=== PATIENT | female | born 1970 | race Caucasian/White ===

== ENCOUNTER 2017-10-05 14:21 | Inpatient (IN) | payer SELFPAY ==
[~2017-10-05] VITALS: Ht 152.4 cm; Wt 90.9 kg
[2017-10-05 14:22] VITALS: BP 189/97; PULSE 133; RESP 20; TEMP 99.3; O2SAT 100
[2017-10-05 14:55] LABS: AUTOMATED NEUTROPHIL # 8.8 TH/MM3 (1.8-7.7); BASOPHIL # 0.1 TH/MM3 (0-0.2); BASOPHIL % 0.6 % (0.0-2.0); EOSINOPHIL # 0.1 TH/MM3 (0-0.4); EOSINOPHIL % 0.9 % (0.0-4.0); HEMATOCRIT 25.5 % (35.0-46.0); HEMOGLOBIN 7.7 GM/DL (11.6-15.3); LYMPH % 10.2 % (9.0-44.0); LYMPHOCYTE # 1.1 TH/MM3 (1.0-4.8); MEAN CELL VOLUME 66.4 FL (80.0-100.0); MEAN CORPUSCULAR HGB CONC 30.1 % (32.0-36.0); MEAN PLATELET VOLUME 6.8 FL (7.0-11.0); MONO % 8.4 % (0.0-8.0); MONOCYTE # 0.9 TH/MM3 (0-0.9); NEUT % 79.9 % (16.0-70.0); PLATELET COUNT 742 TH/MM3 (150-450); RED BLOOD COUNT 3.85 MIL/MM3 (4.00-5.30); RED CELL DISTRIBUTION WIDTH 18.9 % (11.6-17.2)
[2017-10-05 15:17] LABS: ALBUMIN 2.6 GM/DL (3.4-5.0); ALT (GPT) 25 U/L (10-53); AST (GOT) 43 U/L (15-37); BLOOD UREA NITROGEN 14 MG/DL (7-18); CHLORIDE 104 MEQ/L (98-107); CREATININE 0.76 MG/DL (0.50-1.00); GLOMERULAR FILTRATION RATE 81 ML/MIN (>89); GLUCOSE,RANDOM 100 MG/DL (74-106); SODIUM (NA) 138 MEQ/L (136-145)
[2017-10-05 15:19] LABS: ALKALINE PHOSPHATASE 98 U/L (45-117); TOTAL BILIRUBIN ADULT 0.2 MG/DL (0.2-1.0); TOTAL PROTEIN 8.6 GM/DL (6.4-8.2)
--- NOTE | 2017-10-05 19:08 | PD ---
HPI Chief Complaint: Skin Problem Time Seen by Provider: 17:51 Travel History International Travel<30 days: No Contact w/Intl Traveler<30days: No Traveled to known affect area: No History of Present Illness HPI 47 year old female patient presents to the emergency department for evaluation of left breast swelling and erythema x one month. Patient recently moved to [place] from [place]. Patient's only medical history of hypertension and neck replacement surgery in 2013. Patient is a fevers, chills, malaise. Patient denies any chest pain, abdominal pain, nausea, vomiting, diarrhea. Patient denies any traumas, falls or injuries to the area. Patient states she become short of breath with exertion. Patient denies any dysuria or hematuria. Patient denies any history of family malignancies. Patient denies any smoking. Patient denies any drug use. Patient states occasional alcohol use. PFSH Past Medical History Cardiovascular Problems: Yes (HTN) Diminished Hearing: No Hypertension: Yes Medical other: Yes (disc reeplacement ) Tetanus Vaccination: < 5 Years Influenza Vaccination: No ?: Not LMP: 09/06/17 Menopausal: Yes : 4 Para: 4 Miscarriage: 0 : 0 Tubal Ligation: Yes Past Surgical History Other Surgery: Yes (disc reeplacement ) Social History Alcohol Use: No Tobacco Use: No Substance Use: No Allergies-Medications (Allergen,Severity, Reaction): Coded Allergies: No Known Allergies (Verified Allergy, Unknown, 10/05/17) Reported Meds & Prescriptions Reported Meds & Active Scripts Active No Active Prescriptions or Reported Medications Review of Systems Except as stated in HPI: all other systems reviewed are Neg Physical Exam Narrative GENERAL: Well-nourished, well-developed pale 47-year-old female in no acute distress. SKIN: Extensive erythema and induration noted to the left lateral breast extending up into the left axilla with multiple circular nontender growths throughout area of erythema. HEAD: Atraumatic. Normocephalic. EYES: Pupils equal and round. No scleral icterus. No injection or drainage. ENT: No nasal bleeding or discharge. Mucous membranes pink and moist. NECK: Trachea midline. No JVD. CARDIOVASCULAR: Regular rate and rhythm. No murmur appreciated. Radial pulses +2 bilaterally. RESPIRATORY: No accessory muscle use. Clear to auscultation. Breath sounds equal bilaterally. GASTROINTESTINAL: Abdomen soft, non-tender, nondistended. Hepatic and splenic margins not palpable. MUSCULOSKELETAL: No obvious deformities. No clubbing. No cyanosis. No edema. NEUROLOGICAL: Awake and alert. No obvious cranial nerve deficits. Motor grossly within normal limits. Normal speech. PSYCHIATRIC: Appropriate mood and affect; insight and judgment normal. Data Data Last Documented VS Vital Signs Date Time Temp Pulse Resp B/P (MAP) Pulse Ox O2 Delivery O2 Flow Rate FiO2 10/05/17 20:49 107 20 149/6 (53) 99 Room Air 10/05/17 14:22 99.3 Orders Orders Complete Blood Count With Diff (10/05/17 14:34) Comprehensive Metabolic Panel (10/05/17 14:34) Ct Pulmonary Angiogram (10/05/17 18:27) Iohexol 350 Inj (Omnipaque 350 Inj) (10/05/17 21:17) Admit Order (Ed Use Only) (10/05/17 22:18) Labs Laboratory Tests Test 10/05/17 14:38 White Blood Count 11.0 TH/MM3 Red Blood Count 3.85 MIL/MM3 Hemoglobin 7.7 GM/DL Hematocrit 25.5 % Mean Corpuscular Volume 66.4 FL Mean Corpuscular Hemoglobin 20.0 PG Mean Corpuscular Hemoglobin Concent 30.1 % Red Cell Distribution Width 18.9 % Platelet Count 742 TH/MM3 Mean Platelet Volume 6.8 FL Neutrophils (%) (Auto) 79.9 % Lymphocytes (%) (Auto) 10.2 % Monocytes (%) (Auto) 8.4 % Eosinophils (%) (Auto) 0.9 % Basophils (%) (Auto) 0.6 % Neutrophils # (Auto) 8.8 TH/MM3 Lymphocytes # (Auto) 1.1 TH/MM3 Monocytes # (Auto) 0.9 TH/MM3 Eosinophils # (Auto) 0.1 TH/MM3 Basophils # (Auto) 0.1 TH/MM3 CBC Comment DIFF FINAL Differential Comment Blood Urea Nitrogen 14 MG/DL Creatinine 0.76 MG/DL Random Glucose 100 MG/DL Total Protein 8.6 GM/DL Albumin 2.6 GM/DL Calcium Level 9.0 MG/DL Alkaline Phosphatase 98 U/L Aspartate Amino Transf (AST/SGOT) 43 U/L Alanine Aminotransferase (ALT/SGPT) 25 U/L Total Bilirubin 0.2 MG/DL Sodium Level 138 MEQ/L Potassium Level 4.1 MEQ/L Chloride Level 104 MEQ/L Carbon Dioxide Level 24.0 MEQ/L Anion Gap 10 MEQ/L Estimat Glomerular Filtration Rate 81 ML/MIN MDM Medical Decision Making Medical Screen Exam Complete: Yes Emergency Medical Condition: Yes Differential Diagnosis Differential diagnoses include but are not limited to cellulitis, abscess, malignancy, mastitis Narrative Course CBC, CMP ordered and pending in triage before the patient received a room. Upon physical exam it was noted that the patient has extensive induration, erythema with nontender circular growths covering the majority of the area of erythema. Patient's CBC resulted severe anemia with hemoglobin of 7.7. Patient is afebrile with no leukocytosis. Patient is tachycardic. CTA was ordered to evaluate extent of the induration. Due to the likelihood of malignancy with this condition and tachycardia it is prudent to assess for PE and ascertain whether there is long involvement with the induration and erythema. CTA shows entire left breast filled with multiple masses almost certain multifocal malignancy, extensive adenopathy in the left axilla in addition to the left supraclavicular adenopathy and adenopathy within the superior mediastinum suspicious for metastatic disease. Lung nodules also suspicious for metastatic disease. Patient admitted at this time for further evaluation for symptomatic anemia and metastatic disease. Dr. Pierson accepts admission. Last Impressions CT Angiography 10/05/171826 Signed Impressions: Service Date/Time: Thursday, October 05, 2017 20:53 - CONCLUSION: 1. The entire left breast is filled with multiple masses almost certainly multifocal malignancy. 2. Extensive adenopathy in the left axilla in addition to left supraclavicular adenopathy and adenopathy within the superior mediastinum suspicious for metastatic disease. 3. Lung nodules also suspicious for metastatic disease. Isidoro Harris MD Diagnosis Primary Impression: Symptomatic anemia Additional Impression: Metastatic disease Admitting Information Admitting Physician Requests: Admit Scripts No Active Prescriptions or Reported Meds Jazmyn Marshall Oct 05, 2017 19:08
--- NOTE | 2017-10-05 19:18 | PD ---
Data Data Last Documented VS Vital Signs Date Time Temp Pulse Resp B/P (MAP) Pulse Ox O2 Delivery O2 Flow Rate FiO2 10/05/17 17:18 104 17 10/05/17 14:22 99.3 189/97 (127) 100 Room Air Orders Orders Complete Blood Count With Diff (10/05/17 14:34) Comprehensive Metabolic Panel (10/05/17 14:34) Ct Pulmonary Angiogram (10/05/17 18:27) Labs Laboratory Tests Test 10/05/17 14:38 White Blood Count 11.0 TH/MM3 Red Blood Count 3.85 MIL/MM3 Hemoglobin 7.7 GM/DL Hematocrit 25.5 % Mean Corpuscular Volume 66.4 FL Mean Corpuscular Hemoglobin 20.0 PG Mean Corpuscular Hemoglobin Concent 30.1 % Red Cell Distribution Width 18.9 % Platelet Count 742 TH/MM3 Mean Platelet Volume 6.8 FL Neutrophils (%) (Auto) 79.9 % Lymphocytes (%) (Auto) 10.2 % Monocytes (%) (Auto) 8.4 % Eosinophils (%) (Auto) 0.9 % Basophils (%) (Auto) 0.6 % Neutrophils # (Auto) 8.8 TH/MM3 Lymphocytes # (Auto) 1.1 TH/MM3 Monocytes # (Auto) 0.9 TH/MM3 Eosinophils # (Auto) 0.1 TH/MM3 Basophils # (Auto) 0.1 TH/MM3 CBC Comment DIFF FINAL Differential Comment Blood Urea Nitrogen 14 MG/DL Creatinine 0.76 MG/DL Random Glucose 100 MG/DL Total Protein 8.6 GM/DL Albumin 2.6 GM/DL Calcium Level 9.0 MG/DL Alkaline Phosphatase 98 U/L Aspartate Amino Transf (AST/SGOT) 43 U/L Alanine Aminotransferase (ALT/SGPT) 25 U/L Total Bilirubin 0.2 MG/DL Sodium Level 138 MEQ/L Potassium Level 4.1 MEQ/L Chloride Level 104 MEQ/L Carbon Dioxide Level 24.0 MEQ/L Anion Gap 10 MEQ/L Estimat Glomerular Filtration Rate 81 ML/MIN MDM Supervised Visit with AYO: Yes Narrative Course The history, exam, and medical decision-making in the associated midlevel provider note were completed with my assistance. I reviewed and agree with the findings presented. I attest that I had a [id number] encounter with the patient on the same day, and personally performed and documented my assessment and findings in the medical record. *My assessment and Findings: This is a 47-year-old female who presents to the emergency department with 1 month of reported swelling and increasing hardness of the left breast. Patient was tachycardic on arrival in the 130s. Labs demonstrate a microcytic anemia which is likely chronic. She has an impressive breast exam with red firm lumps starting at the axilla progressing downward with induration of the entire left breast. CT will be obtained to demonstrate the extent of patient's likely underlying malignancy. Disposition will be made following CT imaging results. Scripts No Active Prescriptions or Reported Meds Emily Ferraro MD Oct 05, 2017 19:18
[2017-10-05 20:49] VITALS: BP 149/6; PULSE 107; RESP 20; O2SAT 99
[2017-10-05] MEDS ORDERED: IOHEXOL 350 MG/ML 10 ML VIAL (for RAD DIAG) IVCONTRAST ONE (21:17)
--- NOTE | 2017-10-05 21:28 | RADRPT ---
EXAM DATE/TIME: 10/05/2017 20:53 [facility] COMPARISON: No previous studies available for comparison. INDICATIONS : Left breast swelling for one month. IV CONTRAST: 75 cc Omnipaque 350 (iohexol) IV RADIATION DOSE: 10.89 CTDIvol (mGy) MEDICAL HISTORY : Hypertension. SURGICAL HISTORY : Tubal ligation. ENCOUNTER: Initial ACUITY: 1 day PAIN SCALE: 5/10 LOCATION: Left chest TECHNIQUE: Volumetric scanning of the chest was performed using a pulmonary embolism protocol MIP images were re constructed. Using automated exposure control and adjustment of the mA and/or kV according to patien t size, radiation dose was kept as low as reasonably achievable to obtain optimal diagnostic quality images. DICOM format image data is available electronically for review and comparison. Follow-up recommendations for detected pulmonary nodules are based at a minimum on nodule size and pa tient risk factors according to Fleischner Society Guidelines. FINDINGS: Multiple pulmonary nodules are present the largest one measures almost 6 mm in right lower lobe characteristic of metastatic disease. The left breast is enlarged significantly with multiple masses occupying the entire breast and subcutaneous tissues the largest one measures 7.5 cm in size almost certainly multifocal malignancy. There is also adenopathy in the left axillae the largest one measure s 5.8 cm in size. The lymph nodes in the left supraclavicular area the largest measures 1.5 cm and th ere are lymph nodes in the superior mediastinum the largest measures 1.5 cm also suspicious for metas tatic disease. There is lymphedema in the left lateral chest wall. There is no evidence for PE for te chnique. CONCLUSION: 1. The entire left breast is filled with multiple masses almost certainly multifocal malignancy. 2. Extensive adenopathy in the left axilla in addition to left supraclavicular adenopathy and adenopa thy within the superior mediastinum suspicious for metastatic disease. 3. Lung nodules also suspicious for metastatic disease. Isidoro Harris MD on October 05, 2017 at 21:21 Board Certified Radiologist. This report was verified electronically.
[2017-10-05] MEDS ORDERED: SODIUM CHLOR 0.9% 250 ML INJ 250 ML IV ONE (22:30)
[2017-10-06] VITALS (13 sets, daily range): BP systolic 129–159; BP diastolic 74–90; PULSE 98–115; RESP 15–20; TEMP 98.7–99.7; O2SAT 96–98
[2017-10-06] MEDS: IBUPROFEN 400 MG TAB PO PRN ×2 (03:18→23:03)
--- NOTE | 2017-10-06 10:59 | MB ---
cc: COLTON HELTON M.D. DATE OF CONSULTATION 10/06/[address] Booker REASON FOR CONSULTATION Oncology consult to render opinion regarding patient with a large left breast mass. HISTORY OF PRESENT ILLNESS The patient is very pleasant 47-year-old female who presented to the emergency room with a complaint of left breast swelling and tenderness. She is rather vague about how long she has noticed the left breast mass. She moved from [facility] to [place] about two years ago. She stated about three months ago she noticed some swelling of the left breast. It has progressively gotten worse. She did not seek any medical attention. When she presented to the emergency room, she was tachycardiac. She was also found to be anemic with a hemoglobin of 7.7. She denies any fever or chills, night sweats or weight loss. Denies chest pressure, palpitations, shortness of breath or cough, nausea, vomiting, diarrhea or abdominal pain. Denies any headache. Denies any bone pain. Denies any dysuria or hematuria. PAST MEDICAL HISTORY Hypertension PAST SURGICAL HISTORY Neck surgery FAMILY HISTORY She has no siblings. She has a daughter and three sons all healthy. Her parents are . No family history of cancer. SOCIAL HISTORY Denies tobacco use. She drinks rarely. She lives with her . HEALTH MAINTENANCE She has never had a mammogram. ALLERGIES No known drug allergies. CURRENT MEDICATIONS Ibuprofen REVIEW OF SYSTEMS CONSTITUTION: Negative. EYES: Negative. ENT: Negative. CARDIOVASCULAR: Denies chest pressure or palpitation. RESPIRATORY: Mild dyspnea on exertion. Denies any cough. GI: Negative. : No dysuria or hematuria. Last menstrual period was early September. Denies significant menorrhagia. MUSCULOSKELETAL: Negative. HEMATOLOGIC: As above. ENDOCRINE: Negative. HEMATOLOGY: As above. NEUROLOGIC: Negative. PSYCHIATRIC: Negative. PHYSICAL EXAM VITAL SIGNS: Temperature 99.3, blood pressure 147/83. GENERAL: She is alert and oriented x3 in no acute distress. Pale. HEENT: Atraumatic, normocephalic. Pupils equal, round and reactive to light. Extraocular muscles intact. No sclerae icterus. Oropharynx, dry mucosa. No lesion or thrush. No mucositis. NECK: No thyromegaly. No palpable masses. LYMPHATICS: She had palpable left supraclavicular adenopathy. She had a few large masses in the left axillary area. The mass pretty much continues with a large left breast mass. CARDIOVASCULAR: Regular S1-S2. No murmurs. LUNGS: Clear to auscultation bilaterally without wheezing or rhonchi. ABDOMEN: Soft and nontender. I could not palpate the liver. EXTREMITIES: No cyanosis, clubbing or edema. BACK: No paravertebral tenderness. SKIN: No rash or petechia. NEUROLOGIC: Exam is nonfocal. BREASTS: Exam done with columnist/commentator present showed no palpable mass in the right breast. Adenopathy left breast. A large mass almost occupied the entire left breast. There were erythematous nodules scattered around the left breast. There was a large mass in the left axillary area with a fungating lesion in the left axillary area and mild bleeding noted. LABORATORY DATA WBC 11, hemoglobin 7.7, MCV 66.4, platelet count 742, creatinine of 0.76, AST 43. ASSESSMENT 1. Large left breast mass with a palpable large left axillary adenopathy and left supraclavicular adenopathy. CT of the chest showed the entire left breast is filled with multiple masses. There was also extensive adenopathy in the left axilla, left supraclavicular and superior mediastinum. There are also small nodules in the lung suspicious for metastatic disease. Clinically, this appeared to be metastatic breast cancer. The breast mass may have been there for a while. The patient is rather vague about how long the breast mass has been there. She thinks it is only about three months. At this point, I am going to check her tumor markers. I will consult surgery for biopsy of the left breast mass. I am also going to get a CT of the abdomen and pelvis and bone scan to complete the staging. If she indeed has metastatic invasive breast carcinoma, she is going to need chemotherapy to shrink the breast mass and possibly proceed with palliative mastectomy after the chemotherapy. 2. Anemia which is microcytic consistent with iron deficiency anemia. I am going to check her iron study and vitamin study. She is currently receiving a transfusion. She likely has iron deficiency anemia due to menstrual bleed. She denies any GI bleed. 3. Hypertension, stable. PLAN 1. Consult surgery for biopsy of the left breast mass. 2. Check tumor marker. 3. Get CT of the abdomen and pelvis and bone scan to complete the staging. 4. Proceed with anemia workup. 5. She is currently receiving a blood transfusion. Thank you, Dr. Booker, for asking us to see this patient. MD NIALL Navarro/RAUL /10:07 AM /10:26 AM [facility]
[2017-10-06] MEDS ORDERED: DIATRIZOATE MEGLUM/DIATRIZOATE SOD 9 ML CUP PO ONE (11:30)
[2017-10-06 12:22] LABS: RETIC % 2.1 % (0.4-3.0)
[2017-10-06 12:30] LABS: HEMATOCRIT 30.3 % (35.0-46.0); HEMOGLOBIN 9.8 GM/DL (11.6-15.3); MEAN CELL VOLUME 70.5 FL (80.0-100.0); MEAN CORPUSCULAR HEMOGLOBIN 22.8 PG (27.0-34.0); MEAN CORPUSCULAR HGB CONC 32.3 % (32.0-36.0); MEAN PLATELET VOLUME 7.5 FL (7.0-11.0); PLATELET COUNT 739 TH/MM3 (150-450); RED CELL DISTRIBUTION WIDTH 22.8 % (11.6-17.2); WHITE BLOOD COUNT 16.4 TH/MM3 (4.0-11.0)
[2017-10-06 12:38] LABS: CARCINOEMBRYONIC ANTIGEN LESS THAN 0.2 NG/ML (0.2-5.0)
[2017-10-06 12:42] LABS: % SATURATION IRON PROFILE 85.2 % (20-50); IRON (FE) 216 MCG/DL (50-170); TOTAL IRON BINDING CAPACITY 253 MCG/DL (250-450)
[2017-10-06 13:07] LABS: FERRITIN 133 NG/ML (8-252); FOLATE 6.5 NG/ML (3.1-17.5)
[2017-10-06 13:24] LABS: BANDS 2 % (0-6); BASOPHILS 1 % (0-2); LYMPHOCYTES 7 % (9-44); MONOCYTES 8 % (0-8); NEUTROPHIL # MANUAL DIFF 13.8 TH/MM3 (1.8-7.7); POLYS (SEG NEUTROPHILS) 82 % (16-70)
[2017-10-06 13:25] LABS: CA 15-3 11.2 U/ML (0.0-32.4); OVALOCYTES 1+ (NORMAL); TOXIC GRANULATION 1+ (NORMAL)
--- NOTE | 2017-10-06 13:49 | HHI.HP ---
HPI Service [facility] Hospitalists Primary Care Physician No Primary Care Physician Admission Diagnosis symptomatic anemia, metastatic disease Chief Complaint: "my breast" Travel History International Travel<30 Days: No Contact w/Intl Traveler <30 Da: No Traveled to Known Affected Are: No History of Present Illness This is a 47-year-old female patient with a past medical history which includes HTN and neck surgery secondary to DDD. Patient presented to the emergency room with a complaint of left breast edema and tenderness. Patient vague regarding the duration of this edema and tenderness. She stated about three months ago she noticed some swelling of the left breast. Which has progressively gotten worse. Patient noticed over the last month open areas which are oozing blood. She did not seek any medical attention, until now. When she presented to the emergency room she was also found to be anemic with a hemoglobin of 7.7. She denies any fever or chills, night sweats or weight loss. Denies chest pressure , palpitations, shortness of breath or cough, nausea, vomiting, diarrhea or abdominal pain. Denies any headache. Denies any bone pain. Denies any dysuria or hematuria. Review of Systems Constitutional: DENIES: Fatigue, Fever, Weight loss, Chills Endocrine: DENIES: Abnorml menstrual pattern Eyes: DENIES: Blurred vision, Diplopia, Vision loss Respiratory: DENIES: Cough, Sputum production, Shortness of breath Cardiovascular: DENIES: Chest pain, Palpitations, Lower Extremity Edema Gastrointestinal: DENIES: Abdominal pain, Constipation, Diarrhea, Nausea, Vomiting Integumentary: COMPLAINS OF: Abnormal pigmentation, Breast masses, Breast skin changes, DENIES: Nipple discharge Neurologic: DENIES: Abnormal gait, Headache, Localized weakness Psychiatric: DENIES: Anxiety, Confusion, Depression Past Family Social History Past Medical History Hypertension Past Surgical History Neck surgery Reported Medications No Active Prescriptions or Reported Medications Allergies: Coded Allergies: No Known Allergies (Verified Allergy, Unknown, 10/05/17) Active Ordered Medications Current Medications Medications (Trade) Dose Ordered Sig/Antoni Route Start Time Stop Time Status Last Admin Sodium Chloride 250 ml @ 15 mls/hr ONCE ONCE IV 10/05/17 22:30 10/06/17 15:09 10/05/17 01:09 (Motrin) 400 mg Q8H PRN PO 10/06/17 02:45 10/06/17 03:18 Family History Denies family history of cancer. Social History Lives with her ETOH use rare denies tobacco use denies illicit drug use Physical Exam Vital Signs Vital Signs Date Time Temp Pulse Resp B/P (MAP) Pulse Ox O2 Delivery O2 Flow Rate FiO2 10/06/17 12:08 98.7 106 20 142/74 (96) 98 10/06/17 09:54 99.3 106 20 147/83 10/06/17 08:28 99.3 106 20 147/83 (104) 97 10/06/17 05:34 99.1 101 15 137/76 97 10/06/17 05:10 98.7 100 17 140/81 98 10/06/17 05:05 98.7 99 18 140/81 (100) 97 10/06/17 04:54 99.3 100 15 136/82 98 10/06/17 04:18 15 10/06/17 01:30 99.6 106 15 129/77 98 10/06/17 00:52 99.7 115 16 155/82 98 10/06/17 00:12 110 20 152/90 (110) 98 10/06/17 00:11 110 20 152/90 (110) 98 Room Air 10/05/17 20:49 107 20 149/6 (53) 99 Room Air 10/05/17 17:18 104 17 10/05/17 14:22 99.3 133 20 189/97 (127) 100 Room Air Physical Exam GENERAL: This is a well-nourished, well-developed patient, in no apparent distress. SKIN: Large firm mass occupying the entire left breast with erythematous nodular scattered around the left breast into the axilla. Left lateral chest and Left axilla oozing bleeding lesions noted HEAD: Atraumatic. Normocephalic. No temporal or scalp tenderness. EYES: Extraocular motions intact. No scleral icterus. No injection or drainage. ENT: Nose without bleeding, purulent drainage or septal hematoma. Throat without erythema, tonsillar hypertrophy or exudate. Uvula midline. Airway patent. NECK: Trachea midline. No JVD or lymphadenopathy. Supple, nontender, no meningeal signs. CARDIOVASCULAR: Regular rate and rhythm without murmurs, gallops, or rubs. RESPIRATORY: Clear to auscultation. Breath sounds equal bilaterally. GASTROINTESTINAL: Abdomen soft, non-tender, nondistended. MUSCULOSKELETAL: Extremities without clubbing, cyanosis, or edema. No joint tenderness, effusion, or edema noted. No calf tenderness. Negative Homans sign bilaterally. NEUROLOGICAL: Awake and alert. Cranial nerves II through XII intact. Motor and sensory grossly within normal limits. Five out of 5 muscle strength in all muscle groups. Normal speech. Laboratory Laboratory Tests Test 10/05/17 14:38 10/06/17 11:39 White Blood Count 11.0 16.4 Red Blood Count 3.85 4.30 Hemoglobin 7.7 9.8 Hematocrit 25.5 30.3 Mean Corpuscular Volume 66.4 70.5 Mean Corpuscular Hemoglobin 20.0 22.8 Mean Corpuscular Hemoglobin Concent 30.1 32.3 Red Cell Distribution Width 18.9 22.8 Platelet Count 742 739 Mean Platelet Volume 6.8 7.5 Neutrophils (%) (Auto) 79.9 Lymphocytes (%) (Auto) 10.2 Monocytes (%) (Auto) 8.4 Eosinophils (%) (Auto) 0.9 Basophils (%) (Auto) 0.6 Neutrophils # (Auto) 8.8 Lymphocytes # (Auto) 1.1 Monocytes # (Auto) 0.9 Eosinophils # (Auto) 0.1 Basophils # (Auto) 0.1 CBC Comment DIFF FINAL AUTO DIFF Differential Comment FINAL DIFF MANUAL Blood Urea Nitrogen 14 Creatinine 0.76 Random Glucose 100 Total Protein 8.6 Albumin 2.6 Calcium Level 9.0 Alkaline Phosphatase 98 Aspartate Amino Transf (AST/SGOT) 43 Alanine Aminotransferase (ALT/SGPT) 25 Total Bilirubin 0.2 Sodium Level 138 Potassium Level 4.1 Chloride Level 104 Carbon Dioxide Level 24.0 Anion Gap 10 Estimat Glomerular Filtration Rate 81 Differential Total Cells Counted 100 Neutrophils % (Manual) 82 Band Neutrophils % 2 Lymphocytes % 7 Monocytes % 8 Basophils % 1 Neutrophils # (Manual) 13.8 Toxic Granulation 1+ Platelet Estimate HIGH Platelet Morphology Comment NORMAL Ovalocytes 1+ Reticulocyte Count 2.1 Absolute Reticulocyte Count 90.0 Iron Level 216 Total Iron Binding Capacity 253 Percent Iron Saturation 85.2 Ferritin 133 Carcinoembryonic Antigen LESS THAN 0.2 CA 15-3 Antigen 11.2 Vitamin B12 Level 1091 Folate 6.5 Result Diagram: 10/06/17 1139 10/05/17 [address] Angiography 1/3/18 1827 Signed Impressions: Service Date/Time: Thursday, October 05, 2017 20:53 - CONCLUSION: 1. The entire left breast is filled with multiple masses almost certainly multifocal malignancy. 2. Extensive adenopathy in the left axilla in addition to left supraclavicular adenopathy and adenopathy within the superior mediastinum suspicious for metastatic disease. 3. Lung nodules also suspicious for metastatic disease. MD Brandin Kaba VTE Risk Assessment Caprini VTE Risk Assessment: Mod/High Risk (score >= 2) Caprini Risk Assessment Model Point Value = 1 Point Value = 2 Point Value = 3 Point Value = 5 Age 41-60 Minor surgery BMI > 25 kg/m2 Swollen legs Varicose veins or History of unexplained or recurrent spontaneous Oral contraceptives or hormone replacement Sepsis (< 1 month) Serious lung disease, including pneumonia (< 1 month) Abnormal pulmonary function Acute myocardial infarction Congestive heart failure (< 1 month) History of inflammatory bowel disease Medical patient at bed rest Age 61-74 Arthroscopic surgery Major open surgery (> 45 min) Laparoscopic surgery (> 45 min) Malignancy Confined to bed (> 72 hours) Immobilizing plaster cast Central venous access Age >= 75 History of VTE Family history of VTE Factor V Leiden Prothrombin [id number] Lupus anticoagulant Anticardiolipin antibodies Elevated serum homocysteine Heparin-induced thrombocytopenia Other congenital or acquired thrombophilia Stroke (< 1 month) Elective arthroplasty Hip, pelvis, or leg fracture Acute spinal cord injury (< 1 month) Prophylaxis Regimen Total Risk Factor Score Risk Level Prophylaxis Regimen 0-1 Low Early ambulation 2 Moderate Order ONE of the following: *Sequential Compression Device (SCD) *Heparin 5000 units SQ BID 3-4 Higher Order ONE of the following medications: *Heparin 5000 units SQ TID *Enoxaparin/Lovenox 40 mg SQ daily (WT < 150 kg, CrCl > 30 mL/min) *Enoxaparin/Lovenox 30 mg SQ daily (WT < 150 kg, CrCl > 10-29 mL/min) *Enoxaparin/Lovenox 30 mg SQ BID (WT < 150 kg, CrCl > 30 mL/min) AND/OR *Sequential Compression Device (SCD) 5 or more Highest Order ONE of the following medications: *Heparin 5000 units SQ TID (Preferred with Epidurals) *Enoxaparin/Lovenox 40 mg SQ daily (WT < 150 kg, CrCl > 30 mL/min) *Enoxaparin/Lovenox 30 mg SQ daily (WT < 150 kg, CrCl > 10-29 mL/min) *Enoxaparin/Lovenox 30 mg SQ BID (WT < 150 kg, CrCl > 30 mL/min) AND *Sequential Compression Device (SCD) Assessment and Plan Problem List: (1) Breast lesion ICD Codes: N64.9 - Disorder of breast, unspecified Plan: -Large left breast mass with a palpable large left axillary adenopathy and left supraclavicular adenopathy. - CT of the chest showed the entire left breast is filled with multiple masses. Extensive adenopathy in the left axilla, left supraclavicular and superior mediastinum. There are also small nodules in the lung suspicious for metastatic disease. - consult oncology, appreciate input. per oncology: If she indeed has metastatic invasive breast carcinoma, she is going to need chemotherapy to shrink the breast mass and possibly proceed with palliative mastectomy after the chemotherapy. - tumor markers. - consult surgery for biopsy of the left breast mass. - CT of the abdomen and pelvis and bone scan to complete the staging. (2) Symptomatic anemia ICD Codes: D64.9 - Anemia, unspecified Status: Acute Plan: Anemia which is microcytic consistent with iron deficiency anemia. s/p 2 units PRBC 10/05/17 patient reports heavy menstrual cycles iron studies obtained post transfusion reveal: iron 216, TIBC 253, percent saturation 85.2, ferritin 133 (3) HTN (hypertension) ICD Codes: I10 - Essential (primary) hypertension Regla Ku Oct 06, 2017 13:49
[2017-10-06] MEDS ORDERED: IOHEXOL 350 MG/ML 10 ML VIAL (for RAD DIAG) IVCONTRAST ONE (15:37)
--- NOTE | 2017-10-06 15:56 | RADRPT ---
EXAM DATE/TIME: 10/06/2017 14:35 [facility] COMPARISON: CT ABDOMEN & PELVIS W CONTRAST, October 06, 2017, 15:22. CT PULMONARY ANGIOGRAM, October 05, 2017, 2 0:53. PRIOR BONE SCANS: No correlative bone scan available for comparison. INDICATIONS : Left breast swelling and tenderness. Left breast mass. DOSE: 32.9 mCi Tc99m MDP IV MEDICAL HISTORY : Hypertension. SURGICAL HISTORY : Tubal ligation. ENCOUNTER: Initial ACUITY: 1 day PAIN SCALE: 0/10 LOCATION: Left Breast. TECHNIQUE: Three hours post intravenous administration of radiotracer, whole body bone scan imag ing was performed. FINDINGS: There is no evidence for any abnormal uptake in the axial or appendicular skeleton to suggest metasta tic disease. The blood pool portion demonstrates extensive hyperemia in the left breast correspondin g to healed masses seen on the patient's CT examination extending down along the chest wall all the w ay down to the abdominal wall to the junction of the pelvis. CONCLUSION: No evidence for metastatic disease. Isidoro Harris MD on October 06, 2017 at 15:40 Board Certified Radiologist. This report was verified electronically.
--- NOTE | 2017-10-06 16:01 | RADRPT ---
EXAM DATE/TIME: 10/06/2017 15:22 [facility] COMPARISON: No previous studies available for comparison. INDICATIONS : Diffuse abdomen pain, metastasis tumors. IV CONTRAST: 96 cc Omnipaque 350 (iohexol) IV ORAL CONTRAST: Prescribed oral contrast ingested. RADIATION DOSE: 11.35 CTDIvol (mGy) MEDICAL HISTORY : Hypertension. SURGICAL HISTORY : Tubal ligation. ENCOUNTER: Initial ACUITY: 1 day PAIN SCALE: 3/10 LOCATION: Bilateral lower quadrant and upper quadrant. TECHNIQUE: Volumetric scanning of the abdomen and pelvis was performed. Using automated exposure control and ad justment of the mA and/or kV according to patient size, radiation dose was kept as low as reasonably achievable to obtain optimal diagnostic quality images. DICOM format image data is available electro nically for review and comparison. FINDINGS: CT Abdomen: The liver, spleen, pancreas, kidneys, adrenals are unremarkable. There is no evidence for any appreciable pathological adenopathy, free fluid, or bowel obstruction. There are findings in th e visualized lower chest discussed on the patient's chest CT. There is subcutaneous haziness extendin g from the lower chest although a down to the junction of the pelvis may represent lymphedema. CT pelvis: There is an approximate 1.9 cm cyst in the left ovary most likely benign. CONCLUSION: No evidence for metastatic disease to abdomen or pelvis and probable benign cyst in t he left ovary could be followed with repeat pelvic ultrasound in 6 months.. Isidoro Harris MD on October 06, 2017 at 15:55 Board Certified Radiologist. This report was verified electronically.
[2017-10-07 04:36] VITALS: BP 143/80; PULSE 95; RESP 18; TEMP 98.2; O2SAT 98
--- NOTE | 2017-10-07 07:48 | PD.ONC.PN ---
Subjective Subjective Remarks Feeling better after the transfusion. Eager to go home. Left breast pain controlled. Objective Data Date Time Temp Pulse Resp B/P (MAP) Pulse Ox O2 Delivery O2 Flow Rate FiO2 10/07/17 04:36 98.2 95 18 143/80 (101) 98 10/07/17 00:03 14 10/06/17 21:51 99.3 98 18 150/82 (104) 96 10/06/17 15:53 99.0 106 20 159/85 (109) 96 10/06/17 12:08 98.7 106 20 142/74 (96) 98 10/06/17 09:54 99.3 106 20 147/83 10/06/17 08:28 99.3 106 20 147/83 (104) 97 Result Diagram: 10/06/17 1139 10/05/17 1438 Laboratory Results Laboratory Tests Test 10/06/17 11:39 White Blood Count 16.4 TH/MM3 Red Blood Count 4.30 MIL/MM3 Hemoglobin 9.8 GM/DL Hematocrit 30.3 % Mean Corpuscular Volume 70.5 FL Mean Corpuscular Hemoglobin 22.8 PG Mean Corpuscular Hemoglobin Concent 32.3 % Red Cell Distribution Width 22.8 % Platelet Count 739 TH/MM3 Mean Platelet Volume 7.5 FL CBC Comment AUTO DIFF Differential Total Cells Counted 100 Neutrophils % (Manual) 82 % Band Neutrophils % 2 % Lymphocytes % 7 % Monocytes % 8 % Basophils % 1 % Neutrophils # (Manual) 13.8 TH/MM3 Differential Comment FINAL DIFF MANUAL Toxic Granulation 1+ Platelet Estimate HIGH Platelet Morphology Comment NORMAL Ovalocytes 1+ Reticulocyte Count 2.1 % Absolute Reticulocyte Count 90.0 MIL/L Iron Level 216 MCG/DL Total Iron Binding Capacity 253 MCG/DL Percent Iron Saturation 85.2 % Ferritin 133 NG/ML Carcinoembryonic Antigen LESS THAN 0.2 NG/ML CA 15-3 Antigen 11.2 U/ML Vitamin B12 Level 1091 PG/ML Folate 6.5 NG/ML Human Chorionic Gonadotropin, Quant LESS THAN 1 MIU/ML Administered Medications Medications (Trade) Dose Ordered Sig/Antoin Route PRN Reason Start Time Stop Time Status Last Admin Dose Admin Ibuprofen (Motrin) 400 mg Q8H PRN PO PAIN 10/06/17 02:45 10/06/17 23:03 Objective Remarks GENERAL: Well-nourished, well-developed patient. SKIN: Warm and dry. HEAD: Normocephalic. EYES: No scleral icterus. No injection or drainage. NECK: Supple, trachea midline. No JVD or lymphadenopathy. LYMPHATIC: No adenopathy. Larger mass left axilla CARDIOVASCULAR: Regular rate and rhythm without murmurs. RESPIRATORY: Breath sounds equal bilaterally. No accessory muscle use. GASTROINTESTINAL: Abdomen soft, non-tender, nondistended. EXTREMITIES: No cyanosis, or edema. MUSCULOSKELETAL: Adequate muscle tone. NEUROLOGICAL: No obvious focal deficit. Awake, alert, and oriented x3. PSYCHIATRIC: Appropriate mood and affect; insight and judgment normal. Assessment/Plan Assessment 1. Large left breast mass with a palpable large left axillary adenopathy and left supraclavicular adenopathy. CT of the chest showed the entire left breast is filled with multiple masses. There was also extensive adenopathy in the left axilla, left supraclavicular and superior mediastinum. There are also small nodules in the lung suspicious for metastatic disease. Clinically, this appeared to be metastatic breast cancer. The breast mass may have been there for a while. The patient is rather vague about how long the breast mass has been there. She thinks it is only about three months. 10/07/17 Tumor markers are normal. CT abdomen/pelvis and bone scan showed no definite metastasis. Discussed with , he plans to to do biopsy as outpatient. 2. Anemia which is microcytic consistent with iron deficiency anemia. I am going to check her iron study and vitamin study. She is currently receiving a transfusion. She likely has iron deficiency anemia due to menstrual bleed. She denies any GI bleed. 3. Hypertension, stable. Plan PLAN 1. Reviewed CT and bone scan with patient. 2. F/u with for biopsy. 3. Iron supplement. 4. F/u Oncology clinic after the biopsy. 5. Discussed with . She can be d/c from oncology standpoint. Lalo Moe MD Oct 07, 2017 07:48
[2017-10-07 08:12] VITALS: BP 166/86; PULSE 80; RESP 20; TEMP 99.3; O2SAT 96
[2017-10-07 10:14] LABS: INTERNATIONAL NORMALIZED RATIO 1.1 RATIO; PROTHROMBIN TIME - PATIENT 11.2 SEC (9.8-11.6)
[2017-10-07] MEDS ORDERED: AMLO5 PO (11:24)
--- NOTE | 2017-10-07 11:39 | HHI.DS ---
Discharge Summary Admission Date Oct 05, 2017 at 22:20 Discharge Date: Oct 07, 2017 Admitting Diagnosis symptomatic anemia, metastatic disease (1) Breast lesion Diagnosis: Principal ICD Codes: N64.9 - Disorder of breast, unspecified (2) Symptomatic anemia Diagnosis: Principal ICD Codes: D64.9 - Anemia, unspecified Status: Acute (3) HTN (hypertension) Diagnosis: Secondary ICD Codes: I10 - Essential (primary) hypertension Consultants Dr. Moe Interventional radiology Procedures US guided left breast biopsy 10/07/17 Brief History This is a 47-year-old female patient with a past medical history which includes HTN and neck surgery secondary to DDD. Patient presented to the emergency room with a complaint of left breast edema and tenderness. Patient vague regarding the duration of this edema and tenderness. She stated about three months ago she noticed some swelling of the left breast. Which has progressively gotten worse. Patient noticed over the last month open areas which are oozing blood. She did not seek any medical attention, until now. When she presented to the emergency room she was also found to be anemic with a hemoglobin of 7.7. She denies any fever or chills, night sweats or weight loss. Denies chest pressure , palpitations, shortness of breath or cough, nausea, vomiting, diarrhea or abdominal pain. Denies any headache. Denies any bone pain. Denies any dysuria or hematuria. CBC/BMP: 10/06/17 1139 10/05/17 1438 Significant Findings Laboratory Tests Test 10/05/17 14:38 10/06/17 11:39 10/07/17 09:46 Red Blood Count 3.85 MIL/MM3 (4.00-5.30) Hemoglobin 7.7 GM/DL (11.6-15.3) 9.8 GM/DL (11.6-15.3) Hematocrit 25.5 % (35.0-46.0) 30.3 % (35.0-46.0) Mean Corpuscular Volume 66.4 FL (80.0-100.0) 70.5 FL (80.0-100.0) Mean Corpuscular Hemoglobin 20.0 PG (27.0-34.0) 22.8 PG (27.0-34.0) Mean Corpuscular Hemoglobin Concent 30.1 % (32.0-36.0) Red Cell Distribution Width 18.9 % (11.6-17.2) 22.8 % (11.6-17.2) Platelet Count 742 TH/MM3 (150-450) 739 TH/MM3 (150-450) Mean Platelet Volume 6.8 FL (7.0-11.0) Neutrophils (%) (Auto) 79.9 % (16.0-70.0) Monocytes (%) (Auto) 8.4 % (0.0-8.0) Neutrophils # (Auto) 8.8 TH/MM3 (1.8-7.7) Total Protein 8.6 GM/DL (6.4-8.2) Albumin 2.6 GM/DL (3.4-5.0) Aspartate Amino Transf (AST/SGOT) 43 U/L (15-37) Estimat Glomerular Filtration Rate 81 ML/MIN (>89) White Blood Count 16.4 TH/MM3 (4.0-11.0) Neutrophils % (Manual) 82 % (16-70) Lymphocytes % 7 % (9-44) Neutrophils # (Manual) 13.8 TH/MM3 (1.8-7.7) Toxic Granulation 1+ (NORMAL) Platelet Estimate HIGH (NORMAL) Ovalocytes 1+ (NORMAL) Iron Level 216 MCG/DL (50-170) Percent Iron Saturation 85.2 % (20-50) Carcinoembryonic Antigen LESS THAN 0.2 NG/ML Vitamin B12 Level 1091 PG/ML (193-986) Imaging Last Impressions Bone Scan Nuclear Medicine 10/06/17 0000 Signed Impressions: Service Date/Time: October 14:35 - CONCLUSION: No evidence for metastatic disease. Isidoro Harris MD Abdomen/Pelvis CT 10/06/17 0000 Signed Impressions: Service Date/Time: October 15:22 - CONCLUSION: No evidence for metastatic disease to abdomen or pelvis and probable benign cyst in the left ovary could be followed with repeat pelvic ultrasound in 6 months.. Isidoro Harris MD CT Angiography 10/05/17 1827 Signed Impressions: Service Date/Time: Thursday, October 05, 2017 20:53 - CONCLUSION: 1. The entire left breast is filled with multiple masses almost certainly multifocal malignancy. 2. Extensive adenopathy in the left axilla in addition to left supraclavicular adenopathy and adenopathy within the superior mediastinum suspicious for metastatic disease. 3. Lung nodules also suspicious for metastatic disease. Isidoro Harris MD Hospital Course Breast lesion -Large left breast mass with a palpable large left axillary adenopathy and left supraclavicular adenopathy. - CT of the chest showed the entire left breast is filled with multiple masses. Extensive adenopathy in the left axilla, left supraclavicular and superior mediastinum. There are also small nodules in the lung suspicious for metastatic disease. - consult oncology, appreciate input. per oncology: If she indeed has metastatic invasive breast carcinoma, she is going to need chemotherapy to shrink the breast mass and possibly proceed with palliative mastectomy after the chemotherapy. - tumor markers. - consult surgery for biopsy of the left breast mass. - CT of the abdomen and pelvis reveals: No evidence for metastatic disease to abdomen or pelvis and probable benign cyst in the left ovary could be followed with repeat pelvic ultrasound in 6 months - Bone scan revealed no evidence for metastatic disease - s/p US guided Left breast biopsy 10/07/17 - patient cleared for DC by medical oncology-> patient to follow up with Dr. Moe in 1 week Symptomatic anemia on admission hgb 7.7 -> 9.8 (10/06) Anemia which is microcytic consistent with iron deficiency anemia. s/p 2 units PRBC 10/05/17 iron studies obtained post transfusion reveal: iron 216, TIBC 253, percent saturation 85.2, ferritin 133 HTN (hypertension) Essential (primary) hypertension Patient reports at home she was taking Norvasc 5 mg PO daily and Lisinopril 40 mg PO daily at home untill approximately 2-3 months ago when she ran out BP elevated resume Norvasc 5 mg PO daily resume lisinopril 20 mg PO daily Recheck BP 10/07/17: 142/88 manually Patient to follow up with PCP after DC Patient very much wants to be discharged home Dr. Booker discussed the case with [facility]CP CM, CP complex case management aware of this patient and will assist after DC. Pt Condition on Discharge: Stable Discharge Disposition: Discharge Home Discharge Instructions DIET: Follow Instructions for: As Tolerated, No Restrictions Activities you can perform: Regular-No Restrictions Follow up Referrals: Oncology - [address] Moe PCP Follow-up - 1 Week New Medications: Amlodipine (Norvasc) 5 Mg Tab 5 MG PO DAILY for Blood Pressure Management, #30 TAB 0 Refills Lisinopril (Lisinopril) 20 Mg Tab 20 MG PO DAILY, #30 TAB 0 Refills Additional Information Patient examined. Assessment and plan formulated with Regla Ku PA-C. I agree with the above. Regla Ku Oct 07, 2017 11:39 Rey Booker DO Oct 13, 2017 00:19
[2017-10-07] MEDS ORDERED: LISI-515 PO (11:55)
[2017-10-07] MEDS ORDERED: amLODIPine BESYLATE 5 MG TAB PO SCH (12:00)
[2017-10-07] MEDS ORDERED: LISINOPRIL 20 MG TAB PO SCH (12:00)
[2017-10-07 13:00] VITALS: BP 156/106; PULSE 106; RESP 18; TEMP 98; O2SAT 98
[2017-10-07] MEDS ORDERED: LIDOCAINE HCL 1% 20 ML VIAL ONE (13:05)
--- NOTE | 2017-10-07 13:27 | HHI.PR ---
Subjective Remarks Patient reports feeling, "ok." offers no specific complaints wanting to go home, reports she is more comfortable and able to sleep at home Objective Vitals Vital Signs Date Time Temp Pulse Resp B/P (MAP) Pulse Ox O2 Delivery O2 Flow Rate FiO2 10/07/17 08:12 99.3 80 20 166/86 (112) 96 10/07/17 04:36 98.2 95 18 143/80 (101) 98 10/07/17 00:03 14 10/06/17 21:51 99.3 98 18 150/82 (104) 96 10/06/17 15:53 99.0 106 20 159/85 (109) 96 Result Diagram: 10/06/17 1139 10/05/17 1438 Other Results Laboratory Tests Test 10/05/17 14:38 10/06/17 11:39 10/07/17 09:46 White Blood Count 11.0 TH/MM3 16.4 TH/MM3 Red Blood Count 3.85 MIL/MM3 4.30 MIL/MM3 Hemoglobin 7.7 GM/DL 9.8 GM/DL Hematocrit 25.5 % 30.3 % Mean Corpuscular Volume 66.4 FL 70.5 FL Mean Corpuscular Hemoglobin 20.0 PG 22.8 PG Mean Corpuscular Hemoglobin Concent 30.1 % 32.3 % Red Cell Distribution Width 18.9 % 22.8 % Platelet Count 742 TH/MM3 739 TH/MM3 Mean Platelet Volume 6.8 FL 7.5 FL Neutrophils (%) (Auto) 79.9 % Lymphocytes (%) (Auto) 10.2 % Monocytes (%) (Auto) 8.4 % Eosinophils (%) (Auto) 0.9 % Basophils (%) (Auto) 0.6 % Neutrophils # (Auto) 8.8 TH/MM3 Lymphocytes # (Auto) 1.1 TH/MM3 Monocytes # (Auto) 0.9 TH/MM3 Eosinophils # (Auto) 0.1 TH/MM3 Basophils # (Auto) 0.1 TH/MM3 CBC Comment DIFF FINAL AUTO DIFF Differential Comment FINAL DIFF MANUAL Blood Urea Nitrogen 14 MG/DL Creatinine 0.76 MG/DL Random Glucose 100 MG/DL Total Protein 8.6 GM/DL Albumin 2.6 GM/DL Calcium Level 9.0 MG/DL Alkaline Phosphatase 98 U/L Aspartate Amino Transf (AST/SGOT) 43 U/L Alanine Aminotransferase (ALT/SGPT) 25 U/L Total Bilirubin 0.2 MG/DL Sodium Level 138 MEQ/L Potassium Level 4.1 MEQ/L Chloride Level 104 MEQ/L Carbon Dioxide Level 24.0 MEQ/L Anion Gap 10 MEQ/L Estimat Glomerular Filtration Rate 81 ML/MIN Differential Total Cells Counted 100 Neutrophils % (Manual) 82 % Band Neutrophils % 2 % Lymphocytes % 7 % Monocytes % 8 % Basophils % 1 % Neutrophils # (Manual) 13.8 TH/MM3 Toxic Granulation 1+ Platelet Estimate HIGH Platelet Morphology Comment NORMAL Ovalocytes 1+ Reticulocyte Count 2.1 % Absolute Reticulocyte Count 90.0 MIL/L Iron Level 216 MCG/DL Total Iron Binding Capacity 253 MCG/DL Percent Iron Saturation 85.2 % Ferritin 133 NG/ML Carcinoembryonic Antigen LESS THAN 0.2 NG/ML CA 15-3 Antigen 11.2 U/ML Vitamin B12 Level 1091 PG/ML Folate 6.5 NG/ML Human Chorionic Gonadotropin, Quant LESS THAN 1 MIU/ML Prothrombin Time 11.2 SEC Prothromb Time International Ratio 1.1 RATIO Activated Partial Thromboplast Time 24.7 SEC Imaging Last Impressions CT Angiography 10/05/171826 Signed Impressions: Service Date/Time: Thursday, October 05, 2017 20:53 - CONCLUSION: 1. The entire left breast is filled with multiple masses almost certainly multifocal malignancy. 2. Extensive adenopathy in the left axilla in addition to left supraclavicular adenopathy and adenopathy within the superior mediastinum suspicious for metastatic disease. 3. Lung nodules also suspicious for metastatic disease. Isidoro Harris MD Procedures US guided left breast biopsy 10/07/17 A/P Problem List: (1) Breast lesion ICD Codes: N64.9 - Disorder of breast, unspecified Plan: Breast lesion -Large left breast mass with a palpable large left axillary adenopathy and left supraclavicular adenopathy. - CT of the chest showed the entire left breast is filled with multiple masses. Extensive adenopathy in the left axilla, left supraclavicular and superior mediastinum. There are also small nodules in the lung suspicious for metastatic disease. - consult oncology, appreciate input. per oncology: If she indeed has metastatic invasive breast carcinoma, she is going to need chemotherapy to shrink the breast mass and possibly proceed with palliative mastectomy after the chemotherapy. - tumor markers. - consult surgery for biopsy of the left breast mass. - CT of the abdomen and pelvis reveals: No evidence for metastatic disease to abdomen or pelvis and probable benign cyst in the left ovary could be followed with repeat pelvic ultrasound in 6 months - Bone scan revealed no evidence for metastatic disease - s/p US guided Left breast biopsy 10/07/17 - patient cleared for DC by medical oncology-> patient to follow up with Dr. Moe in 1 week (2) Symptomatic anemia ICD Codes: D64.9 - Anemia, unspecified Status: Acute Plan: Symptomatic anemia on admission hgb 7.7 -> 9.8 (10/06) Anemia which is microcytic consistent with iron deficiency anemia. s/p 2 units PRBC 10/05/17 iron studies obtained post transfusion reveal: iron 216, TIBC 253, percent saturation 85.2, ferritin 133 (3) HTN (hypertension) ICD Codes: I10 - Essential (primary) hypertension Plan: HTN (hypertension) Essential (primary) hypertension Patient reports at home she was taking Norvasc 5 mg PO daily and Lisinopril 40 mg PO daily at home until approximately 2-3 months ago when she ran out BP elevated resume Norvasc 5 mg PO daily resume lisinopril 20 mg PO daily Patient to follow up with PCP after DC (4) Leukocytosis ICD Codes: D72.829 - Elevated white blood cell count, unspecified Plan: WBC 10/06/17 16.4 low grade temp 99.3 patient denies cough/congestion, urinary symptoms will recheck WBC now UA ordered and pending Assessment and Plan Patient examined. Assessment and plan formulated with Regla Ku PA-C. I agree with the above. Regla Ku Oct 07, 2017 13:27 Rey Booker DO Oct 13, 2017 00:18
--- NOTE | 2017-10-07 13:59 | RADRPT ---
EXAM DATE/TIME: 10/07/2017 12:51 [facility] COMPARISON: No previous studies available for comparison. INDICATIONS : Left breast mass. MEDICAL HISTORY : Hypertension. Breast lumps. SURGICAL HISTORY : Tubal ligation. Neck disc replacement. ENCOUNTER: Initial ACUITY: 3 months PAIN SCORE: 8/10 LOCATION: Left breast. ORGAN: Left breast SPECIMENS: Two core specimen(s) submitted for pathologic evaluation. DEVICE: 18 gauge Temno needle Post procedure scanning reveals no hematoma or other complication. The possibility does exist that the tissue obtained will be non-diagnostic. If the sample is non-natasha gnostic a repeat biopsy or surgical biopsy may need to be performed. TECHNIQUE: 1. Ultrasound guidance for needle biopsy. 2. Needle biopsy. The risks, benefits and alternatives to the procedure were explained and verbal and written consent w as obtained. The site was prepped in sterile fashion. Full sterile technique was used, including ca p, mask, sterile gloves and gown and a large sterile sheet. Hand hygiene and 2% chlorhexidine and/or betadine/alcohol prep was utilized per protocol for cutaneous antisepsis. The skin and subcutaneous tissues were infiltrated with local anesthetic solution. Sterile gel and sterile probe cover were u tilized for ultrasound guidance. With the patient on the ultrasound table, images were obtained. A needle was advanced into the identified target and the number of specimens as above obtained and medina bmitted for pathologic evaluation. The patient tolerated the procedure well and left the ultrasound suite in stable condition. CONCLUSION: Uncomplicated ultrasound guided needle biopsy of large left breast mass. Kentrell Krishna MD on October 07, 2017 at 13:56 Board Certified Radiologist. This report was verified electronically.
[2017-10-07 14:06] VITALS: BP 181/97; PULSE 80; RESP 20; TEMP 99.3; O2SAT 97
[2017-10-07 15:42] LABS: AUTOMATED NEUTROPHIL # 9.1 TH/MM3 (1.8-7.7); BASOPHIL # 0.1 TH/MM3 (0-0.2); BASOPHIL % 0.7 % (0.0-2.0); EOSINOPHIL # 0.1 TH/MM3 (0-0.4); EOSINOPHIL % 1.1 % (0.0-4.0); HEMATOCRIT 29.2 % (35.0-46.0); HEMOGLOBIN 9.3 GM/DL (11.6-15.3); LYMPH % 10.1 % (9.0-44.0); LYMPHOCYTE # 1.2 TH/MM3 (1.0-4.8); MEAN CELL VOLUME 69.7 FL (80.0-100.0); MEAN CORPUSCULAR HEMOGLOBIN 22.2 PG (27.0-34.0); MEAN CORPUSCULAR HGB CONC 31.8 % (32.0-36.0); MONO % 8.8 % (0.0-8.0); NEUT % 79.3 % (16.0-70.0); PLATELET COUNT 641 TH/MM3 (150-450); RED CELL DISTRIBUTION WIDTH 22.5 % (11.6-17.2); WHITE BLOOD COUNT 11.4 TH/MM3 (4.0-11.0)
[2017-10-07] MEDS ORDERED: TEMAZEPAM 7.5 MG CAP PO PRN (21:00)
== END 2017-10-07 18:47 | disposition home or self-care (01) | DRG 598 ==
LOC: NEPE 14:21 → NEDA 22:20 → NEPHCDU 10-06 00:11
PROVIDERS: ADMIT Hospitalist; ATTEND Hospitalist
PROC: 30233N1 Transfusion of Nonautologous Red Blood Cells into Peripheral Vein, Percutaneous Approach (ICD-10-PCS; 2017-10-06)
PROC: 0HBU3ZX Excision of Left Breast, Percutaneous Approach, Diagnostic (ICD-10-PCS; principal; 2017-10-07)
DX: C79.81 Secondary malignant neoplasm of breast (principal); C78.00 Secondary malignant neoplasm of unspecified lung; C77.3 Secondary and unspecified malignant neoplasm of axilla and upper limb lymph nodes; C43.9 Malignant melanoma of skin, unspecified; D72.829 Elevated white blood cell count, unspecified; I10 Essential (primary) hypertension; D50.9 Iron deficiency anemia, unspecified; R00.0 Tachycardia, unspecified; N83.202 Unspecified ovarian cyst, left side
CPT/HCPCS: 20206; 36430; 71275; 74177; 76942; 78306; 80053; 82378; 82607; 82728; 82746; 83540; 83550; 84702; 85007; 85025; 85027; 85044; 85610; 85730; 86300; 86850; 86900; 86901; 86920; 88305; 88341; 88342; A9503; J7050; P9016; Q9963; Q9967

== ENCOUNTER 2017-10-22 09:39 | Inpatient (IN) | payer OTHER ==
[~2017-10-22] VITALS: Ht 152.4 cm; Wt 102.8 kg
[~2017-10-22 09:39] MED LIST: AMLO5 PO; LISI-515 PO
[2017-10-22] MEDS ORDERED: GADODIAMIDE PF 287 MG/ML 10 ML VIAL (for RAD MRI) IVCONTRAST ONE ×2 (09:40→20:39)
[2017-10-22 09:54] VITALS: BP 115/72; PULSE 118; RESP 20; TEMP 99.7; O2SAT 98
[2017-10-22] MEDS ORDERED: HYDR-3580 PO (09:58)
[2017-10-22] MEDS ORDERED: SODIUM CHLORIDE 0.9% FLUSH 10 ML FLUSH IV FLUSH PRN ×2 (10:15→12:30)
--- NOTE | 2017-10-22 10:35 | PD ---
HPI . Leg weakness Chief Complaint: General Weakness Time Seen by Provider: 09:46 Travel History International Travel<30 days: No Contact w/Intl Traveler<30days: No Traveled to known affect area: No History of Present Illness HPI Patient presents with a chief complaint of bilateral lower extremity weakness. She had the onset of numbness 4 days ago. The numbness has grown progressively worse over the last 4 days and today she is weak and unable to ambulate secondary to the weakness. She also reports urinary retention. No fever. No modifying factors. This patient was just recently diagnosed with melanoma of the left breast with metastatic lesions in the axillary nodes and probably in her lung as well. She is unsure as to the plan for her treatment. She states that she has an oncology appointment on November 01. PFSH Past Medical History Blood Disorders: No Cancer: No Cardiovascular Problems: Yes Diminished Hearing: No Endocrine: No Genitourinary: No Hypertension: Yes Musculoskeletal: No Neurologic: No ?: Not Menopausal: Yes : 4 Para: 4 Miscarriage: 0 : 0 Tubal Ligation: Yes Past Surgical History Other Surgery: Yes (disc reeplacement ) Social History Alcohol Use: No Tobacco Use: No Substance Use: No Allergies-Medications (Allergen,Severity, Reaction): Coded Allergies: No Known Allergies (Verified Allergy, Unknown, 10/05/17) Reported Meds & Prescriptions Reported Meds & Active Scripts Active Lisinopril 20 Mg Tab 20 Mg PO DAILY Norvasc (Amlodipine Besylate) 5 Mg Tab 5 Mg PO DAILY Reported Hydrocodone-Acetaminophen 7.5 Mg-325 Mg Tab Unknown Dose PO Q6H PRN Review of Systems Except as stated in HPI: all other systems reviewed are Neg Skin: Positive Lesions (left breast and axilla) Neurologic: Positive: Weakness, Paresthesia, Other (urinary retention) Physical Exam Narrative GENERAL: Awake and alert and in no acute distress. SKIN: Multiple black and red lesions in the left axilla and the left chest wall. HEAD: Normocephalic/atraumatic. EYES: Pupils are equal. Extraocular movements are intact. NECK: Normal range of motion. CARDIOVASCULAR: Regular rate and rhythm. RESPIRATORY: Nonlabored respirations. ABDOMINAL: Bladder is palpable to the umbilicus. MUSCULOSKELETAL: Atraumatic. NEUROLOGICAL: She is able to lift her legs against gravity but not against any pressure. PSYCHIATRIC: Appropriate mood and affect. Data Data Last Documented VS Vital Signs Date Time Temp Pulse Resp B/P (MAP) Pulse Ox O2 Delivery O2 Flow Rate FiO2 10/22/17 12:20 99 18 113/64 (80) 97 10/22/17 11:35 Room Air 10/22/17 09:54 99.7 Orders Orders Urinary Catheter Management UTE.Q8H (10/22/17 10:05) Basic Metabolic Panel (Bmp) (10/22/17 10:02) Complete Blood Count With Diff (10/22/17 10:02) Urinalysis - C+S If Indicated (10/22/17 10:02) Iv Access Insert/Monitor (10/22/17 10:02) Ecg Monitoring (10/22/17 10:02) Oximetry (10/22/17 10:02) Sodium Chloride 0.9% Flush (Ns Flush) (10/22/17 10:15) Ed Urine Pregnancytest Poc (10/22/17 10:02) Lorazepam Inj (Ativan Inj) (10/22/17 10:45) Mri L Spine W&W/O Contrast (10/22/17 10:02) Sodium Chlor 0.9% 1000 Ml Inj (Ns 1000 M (10/22/17 11:15) Gadodiamide Pf Inj (Omniscan Pf Inj) (10/22/17 09:40) Mri Brain W&W/O Contrast (10/22/17 11:53) Mri C Spine W&W/O Contrast (10/22/17 11:53) Mri T Spine W & W/O Contrast (10/22/17 11:53) Admit To Inpatient (10/22/17 ) Code Status (10/22/17 12:20) Vital Signs (Adult) Q4H (10/22/17 12:20) Activity Oob With Assistance (10/22/17 12:20) Diet Regular Basic (10/22/17 Lunch) Sodium Chloride 0.9% Flush (Ns Flush) (10/22/17 12:30) Sodium Chloride 0.9% Flush (Ns Flush) (10/22/17 21:00) Acetaminophen (Tylenol) (10/22/17 12:30) Ondansetron Inj (Zofran Inj) (10/22/17 12:30) Basic Metabolic Panel (Bmp) (10/23/17 06:00) Complete Blood Count With Diff (10/23/17 06:00) Chest, Single Ap (10/22/17 12:20) Electrocardiogram (10/22/17 12:20) Pt Request For Service (10/22/17 12:20) Enoxaparin Inj (Lovenox Inj) (10/22/17 13:00) Naloxone Inj (Narcan Inj) (10/22/17 12:30) Magnesium Hydroxide Liq (Milk Of Magnesi (10/22/17 12:30) Inpatient Certification (10/22/17 ) Acetamin-Hydrocod 325-10 Mg ([place] 10-32 (10/22/17 12:30) Consult Pt Eval & Treat (10/22/17 12:27) Ns + Kcl 20 Meq Inj (Ns + Kcl 20 Meq Inj (10/22/17 12:30) Hydromorphone Pf Inj (Dilaudid Pf Inj) (10/22/17 12:30) Admit Order (Ed Use Only) (10/22/17 12:37) Labs Laboratory Tests Test 10/22/17 10:23 White Blood Count 13.6 TH/MM3 Red Blood Count 3.98 MIL/MM3 Hemoglobin 8.8 GM/DL Hematocrit 28.3 % Mean Corpuscular Volume 71.0 FL Mean Corpuscular Hemoglobin 22.2 PG Mean Corpuscular Hemoglobin Concent 31.2 % Red Cell Distribution Width 24.3 % Platelet Count 586 TH/MM3 Mean Platelet Volume 7.6 FL Neutrophils (%) (Auto) 82.4 % Lymphocytes (%) (Auto) 7.5 % Monocytes (%) (Auto) 9.0 % Eosinophils (%) (Auto) 0.3 % Basophils (%) (Auto) 0.8 % Neutrophils # (Auto) 11.2 TH/MM3 Lymphocytes # (Auto) 1.0 TH/MM3 Monocytes # (Auto) 1.2 TH/MM3 Eosinophils # (Auto) 0.0 TH/MM3 Basophils # (Auto) 0.1 TH/MM3 CBC Comment DIFF FINAL Differential Comment Urine Color YELLOW Urine Turbidity CLEAR Urine pH 7.0 Urine Specific [place] 1.015 Urine Protein 30 mg/dL Urine Glucose (UA) NEG mg/dL Urine Ketones NEG mg/dL Urine Occult Blood TRACE Urine Nitrite NEG Urine Bilirubin NEG Urine Urobilinogen LESS THAN 2.0 MG/DL Urine Leukocyte Esterase NEG Urine RBC 3 /hpf Urine WBC 8 /hpf Urine Squamous Epithelial Cells 2 /hpf Urine Hyaline Casts 3 /lpf Urine Mucus FEW /lpf Microscopic Urinalysis Comment CULT NOT INDICATED Blood Urea Nitrogen 23 MG/DL Creatinine 1.05 MG/DL Random Glucose 100 MG/DL Calcium Level 8.9 MG/DL Sodium Level 134 MEQ/L Potassium Level 3.9 MEQ/L Chloride Level 101 MEQ/L Carbon Dioxide Level 23.6 MEQ/L Anion Gap 9 MEQ/L Estimat Glomerular Filtration Rate 56 ML/MIN [facility] Medical Decision Making Medical Screen Exam Complete: Yes Emergency Medical Condition: Yes Medical Record Reviewed: Yes (patient was hospitalized here from 10/06-10/07 for weakness, anemia requiring blood transfusion) newly diagnosed melanoma of the left breast. The melanoma was diagnosed during that admission.) Differential Diagnosis Differential diagnosis includes but is not limited to metastatic melanoma, epidural abscess, HNP, cauda equina syndrome Narrative Course This patient presents with the chief complaint of acute urinary retention which started today and progressively worsening bilateral lower extremity weakness and paresthesias which started 4 days ago. She has a history of recently diagnosed melanoma. MRI of her lumbar spine is pending. Elena catheter has been placed and has quickly drained 1000 cc's. She reports claustrophobia. She will be pretreated with Ativan prior to the MRI. CBC & BMP Diagram 10/22/17 10:23 Calcium Level 8.9 BUN/creat are elevated from previous indicating acute prerenal azotemia. I have ordered IV fluids. MRI lumbar spine>>No evidence for metastatic disease without any significant compromise to the thecal sac or the exiting nerve roots I have subsequently ordered MRIs of her brain, cervical and thoracic spines. However, she has already had contrast. It will be 12 hours before they can do the studies. She is too weak to go home. She will be admitted for further evaluation. Physician Communication Physician Communication Dr. Booker Diagnosis Primary Impression: ARF (acute renal failure) Qualified Codes: N17.9 - Acute kidney failure, unspecified Additional Impressions: Leukocytosis Qualified Codes: D72.829 - Elevated white blood cell count, unspecified Lower extremity weakness Qualified Codes: R29.898 - Other symptoms and signs involving the musculoskeletal system Admitting Information Admitting Physician Requests: Admit Condition: Stable Shari Barr MD Oct 22, 2017 10:35
[2017-10-22 10:40] VITALS: O2SAT 99
[2017-10-22 10:41] LABS: AUTOMATED NEUTROPHIL # 11.2 TH/MM3 (1.8-7.7); BASOPHIL # 0.1 TH/MM3 (0-0.2); BASOPHIL % 0.8 % (0.0-2.0); EOSINOPHIL % 0.3 % (0.0-4.0); HEMATOCRIT 28.3 % (35.0-46.0); HEMOGLOBIN 8.8 GM/DL (11.6-15.3); LYMPH % 7.5 % (9.0-44.0); MEAN CORPUSCULAR HEMOGLOBIN 22.2 PG (27.0-34.0); MEAN CORPUSCULAR HGB CONC 31.2 % (32.0-36.0); MEAN PLATELET VOLUME 7.6 FL (7.0-11.0); MONOCYTE # 1.2 TH/MM3 (0-0.9); NEUT % 82.4 % (16.0-70.0); PLATELET COUNT 586 TH/MM3 (150-450); RED BLOOD COUNT 3.98 MIL/MM3 (4.00-5.30); RED CELL DISTRIBUTION WIDTH 24.3 % (11.6-17.2); WHITE BLOOD COUNT 13.6 TH/MM3 (4.0-11.0)
[2017-10-22 10:45] LABS: BILIRUBIN, URINE NEG (NEG); BLOOD, URINE TRACE (NEG); GLUCOSE,URINE NEG (NEG); HYALINE CAST, URINE 3 /lpf (RARE); KETONE, URINE NEG (NEG); MUCUS URINE FEW /lpf (OCC); NITRITE,URINE NEG (NEG); SQUAMOUS EPITHELIAL CELL URINE 2 /hpf (0-5); URINE COLOR YELLOW (YELLW/STRAW); URINE LEUKOCYTE ESTERASE NEG (NEG)
[2017-10-22] MEDS ORDERED: LORazepam 2 MG/ML VIAL IV PUSH PRN (10:45)
[2017-10-22 11:00] LABS: BICARBONATE 23.6 MEQ/L (21.0-32.0); CALCIUM 8.9 MG/DL (8.5-10.1); CREATININE 1.05 MG/DL (0.50-1.00)
[2017-10-22] MEDS ORDERED: SODIUM CHLOR 0.9% 1000 ML INJ 1,000 ML IV ONE (11:15)
[2017-10-22 11:35] VITALS: BP 108/57; PULSE 103; RESP 20; O2SAT 94
--- NOTE | 2017-10-22 11:47 | RADRPT ---
EXAM DATE/TIME: 10/22/2017 11:01 [facility] COMPARISON: CT ABDOMEN & PELVIS W CONTRAST, October 06, 2017, 15:22. INDICATIONS : Lower extremity weakness. New diagnosis of breast cancer. CONTRAST: 16 cc Omniscan (gadodiamide) IV MEDICAL HISTORY : Carcinoma, breast. Hypertension. SURGICAL HISTORY : Fusion, cervical. ENCOUNTER: Initial ACUITY: 1 day PAIN SCORE: 1/10 LOCATION: [facility] TECHNIQUE: Multiplanar multisequence MRI of the lumbar spine was performed with and without contrast. FINDINGS: The marrow signal appears intact. No significant compression deformities, spondylolisis, or spondylo lesthesis is seen. The postcontrast portion is unremarkable. L1-L2: No appreciable compromise to the thecal sac, or the exiting nerve roots is seen. The neural foramina and lateral recesses are patent bilaterally. L2-L3: No appreciable compromise to the thecal sac, or the exiting nerve roots is seen. The neural foramina and lateral recesses are patent bilaterally. L3-L4: No appreciable compromise to the thecal sac, or the exiting nerve roots is seen. The neural foramina and lateral recesses are patent bilaterally. L4-L5: No appreciable compromise to the thecal sac, or the exiting nerve roots is seen. The neural foramina and lateral recesses are patent bilaterally. L5-S1: No appreciable compromise to the thecal sac, or the exiting nerve roots is seen. The neural foramina and lateral recesses are patent bilaterally. There is moderate facet arthrosis at this leve l with minimal disc bulge. CONCLUSION: No evidence for metastatic disease without any significant compromise to the thecal s ac or the exiting nerve roots. Isidoro Harris MD on October 22, 2017 at 11:38 Board Certified Radiologist. This report was verified electronically.
[2017-10-22] MEDS ORDERED: SODIUM CHLORIDE 0.9% 20 ML VIAL IV ONE (12:00)
[2017-10-22] MEDS ORDERED: ceFAZolin INJ 1,000 MG VIAL IV ONE (12:00)
[2017-10-22] MEDS ORDERED: PHENYLEPH/NS 1000 MCG/10 ML SYR IV ONE (12:00)
[2017-10-22] MEDS ORDERED: PROPOFOL 200 MG/20 ML AMP IV ONE (12:00)
[2017-10-22] MEDS ORDERED: ONDANSETRON HCL 4 MG/2 ML VIAL IV PUSH ONE (12:00)
[2017-10-22] MEDS ORDERED: LACTATED RINGER'S 1000 ML INJ 2,000 ML IV ONE (12:00)
[2017-10-22] MEDS ORDERED: SUCCINYLCHOLINE CHLORIDE 200 MG/10 ML VIAL IV ONE (12:00)
[2017-10-22] MEDS ORDERED: NORMOSOL R INJ 1,000 ML IV ONE (12:00)
[2017-10-22] MEDS ORDERED: LIDOCAINE HCL 1% PF 5 ML SYRINGE OTHER ONE (12:00)
[2017-10-22] MEDS ORDERED: ROCURONIUM INJ 50 MG/5 ML SYRINGE IV PUSH ONE (12:00)
[2017-10-22 12:20] VITALS: BP 113/64; PULSE 99; RESP 18; O2SAT 97
[2017-10-22] MEDS ORDERED: NALOXONE HCL 0.4 MG/ML AMP IV PUSH PRN (12:30)
[2017-10-22] MEDS ORDERED: ACETAMINOPHEN/HYDROcodone 325 MG/10 MG TAB PO PRN (12:30)
[2017-10-22] MEDS ORDERED: ACETAMINOPHEN 325 MG TAB PO PRN (12:30)
[2017-10-22] MEDS ORDERED: ONDANSETRON HCL 4 MG/2 ML VIAL IVP PRN (12:30)
[2017-10-22] MEDS ORDERED: MAGNESIUM HYDROXIDE SUSP 30 ML CUP PO PRN (12:30)
--- NOTE | 2017-10-22 12:34 | HHI.HP ---
HPI Service [facility] Hospitalists Primary Care Physician Radha Mcadams MD Admission Diagnosis BLE weakness and urinary retention Chief Complaint: bilateral lower extremity weakness with urinary retention Travel History International Travel<30 Days: No Contact w/Intl Traveler <30 Da: No Traveled to Known Affected Are: No History of Present Illness This is a 47-year-old female with a past medical history which includes HTN and malignant melanoma diagnosed by left breast core biopsy 10/07/17. Pathology from 10/07/17 left breast biopsy revealed malignant melanoma. Patient has not yet follow up with oncology states her appointment is 11/01/17. Patient presented to the emergency room today with a complaint of bilateral lower extremity weakness and paresthesia x 4 days. Patient has paraesthesia from hip down BLE. Patient reports that her mobility has gotten progressively worse over the last four days. Patient began having urinary retention this AM. Patient last BM 10/21/17. She denies any fever or chills,chest pressure, palpitations, shortness of breath or cough, nausea, vomiting, diarrhea, headache. Patient's spouse at bedside reports that patient has had intermitted diaphoresis for the past months and often feels warm as though she has a fever. MRI Lumbar spine reviewed and reveals: No evidence for metastatic disease without any significant compromise to the thecal csac or the exiting nerve roots. Review of Systems Constitutional: COMPLAINS OF: Diaphoretic episodes, DENIES: Fatigue, Chills, Dizziness, Change in appetite Eyes: DENIES: Blurred vision, Diplopia, Vision loss Respiratory: DENIES: Cough, Sputum production, Shortness of breath Cardiovascular: DENIES: Chest pain, Dyspnea on Exertion, Lower Extremity Edema Gastrointestinal: DENIES: Abdominal pain, Constipation, Diarrhea, Nausea, Vomiting Neurologic: COMPLAINS OF: Abnormal gait, Paresthesias, DENIES: Headache Psychiatric: DENIES: Anxiety, Confusion, Depression Past Family Social History Past Medical History Hypertension Past Surgical History Neck surgery Core needle bx left breast pathology reveals malignant melanoma Reported Medications Lisinopril 20 Mg Tab 20 Mg PO DAILY Norvasc (Amlodipine Besylate) 5 Mg Tab 5 Mg PO DAILY Hydrocodone-Acetaminophen 7.5 Mg-325 Mg Tab Unknown Dose PO Q6H PRN Allergies: Coded Allergies: No Known Allergies (Verified Allergy, Unknown, 10/05/17) Active Ordered Medications Current Medications Medications (Trade) Dose Ordered Sig/Antoni Route Start Time Stop Time Status Last Admin (NS Flush) 2 ml UNSCH PRN IV FLUSH 10/22/17 10:15 (Ativan Inj) 2 mg ONCE PRN IV PUSH 10/22/17 10:45 10/22/17 10:47 Family History Denies family history of cancer Social History Lives with her ETOH use rare denies tobacco use denies illicit drug use Physical Exam Vital Signs Vital Signs Date Time Temp Pulse Resp B/P (MAP) Pulse Ox O2 Delivery O2 Flow Rate FiO2 10/22/17 11:35 103 20 108/57 (74) 94 Room Air 10/22/17 10:40 99 Room Air 10/22/17 09:54 99.7 118 20 115/72 (86) 98 Physical Exam GENERAL: This is a well-nourished, well-developed patient SKIN: Large firm mass occupying the entire left breast with erythematous nodular scattered around the left breast into the axilla. Left lateral chest and Left axilla oozing bleeding lesions noted HEAD: Atraumatic. Normocephalic. No temporal or scalp tenderness. EYES: Extraocular motions intact. No scleral icterus. No injection or drainage. CARDIOVASCULAR: Regular rate and rhythm without murmurs, gallops, or rubs. RESPIRATORY: Clear to auscultation. Breath sounds equal bilaterally. GASTROINTESTINAL: Abdomen soft, non-tender, nondistended. GENITAL URINARY: Muhammad in place and draining NEUROLOGICAL: Awake and alert. Normal speech. decreased sensation BLE. Decreased strength BLE Laboratory Laboratory Tests Test 10/22/17 10:23 White Blood Count 13.6 Red Blood Count 3.98 Hemoglobin 8.8 Hematocrit 28.3 Mean Corpuscular Volume 71.0 Mean Corpuscular Hemoglobin 22.2 Mean Corpuscular Hemoglobin Concent 31.2 Red Cell Distribution Width 24.3 Platelet Count 586 Mean Platelet Volume 7.6 Neutrophils (%) (Auto) 82.4 Lymphocytes (%) (Auto) 7.5 Monocytes (%) (Auto) 9.0 Eosinophils (%) (Auto) 0.3 Basophils (%) (Auto) 0.8 Neutrophils # (Auto) 11.2 Lymphocytes # (Auto) 1.0 Monocytes # (Auto) 1.2 Eosinophils # (Auto) 0.0 Basophils # (Auto) 0.1 CBC Comment DIFF FINAL Differential Comment Urine Color YELLOW Urine Turbidity CLEAR Urine pH 7.0 Urine Specific [place] 1.015 Urine Protein 30 Urine Glucose (UA) NEG Urine Ketones NEG Urine Occult Blood TRACE Urine Nitrite NEG Urine Bilirubin NEG Urine Urobilinogen LESS THAN 2.0 Urine Leukocyte Esterase NEG Urine RBC 3 Urine WBC 8 Urine Squamous Epithelial Cells 2 Urine Hyaline Casts 3 Urine Mucus FEW Microscopic Urinalysis Comment CULT NOT INDICATED Blood Urea Nitrogen 23 Creatinine 1.05 Random Glucose 100 Calcium Level 8.9 Sodium Level 134 Potassium Level 3.9 Chloride Level 101 Carbon Dioxide Level 23.6 Anion Gap 9 Estimat Glomerular Filtration Rate 56 Result Diagram: 10/22/17 1023 10/22/17 1023 Imaging Last Impressions Lumbar Spine MRI 10/22/17 1002 Signed Impressions: Service Date/Time: Sunday, October 22, 2017 11:01 - CONCLUSION: No evidence for metastatic disease without any significant compromise to the thecal sac or the exiting nerve roots. MD Brandin Kaba VTE Risk Assessment Caprini VTE Risk Assessment: Mod/High Risk (score >= 2) Caprini Risk Assessment Model Point Value = 1 Point Value = 2 Point Value = 3 Point Value = 5 Age 41-60 Minor surgery BMI > 25 kg/m2 Swollen legs Varicose veins or History of unexplained or recurrent spontaneous Oral contraceptives or hormone replacement Sepsis (< 1 month) Serious lung disease, including pneumonia (< 1 month) Abnormal pulmonary function Acute myocardial infarction Congestive heart failure (< 1 month) History of inflammatory bowel disease Medical patient at bed rest Age 61-74 Arthroscopic surgery Major open surgery (> 45 min) Laparoscopic surgery (> 45 min) Malignancy Confined to bed (> 72 hours) Immobilizing plaster cast Central venous access Age >= 75 History of VTE Family history of VTE Factor V Leiden Prothrombin [id number] Lupus anticoagulant Anticardiolipin antibodies Elevated serum homocysteine Heparin-induced thrombocytopenia Other congenital or acquired thrombophilia Stroke (< 1 month) Elective arthroplasty Hip, pelvis, or leg fracture Acute spinal cord injury (< 1 month) Prophylaxis Regimen Total Risk Factor Score Risk Level Prophylaxis Regimen 0-1 Low Early ambulation 2 Moderate Order ONE of the following: *Sequential Compression Device (SCD) *Heparin 5000 units SQ BID 3-4 Higher Order ONE of the following medications: *Heparin 5000 units SQ TID *Enoxaparin/Lovenox 40 mg SQ daily (WT < 150 kg, CrCl > 30 mL/min) *Enoxaparin/Lovenox 30 mg SQ daily (WT < 150 kg, CrCl > 10-29 mL/min) *Enoxaparin/Lovenox 30 mg SQ BID (WT < 150 kg, CrCl > 30 mL/min) AND/OR *Sequential Compression Device (SCD) 5 or more Highest Order ONE of the following medications: *Heparin 5000 units SQ TID (Preferred with Epidurals) *Enoxaparin/Lovenox 40 mg SQ daily (WT < 150 kg, CrCl > 30 mL/min) *Enoxaparin/Lovenox 30 mg SQ daily (WT < 150 kg, CrCl > 10-29 mL/min) *Enoxaparin/Lovenox 30 mg SQ BID (WT < 150 kg, CrCl > 30 mL/min) AND *Sequential Compression Device (SCD) Assessment and Plan Problem List: (1) Malignant melanoma ICD Codes: C43.9 - Malignant melanoma of skin, unspecified Status: Acute Plan: patient presented to the ER 10/06/17 with breast changes core biopsy 10/07 revealed malignant melanoma Patient has an appointment with oncology 11/01/17 Consult oncology, Dr. Kwon spoke with Dr. Sherman (10/22) Dr. Sherman will order dexamethasone empirically MRI T spine, C spine and brain ordered and pending Patient also with fever and leucocytosis in a patient with malignant melanoma Due to clinical appearance of left breast lesions with drainage present will obtain wound culture and blood culture then start Vancomycin and Zosyn IV, with pharmacy to dose vanco (2) Urinary retention ICD Codes: R33.9 - Retention of urine, unspecified Status: Acute Plan: Muhammad placed in ER with 1000ml returned, continue muhammad for retention Lumbar spine: No evidence for metastatic disease without any significant compromise to the thecal sac or the exiting nerve roots. (3) Lower extremity weakness ICD Codes: R29.898 - Other symptoms and signs involving the musculoskeletal system Status: Acute Plan: see above Assessment and Plan Patient examined. Assessment and plan formulated with Regla HOUSER I agree with the above. Physician Certification 2 Midnight Certification Type: Admission for Inpatient Services Order for Inpatient Services The services are ordered in accordance with Medicare regulations or non- Medicare payer requirements, as applicable. In the case of services not specified as inpatient-only, they are appropriately provided as inpatient services in accordance with the 2-midnight benchmark. Estimated LOS (days): 4 days is the estimated time the patient will need to remain in the hospital, assuming treatment plan goals are met and no additional complications. Post-Hospital Plan: Not yet determined Problem Qualifiers (1) Lower extremity weakness: Qualified Codes: R29.898 - Other symptoms and signs involving the musculoskeletal system Regla Ku Oct 22, 2017 12:34 Rey Booker DO Oct 26, 2017 22:25
--- NOTE | 2017-10-22 12:59 | RADRPT ---
EXAM DATE/TIME: 10/22/2017 12:50 [facility] COMPARISON: No previous studies available for comparison. INDICATIONS : Cough. MEDICAL HISTORY : Hypertension. SURGICAL HISTORY : Neck surgery. ENCOUNTER: Initial ACUITY: 1 day PAIN SCORE: 0/10 LOCATION: Bilateral chest FINDINGS: The lungs are clear without infiltrate, nodule, or mass except for questionable mild atelectasis or s car left lung base medially. There is no appreciable pleural effusion for technique. Heart and medi astinum are unremarkable. CONCLUSION: No acute cardiopulmonary disease. Isidoro Harris MD on October 22, 2017 at 12:57 Board Certified Radiologist. This report was verified electronically.
[2017-10-22] MEDS ORDERED: ENOXAPARIN SODIUM 40 MG/0.4 ML SYRINGE SQ SCH (13:00)
[2017-10-22] MEDS: NS + KCL 20 MEQ INJ 1,000 ML IV SCH ×2 (13:23→15:04)
[2017-10-22] MEDS: HYDROmorphone HCL PF 2 MG/ML VIAL IV PUSH PRN ×2 (15:05→20:30)
[2017-10-22 16:00] VITALS: BP 101/58; PULSE 111; RESP 17; TEMP 95.4; O2SAT 97
[2017-10-22] MEDS ORDERED: Vancomycin Consult Pharmacy 1 EA OTHER SCH (18:30)
[2017-10-22] MEDS ORDERED: DEXAMETHASONE SOD PHOS 20 MG/5 ML VIAL IV PUSH ONE (18:30)
[2017-10-22] MEDS ORDERED: VANCOMYCIN INJ 1,000 MG in SODIUM CHLOR 0.9% 250 ML INJ 250 ML IV SCH (18:30)
--- NOTE | 2017-10-22 18:46 | MB ---
cc: WADE BASILIO MD DATE OF CONSULTATION 10/22/18 DATE OF 1970 CHIEF COMPLAINT 1. Bilateral lower extremity weakness. 2. Locally advanced melanoma. 3. Leukocytosis 4. Anemia. 5. Thrombocytosis. HISTORY OF PRESENT ILLNESS Ms. Burgos is a 47-year-old lady with a history of hypertension, degenerative disk disease and locally advanced melanoma that was diagnosed during previous hospital stay who presented to the emergency room today with bilateral lower extremity weakness that had been progressively worsening over the past three days. She reports that her symptoms began with some numbness of her lower extremities. She reports that it was initially just the bilateral lower extremities and then started to go up into her groin area. She also reported today that she began to have urinary retention. She was seen in the emergency room and MRI of the lumbar spine was ordered which revealed no abnormalities. Laboratory studies show a white blood cell count of 13.6, hemoglobin 8.8, platelet count of 586,000. She does have a left shift present with a neutrophilia. Chemistry studies with a creatinine of 1.05. Previous iron studies reveal an anemia of chronic disease, B12 and folate intact from her prior hospital stay. During her prior hospital stay, she had a biopsy of a breast mass which returned as a melanoma. She had been scheduled outpatient to see my colleague, Dr. Moe. ROS: as above in HPI all other ROS negative PAST MEDICAL HISTORY 1. Hypertension 2. Degenerative disk disease PAST SURGICAL HISTORY 1. Cervical spinal fusion 2. Tubal ligation. SOCIAL HISTORY She has a good support system. Denies tobacco, alcohol, illegal drug use. ALLERGIES No known drug allergies. FAMILY HISTORY Denies any family history of malignancy. PHYSICAL EXAM Gen: well developed well nourished lady in no distress CV: RRR with no murmurs Resp: clear to auscultation bilaterally Abd: soft, nontender, nondistended, bs present Ext: no edema Breast: entire left breast firm this extends to axilla. Axilla with blood and pus from wound Neuro: decreased strength in bilateral lower extremities. ASSESSMENT/PLAN 1. Bilateral lower extremity weakness. Given large locally advanced melanoma, this is certainly concerning for metastatic lesion to the spinal cord causing spinal cord compression. We will empirically give dexamethasone 10 mg IV x1 dose while we are waiting further imaging of the thoracic and cervical spine and MRI of the brain. These were placed urgently. Her neurologic symptoms have been present over the past three days and have been progressively worsening. 2. Locally advanced extensive melanoma involving the entirety of her left breast and extending up into the axilla. There appears to be some chronic infection with wound care and pus and blood from the wound in her axilla. Primary team has ordered blood cultures, antibiotics. Agree with this. She would likely benefit from wound care consult. 3. Anemia, anemia of chronic inflammation due to known melanoma and infection. We will continue to trend. 4. Thrombocytosis reactive due to infection in malignancy. Continue to trend. She will be a candidate in the outpatient setting for immune therapy. Her primary tumor will need to be sent for BRAF status. MD NIELS Cabral/ /6:21 PM /6:32 PM [facility]
[2017-10-22] MEDS: LORazepam 2 MG/ML VIAL IV PUSH PRN (18:57)
[2017-10-22] MEDS ORDERED: PIPERACIL-TAZO 3.375 GM PREMIX 50 ML IV SCH (19:00)
[2017-10-22 20:00] VITALS: BP 106/58; PULSE 109; RESP 16; TEMP 97.4; O2SAT 91
[2017-10-22] MEDS ORDERED: VANCOMYCIN 1,500 MG/NS 500 ML IV ONE ×2 (20:00)
[2017-10-22] MEDS: SODIUM CHLORIDE 0.9% FLUSH 10 ML FLUSH IV FLUSH SCH (21:00)
--- NOTE | 2017-10-22 21:10 | RADRPT ---
EXAM DATE/TIME: 10/22/2017 19:59 [facility] COMPARISON: No previous studies available for comparison. INDICATIONS : Metastatic disease. CONTRAST: 17 cc Omniscan (gadodiamide) IV MEDICAL HISTORY : Carcinoma, breast. Hypertension. SURGICAL HISTORY : Fusion, cervical. ENCOUNTER: Initial ACUITY: 1 day PAIN SCORE: 0/10 LOCATION: Paraspinal TECHNIQUE: Multiplanar, multisequence MRI examination of the cervical spine was performed. FINDINGS: Motion artifact. VERTEBRAE: Normal vertebral body height. Homogeneous marrow signal. ALIGNMENT: No evidence of subluxation. Anterior fusion C4-C7. CORD: Normal configuration and signal. POST FOSSA: The cerebellar tonsils are normal in position. POST-CONTRAST: There is a possible enhancement in the left epidural space at about T1 T2 level. Multiple masses are seen along the left anterior chest wall and left shoulder region.. C2-C3: The thecal sac has a normal configuration. There is no evidence of disc herniation or spinal canal stenosis. The neural foramina are patent bilaterally. C3-C4: The thecal sac has a normal configuration. There is no evidence of disc herniation or spinal canal s tenosis. The neural foramina are patent bilaterally. C4-C5: The thecal sac has a normal configuration. There is no evidence of disc herniation or spinal canal s tenosis. The neural foramina are patent bilaterally. C5-C6: The thecal sac has a normal configuration. There is no evidence of disc herniation or spinal canal s tenosis. The neural foramina are patent bilaterally. C6-C7: The thecal sac has a normal configuration. There is no evidence of disc herniation or spinal canal s tenosis. The neural foramina are patent bilaterally. C7-T1: The thecal sac has a normal configuration. There is no evidence of disc herniation or spinal canal s tenosis. The neural foramina are patent bilaterally. CONCLUSION: 1. Anterior fusion C4-C7. 2. Questionable enhancement in the left epidural region at T1-T2. 3. Multiple masses along the left chest wall and left shoulder region. Joseph Mcqueen MD on October 22, 2017 at 21:02 Board Certified Radiologist. This report was verified electronically.
--- NOTE | 2017-10-22 21:17 | RADRPT ---
EXAM DATE/TIME: 10/22/2017 19:59 [facility] COMPARISON: CT PULMONARY ANGIOGRAM, October 05, 2017, 20:53. INDICATIONS : Metastatic disease. CONTRAST: 17 cc Omniscan (gadodiamide) IV MEDICAL HISTORY : Hypertension. Carcinoma, breast. SURGICAL HISTORY : Fusion, cervical. ENCOUNTER: Initial ACUITY: 1 day PAIN SCORE: 0/10 LOCATION: Paraspinal TECHNIQUE: Multiplanar multisequence MRI of the thoracic spine was performed. FINDINGS: VERTEBRA: Normal vertebral body height. Diffuse abnormal appearance of T6 vertebral body and also the left aspe ct of T5. ALIGNMENT: Normal. CORD: Normal position and configuration. POST CONTRAST: Large enhancing mass in the left paravertebral region seen at about T4 extending down to T8 level. Th e largest component is seen at about T6 level. The mass does extend into the adjacent rib and vertebr al body as well as the left epidural space. There is enhancement in the left epidural space at T5-T7 level. The mass measures 3.6 x 2.6 by approximately 8.0 cm. Several pulmonary nodules are seen. T1-T2: Normal. T2-T3: The thecal sac has a normal diameter. No evidence of disc bulge or protrusion. T3-T4: The thecal sac has a normal diameter. No evidence of disc bulge or protrusion. T4-T5: The thecal sac has a normal diameter. No evidence of disc bulge or protrusion. T5-T6: The thecal sac has a normal diameter. No evidence of disc bulge or protrusion. T6-T7: The thecal sac has a normal diameter. No evidence of disc bulge or protrusion. T7-T8: The thecal sac has a normal diameter. No evidence of disc bulge or protrusion. T8-T9: The thecal sac has a normal diameter. No evidence of disc bulge or protrusion. T9-T10: The thecal sac has a normal diameter. No evidence of disc bulge or protrusion. T10-T11: The thecal sac has a normal diameter. No evidence of disc bulge or protrusion. T11-T12: The thecal sac has a normal diameter. No evidence of disc bulge or protrusion. T12-L1: The thecal sac has a normal diameter. No evidence of disc bulge or protrusion. CONCLUSION: Large left paraspinal mass at T4-T8 level but more notably at T6 level invades the T6 vertebral body and left aspect of T5 vertebral body. This extends into the left epidural space and Joseph Mcqueen MD on October 22, 2017 at 21:08 Board Certified Radiologist. This report was verified electronically.
--- NOTE | 2017-10-22 21:42 | RADRPT ---
EXAM DATE/TIME: 10/22/2017 19:59 [facility] COMPARISON: No previous studies available for comparison. INDICATIONS : Metastatic disease. CONTRAST: 17 cc Omniscan (gadodiamide) IV MEDICAL HISTORY : Carcinoma, breast. Hypertension. SURGICAL HISTORY : Fusion, cervical. ENCOUNTER: Initial ACUITY: 1 day PAIN SCORE: 0/10 LOCATION: cranial TECHNIQUE: Multiplanar, multisequence MRI of the brain was performed both prior to and following the administrat ion of paramagnetic contrast. FINDINGS: CEREBRUM: The ventricles are normal for age. No evidence of midline shift, mass lesion, hemorrhage or acute in farction. No extraaxial fluid collections are seen. The pituitary gland and suprasellar cistern are normal in configuration. WHITE MATTER: No significant signal abnormalities are seen in the white matter. POSTERIOR FOSSA: The cerebellum and brainstem are intact. The 4th ventricle is midline. The cerebellopontine angle is unremarkable. The cerebellar tonsils are normal in position. DIFFUSION IMAGING: No focal areas of restricted diffusion are seen. No evidence of acute infarction. EXTRACRANIAL: The visualized portions of the orbits and paranasal sinuses are unremarkable. POST-CONTRAST: No abnormal areas of parenchymal or dural enhancement. No evidence of blood-brain barrier breakdown. CONCLUSION: Unremarkable MRI of the brain. Joseph Mcqueen MD on October 22, 2017 at 21:38 Board Certified Radiologist. This report was verified electronically.
[2017-10-22] MEDS ORDERED: POVIDONE IODINE 5% (ANTISEPSIS KIT) 4 APPLICATIONS EACH NARE PRN (23:30)
[2017-10-22] MEDS ORDERED: CHLORHEXIDINE GLUCONATE 2 % 1 PACK (2 CLOTHS) TOPICAL PRN (23:30)
[2017-10-22] MEDS ORDERED: SODIUM CHLORID 0.9% 500 ML IV PRN (23:30)
[2017-10-22] MEDS ORDERED: LACTATED RINGER'S 1000 ML IV PRN (23:30)
--- NOTE | 2017-10-22 23:46 | PD.CONS ---
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 Burgos is a 47-year-old female who presented to the emergency room today with complaint of approximately 4 days of progressive weakness and numbness in the lower extremities. She states that the symptoms started approximately this past Tuesday. By she can walk only with significant assistance, and states that yesterday, on Tuesday, she was in bed the entire day, unable to ambulate. She complains of urinary retention for the past day. She was recently diagnosed with melanoma by breast core biopsy on 10/07/17 after noticing a mass with bleeding and discoloration over the left breast. Review of Systems Constitutional: COMPLAINS OF: Fatigue, DENIES: Weight loss Eyes: DENIES: Blurred vision, Diplopia Ears, nose, mouth, throat: DENIES: Hearing loss, Vertigo Respiratory: DENIES: Cough, Shortness of breath Cardiovascular: DENIES: Chest pain, Palpitations Gastrointestinal: DENIES: Abdominal pain, Bloody stools, Nausea, Vomiting Musculoskeletal: DENIES: Joint pain, Muscle aches, Back pain, Neck pain Integumentary: COMPLAINS OF: Breast masses, Breast skin changes Neurologic: COMPLAINS OF: Abnormal gait, DENIES: Headache Psychiatric: DENIES: Confusion Past Family Social History Allergies: Coded Allergies: No Known Allergies (Verified Allergy, Unknown, 10/05/17) Past Medical History Recently diagnosed malignant melanoma left breast-chest. Hypertension Past Surgical History Previous cervical spine fusion Left breast biopsy 10/07/17 Reported Medications Reported Meds & Active Scripts Active Lisinopril 20 Mg Tab 20 Mg PO DAILY Norvasc (Amlodipine Besylate) 5 Mg Tab 5 Mg PO DAILY Reported Hydrocodone-Acetaminophen 7.5 Mg-325 Mg Tab Unknown Dose PO Q6H PRN Family History No history of cancer, diabetes, cardiac disease Social History Does not smoke cigarettes or use alcohol. Lives with her Physical Exam Vital Signs Vital Signs Date Time Temp Pulse Resp B/P (MAP) Pulse Ox O2 Delivery O2 Flow Rate FiO2 10/22/17 16:00 95.4 111 17 101/58 (72) 97 10/22/17 14:14 10/22/17 12:20 99 18 113/64 (80) 97 10/22/17 11:35 103 20 108/57 (74) 94 Room Air 10/22/17 10:40 99 Room Air 10/22/17 09:54 99.7 118 20 115/72 (86) 98 Physical Exam GENERAL: This is a well-nourished, well-developed patient, in no apparent distress. SKIN: Extensive firm mass involving the left breast and axilla, moderate tenderness. Mild bleeding from multiple ulcerative skin lesions. HEAD: Atraumatic. Normocephalic. No temporal or scalp tenderness. EYES: Pupils equal round and reactive. Extraocular motions intact. No scleral icterus. No injection or drainage. ENT: Nose without bleeding, purulent drainage or septal hematoma. Throat without erythema, tonsillar hypertrophy or exudate. Uvula midline. Airway patent. NECK: Trachea midline. No JVD or lymphadenopathy. Supple, nontender, no meningeal signs. CARDIOVASCULAR: Regular rate and rhythm without murmurs, gallops, or rubs. RESPIRATORY: Clear to auscultation. Breath sounds equal bilaterally. No wheezes , rales, or rhonchi. GASTROINTESTINAL: Abdomen soft, non-tender, nondistended. No hepato-splenomegaly , or palpable masses. No guarding. MUSCULOSKELETAL: Extremities without clubbing, cyanosis, or edema. No joint tenderness, effusion, or edema noted. No calf tenderness. Posterior tibial pulse 2+ bilateral. Limited range of motion of the left shoulder due to discomfort from the left breast-axilla lesion. NEUROLOGICAL: Awake and alert Oriented X 3 Speech is clear Conversant and appropriate Follow simple commands well Answers questions appropriately Reasonable judgment and insight Recent and remote memory are intact No evidence of anxiety or depression Pupils are equal and reactive to accommodation. Extra-ocular movements, visual arias to confrontation, facial sensorimotor, tongue, palate, sternocleidomastoid testing, hearing to finger rub testing, and bilateral shoulder shrug are all intact. Sensation is intact to light touch in the upper extremities She has a sensory loss starting at the T6-T8 level and below, diffuse in the lower extremities with vague sensation to pressure and joint movement but significant loss of proprioception. Cannot detect sharp touch in the lower extremities. Strength normal major flexion and extension groups as well as hand intrinsics in the upper extremities. In the lower extremities, no discernible iliopsoas movement. 1/5 left and 2/5 right quadriceps with absent hamstrings, gastrocsoleus, and tibialis anterior. Trace movement of the toes of the right and left foot. Farhad's absent bilaterally No ankle clonus Plantar responses absent bilateral Fine motor movements intact upper extremities Laboratory Laboratory Tests Test 10/22/17 10:23 White Blood Count 13.6 Red Blood Count 3.98 Hemoglobin 8.8 Hematocrit 28.3 Mean Corpuscular Volume 71.0 Mean Corpuscular Hemoglobin 22.2 Mean Corpuscular Hemoglobin Concent 31.2 Red Cell Distribution Width 24.3 Platelet Count 586 Mean Platelet Volume 7.6 Neutrophils (%) (Auto) 82.4 Lymphocytes (%) (Auto) 7.5 Monocytes (%) (Auto) 9.0 Eosinophils (%) (Auto) 0.3 Basophils (%) (Auto) 0.8 Neutrophils # (Auto) 11.2 Lymphocytes # (Auto) 1.0 Monocytes # (Auto) 1.2 Eosinophils # (Auto) 0.0 Basophils # (Auto) 0.1 CBC Comment DIFF FINAL Differential Comment Urine Color YELLOW Urine Turbidity CLEAR Urine pH 7.0 Urine Specific [place] 1.015 Urine Protein 30 Urine Glucose (UA) NEG Urine Ketones NEG Urine Occult Blood TRACE Urine Nitrite NEG Urine Bilirubin NEG Urine Urobilinogen LESS THAN 2.0 Urine Leukocyte Esterase NEG Urine RBC 3 Urine WBC 8 Urine Squamous Epithelial Cells 2 Urine Hyaline Casts 3 Urine Mucus FEW Microscopic Urinalysis Comment CULT NOT INDICATED Blood Urea Nitrogen 23 Creatinine 1.05 Random Glucose 100 Calcium Level 8.9 Sodium Level 134 Potassium Level 3.9 Chloride Level 101 Carbon Dioxide Level 23.6 Anion Gap 9 Estimat Glomerular Filtration Rate 56 Date/Time Source Procedure Growth Status 10/22/17 22:15 Blood Peripheral Aerobic Blood Culture Pending Received 10/22/17 22:15 Blood Peripheral Anaerobic Blood Culture Pending Received Result Diagram: 10/22/17 1023 10/22/17 1023 Imaging 10/22/2017 MRI of the brain, cervical spine, thoracic spine, lumbar spine images are reviewed by the undersigned. There is abnormal signal intensity within the T6 vertebral body with T5-6 level left paraspinous enhancing lesion with invasion of the lateral vertebral structures primarily T5-T6 level with significant spinal cord compression due to epidural lesion primarily left side. Chest X-Ray 10/22/17 1220 Signed Impressions: Service Date/Time: Sunday, October 22, 2017 12:50 - CONCLUSION: No acute cardiopulmonary disease. Isidoro Harris MD Thoracic Spine MRI 10/22/17 1153 Signed Impressions: Service Date/Time: Sunday, October 22, 2017 19:59 - CONCLUSION: Large left paraspinal mass at T4-T8 level but more notably at T6 level invades the T6 vertebral body and left aspect of T5 vertebral body. This extends into the left epidural space and Joseph Mcqueen MD Cervical Spine MRI 10/22/17 1153 Signed Impressions: Service Date/Time: Sunday, October 22, 2017 19:59 - CONCLUSION: 1. Anterior fusion C4-C7. 2. Questionable enhancement in the left epidural region at T1- T2. 3. Multiple masses along the left chest wall and left shoulder region. Joseph Mcqueen MD Brain MRI 10/22/17 1153 Signed Impressions: Service Date/Time: Sunday, October 22, 2017 19:59 - CONCLUSION: Unremarkable MRI of the brain. Joseph Mcqueen MD Lumbar Spine MRI 10/22/17 1002 Signed Impressions: Service Date/Time: Sunday, October 22, 2017 11:01 - CONCLUSION: No evidence for metastatic disease without any significant compromise to the thecal sac or the exiting nerve roots. Isidoro Harris MD Assessment and Plan Assessment and Plan Impression: 1. Findings consistent with metastatic melanoma to the thoracic spine. Involvement of primarily the T6 vertebral body with T5-6 level paraspinous lesion. Positive epidural lesion with cord compression primarily T4-T8 level. Severe myelopathy with trace residual lower extremity movement. Recommendations: Findings were discussed with the patient as well as with her at bedside. Options of treatment with radiation therapy versus surgical intervention has been discussed. Due to the rapid and severe progression of myelopathy with significant cord compression, it is felt that she would have the best prognosis for stabilization of her deficit and possible recovery with surgical intervention. She does understand that there is a risk of progressive myelopathy, spinal cord injury with surgical intervention. The procedure of T4-T8 decompressive laminectomy, posterior fusion with instrumentation has been discussed in detail. Due to the degree of vertebral body involvement at the T5-T6 level, contiguous with the paraspinous lesion, instrumentation and fusion be reasonable to help prevent vertebral body pathologic compression fracture or development of instability. Risk and possible complications have been discussed including the risk of anesthesia, organ failure, stroke, , bleeding, infection, nerve damage, pain, weakness, numbness, paralysis, loss of bowel, bladder or sexual function, spinal fluid leak, failure of instrumentation or fusion. Consents have been reviewed with the patient, signed and witnessed in the office today. All questions have been answered. She appears to understand the above and wishes to proceed with surgery in the near future. The operating room has been notified regarding the urgent nature of the procedure and preparations are being made for the surgery on an urgent basis. Brian Vásquez MD Oct 22, 2017 23:46
[2017-10-22] MEDS ORDERED: GELFOAM SIZE 100 ONE (23:53)
[2017-10-22] MEDS ORDERED: LIDOCAINE 0.5%/EPINEPHrine 1:200,000 SOLN 50 ML VIAL ONE (23:55)
[2017-10-22] MEDS ORDERED: GENTAMICIN SULFATE 80 MG/2 ML VIAL ONE (23:56)
[2017-10-22] MEDS ORDERED: THROMBIN (TOPICAL) 5,000 UNIT VIAL ONE (23:56)
[2017-10-22] MEDS ORDERED: HEPARIN SODIUM - SQ 10,000 UNITS/ML VIAL ONE (23:58)
[2017-10-23] VITALS (7 sets, daily range): BP systolic 88–103; BP diastolic 51–62; PULSE 94–108; RESP 14–22; TEMP 98.7–99.9; O2SAT 95–100
[2017-10-23 00:12] LABS: INTERNATIONAL NORMALIZED RATIO 1.1 RATIO; PROTHROMBIN TIME - PATIENT 11.6 SEC (9.8-11.6)
[2017-10-23] MEDS ORDERED: KETAMINE HCL 500 MG/5 ML VIAL ONE (01:34)
[2017-10-23] MEDS ORDERED: ceFAZolin INJ 1,000 MG VIAL IV ONE ×2 (05:13→12:00)
[2017-10-23] MEDS ORDERED: DO NOT ADM ANY ANTICOAGULANT DRUGS PRN (06:00)
[2017-10-23] MEDS ORDERED: NALOXONE HCL 0.4 MG/ML AMP IV PUSH PRN (07:15)
[2017-10-23] MEDS ORDERED: ACETAMINOPHEN/HYDROcodone 325 MG/5 MG TAB PO PRN (07:15)
[2017-10-23] MEDS ORDERED: MORPHINE SULFATE 2 MG/ML INJ IV PUSH PRN (07:15)
[2017-10-23] MEDS ORDERED: HYDROmorphone HCL PF 1 MG/ML VIAL IV PUSH PRN ×2 (07:15→14:45)
--- NOTE | 2017-10-23 07:23 | RADRPT ---
EXAM DATE/TIME: 10/23/2017 07:08 [facility] COMPARISON: CHEST SINGLE AP, October 22, 2017, 12:50. INDICATIONS : Evaluate central line placement MEDICAL HISTORY : Carcinoma, breast. Hypertension. SURGICAL HISTORY : Fusion, cervical. ENCOUNTER: Subsequent ACUITY: 2 days PAIN SCORE: Non-responsive. LOCATION: chest FINDINGS: The lungs are clear without infiltrate, nodule, or mass. There is no appreciable pleural effusion fo r technique. Heart and mediastinum are unremarkable. There are postsurgical changes in the lower cer vical spine and upper thoracic spine. CONCLUSION: No acute cardiopulmonary disease. Isidoro Harris MD on October 23, 2017 at 7:21 Board Certified Radiologist. This report was verified electronically.
--- NOTE | 2017-10-23 07:28 | PD.OP ---
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 Thoracic myelopathy Procedure: 1. Bilateral T4-T8 decompressive laminectomy, resection of metastatic epidural neoplasm 2. Bilateral T4-T8 posterior instrumentation, pedicle screw fixation 3. Bilateral T4-T8 posterior fusion with demineralized bone matrix Anesthesia: Gen. Surgeon: Brian Vásquez Veterinary Surgery Technician(s): Roderick Oliveira Operation and Findings: Findings: Relatively dense epidural neoplasm primarily over the left dorsal- lateral thecal sac at the T5-6 level. Positive erosion of the left T5-6 facet related to neoplasm. Procedure in detail: The patient was brought into the operating room and general endotracheal anesthesia induced without difficulty. FRANKIE hose and sequential compression devices were placed. Lines were established by anesthesia. Leads for intraoperative neuro monitoring were placed. A baseline study was performed. The patient was positioned on the concentric Rajiv table with the side bolsters and all extremities appropriately padded. Additional padding was placed along the region of neoplasm at the left breast and axilla. Appropriate time-out procedure was performed with all personnel present and in agreement. The intraoperative C-arm in AP and lateral views was used to carefully determine the T4, T5, T6, T7, and T8 levels 1% Xylocaine with epinephrine was used for local infiltration over the incision site which was made at the midline T4T8 level. The incision was carried sharply down to the deep fascia which was incised adjacent to the spinous processes on the left and right side. Barlow elevator was used for subperiosteal elevation of paraspinous musculature and fascia away from the lamina and spinous process of T4, T5 T6, T7, T8 on the right and left side. The deep self-retaining retractor was placed. The appropriate levels were verified with intraoperative C-arm. Microscope was moved into place and used for the remainder of the procedure including the closure. At the T4- T8 levels the TPS drill with a 5 mm bone bur followed by the 4 mm sera bur was used to thin out the lamina on each side as well as a moderate amount of the bilateral medial facet, taking care not to disrupt the integrity of the facet or pars intra-articularis. The spinous processes and an additional portion of lamina were then removed with the Le[place]ell rongeur taking care not to cause any compression on the thecal sac or spinal canal. The decompressive laminectomy medial facetectomy each level was completed with the Kerrison rongeur. At the left T5-6 level, the facet was severely eroded by the neoplasm as it extended from the paraspinous region through the foramen into the spinal canal. The majority of the compromised left T5-6 facet was resected. Due to the degree of bone involvement and facet compromise, it was elected to perform a fusion over the affected T4-T8 levels to prevent development of instability and potential further spinal cord compromise. The TPS drill with a 5 mm bone bur along with the Leksell rongeur was used to decorticate the transverse process and start the opening into the pedicle at the bilateral T4, T7, and T8 level and the right T5 and T6 level. Screws were not placed at the left T5 and T6 level due to the poor integrity of the bone. At each of the above noted pedicle screw sites, the pedicle was prepared with the pedicle finder followed by the 4 mm tap, the ball-tip probe to probe the pedicle. The 4.5 x 30 mm Spine Wave pedicle screw was then placed at each of the above sites. The ligamentum flavum at each level was elevated away from the thecal sac with the thin ligament dissector and resected with the 15 blade knife and the Kerrison rongeur . A relatively dense epidural lesion which appeared consistent with metastatic neoplasm was encountered on the left greater than right primarily dorsal lateral greater than ventral canal at the T5-T6 greater than T4 and T7, T8 levels, which was causing significant compression on the thecal sac. The epidural lesion was gently elevated away from the thecal sac with the thin ligament dissector and the [place] dissector and removed with the micro-biopsy forceps and Kerrison rongeur. This was resected in a cranial and caudal direction until more normal epidural adipose tissue was encountered. The thecal sac and spinal canal appeared well decompressed at the end of the procedure. No spinal fluid leakage was encountered. The disc and annulus at each level was visualized to make sure that there was no significant disc displacement or herniation. Bleeding was carefully controlled with the bipolar forceps and temporary application of Surgi-Hugo. The pre-bent zia was then placed across the T4 through T8 level pedicle screws on each side and secured with the locking caps, torque wrench, and anti-torque device. The final construct was checked with intraoperative C-arm and felt to be satisfactory. The posterior lateral bony structures were further decorticated with the TPS drill and demineralized bone matrix was packed along the decorticated structures for the posterior fusion on the right and left side. A 7 mm flat fluted drain was left in place at the operative site and brought out through an incision in the mid thoracic region and secured to the skin with nylon suture and attached to a bulb suction. The closure was performed with 0 Vicryl interrupted for the deep and superficial fascia, with 3-0 Vicryl interrupted subcutaneous closure, and 4-0 Vicryl running subcuticular closure. A dressing of sterile Mastisol, Steri- Strips, and Primapore was placed. The patient was taken to recovery room in stable condition. All counts were correct at the end of the case. Estimated blood loss was 600 cc. Specimen of the epidural lesion was sent to pathology for permanent section Brian Vásquez MD Oct 23, 2017 07:28
[2017-10-23] MEDS: NS + KCL 20 MEQ INJ 1,000 ML IV SCH ×3 (07:45→23:17)
[2017-10-23] MEDS ORDERED: VANCOMYCIN INJ 750 MG in SODIUM CHLOR 0.9% 250 ML INJ 250 ML IV SCH (08:00)
[2017-10-23] MEDS ORDERED: *morphine SULFATE 4 MG/ML PERIprocedure ONLY ONE (09:14)
--- NOTE | 2017-10-23 09:48 | PD.ONC.PN ---
Subjective Subjective Remarks Afebrile overnight. Patient seen in PACU. She underwent laminectomy early this AM. She is somnolent but does awaken. Complains of sensation of foreign body in left eye. Objective Data Date Time Temp Pulse Resp B/P (MAP) Pulse Ox O2 Delivery O2 Flow Rate FiO2 10/23/17 08:00 96 16 103/62 (76) 100 109/54 (72) 10/23/17 07:45 94 16 106/65 (79) 100 114/57 (76) 10/23/17 07:30 93 18 104/63 (77) 100 114/58 (76) 10/23/17 07:15 94 19 106/61 (76) 100 116/57 (76) 10/23/17 07:00 95 17 100/58 (72) 100 Nasal Cannula 3 111/55 (73) 10/23/17 06:48 98.6 97 17 105/60 (75) 100 Nasal Cannula 3 10/22/17 20:00 97.4 109 16 106/58 (74) 91 10/22/17 16:00 95.4 111 17 101/58 (72) 97 10/22/17 14:14 10/22/17 12:20 99 18 113/64 (80) 97 10/22/17 11:35 103 20 108/57 (74) 94 Room Air 10/22/17 10:40 99 Room Air 10/22/17 09:54 99.7 118 20 115/72 (86) 98 10/23/17 10/23/17 10/23/17 07:00 15:00 23:00 Intake Total 3500 ml Output Total 1500 ml 100 ml Balance 2000 ml -100 ml Result Diagram: 10/22/17 1023 10/22/17 1023 Laboratory Results Laboratory Tests Test 10/22/17 10:23 10/22/17 23:35 10/23/17 04:25 White Blood Count 13.6 TH/MM3 Red Blood Count 3.98 MIL/MM3 Hemoglobin 8.8 GM/DL Hematocrit 28.3 % Mean Corpuscular Volume 71.0 FL Mean Corpuscular Hemoglobin 22.2 PG Mean Corpuscular Hemoglobin Concent 31.2 % Red Cell Distribution Width 24.3 % Platelet Count 586 TH/MM3 Mean Platelet Volume 7.6 FL Neutrophils (%) (Auto) 82.4 % Lymphocytes (%) (Auto) 7.5 % Monocytes (%) (Auto) 9.0 % Eosinophils (%) (Auto) 0.3 % Basophils (%) (Auto) 0.8 % Neutrophils # (Auto) 11.2 TH/MM3 Lymphocytes # (Auto) 1.0 TH/MM3 Monocytes # (Auto) 1.2 TH/MM3 Eosinophils # (Auto) 0.0 TH/MM3 Basophils # (Auto) 0.1 TH/MM3 CBC Comment DIFF FINAL Differential Comment Urine Color YELLOW Urine Turbidity CLEAR Urine pH 7.0 Urine Specific [place] 1.015 Urine Protein 30 mg/dL Urine Glucose (UA) NEG mg/dL Urine Ketones NEG mg/dL Urine Occult Blood TRACE Urine Nitrite NEG Urine Bilirubin NEG Urine Urobilinogen LESS THAN 2.0 MG/DL Urine Leukocyte Esterase NEG Urine RBC 3 /hpf Urine WBC 8 /hpf Urine Squamous Epithelial Cells 2 /hpf Urine Hyaline Casts 3 /lpf Urine Mucus FEW /lpf Microscopic Urinalysis Comment CULT NOT INDICATED Blood Urea Nitrogen 23 MG/DL Creatinine 1.05 MG/DL Random Glucose 100 MG/DL Calcium Level 8.9 MG/DL Sodium Level 134 MEQ/L Potassium Level 3.9 MEQ/L Chloride Level 101 MEQ/L Carbon Dioxide Level 23.6 MEQ/L Anion Gap 9 MEQ/L Estimat Glomerular Filtration Rate 56 ML/MIN Prothrombin Time 11.6 SEC Prothromb Time International Ratio 1.1 RATIO Activated Partial Thromboplast Time 27.3 SEC Blood Gas Puncture Site OR ABG Blood Gas Patient Temperature 98.6 Blood Gas HCO3 18 mmol/L Blood Gas Base Excess -6.3 mmol/L Blood Gas Oxygen Saturation 96 % Arterial Blood pH 7.39 Arterial Blood Partial Pressure CO2 30 mmHg Arterial Blood Partial Pressure O2 286 mmHg Arterial Blood Oxygen Content 11.9 Vol % Arterial Blood Carboxyhemoglobin 1.9 % Arterial Blood Methemoglobin 1.5 % Blood Gas Hemoglobin 8.3 G/DL Oxygen Delivery Device OR ABG Blood Gas Ventilator Setting OR ABG Blood Gas Inspired Oxygen 21 % Culture Results Microbiology Date/Time Source Procedure Growth Status 10/22/17 22:15 Blood Peripheral Aerobic Blood Culture Pending Received 10/22/17 22:15 Blood Peripheral Anaerobic Blood Culture Pending Received 10/22/17 22:10 Blood Peripheral Aerobic Blood Culture Pending Received 10/22/17 22:10 Blood Peripheral Anaerobic Blood Culture Pending Received 10/22/17 21:25 Wound Breast Gram Stain - Final Resulted 10/22/17 21:25 Wound Breast Wound Culture Pending Resulted Imaging Studies Last 24 hours Impressions Chest X-Ray 10/23/17 0000 Signed Impressions: Service Date/Time: Monday, October 23, 2017 07:08 - CONCLUSION: No acute cardiopulmonary disease. Isidoro Harris MD Chest X-Ray 10/22/17 1220 Signed Impressions: Service Date/Time: Sunday, October 22, 2017 12:50 - CONCLUSION: No acute cardiopulmonary disease. Isidoro Harris MD Thoracic Spine MRI 10/22/17 1153 Signed Impressions: Service Date/Time: Sunday, October 22, 2017 19:59 - CONCLUSION: Large left paraspinal mass at T4-T8 level but more notably at T6 level invades the T6 vertebral body and left aspect of T5 vertebral body. This extends into the left epidural space and Joseph Mcqueen MD Cervical Spine MRI 10/22/17 1153 Signed Impressions: Service Date/Time: Sunday, October 22, 2017 19:59 - CONCLUSION: 1. Anterior fusion C4-C7. 2. Questionable enhancement in the left epidural region at T1- T2. 3. Multiple masses along the left chest wall and left shoulder region. Joseph Mcqueen MD Brain MRI 10/22/17 1153 Signed Impressions: Service Date/Time: Sunday, October 22, 2017 19:59 - CONCLUSION: Unremarkable MRI of the brain. Joseph Mcqueen MD Lumbar Spine MRI 10/22/17 1002 Signed Impressions: Service Date/Time: Sunday, October 22, 2017 11:01 - CONCLUSION: No evidence for metastatic disease without any significant compromise to the thecal sac or the exiting nerve roots. Isidoro Harris MD Administered Medications Medications (Trade) Dose Ordered Sig/Antoni Route PRN Reason Start Time Stop Time Status Last Admin Dose Admin Lorazepam (Ativan Inj) 2 mg ONCE PRN IV PUSH ANXIETY 10/22/17 10:45 10/22/17 10:47 Potassium Chloride/Sodium Chloride 1,000 ml @ 85 mls/hr [id number] IV 10/22/17 12:30 10/23/17 07:45 Piperacillin Sod/ Tazobactam Sod 50 ml @ 100 mls/hr Q6H IV 10/22/17 19:00 10/22/17 18:48 Lorazepam (Ativan Inj) 1 mg Q4H PRN IV PUSH anxiety 10/22/17 18:30 10/22/17 18:57 Objective Remarks GENERAL: Lethargic middle aged female, supine on stretcher. SKIN: Warm and dry. HEAD: Normocephalic. EYES: No injection or drainage. No foreign body visible in left eye. + eye tearing noted. BREAST: left breast with foul smelling, oozing wound and multiple enlarged lumps. NECK: Supple, trachea midline. CARDIOVASCULAR: Regular rate and rhythm RESPIRATORY: Breath sounds equal bilaterally. No accessory muscle use. GASTROINTESTINAL: Abdomen soft, non-tender, nondistended. EXTREMITIES: No cyanosis NEUROLOGICAL: awake but lethargic. normal speech. Assessment/Plan Problem List: (1) Malignant melanoma ICD Codes: C43.9 - Malignant melanoma of skin, unspecified (2) Thoracic myelopathy ICD Codes: M47.14 - Other spondylosis with myelopathy, thoracic region Assessment 47y/o female admitted with bilateral lower extremity weakness + urinary retention. Oncology consulted for locally advanced melanoma. h/o hypertension Plan 1. melanoma. will send tissue for BRAF testing. if patient is BRAF positive she could be a candidate for Dabrafenib/trametinib if not then would pursue immune therapy 2. Thoracic Myelopathy: s/p Laminectomy overnight. Neurosurgery following. 3. left breast wound infection: cultures pending. continue antibiotics. 4. thrombocytosis: likely reactive d/t inflammation + infection. monitor 5. Chronic anemia d/t inflammation + infection. transfuse for hgb less than 8. Attending Statement The exam, history, and the medical decision-making described in the above note were completed with the assistance of the mid-level provider. I reviewed and agree with the findings presented. I attest that I had a [id number] encounter with the patient on the same day, and personally performed and documented my assessment and findings in the medical record. 47 yoF with metastatic melanoma admitted with spinal cord compression s/p neurosurgery with removal of tumor. Will follow clinical status. She will need systemic treatment of malignancy, will follow up BRAF status. Raven Bonds Oct 23, 2017 09:48 Lakisha Sherman MD Oct 23, 2017 16:51
[2017-10-23] MEDS ORDERED: PNEUMOCOCCAL POLYVALENT INJ 25 MCG/0.5 ML SYR IM ONE (10:00)
[2017-10-23] MEDS ORDERED: INFLUENZA VIRUS VACCINE (QUADRIVALENT) 0.5 ML SYR IM ONE (10:00)
[2017-10-23] MEDS: SODIUM CHLORIDE 0.9% FLUSH 10 ML FLUSH IV FLUSH SCH ×2 (10:45→21:00)
[2017-10-23] MEDS: MORPHINE SULFATE 2 MG/ML INJ IV PUSH PRN ×2 (10:46→13:55)
[2017-10-23] MEDS ORDERED: ONDANSETRON HCL 4 MG/2 ML VIAL IV PUSH ONE (12:00)
[2017-10-23] MEDS ORDERED: PROPOFOL 200 MG/20 ML AMP IV ONE (12:00)
[2017-10-23] MEDS ORDERED: ROCURONIUM INJ 50 MG/5 ML SYRINGE IV PUSH ONE (12:00)
[2017-10-23] MEDS ORDERED: SUCCINYLCHOLINE CHLORIDE 200 MG/10 ML VIAL IV ONE (12:00)
[2017-10-23] MEDS ORDERED: NORMOSOL R INJ 1,000 ML IV ONE (12:00)
[2017-10-23] MEDS ORDERED: LACTATED RINGER'S 1000 ML INJ 2,000 ML IV ONE (12:00)
[2017-10-23] MEDS ORDERED: LIDOCAINE HCL 1% PF 5 ML SYRINGE OTHER ONE (12:00)
[2017-10-23] MEDS ORDERED: PHENYLEPH/NS 1000 MCG/10 ML SYR IV ONE (12:00)
[2017-10-23] MEDS ORDERED: SODIUM CHLORIDE 0.9% 20 ML VIAL IV ONE (12:00)
[2017-10-23] MEDS: PIPERACIL-TAZO 3.375 GM PREMIX 50 ML IV SCH ×3 (12:30→22:35)
--- NOTE | 2017-10-23 13:03 | HHI.NSPN ---
History Chief Complaint: back pain Interval History 47-year-old female with history of metastatic melanoma presents to the emergency room 10/22/2017 with complaint of 4 days of progressive weakness and numbness in the lower extremities as well as urinary retention. Imaging studies reveal paraspinous metastatic disease at the primarily left T5-6 level with epidural neoplasm at the T4-T8 levels with significant spinal cord compression. Patient taken to surgery for decompressive T4-T8 laminectomy, resection of epidural neoplasm, posterior fusion with instrumentation early in the morning . Examination postoperative reveals the patient to be awake and alert. Complains of moderate low back pain. Motor function in the lower extremities improved compared to preoperative. Exam Results Vital Signs Date Time Temp Pulse Resp B/P (MAP) Pulse Ox O2 Delivery O2 Flow Rate FiO2 10/23/17 09:45 98.9 104 20 110/59 (76) 100 Room Air 10/23/17 07:00 3 Intake and Output 10/23/17 10/23/17 10/24/17 08:00 16:00 00:00 Intake Total 3500 ml 189 ml Output Total 1550 ml 400 ml Balance 1950 ml -211 ml Physical Examination General: Resting quietly. No agitation Respirations: Clear to auscultation Cardiac: Regular without murmur Abdomen: Soft nontender Extremities: No significant cyanosis or edema Skin: Stable large firm mass with ecchymosis and some skin ulceration and bleeding at the left breast and axilla Dressing dry and intact. Drain in place with moderate output Neurologic: Awake and alert Speech clear and appropriate Sensation intact light touch upper extremities Moderate decreased sensation light touch diffuse lower extremities Strength within normal limits upper extremities except some limitation of proximal left upper extremity motor testing due to mass at the left breast and axilla. Strength in the lower extremities improved postoperative. Now 2/5 iliopsoas with 2+ right and to left quadriceps, 2 right and 2+ left tibialis anterior and gastrocsoleus and extensor hallucis longus, flexor digitorum in the feet. Lab, Micro, Other Results Laboratory Tests Test 10/22/17 23:35 10/23/17 04:25 Prothrombin Time 11.6 SEC Prothromb Time International Ratio 1.1 RATIO Activated Partial Thromboplast Time 27.3 SEC Blood Gas Puncture Site OR ABG Blood Gas Patient Temperature 98.6 Blood Gas HCO3 18 mmol/L Blood Gas Base Excess -6.3 mmol/L Blood Gas Oxygen Saturation 96 % Arterial Blood pH 7.39 Arterial Blood Partial Pressure CO2 30 mmHg Arterial Blood Partial Pressure O2 286 mmHg Arterial Blood Oxygen Content 11.9 Vol % Arterial Blood Carboxyhemoglobin 1.9 % Arterial Blood Methemoglobin 1.5 % Blood Gas Hemoglobin 8.3 G/DL Oxygen Delivery Device OR ABG Blood Gas Ventilator Setting OR ABG Blood Gas Inspired Oxygen 21 % Medical Decision Making Impression and Plan Impression: 1. Patient exhibits some early improvement in neurologic function of the lower extremities postoperative. Plan: Continue bedrest for today. Non-chemical DVT prophylaxis Continue thoracic drain Physical therapy Mobilize out of bed with TLSO braBrian Ly MD Oct 23, 2017 13:03
--- NOTE | 2017-10-23 13:41 | EKG ---
Date Performed: 10/22/2017 Time Performed: 12:32:44 PTAGE: 47 years EKG: SINUS TACHYCARDIA LOW QRS VOLTAGE IN PRECORDIAL LEADS ABNORMAL RHYTHM ECG NO PREVIOUS TRACING DOCTOR: Damon Lepe Interpretating Date/Time 10/23/2017 13:40:04
[2017-10-23] MEDS: VANCOMYCIN 1,500 MG/NS 500 ML IV SCH ×2 (13:56)
--- NOTE | 2017-10-23 15:08 | PD.ID.CON ---
History of Present Illness Service ID Consult Requested By Dr Booker Reason for Consult infected wound Primary Care Physician Radha Mcadams MD Diagnoses: History of Present Illness Ms. Burgos is a 47-year-old female who presented to the emergency room today with complaint of approximately 4 days of progressive weakness and numbness in the lower extremities. She states that the symptoms started approximately this past Tuesday. By she can walk only with significant assistance, and states that yesterday, on Tuesday, she was in bed the entire day, unable to ambulate. She complains of urinary retention for the past day. She was recently diagnosed with melanoma by breast core biopsy on 10/07/17 after noticing a mass with bleeding and discoloration over the left breast. pt underwenrt emergent neurosurgical procedure by Dr Vásquez 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 sp 1. Bilateral T4-T8 decompressive laminectomy, resection of metastatic epidural neoplasm 2. Bilateral T4-T8 posterior instrumentation, pedicle screw fixation 3. Bilateral T4-T8 posterior fusion with demineralized bone matrix Pt did have low grade ffever on presentation up to 99.5, and leukocytosis of 13 K Past Family Social History Allergies: Coded Allergies: No Known Allergies (Verified Allergy, Unknown, 10/05/17) Past Medical History Recently diagnosed malignant melanoma left breast-chest. Hypertension Past Surgical History Previous cervical spine fusion Left breast biopsy 10/07/17 Active Ordered Medications Medications where reviewed in EMR Antibiotics Include: zosyn vancomycin Family History No history of cancer, diabetes, cardiac disease Social History Does not smoke cigarettes or use alcohol. Lives with her Physical Exam Vital Signs Vital Signs Date Time Temp Pulse Resp B/P (MAP) Pulse Ox O2 Delivery O2 Flow Rate FiO2 10/23/17 09:45 98.9 104 20 110/59 (76) 100 Room Air 10/23/17 09:00 104 14 114/71 (85) 100 121/65 (83) 10/23/17 08:00 96 16 103/62 (76) 100 109/54 (72) 10/23/17 07:45 94 16 106/65 (79) 100 114/57 (76) 10/23/17 07:30 93 18 104/63 (77) 100 114/58 (76) 10/23/17 07:15 94 19 106/61 (76) 100 116/57 (76) 10/23/17 07:00 95 17 100/58 (72) 100 Nasal Cannula 3 111/55 (73) 10/23/17 06:48 98.6 97 17 105/60 (75) 100 Nasal Cannula 3 10/22/17 20:00 97.4 109 16 106/58 (74) 91 10/22/17 16:00 95.4 111 17 101/58 (72) 97 Physical Exam CONSTITUTIONAL/GENERAL: This is an adequately nourished patient, in no apparent distress. TUBES/LINES/DRAINS: SKIN: No jaundice, rashes, or lesions. Skin temperature appropriate. Not diaphoretic. L breast edematous with multiple dark brown firm irregular masses some of them are are drainig foul smelling drainage HEAD: Atraumatic. Normocephalic. EYES: Pupils equal and round and reactive. Extraocular motions intact. No scleral icterus. No injection or drainage. Fundi not examined. ENT: Hearing grossly normal. Nose without bleeding or purulent drainage. Throat without visible erythema, exudates, masses, or lesions. NECK: Trachea midline. Supple, nontender. No palpable thyroid enlargement or nodularity. CARDIOVASCULAR: Regular rate and rhythm without murmurs, gallops, or rubs. No JVD. Peripheral pulses symmetric. RESPIRATORY/CHEST: Symmetric, unlabored respirations. Clear to auscultation. Breath sounds equal bilaterally. No wheezes, rales, or rhonchi. GASTROINTESTINAL: Abdomen soft, non-tender, nondistended. No hepato-splenomegaly , or palpable masses. No guarding. Bowel sounds present. GENITOURINARY: Without palpable bladder distension. MUSCULOSKELETAL: Extremities without clubbing, cyanosis, or edema. No joint tenderness or effusion noted. No calf tenderness. No mottling or clubbing. LYMPHATICS: No palpable cervical or supraclavicular adenopathy. NEUROLOGICAL:Lethargic, but arousable. Motor and sensory diminsihed to 2/5 in BLE Follows commands. Clear speech. PSYCHIATRIC: No obvious anxiety/depression. no apparent hallucinations or other psychotic thought process. Laboratory Laboratory Tests Test 10/22/17 23:35 10/23/17 04:25 Prothrombin Time 11.6 Prothromb Time International Ratio 1.1 Activated Partial Thromboplast Time 27.3 Blood Gas Puncture Site OR ABG Blood Gas Patient Temperature 98.6 Blood Gas HCO3 18 Blood Gas Base Excess -6.3 Blood Gas Oxygen Saturation 96 Arterial Blood pH 7.39 Arterial Blood Partial Pressure CO2 30 Arterial Blood Partial Pressure O2 286 Arterial Blood Oxygen Content 11.9 Arterial Blood Carboxyhemoglobin 1.9 Arterial Blood Methemoglobin 1.5 Blood Gas Hemoglobin 8.3 Oxygen Delivery Device OR ABG Blood Gas Ventilator Setting OR ABG Blood Gas Inspired Oxygen 21 Date/Time Source Procedure Growth Status 10/22/17 22:15 Blood Peripheral Aerobic Blood Culture - Preliminary NO GROWTH IN 1 DAY Resulted 10/22/17 22:15 Blood Peripheral Anaerobic Blood Culture - Preliminary NO GROWTH IN 1 DAY Resulted 10/22/17 21:25 Wound Breast Gram Stain - Final Resulted 10/22/17 21:25 Wound Breast Wound Culture Pending Resulted Result Diagram: 10/22/17 1023 10/22/17 1023 Imaging Last Impressions Chest X-Ray 10/23/17 0000 Signed Impressions: Service Date/Time: Monday, October 23, 2017 07:08 - CONCLUSION: No acute cardiopulmonary disease. Isidoro Harris MD Thoracic Spine MRI 10/22/17 1153 Signed Impressions: Service Date/Time: Sunday, October 22, 2017 19:59 - CONCLUSION: Large left paraspinal mass at T4-T8 level but more notably at T6 level invades the T6 vertebral body and left aspect of T5 vertebral body. This extends into the left epidural space and Joseph Mcqueen MD Cervical Spine MRI 10/22/17 1153 Signed Impressions: Service Date/Time: Sunday, October 22, 2017 19:59 - CONCLUSION: 1. Anterior fusion C4-C7. 2. Questionable enhancement in the left epidural region at T1- T2. 3. Multiple masses along the left chest wall and left shoulder region. Joseph Mcqueen MD Brain MRI 10/22/17 1153 Signed Impressions: Service Date/Time: Sunday, October 22, 2017 19:59 - CONCLUSION: Unremarkable MRI of the brain. Joseph Mcqueen MD Lumbar Spine MRI 10/22/17 1002 Signed Impressions: Service Date/Time: Sunday, October 22, 2017 11:01 - CONCLUSION: No evidence for metastatic disease without any significant compromise to the thecal sac or the exiting nerve roots. Isidoro Harris MD Assessment and Plan Assessment and Plan Metastaic L breast melanoma invading spinal cord sp emergent surgery Infected, with clinical e/o anaerobic involvement cont current abx monitor WBC, temps Discussed Condition With Renetta Vásquez and Madison Chaney MD Oct 23, 2017 15:08
[2017-10-23] MEDS: HYDROmorphone HCL PF 2 MG/ML VIAL IV PUSH PRN ×2 (16:32→20:55)
--- NOTE | 2017-10-23 17:41 | HHI.PR ---
Subjective Remarks Pain is controlled. Objective Vitals Vital Signs Date Time Temp Pulse Resp B/P (MAP) Pulse Ox O2 Delivery O2 Flow Rate FiO2 10/23/17 12:00 98.9 94 19 96/57 (70) 95 10/23/17 10:00 99.0 102 22 103/62 (76) 95 Arterial Line 10/23/17 09:45 98.9 104 20 110/59 (76) 100 Room Air 10/23/17 09:00 104 14 114/71 (85) 100 121/65 (83) 10/23/17 08:00 96 16 103/62 (76) 100 109/54 (72) 10/23/17 07:45 94 16 106/65 (79) 100 114/57 (76) 10/23/17 07:30 93 18 104/63 (77) 100 114/58 (76) 10/23/17 07:15 94 19 106/61 (76) 100 116/57 (76) 10/23/17 07:00 95 17 100/58 (72) 100 Nasal Cannula 3 111/55 (73) 10/23/17 06:48 98.6 97 17 105/60 (75) 100 Nasal Cannula 3 10/22/17 20:00 97.4 109 16 106/58 (74) 91 10/23/17 10/23/17 10/24/17 15:00 23:00 07:00 Intake Total 189 ml Output Total 450 ml Balance -261 ml Intake IV Total 189 ml Output Urine Total 350 ml Drainage Total 100 ml Result Diagram: 10/22/17 1023 10/22/17 1023 Imaging Last Impressions Chest X-Ray 10/23/17 0000 Signed Impressions: Service Date/Time: Monday, October 23, 2017 07:08 - CONCLUSION: No acute cardiopulmonary disease. Isidoro Harris MD Thoracic Spine MRI 10/22/17 1153 Signed Impressions: Service Date/Time: Sunday, October 22, 2017 19:59 - CONCLUSION: Large left paraspinal mass at T4-T8 level but more notably at T6 level invades the T6 vertebral body and left aspect of T5 vertebral body. This extends into the left epidural space and Joseph Mcqueen MD Cervical Spine MRI 10/22/17 1153 Signed Impressions: Service Date/Time: Sunday, October 22, 2017 19:59 - CONCLUSION: 1. Anterior fusion C4-C7. 2. Questionable enhancement in the left epidural region at T1- T2. 3. Multiple masses along the left chest wall and left shoulder region. Joseph Mcqueen MD Brain MRI 10/22/17 1153 Signed Impressions: Service Date/Time: Sunday, October 22, 2017 19:59 - CONCLUSION: Unremarkable MRI of the brain. Joseph Mcqueen MD Lumbar Spine MRI 10/22/17 1002 Signed Impressions: Service Date/Time: Sunday, October 22, 2017 11:01 - CONCLUSION: No evidence for metastatic disease without any significant compromise to the thecal sac or the exiting nerve roots. Isidoro Harris MD Objective Remarks GENERAL: This is a well-nourished, well-developed patient, in no apparent distress. CARDIOVASCULAR: Regular rate and rhythm without murmurs, gallops, or rubs. RESPIRATORY: Clear to auscultation. Breath sounds equal bilaterally. No wheezes , rales, or rhonchi. GASTROINTESTINAL: Abdomen soft, non-tender, nondistended. Normal active bowel sounds MUSCULOSKELETAL: Extremities without clubbing, cyanosis, or edema. NEURO: A/P Problem List: (1) Malignant melanoma ICD Codes: C43.9 - Malignant melanoma of skin, unspecified Status: Acute Plan: - Comgmt with Neurosurgery, Medical Oncology, Radiation Oncology, Infectious Disease - patient presented to the ER 10/06/17 with breast changes - core biopsy 10/07 revealed malignant melanoma - Patient has an appointment with oncology 11/01/17 - Pt presented to ER (10/22) with c/o B/L LE weakness & urinary retention - Thoracic MRI (10/22) Large left paraspinal mass at T4-T8 level but more notably at T6 level invades the T6 vertebral body and left aspect of T5 vertebral body. This extends into the left epidural space - Cervical MRI (10/22) 1. Anterior fusion C4-C7. 2. Questionable enhancement in the left epidural region at T1-T2. 3. Multiple masses along the left chest wall and left shoulder region - Lumbar MRI (10/22) No evidence for metastatic disease without any significant compromise to the thecal sac or the exiting nerve roots. - Brain MRI (10/22) NO acute abnormalities - Case d/w Dr. Vásquez and Dr. 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 - Patient taken to surgery for decompressive T4-T8 laminectomy, resection of epidural neoplasm, posterior fusion with instrumentation early in the morning - improved LE neurological exam - chemotherapy when appropriate per Oncology - Radiation therapy when appropriate per Radiation Oncology - cultures taken from left breast/axillary region (10/22) --> pending - Vancomycin/Zosyn - Case d/w Infectious Disease, Dr. Mora. She will consult - supportive care - SCDs for DVT prophylaxis (2) Urinary retention ICD Codes: R33.9 - Retention of urine, unspecified Status: Acute Plan: Muhammad placed in ER with 1000ml returned, continue muhammad for retention - see above (3) Lower extremity weakness ICD Codes: R29.898 - Other symptoms and signs involving the musculoskeletal system Status: Acute Plan: - see above Problem Qualifiers (1) Lower extremity weakness: Qualified Codes: R29.898 - Other symptoms and signs involving the musculoskeletal system Rey Booker DO Oct 23, 2017 17:40
[2017-10-23 19:31] LABS: AUTOMATED NEUTROPHIL # 10.3 TH/MM3 (1.8-7.7); BASOPHIL # 0.1 TH/MM3 (0-0.2); EOSINOPHIL % 0.1 % (0.0-4.0); HEMATOCRIT 25.3 % (35.0-46.0); HEMOGLOBIN 7.9 GM/DL (11.6-15.3); LYMPHOCYTE # 1.3 TH/MM3 (1.0-4.8); MEAN CELL VOLUME 73.4 FL (80.0-100.0); MEAN CORPUSCULAR HGB CONC 31.3 % (32.0-36.0); MEAN PLATELET VOLUME 7.1 FL (7.0-11.0); MONO % 8.2 % (0.0-8.0); MONOCYTE # 1.1 TH/MM3 (0-0.9); NEUT % 80.7 % (16.0-70.0); PLATELET COUNT 417 TH/MM3 (150-450); RED BLOOD COUNT 3.44 MIL/MM3 (4.00-5.30); RED CELL DISTRIBUTION WIDTH 23.9 % (11.6-17.2); WHITE BLOOD COUNT 12.8 TH/MM3 (4.0-11.0)
[2017-10-23 19:54] LABS: CALCIUM 7.2 MG/DL (8.5-10.1); CREATININE 0.77 MG/DL (0.50-1.00)
[2017-10-23 20:05] LABS: TOTAL PROTEIN 6.7 GM/DL (6.4-8.2)
[2017-10-23 20:09] LABS: CALCIUM-PROTEIN CORRECTED 7.4 MG/DL (8.5-10.1)
[2017-10-23 20:23] LABS: OVALOCYTES 1+ (NORMAL)
[2017-10-23] MEDS: DOCUSATE SODIUM 100 MG CAP PO SCH (21:00)
[2017-10-24] VITALS (15 sets, daily range): BP systolic 86–103; BP diastolic 52–59; PULSE 96–110; RESP 20–26; TEMP 98.2–101.7; O2SAT 98–100
[2017-10-24] MEDS: VANCOMYCIN 1,500 MG/NS 500 ML IV SCH ×4 (00:55→14:13)
[2017-10-24] MEDS: HYDROmorphone HCL PF 2 MG/ML VIAL IV PUSH PRN ×7 (01:45→23:54)
[2017-10-24] MEDS: PIPERACIL-TAZO 3.375 GM PREMIX 50 ML IV SCH ×4 (05:05→23:50)
[2017-10-24 05:48] LABS: AUTOMATED NEUTROPHIL # 9.4 TH/MM3 (1.8-7.7); BASOPHIL # 0.1 TH/MM3 (0-0.2); BASOPHIL % 0.9 % (0.0-2.0); EOSINOPHIL % 0.1 % (0.0-4.0); HEMATOCRIT 24.7 % (35.0-46.0); LYMPH % 8.3 % (9.0-44.0); MEAN CELL VOLUME 74.5 FL (80.0-100.0); MEAN CORPUSCULAR HEMOGLOBIN 24.2 PG (27.0-34.0); MEAN CORPUSCULAR HGB CONC 32.5 % (32.0-36.0); MEAN PLATELET VOLUME 7.4 FL (7.0-11.0); MONO % 8.9 % (0.0-8.0); NEUT % 81.8 % (16.0-70.0); PLATELET COUNT 378 TH/MM3 (150-450); RED BLOOD COUNT 3.32 MIL/MM3 (4.00-5.30); RED CELL DISTRIBUTION WIDTH 24.2 % (11.6-17.2); WHITE BLOOD COUNT 11.5 TH/MM3 (4.0-11.0)
[2017-10-24 06:22] LABS: BICARBONATE 22.4 MEQ/L (21.0-32.0); CALCIUM 6.8 MG/DL (8.5-10.1); CREATININE 0.91 MG/DL (0.50-1.00)
--- NOTE | 2017-10-24 07:18 | RADRPT ---
EXAM DATE/TIME: 10/23/2017 03:50 [facility] COMPARISON: No previous studies available for comparison. INDICATIONS : Thoracic laminectomy and fusion OR procedure. MEDICAL HISTORY : Carcinoma, breast. Hypertension. SURGICAL HISTORY : Fusion, cervical. ENCOUNTER: Initial ACUITY: 1 day PAIN SCORE: Non-responsive. LOCATION: Thoracic spine FINDINGS: Interval examination demonstrates transpedicular screws and posterior stabilization hardware at 5 sev eral levels of thoracic spine. Alignment is anatomical. CONCLUSION: Intact intraoperative examination. Isidoro Harris MD on October 24, 2017 at 7:16 Board Certified Radiologist. This report was verified electronically.
[2017-10-24 07:22] LABS: TOTAL PROTEIN 6.5 GM/DL (6.4-8.2)
[2017-10-24 07:24] LABS: CALCIUM-PROTEIN CORRECTED 7.1 MG/DL (8.5-10.1)
[2017-10-24] MEDS ORDERED: PHARMACY ORDERED LAB ONE (07:45)
--- NOTE | 2017-10-24 08:45 | PD.CONS ---
[facility] Service Critical Care Medicine Consult Requested By Primary Care Physician Radha Mcadams MD History of Present Illness Patient developed SVT to 160s early today. Breathing comfortably, well perfused. No chest pain. Will start lopressor 12.5 bid and discuss with hospitalist. Past Family Social History Allergies: Coded Allergies: No Known Allergies (Verified Allergy, Unknown, 10/05/17) Physical Exam Vital Signs Vital Signs Date Time Temp Pulse Resp B/P (MAP) Pulse Ox O2 Delivery O2 Flow Rate FiO2 10/24/17 08:00 110 10/24/17 08:00 101.7 110 20 93/52 (66) 99 10/24/17 06:00 105 10/24/17 04:00 104 10/24/17 04:00 98.7 104 21 88/55 (66) 98 10/24/17 02:00 108 10/24/17 00:00 99.0 108 23 97/55 (69) 98 10/24/17 00:00 108 10/23/17 22:00 104 10/23/17 21:25 20 10/23/17 20:00 102 10/23/17 20:00 98.7 102 21 94/54 (67) 100 10/23/17 18:00 108 10/23/17 16:00 99.9 101 14 88/51 (63) 98 10/23/17 16:00 101 10/23/17 14:00 98 10/23/17 12:00 98.9 94 19 96/57 (70) 95 10/23/17 12:00 94 10/23/17 10:51 20 10/23/17 10:00 100 10/23/17 10:00 99.0 102 22 103/62 (76) 95 Arterial Line 10/23/17 09:45 98.9 104 20 110/59 (76) 100 Room Air 10/23/17 09:00 104 14 114/71 (85) 100 121/65 (83) Laboratory Laboratory Tests Test 10/23/17 19:17 10/24/17 05:30 White Blood Count 12.8 11.5 Red Blood Count 3.44 3.32 Hemoglobin 7.9 8.0 Hematocrit 25.3 24.7 Mean Corpuscular Volume 73.4 74.5 Mean Corpuscular Hemoglobin 23.0 24.2 Mean Corpuscular Hemoglobin Concent 31.3 32.5 Red Cell Distribution Width 23.9 24.2 Platelet Count 417 378 Mean Platelet Volume 7.1 7.4 Neutrophils (%) (Auto) 80.7 81.8 Lymphocytes (%) (Auto) 10.0 8.3 Monocytes (%) (Auto) 8.2 8.9 Eosinophils (%) (Auto) 0.1 0.1 Basophils (%) (Auto) 1.0 0.9 Neutrophils # (Auto) 10.3 9.4 Lymphocytes # (Auto) 1.3 1.0 Monocytes # (Auto) 1.1 1.0 Eosinophils # (Auto) 0.0 0.0 Basophils # (Auto) 0.1 0.1 CBC Comment AUTO DIFF DIFF FINAL Differential Comment AUTO DIFF CONFIRMED Platelet Estimate NORMAL Platelet Morphology Comment NORMAL Ovalocytes 1+ Blood Urea Nitrogen 16 16 Creatinine 0.77 0.91 Random Glucose 96 97 Total Protein 6.7 6.5 Calcium Level 7.2 6.8 Sodium Level 140 141 Potassium Level 4.8 5.0 Chloride Level 111 110 Carbon Dioxide Level 24.0 22.4 Anion Gap 5 9 Estimat Glomerular Filtration Rate 80 66 Protein Corrected Calcium 7.4 7.1 Date/Time Source Procedure Growth Status 10/22/17 22:15 Blood Peripheral Aerobic Blood Culture - Preliminary NO GROWTH IN 1 DAY Resulted 10/22/17 22:15 Blood Peripheral Anaerobic Blood Culture - Preliminary NO GROWTH IN 1 DAY Resulted 10/22/17 21:25 Wound Breast Gram Stain - Final Resulted 10/22/17 21:25 Wound Breast Wound Culture - Preliminary Resulted Result Diagram: 10/24/1730 10/24/1730 Jordon Suarez MD Oct 24, 2017 08:45
[2017-10-24] MEDS: METOPROLOL TARTRATE 25 MG TAB PO SCH ×3 (08:59→20:39)
[2017-10-24] MEDS ORDERED: PILL SPLITTER OTHER PRN (09:00)
[2017-10-24] MEDS: CALCIUM CARBONATE 500 MG CHEWABLE TAB PO SCH ×2 (09:00→20:37)
[2017-10-24] MEDS: DOCUSATE SODIUM 100 MG CAP PO SCH ×2 (09:00→20:37)
[2017-10-24] MEDS: CHOLECALCIFEROL (VIT D3) 400 UNIT TAB PO SCH ×2 (09:01→20:37)
[2017-10-24] MEDS: SODIUM CHLORIDE 0.9% FLUSH 10 ML FLUSH IV FLUSH SCH ×2 (09:01→20:34)
[2017-10-24] MEDS: NS + KCL 20 MEQ INJ 1,000 ML IV SCH (09:56)
--- NOTE | 2017-10-24 11:19 | HHI.PR ---
Subjective Remarks doing ok. brief episode of svt spontaneously resolved overnight. not out of bed since surgery. can barely wiggle toes but lower ext's are numb. Objective Vitals heart reg lung cta abd s/nt ext lower ext paralysis. minimal wiggle of toes numerous masses of left breast/axilla with fould necrotic odor. Vital Signs Date Time Temp Pulse Resp B/P (MAP) Pulse Ox O2 Delivery O2 Flow Rate FiO2 10/24/17 10:00 102 10/24/17 08:00 110 10/24/17 08:00 101.7 110 20 93/52 (66) 99 10/24/17 06:00 105 10/24/17 04:00 104 10/24/17 04:00 98.7 104 21 88/55 (66) 98 10/24/17 02:00 108 10/24/17 00:00 99.0 108 23 97/55 (69) 98 10/24/17 00:00 108 10/23/17 22:00 104 10/23/17 21:25 20 10/23/17 20:00 102 10/23/17 20:00 98.7 102 21 94/54 (67) 100 10/23/17 18:00 108 10/23/17 16:00 99.9 101 14 88/51 (63) 98 10/23/17 16:00 101 10/23/17 14:00 98 10/23/17 12:00 98.9 94 19 96/57 (70) 95 10/23/17 12:00 94 Result Diagram: 10/24/17 0530 10/24/17 0530 Imaging Last Impressions Chest X-Ray 10/23/17 0000 Signed Impressions: Service Date/Time: Monday, October 23, 2017 07:08 - CONCLUSION: No acute cardiopulmonary disease. Isidoro Harris MD Thoracic Spine MRI 10/22/17 1153 Signed Impressions: Service Date/Time: Sunday, October 22, 2017 19:59 - CONCLUSION: Large left paraspinal mass at T4-T8 level but more notably at T6 level invades the T6 vertebral body and left aspect of T5 vertebral body. This extends into the left epidural space and Joseph Mcqueen MD Cervical Spine MRI 10/22/17 1151 Signed Impressions: Service Date/Time: Sunday, October 22, 2017 19:59 - CONCLUSION: 1. Anterior fusion C4-C7. 2. Questionable enhancement in the left epidural region at T1- T2. 3. Multiple masses along the left chest wall and left shoulder region. Joseph Mcqueen MD Brain MRI 10/22/17 1153 Signed Impressions: Service Date/Time: Sunday, October 22, 2017 19:59 - CONCLUSION: Unremarkable MRI of the brain. Joseph Mcqueen MD Lumbar Spine MRI 10/22/17 1002 Signed Impressions: Service Date/Time: Sunday, October 22, 2017 11:01 - CONCLUSION: No evidence for metastatic disease without any significant compromise to the thecal sac or the exiting nerve roots. Isidoro Harris MD A/P Problem List: (1) Malignant melanoma ICD Codes: C43.9 - Malignant melanoma of skin, unspecified Status: Acute Plan: - Comgmt with Neurosurgery, Medical Oncology, Radiation Oncology, Infectious Disease - patient presented to the ER 10/06/17 with breast changes - core biopsy 10/07 revealed malignant melanoma - Patient has an appointment with oncology 11/01/17 - Pt presented to ER (10/22) with c/o B/L LE weakness & urinary retention - Thoracic MRI (10/22) Large left paraspinal mass at T4-T8 level but more notably at T6 level invades the T6 vertebral body and left aspect of T5 vertebral body. This extends into the left epidural space - Cervical MRI (10/22) 1. Anterior fusion C4-C7. 2. Questionable enhancement in the left epidural region at T1-T2. 3. Multiple masses along the left chest wall and left shoulder region - Lumbar MRI (10/22) No evidence for metastatic disease without any significant compromise to the thecal sac or the exiting nerve roots. - Brain MRI (10/22) NO acute abnormalities - Case d/w Dr. Vásquez and Dr. 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 - Patient taken to surgery for decompressive T4-T8 laminectomy, resection of epidural neoplasm, posterior fusion with instrumentation early in the morning -concern for infected left breast/axilla wounds - cultures taken from left breast/axillary region (1/20) --> mrsa - Vancomycin/Zosyn...defer to ID -persist low bp and brief svt overnight. sbp currently in 80s -will give 2 units of blood today -pt requiring iv dilaudid for pain -wound care (2) Urinary retention ICD Codes: R33.9 - Retention of urine, unspecified Status: Acute Plan: Muhammad placed in ER with 1000ml returned, continue muhammad for retention - see above (3) Lower extremity weakness ICD Codes: R29.898 - Other symptoms and signs involving the musculoskeletal system Status: Acute Plan: - see above Problem Qualifiers (1) Lower extremity weakness: Qualified Codes: R29.898 - Other symptoms and signs involving the musculoskeletal system Willie Mukherjee MD Oct 24, 2017 11:19
[2017-10-24] MEDS: SODIUM CHLOR 0.9% 1000 ML INJ 1,000 ML IV SCH ×2 (11:30→23:50)
--- NOTE | 2017-10-24 12:14 | HHI.NSPN ---
(Serge Gardenr) History Chief Complaint: Back pain, decreased sensation to legs. (Serge Gardner) Interval History 10/23: 47-year-old female with history of metastatic melanoma presents to the emergency room 10/22/2017 with complaint of 4 days of progressive weakness and numbness in the lower extremities as well as urinary retention. Imaging studies reveal paraspinous metastatic disease at the primarily left T5-6 level with epidural neoplasm at the T4-T8 levels with significant spinal cord compression. Patient taken to surgery for decompressive T4-T8 laminectomy, resection of epidural neoplasm, posterior fusion with instrumentation early in the morning . Examination postoperative reveals the patient to be awake and alert. Complains of moderate low back pain. Motor function in the lower extremities improved compared to preoperative. 10/24: The patient is awake and alert watching TV with her . She continues to have the back pain which she said is worse than yesterday. Nursing had turned the patient before she was seen. She continues to have decreased sensation to the proximal lower and absent to the distal which she reports is the same as yesterday. She does move her feet to command but is not able to do anything more with the lower extremities. This practitioner spoke with Dr Mukherjee earlier and he is going to transfuse two units PRBCs due to her hypotension this morning. (Serge Gardner) Exam Results 10/22/17 10/22/17 10/23/17 10/23/17 10/24/17 10/24/17 06:00 18:00 06:00 18:00 06:00 18:00 Intake Total 1000 ml 5089 ml 3530 ml Output Total 425 ml 2840 ml 935 ml Balance 575 ml 2249 ml 2595 ml Intake Oral 360 ml 240 ml IV Total 1000 ml 4229 ml 3290 ml Packed Cells 500 ml Output Urine Total 425 ml 2000 ml 850 ml Drainage Total 240 ml 85 ml Estimated Blood Loss 600 ml # Bowel Movements 0 0 0 Vital Signs Date Time Temp Pulse Resp B/P (MAP) Pulse Ox O2 Delivery O2 Flow Rate FiO2 10/24/17 10:00 102 10/24/17 08:00 110 10/24/17 08:00 101.7 110 20 93/52 (66) 99 10/24/17 06:00 105 10/24/17 04:00 104 10/24/17 04:00 98.7 104 21 88/55 (66) 98 10/24/17 02:00 108 10/24/17 00:00 99.0 108 23 97/55 (69) 98 10/24/17 00:00 108 10/23/17 22:00 104 10/23/17 21:25 20 10/23/17 20:00 102 10/23/17 20:00 98.7 102 21 94/54 (67) 100 10/23/17 18:00 108 10/23/17 16:00 99.9 101 14 88/51 (63) 98 10/23/17 16:00 101 10/23/17 14:00 98 10/23/17 12:00 98.9 94 19 96/57 (70) 95 10/23/17 12:00 94 10/23/17 10:51 20 10/23/17 10:00 100 10/23/17 10:00 99.0 102 22 103/62 (76) 95 Arterial Line 10/23/17 09:45 98.9 104 20 110/59 (76) 100 Room Air 10/23/17 09:00 104 14 114/71 (85) 100 121/65 (83) 10/23/17 08:00 96 16 103/62 (76) 100 109/54 (72) 10/23/17 07:45 94 16 106/65 (79) 100 114/57 (76) 10/23/17 07:30 93 18 104/63 (77) 100 114/58 (76) 10/23/17 07:15 94 19 106/61 (76) 100 116/57 (76) 10/23/17 07:00 95 17 100/58 (72) 100 Nasal Cannula 3 111/55 (73) 10/23/17 06:48 98.6 97 17 105/60 (75) 100 Nasal Cannula 3 10/22/17 20:00 97.4 109 16 106/58 (74) 91 10/22/17 16:00 95.4 111 17 101/58 (72) 97 10/22/17 14:14 10/22/17 12:20 99 18 113/64 (80) 97 10/22/17 11:35 103 20 108/57 (74) 94 Room Air 10/22/17 10:40 99 Room Air 10/22/17 09:54 99.7 118 20 115/72 (86) 98 (Serge Gardner) Physical Examination GENERAL: Awake & alert, readily interacts, affect essentially normal, in no apparent distress. SKIN: Pale but dry. Surgical dressing intact to back w/o any shadowing, erythema or streaking. MUSCULOSKELETAL: Moving BUE spontaneously. Does move both feet to command. Thoracic surgical incision is TTP, dressing intact, CRISS drain to bulb suction w/ sanguinous drainage. NEUROLOGICAL: AAOx3. Speech is clear & appropriate. Follows commands w/o difficulty. Sensation is intact to light touch to the upper extremities. Motor strength is 5/5 to all flexion & extension muscle groups of the upper extremities. Sensation is decreased to light touch to the proximal lower extremities but diminishes more distally and is absent to the feet. Motor strength to the lower extremities is 2+ to 3 to the tibialis anterior, gastrocnemius & extensor hallucis longus, otherwise 0/5. (Serge Gardner) Lab, Micro, Other Results Recent Impressions Thoracic Spine X-Ray 10/23/17 0000 Signed Impressions: Service Date/Time: Monday, October 23, 2017 03:50 - CONCLUSION: Intact intraoperative examination. Isidoro Harris MD Chest X-Ray 10/23/17 0000 Signed Impressions: Service Date/Time: Monday, October 23, 2017 07:08 - CONCLUSION: No acute cardiopulmonary disease. Isidoro Harris MD Chest X-Ray 10/22/17 1220 Signed Impressions: Service Date/Time: Sunday, October 22, 2017 12:50 - CONCLUSION: No acute cardiopulmonary disease. Isidoro Harris MD Thoracic Spine MRI 10/22/17 1153 Signed Impressions: Service Date/Time: Sunday, October 22, 2017 19:59 - CONCLUSION: Large left paraspinal mass at T4-T8 level but more notably at T6 level invades the T6 vertebral body and left aspect of T5 vertebral body. This extends into the left epidural space and Joseph Mcqueen MD Cervical Spine MRI 10/22/17 1153 Signed Impressions: Service Date/Time: Sunday, October 22, 2017 19:59 - CONCLUSION: 1. Anterior fusion C4-C7. 2. Questionable enhancement in the left epidural region at T1- T2. 3. Multiple masses along the left chest wall and left shoulder region. Joseph Mcqueen MD Brain MRI 10/22/17 1153 Signed Impressions: Service Date/Time: Sunday, October 22, 2017 19:59 - CONCLUSION: Unremarkable MRI of the brain. Joseph Mcqueen MD Lumbar Spine MRI 10/22/17 1002 Signed Impressions: Service Date/Time: Sunday, October 22, 2017 11:01 - CONCLUSION: No evidence for metastatic disease without any significant compromise to the thecal sac or the exiting nerve roots. Isidoro Harris MD Laboratory Tests Test 10/22/17 10:23 10/22/17 23:35 10/23/17 04:25 10/23/17 19:17 White Blood Count 13.6 TH/MM3 12.8 TH/MM3 Red Blood Count 3.98 MIL/MM3 3.44 MIL/MM3 Hemoglobin 8.8 GM/DL 7.9 GM/DL Hematocrit 28.3 % 25.3 % Mean Corpuscular Volume 71.0 FL 73.4 FL Mean Corpuscular Hemoglobin 22.2 PG 23.0 PG Mean Corpuscular Hemoglobin Concent 31.2 % 31.3 % Red Cell Distribution Width 24.3 % 23.9 % Platelet Count 586 TH/MM3 417 TH/MM3 Mean Platelet Volume 7.6 FL 7.1 FL Neutrophils (%) (Auto) 82.4 % 80.7 % Lymphocytes (%) (Auto) 7.5 % 10.0 % Monocytes (%) (Auto) 9.0 % 8.2 % Eosinophils (%) (Auto) 0.3 % 0.1 % Basophils (%) (Auto) 0.8 % 1.0 % Neutrophils # (Auto) 11.2 TH/MM3 10.3 TH/MM3 Lymphocytes # (Auto) 1.0 TH/MM3 1.3 TH/MM3 Monocytes # (Auto) 1.2 TH/MM3 1.1 TH/MM3 Eosinophils # (Auto) 0.0 TH/MM3 0.0 TH/MM3 Basophils # (Auto) 0.1 TH/MM3 0.1 TH/MM3 CBC Comment DIFF FINAL AUTO DIFF Differential Comment AUTO DIFF CONFIRMED Urine Color YELLOW Urine Turbidity CLEAR Urine pH 7.0 Urine Specific [place] 1.015 Urine Protein 30 mg/dL Urine Glucose (UA) NEG mg/dL Urine Ketones NEG mg/dL Urine Occult Blood TRACE Urine Nitrite NEG Urine Bilirubin NEG Urine Urobilinogen LESS THAN 2.0 MG/DL Urine Leukocyte Esterase NEG Urine RBC 3 /hpf Urine WBC 8 /hpf Urine Squamous Epithelial Cells 2 /hpf Urine Hyaline Casts 3 /lpf Urine Mucus FEW /lpf Microscopic Urinalysis Comment CULT NOT INDICATED Blood Urea Nitrogen 23 MG/DL 16 MG/DL Creatinine 1.05 MG/DL 0.77 MG/DL Random Glucose 100 MG/DL 96 MG/DL Calcium Level 8.9 MG/DL 7.2 MG/DL Sodium Level 134 MEQ/L 140 MEQ/L Potassium Level 3.9 MEQ/L 4.8 MEQ/L Chloride Level 101 MEQ/L 111 MEQ/L Carbon Dioxide Level 23.6 MEQ/L 24.0 MEQ/L Anion Gap 9 MEQ/L 5 MEQ/L Estimat Glomerular Filtration Rate 56 ML/MIN 80 ML/MIN Prothrombin Time 11.6 SEC Prothromb Time International Ratio 1.1 RATIO Activated Partial Thromboplast Time 27.3 SEC Blood Gas Puncture Site OR ABG Blood Gas Patient Temperature 98.6 Blood Gas HCO3 18 mmol/L Blood Gas Base Excess -6.3 mmol/L Blood Gas Oxygen Saturation 96 % Arterial Blood pH 7.39 Arterial Blood Partial Pressure CO2 30 mmHg Arterial Blood Partial Pressure O2 286 mmHg Arterial Blood Oxygen Content 11.9 Vol % Arterial Blood Carboxyhemoglobin 1.9 % Arterial Blood Methemoglobin 1.5 % Blood Gas Hemoglobin 8.3 G/DL Oxygen Delivery Device OR ABG Blood Gas Ventilator Setting OR ABG Blood Gas Inspired Oxygen 21 % Platelet Estimate NORMAL Platelet Morphology Comment NORMAL Ovalocytes 1+ Total Protein 6.7 GM/DL Protein Corrected Calcium 7.4 MG/DL Test 10/24/17 05:30 White Blood Count 11.5 TH/MM3 Red Blood Count 3.32 MIL/MM3 Hemoglobin 8.0 GM/DL Hematocrit 24.7 % Mean Corpuscular Volume 74.5 FL Mean Corpuscular Hemoglobin 24.2 PG Mean Corpuscular Hemoglobin Concent 32.5 % Red Cell Distribution Width 24.2 % Platelet Count 378 TH/MM3 Mean Platelet Volume 7.4 FL Neutrophils (%) (Auto) 81.8 % Lymphocytes (%) (Auto) 8.3 % Monocytes (%) (Auto) 8.9 % Eosinophils (%) (Auto) 0.1 % Basophils (%) (Auto) 0.9 % Neutrophils # (Auto) 9.4 TH/MM3 Lymphocytes # (Auto) 1.0 TH/MM3 Monocytes # (Auto) 1.0 TH/MM3 Eosinophils # (Auto) 0.0 TH/MM3 Basophils # (Auto) 0.1 TH/MM3 CBC Comment DIFF FINAL Differential Comment Blood Urea Nitrogen 16 MG/DL Creatinine 0.91 MG/DL Random Glucose 97 MG/DL Total Protein 6.5 GM/DL Calcium Level 6.8 MG/DL Sodium Level 141 MEQ/L Potassium Level 5.0 MEQ/L Chloride Level 110 MEQ/L Carbon Dioxide Level 22.4 MEQ/L Anion Gap 9 MEQ/L Estimat Glomerular Filtration Rate 66 ML/MIN Protein Corrected Calcium 7.1 MG/DL (Serge Gardner) Medical Decision Making Impression and Plan Impression: 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 Thoracic myelopathy 10/23 Patient exhibits some early improvement in neurologic function of the lower extremities postoperative. The patient with worsening back pain today. Neurological function to the lower extremities is mixed w/decrease proximal but improvement distal. CRISS drain output for the past 24 hours was 325 mL this morning at shift change. Hypotension. T max 101.7. Reviewed labs for today. Interval improvement in leukocytosis. Anaemia stable. Interval decrease in renal function. Blood cultures w/no growth x2d. Breast wound culture w/Staphylococcus aureus methicillin resistant on preliminary. Final Gram stain w/o any WBCs seen, heavy mixed jasbir. Physical Therapy recommends inpatient rehab for further therapy. POD #1 () s/p: 1. Bilateral T4-T8 decompressive laminectomy, resection of metastatic epidural neoplasm 2. Bilateral T4-T8 posterior instrumentation, pedicle screw fixation 3. Bilateral T4-T8 posterior fusion with demineralized bone matrix Postoperative Diagnosis: (1) Thoracic myelopathy (2) Malignant melanoma 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 Thoracic myelopathy Plan: Primary management per Hospitalist. Antibiotics per Infectious Disease. Neuro checks. Continue thoracic drain & monitor output. Mobilise patient w/assistance. Due to the patient's extensive neoplasm at the left breast extending to the axilla and chest wall, she will be mobilized out of bed without a TLSO brace, which would likely cause excessive discomfort. PT eval & tx. Mechanical DVT prophylaxis. Hold pharmacologic DVT prophylaxis. (Serge Gardner) Attending Statement The exam, history, and the medical decision-making described in the above note were completed with the assistance of the mid-level provider. I reviewed and agree with the findings presented. I attest that I had a [id number] encounter with the patient on the same day, and personally performed and documented my assessment and findings in the medical record. Patient's motor function has diminished somewhat compared to postoperative examination on 10/23/2017. Now has 2/5 bilateral quadriceps with absent tibialis anterior, 2+ left and to right gastrocsoleus, 2/5 extensor hallucis longus and flexor digitorum. Pain is reasonably controlled with present IV and oral medications. Discussed with patient and Will add a short course of Decadron, however concern regarding increased potential for infection on steroids. Discussed positioning with the nursing staff, advised to keep pressure totally off of the thoracic incision. Continue thoracic drain Mobilize out of bed with TLSO (Brian Vásquez MD) Serge Gardner Oct 24, 2017 12:14 Brian Vásquez MD Oct 24, 2017 20:49
--- NOTE | 2017-10-24 12:22 | PD.WCN.NOT ---
Wound Consult Description: Wound consult ordered by Dr. Erick MC for Left Breast Communicated with: Clarita Lara Drayden, Dr.Harmen MC Recommendation: 1) Cleanse Left breast/axillary with normal saline pat dry. 2) Apply Calcium alginate AG to Open Axillary wounds 3) Cover Breast and axillary area with ABD for comfort. 4) Change dressing every 7 days or as needed for exudate or dislodgement. Additional Information: Patient was seen on by [facility] and Clarita Doll for Left breast.Dry dressing removed to expose Large firm mass occupying the entire left breast with erythematous nodular scattered around the left breast into the axilla. Left lateral chest and Left axilla oozing bleeding lesions noted.Faint odor noted .Axillary open wound measures ~4.5cm x ~2.0cm cleansed with normal saline pat dry Calcium alginate AG folded in half and applied to Axillary area covered with ABD. Patient to be seen by oncologist on 11/01.No current plan at this time for mastectomy. Ostomy Date of Surgery: Oct 23, 2017 Anthony Amin [facility] Oct 24, 2017 12:22
[2017-10-24] MEDS ORDERED: [UNRECOGNIZED DRUG - OTHER] ONE (12:45)
--- NOTE | 2017-10-24 13:14 | PD.ONC.PN ---
Subjective Subjective Remarks Tmax 101.7 overnight. Patient resting in bed with at bedside. Very little improvement in lower extremity movement. Able to move her left toe a little bit. Objective Data Date Time Temp Pulse Resp B/P (MAP) Pulse Ox O2 Delivery O2 Flow Rate FiO2 10/24/17 12:09 99.9 96 21 86/53 99 10/24/17 12:00 99.9 96 21 86/53 (64) 99 10/24/17 12:00 100 10/24/17 10:00 102 10/24/17 08:00 110 10/24/17 08:00 101.7 110 20 93/52 (66) 99 10/24/17 06:00 105 10/24/17 04:00 104 10/24/17 04:00 98.7 104 21 88/55 (66) 98 10/24/17 02:00 108 10/24/17 00:00 99.0 108 23 97/55 (69) 98 10/24/17 00:00 108 10/23/17 22:00 104 10/23/17 21:25 20 10/23/17 20:00 102 10/23/17 20:00 98.7 102 21 94/54 (67) 100 10/23/17 18:00 108 10/23/17 16:00 99.9 101 14 88/51 (63) 98 10/23/17 16:00 101 10/23/17 14:00 98 10/24/17 10/24/17 10/24/17 07:00 15:00 23:00 Intake Total 3530 ml 1025 ml Output Total 935 ml Balance 2595 ml 1025 ml Result Diagram: 10/24/17 0530 10/24/17 0530 Laboratory Results Laboratory Tests Test 10/23/17 19:17 10/24/17 05:30 White Blood Count 12.8 TH/MM3 11.5 TH/MM3 Red Blood Count 3.44 MIL/MM3 3.32 MIL/MM3 Hemoglobin 7.9 GM/DL 8.0 GM/DL Hematocrit 25.3 % 24.7 % Mean Corpuscular Volume 73.4 FL 74.5 FL Mean Corpuscular Hemoglobin 23.0 PG 24.2 PG Mean Corpuscular Hemoglobin Concent 31.3 % 32.5 % Red Cell Distribution Width 23.9 % 24.2 % Platelet Count 417 TH/MM3 378 TH/MM3 Mean Platelet Volume 7.1 FL 7.4 FL Neutrophils (%) (Auto) 80.7 % 81.8 % Lymphocytes (%) (Auto) 10.0 % 8.3 % Monocytes (%) (Auto) 8.2 % 8.9 % Eosinophils (%) (Auto) 0.1 % 0.1 % Basophils (%) (Auto) 1.0 % 0.9 % Neutrophils # (Auto) 10.3 TH/MM3 9.4 TH/MM3 Lymphocytes # (Auto) 1.3 TH/MM3 1.0 TH/MM3 Monocytes # (Auto) 1.1 TH/MM3 1.0 TH/MM3 Eosinophils # (Auto) 0.0 TH/MM3 0.0 TH/MM3 Basophils # (Auto) 0.1 TH/MM3 0.1 TH/MM3 CBC Comment AUTO DIFF DIFF FINAL Differential Comment AUTO DIFF CONFIRMED Platelet Estimate NORMAL Platelet Morphology Comment NORMAL Ovalocytes 1+ Blood Urea Nitrogen 16 MG/DL 16 MG/DL Creatinine 0.77 MG/DL 0.91 MG/DL Random Glucose 96 MG/DL 97 MG/DL Total Protein 6.7 GM/DL 6.5 GM/DL Calcium Level 7.2 MG/DL 6.8 MG/DL Sodium Level 140 MEQ/L 141 MEQ/L Potassium Level 4.8 MEQ/L 5.0 MEQ/L Chloride Level 111 MEQ/L 110 MEQ/L Carbon Dioxide Level 24.0 MEQ/L 22.4 MEQ/L Anion Gap 5 MEQ/L 9 MEQ/L Estimat Glomerular Filtration Rate 80 ML/MIN 66 ML/MIN Protein Corrected Calcium 7.4 MG/DL 7.1 MG/DL Culture Results Microbiology Date/Time Source Procedure Growth Status 10/22/17 22:15 Blood Peripheral Aerobic Blood Culture - Preliminary NO GROWTH IN 2 DAYS Resulted 10/22/17 22:15 Blood Peripheral Anaerobic Blood Culture - Preliminary NO GROWTH IN 2 DAYS Resulted 10/22/17 22:10 Blood Peripheral Aerobic Blood Culture - Preliminary NO GROWTH IN 2 DAYS Resulted 10/22/17 22:10 Blood Peripheral Anaerobic Blood Culture - Preliminary NO GROWTH IN 2 DAYS Resulted 10/22/17 21:25 Wound Breast Gram Stain - Final Resulted 10/22/17 21:25 Wound Culture - Preliminary S. Aureus Mrsa Resulted Administered Medications Medications (Trade) Dose Ordered Sig/Antoni Route PRN Reason Start Time Stop Time Status Last Admin Dose Admin Lorazepam (Ativan Inj) 2 mg ONCE PRN IV PUSH ANXIETY 10/22/17 10:45 10/22/17 10:47 Sodium Chloride (NS Flush) 2 ml BID IV FLUSH 10/22/17 21:00 10/24/17 09:01 Acetaminophen (Tylenol) 650 mg Q4H PRN PO TEMP > 100.4 10/22/17 12:30 10/24/17 09:00 Lorazepam (Ativan Inj) 1 mg Q4H PRN IV PUSH anxiety 10/22/17 18:30 10/22/17 18:57 Morphine Sulfate (Morphine Inj) 4 mg Q3H PRN IV PUSH Pain 6-10;if unable to take PO 10/23/17 07:15 10/23/17 13:55 Piperacillin Sod/ Tazobactam Sod 50 ml @ 100 mls/hr Q6H IV 10/23/17 11:00 10/24/17 10:14 Vancomycin HCl 1500 mg/Sodium Chloride 515 ml @ 257.5 mls/ hr Q12H IV 10/23/17 13:00 10/24/17 00:55 Hydromorphone HCl (Dilaudid Pf Inj) 1 mg Q3H PRN IV PUSH Pain 3-5; if unable to take PO 10/23/17 15:15 10/24/17 13:02 Docusate Sodium (Colace) 100 mg BID PO 10/23/17 21:00 10/24/17 09:00 Calcium Carbonate (Tums Chew) 1,000 mg BID PO 10/24/17 09:00 10/24/17 09:00 Cholecalciferol (Vitamin D3) 400 units BID PO 10/24/17 09:00 10/24/17 09:01 Sodium Chloride 1,000 ml @ 84 mls/hr [id number] IV 10/24/17 11:30 10/24/17 11:30 Objective Remarks GENERAL: Middle aged female, lying supine in bed. SKIN: Warm and dry. +pallor. HEAD: Normocephalic. EYES: No scleral icterus. No injection or drainage. NECK: Supple, trachea midline. CARDIOVASCULAR: Regular rate and rhythm RESPIRATORY: anterior arias clear. GASTROINTESTINAL: Abdomen soft, non-tender, mildly distended. EXTREMITIES: No cyanosis NEUROLOGICAL: awake and alert, normal speech. able to slightly move left great toe. no other movement of the lower extremities. Assessment/Plan Problem List: (1) Malignant melanoma ICD Codes: C43.9 - Malignant melanoma of skin, unspecified Status: Acute (2) Thoracic myelopathy ICD Codes: M47.14 - Other spondylosis with myelopathy, thoracic region (3) Infection of left breast ICD Codes: N61.0 - Mastitis without abscess Assessment 47y/o female admitted with bilateral lower extremity weakness + urinary retention. Oncology consulted for locally advanced melanoma. h/o hypertension Plan 1. melanoma. BRAF testing requested over the weekend. await results before treatment decisions made. 2. Thoracic Myelopathy: s/p Laminectomy 10/23/17. little to no improvement in lower extremity strength or feeling. Neurosurgery following. Radiation oncology consulted over the weekend. Dr. Sherman spoke with Dr. Castellano. 3. left breast wound infection: wound culture +MRSA. on Zosyn + Vanco. 4. Chronic anemia d/t inflammation + infection. transfuse for hgb less than 8. no transfusion needed today. Attending Statement The exam, history, and the medical decision-making described in the above note were completed with the assistance of the mid-level provider. I reviewed and agree with the findings presented. I attest that I had a [id number] encounter with the patient on the same day, and personally performed and documented my assessment and findings in the medical record. I have reviewed pt 's record. Still not able to move BLE, only able to wiggle left toes. Reviewed breast pathology of metastatic melanoma with pt. We discussed staging , prognosis and treatment option. Her prognosis is poor. Unclear how much neurology function she could recover. She is going to need palliative XRt to spine when recover from Surgery. BRAF test ordered. If negative, will treat her with immunotherapy. Raven Bonds Oct 24, 2017 13:14 Lalo Moe MD Oct 24, 2017 15:37
--- NOTE | 2017-10-24 15:35 | HHI.IDPN ---
Subjective Subjective Remarks fever up to 101.7 minimal movements in BLE growing MRSA Antibiotics zosyn vancomycin Allergies: Coded Allergies: No Known Allergies (Verified Allergy, Unknown, 10/05/17) Objective . Vital Signs Date Time Temp Pulse Resp B/P (MAP) Pulse Ox O2 Delivery O2 Flow Rate FiO2 10/24/17 14:00 100 10/24/17 13:34 99.5 96 22 102/56 99 10/24/17 12:24 98.2 97 23 102/56 99 10/24/17 12:09 99.9 96 21 86/53 99 10/24/17 12:00 99.9 96 21 86/53 (64) 99 10/24/17 12:00 100 10/24/17 10:00 102 10/24/17 08:00 110 10/24/17 08:00 101.7 110 20 93/52 (66) 99 10/24/17 06:00 105 10/24/17 04:00 104 10/24/17 04:00 98.7 104 21 88/55 (66) 98 10/24/17 02:00 108 10/24/17 00:00 99.0 108 23 97/55 (69) 98 10/24/17 00:00 108 10/23/17 22:00 104 10/23/17 21:25 20 10/23/17 20:00 102 10/23/17 20:00 98.7 102 21 94/54 (67) 100 10/23/17 18:00 108 10/23/17 16:00 99.9 101 14 88/51 (63) 98 10/23/17 16:00 101 10/24/17 10/24/17 10/25/17 15:00 23:00 07:00 Intake Total 1425 ml Balance 1425 ml IV Total 1025 ml Packed Cells 400 ml . Laboratory Tests Test 10/23/17 19:17 10/24/17 05:30 White Blood Count 12.8 TH/MM3 11.5 TH/MM3 Red Blood Count 3.44 MIL/MM3 3.32 MIL/MM3 Hemoglobin 7.9 GM/DL 8.0 GM/DL Hematocrit 25.3 % 24.7 % Mean Corpuscular Volume 73.4 FL 74.5 FL Mean Corpuscular Hemoglobin 23.0 PG 24.2 PG Mean Corpuscular Hemoglobin Concent 31.3 % 32.5 % Red Cell Distribution Width 23.9 % 24.2 % Platelet Count 417 TH/MM3 378 TH/MM3 Mean Platelet Volume 7.1 FL 7.4 FL Neutrophils (%) (Auto) 80.7 % 81.8 % Lymphocytes (%) (Auto) 10.0 % 8.3 % Monocytes (%) (Auto) 8.2 % 8.9 % Eosinophils (%) (Auto) 0.1 % 0.1 % Basophils (%) (Auto) 1.0 % 0.9 % Neutrophils # (Auto) 10.3 TH/MM3 9.4 TH/MM3 Lymphocytes # (Auto) 1.3 TH/MM3 1.0 TH/MM3 Monocytes # (Auto) 1.1 TH/MM3 1.0 TH/MM3 Eosinophils # (Auto) 0.0 TH/MM3 0.0 TH/MM3 Basophils # (Auto) 0.1 TH/MM3 0.1 TH/MM3 CBC Comment AUTO DIFF DIFF FINAL Differential Comment AUTO DIFF CONFIRMED Platelet Estimate NORMAL Platelet Morphology Comment NORMAL Ovalocytes 1+ Laboratory Tests Test 10/23/17 19:17 10/24/17 05:30 Blood Urea Nitrogen 16 MG/DL 16 MG/DL Creatinine 0.77 MG/DL 0.91 MG/DL Random Glucose 96 MG/DL 97 MG/DL Total Protein 6.7 GM/DL 6.5 GM/DL Calcium Level 7.2 MG/DL 6.8 MG/DL Sodium Level 140 MEQ/L 141 MEQ/L Potassium Level 4.8 MEQ/L 5.0 MEQ/L Chloride Level 111 MEQ/L 110 MEQ/L Carbon Dioxide Level 24.0 MEQ/L 22.4 MEQ/L Anion Gap 5 MEQ/L 9 MEQ/L Estimat Glomerular Filtration Rate 80 ML/MIN 66 ML/MIN Protein Corrected Calcium 7.4 MG/DL 7.1 MG/DL Microbiology Date/Time Source Procedure Growth Status 10/22/17 22:15 Blood Peripheral Aerobic Blood Culture - Preliminary NO GROWTH IN 2 DAYS Resulted 10/22/17 22:15 Blood Peripheral Anaerobic Blood Culture - Preliminary NO GROWTH IN 2 DAYS Resulted 10/22/17 22:10 Blood Peripheral Aerobic Blood Culture - Preliminary NO GROWTH IN 2 DAYS Resulted 10/22/17 22:10 Blood Peripheral Anaerobic Blood Culture - Preliminary NO GROWTH IN 2 DAYS Resulted 10/22/17 21:25 Wound Breast Gram Stain - Final Resulted 10/22/17 21:25 Wound Culture - Preliminary S. Aureus Mrsa Resulted Imaging Last Impressions Thoracic Spine X-Ray 10/23/17 0000 Signed Impressions: Service Date/Time: Monday, October 23, 2017 03:50 - CONCLUSION: Intact intraoperative examination. Isidoro Harris MD Chest X-Ray 10/23/17 0000 Signed Impressions: Service Date/Time: Monday, October 23, 2017 07:08 - CONCLUSION: No acute cardiopulmonary disease. Isidoro Harris MD Thoracic Spine MRI 10/22/17 1153 Signed Impressions: Service Date/Time: Sunday, October 22, 2017 19:59 - CONCLUSION: Large left paraspinal mass at T4-T8 level but more notably at T6 level invades the T6 vertebral body and left aspect of T5 vertebral body. This extends into the left epidural space and Joseph Mcqueen MD Cervical Spine MRI 10/22/17 1153 Signed Impressions: Service Date/Time: Sunday, October 22, 2017 19:59 - CONCLUSION: 1. Anterior fusion C4-C7. 2. Questionable enhancement in the left epidural region at T1- T2. 3. Multiple masses along the left chest wall and left shoulder region. Joseph Mcqueen MD Brain MRI 10/22/17 1153 Signed Impressions: Service Date/Time: Sunday, October 22, 2017 19:59 - CONCLUSION: Unremarkable MRI of the brain. Joseph Mcqueen MD Lumbar Spine MRI 10/22/17 1002 Signed Impressions: Service Date/Time: Sunday, October 22, 2017 11:01 - CONCLUSION: No evidence for metastatic disease without any significant compromise to the thecal sac or the exiting nerve roots. Isidoro Harris MD Physical Exam CONSTITUTIONAL/GENERAL: This is an adequately nourished patient, in no apparent distress. TUBES/LINES/DRAINS: SKIN: No jaundice, rashes, or lesions. Skin temperature appropriate. Not diaphoretic. CARDIOVASCULAR: Regular rate and rhythm without murmurs, gallops, or rubs. No JVD. Peripheral pulses symmetric. RESPIRATORY/CHEST: Symmetric, unlabored respirations. Clear to auscultation. GASTROINTESTINAL: Abdomen soft, non-tender, nondistended. GENITOURINARY: Without palpable bladder distension. muhammad in place with clear yellow urine MUSCULOSKELETAL: Extremities without clubbing, cyanosis, or edema. LYMPHATICS: No palpable cervical or supraclavicular adenopathy. NEUROLOGICAL:Lethargic, but arousable. Motor and sensory diminsihed to 1-2/5 in BLE, L foot slightly better Follows commands. Clear speech. 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 infection ? post op? tumor fever cont current abx monitor WBC, temps rechk urine, blood clx if cont to have fever -procalcitonine Madison Mora MD Oct 24, 2017 15:35
[2017-10-24] MEDS: DEXAMETHASONE SOD PHOS 4 MG/ML VIAL IV PUSH SCH (23:50)
[2017-10-25] VITALS (11 sets, daily range): BP systolic 90–106; BP diastolic 51–62; PULSE 80–127; RESP 14–20; TEMP 97.4–99.6; O2SAT 97–98
[2017-10-25] MEDS: VANCOMYCIN INJ 1,250 MG in SODIUM CHLOR 0.9% 250 ML INJ 250 ML IV SCH ×2 (00:53→13:00)
[2017-10-25] MEDS: HYDROmorphone HCL PF 2 MG/ML VIAL IV PUSH PRN ×2 (03:35→06:32)
[2017-10-25] MEDS: PIPERACIL-TAZO 3.375 GM PREMIX 50 ML IV SCH ×4 (04:48→23:09)
[2017-10-25 05:19] LABS: AUTOMATED NEUTROPHIL # 10.6 TH/MM3 (1.8-7.7); BASOPHIL # 0.1 TH/MM3 (0-0.2); BASOPHIL % 0.4 % (0.0-2.0); HEMATOCRIT 26.2 % (35.0-46.0); HEMOGLOBIN 8.6 GM/DL (11.6-15.3); LYMPH % 5.4 % (9.0-44.0); LYMPHOCYTE # 0.7 TH/MM3 (1.0-4.8); MEAN CELL VOLUME 76.6 FL (80.0-100.0); MEAN CORPUSCULAR HGB CONC 32.7 % (32.0-36.0); MEAN PLATELET VOLUME 7.5 FL (7.0-11.0); MONO % 7.7 % (0.0-8.0); MONOCYTE # 0.9 TH/MM3 (0-0.9); NEUT % 86.5 % (16.0-70.0); PLATELET COUNT 315 TH/MM3 (150-450); RED BLOOD COUNT 3.43 MIL/MM3 (4.00-5.30); RED CELL DISTRIBUTION WIDTH 23.3 % (11.6-17.2); WHITE BLOOD COUNT 12.3 TH/MM3 (4.0-11.0)
[2017-10-25] MEDS: DEXAMETHASONE SOD PHOS 4 MG/ML VIAL IV PUSH SCH ×3 (05:36→21:25)
[2017-10-25 05:47] LABS: BICARBONATE 21.7 MEQ/L (21.0-32.0); CALCIUM 6.7 MG/DL (8.5-10.1); CREATININE 0.98 MG/DL (0.50-1.00); MAGNESIUM 2.5 MG/DL (1.5-2.5)
[2017-10-25 06:02] LABS: TOTAL PROTEIN 6.5 GM/DL (6.4-8.2)
[2017-10-25 06:58] LABS: BANDS 35 % (0-6); LYMPHOCYTES 8 % (9-44); METAMYELOCYTES 1 % (0-1); MONOCYTES 7 % (0-8); NEUTROPHIL # MANUAL DIFF 10.5 TH/MM3 (1.8-7.7); POLYS (SEG NEUTROPHILS) 49 % (16-70)
[2017-10-25] MEDS: METOPROLOL TARTRATE 25 MG TAB PO SCH (07:18)
[2017-10-25] MEDS: CALCIUM CARBONATE 500 MG CHEWABLE TAB PO SCH ×2 (07:50→20:09)
[2017-10-25] MEDS: DOCUSATE SODIUM 100 MG CAP PO SCH ×2 (07:50→20:09)
[2017-10-25] MEDS: SODIUM CHLORIDE 0.9% FLUSH 10 ML FLUSH IV FLUSH SCH ×2 (07:50→20:53)
[2017-10-25] MEDS: CHOLECALCIFEROL (VIT D3) 400 UNIT TAB PO SCH ×2 (07:50→20:09)
--- NOTE | 2017-10-25 09:30 | HHI.PR ---
Subjective Remarks no new complaints Objective Vitals heart reg lung cta abd s/nt ext no edema neuro. pt can wiggle toes muhammad left breast multiple masses/foul odor dressing. Vital Signs Date Time Temp Pulse Resp B/P (MAP) Pulse Ox O2 Delivery O2 Flow Rate FiO2 10/25/17 08:00 99.6 90 19 100/58 (72) 97 10/25/17 08:00 90 10/25/17 06:00 90 10/25/17 04:00 98.5 88 20 90/51 (64) 97 10/25/17 04:00 104 10/25/17 02:00 107 10/25/17 00:00 104 10/25/17 00:00 97.4 103 20 96/55 (69) 97 10/24/17 22:00 103 10/24/17 20:00 102 10/24/17 20:00 98.5 102 24 103/59 (74) 98 10/24/17 18:00 105 10/24/17 16:00 105 10/24/17 16:00 99.8 98 26 92/55 (67) 100 10/24/17 14:00 100 10/24/17 13:34 99.5 96 22 102/56 99 10/24/17 12:24 98.2 97 23 102/56 99 10/24/17 12:09 99.9 96 21 86/53 99 10/24/17 12:00 99.9 96 21 86/53 (64) 99 10/24/17 12:00 100 10/24/17 10:00 102 Result Diagram: 10/25/17 0455 10/25/17 0455 Imaging Last Impressions Chest X-Ray 10/23/17 0000 Signed Impressions: Service Date/Time: Monday, October 23, 2017 07:08 - CONCLUSION: No acute cardiopulmonary disease. Isidoro Harris MD Thoracic Spine MRI 10/22/17 1156 Signed Impressions: Service Date/Time: Sunday, October 22, 2017 19:59 - CONCLUSION: Large left paraspinal mass at T4-T8 level but more notably at T6 level invades the T6 vertebral body and left aspect of T5 vertebral body. This extends into the left epidural space and Joseph Mcqueen MD Cervical Spine MRI 10/22/17 9475 Signed Impressions: Service Date/Time: Sunday, October 22, 2017 19:59 - CONCLUSION: 1. Anterior fusion C4-C7. 2. Questionable enhancement in the left epidural region at T1- T2. 3. Multiple masses along the left chest wall and left shoulder region. Joseph Mcqueen MD Brain MRI 10/22/17 1153 Signed Impressions: Service Date/Time: Sunday, October 22, 2017 19:59 - CONCLUSION: Unremarkable MRI of the brain. Joseph Mcqueen MD Lumbar Spine MRI 10/22/17 1002 Signed Impressions: Service Date/Time: Sunday, October 22, 2017 11:01 - CONCLUSION: No evidence for metastatic disease without any significant compromise to the thecal sac or the exiting nerve roots. Isidoro Harris MD A/P Problem List: (1) Malignant melanoma ICD Codes: C43.9 - Malignant melanoma of skin, unspecified Status: Acute Plan: - Comgmt with Neurosurgery, Medical Oncology, Radiation Oncology, Infectious Disease - patient presented to the ER 10/06/17 with breast changes - core biopsy 10/07 revealed malignant melanoma - Patient has an appointment with oncology 11/01/17 - Pt presented to ER (10/22) with c/o B/L LE weakness & urinary retention - Thoracic MRI (10/22) Large left paraspinal mass at T4-T8 level but more notably at T6 level invades the T6 vertebral body and left aspect of T5 vertebral body. This extends into the left epidural space - Cervical MRI (10/22) 1. Anterior fusion C4-C7. 2. Questionable enhancement in the left epidural region at T1-T2. 3. Multiple masses along the left chest wall and left shoulder region - Lumbar MRI (10/22) No evidence for metastatic disease without any significant compromise to the thecal sac or the exiting nerve roots. - Brain MRI (10/22) NO acute abnormalities - Case d/w Dr. Vásquez and Dr. 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 - Patient taken to surgery for decompressive T4-T8 laminectomy, resection of epidural neoplasm, posterior fusion with instrumentation early in the morning -concern for infected left breast/axilla wounds - cultures taken from left breast/axillary region (10/22) --> mrsa - Vancomycin/Zosyn...defer to ID -s/p 2 units of prbc on 10/24 for persist low bp and brief svt . -stop iv morphine/dilaudid and use po norco - iv steroids initiated on 10/24 -wound care -antidepressant -transfer to med/surg when ok with nsg. (2) Urinary retention ICD Codes: R33.9 - Retention of urine, unspecified Status: Acute Plan: Muhammad placed in ER with 1000ml returned, continue muhammad for retention - see above (3) Lower extremity weakness ICD Codes: R29.898 - Other symptoms and signs involving the musculoskeletal system Status: Acute Plan: - see above Problem Qualifiers (1) Lower extremity weakness: Qualified Codes: R29.898 - Other symptoms and signs involving the musculoskeletal system Willie Mukherjee MD Oct 25, 2017 09:30
[2017-10-25] MEDS: ESCITALOPRAM OXALATE 10 MG TAB PO SCH (10:20)
[2017-10-25] MEDS: ACETAMINOPHEN/HYDROcodone 325 MG/10 MG TAB PO PRN ×3 (10:21→20:09)
--- NOTE | 2017-10-25 10:45 | HHI.NSPN ---
(Serge Gardner) History Chief Complaint: Back pain, decreased sensation to legs. (Serge Gardner) Interval History 10/23: 47-year-old female with history of metastatic melanoma presents to the emergency room 10/22/2017 with complaint of 4 days of progressive weakness and numbness in the lower extremities as well as urinary retention. Imaging studies reveal paraspinous metastatic disease at the primarily left T5-6 level with epidural neoplasm at the T4-T8 levels with significant spinal cord compression. Patient taken to surgery for decompressive T4-T8 laminectomy, resection of epidural neoplasm, posterior fusion with instrumentation early in the morning . Examination postoperative reveals the patient to be awake and alert. Complains of moderate low back pain. Motor function in the lower extremities improved compared to preoperative. 10/24: The patient is awake and alert watching TV with her . She continues to have the back pain which she said is worse than yesterday. Nursing had turned the patient before she was seen. She continues to have decreased sensation to the proximal lower and absent to the distal which she reports is the same as yesterday. She does move her feet to command but is not able to do anything more with the lower extremities. This practitioner spoke with Dr Mukherjee earlier and he is going to transfuse two units PRBCs due to her hypotension this morning. 10/25: This morning the patient is awake and visiting with her and watching TV. She does have some back pain as well as decreased sensation to the lower extremities. She says the back pain comes around the right side to the chest. She says the pain is the same as yesterday but she appears more comfortable. She does say she is able to feel me touching her feet and she appears to be moving them more than yesterday. (Serge Gardner) Exam Results 10/23/17 10/23/17 10/24/17 10/24/17 10/25/17 10/25/17 06:00 18:00 06:00 18:00 06:00 18:00 Intake Total 5089 ml 3530 ml 2775 ml 1690 ml Output Total 2840 ml 935 ml 615 ml 660 ml Balance 2249 ml 2595 ml 2160 ml 1030 ml Intake Oral 360 ml 240 ml 450 ml 340 ml IV Total 4229 ml 3290 ml 1525 ml 1350 ml Packed Cells 500 ml 800 ml Output Urine Total 2000 ml 850 ml 525 ml 600 ml Drainage Total 240 ml 85 ml 90 ml 60 ml Estimated Blood Loss 600 ml # Bowel Movements 0 0 0 0 Vital Signs Date Time Temp Pulse Resp B/P (MAP) Pulse Ox O2 Delivery O2 Flow Rate FiO2 10/25/17 08:00 99.6 90 19 100/58 (72) 97 10/25/17 08:00 90 10/25/17 06:00 90 10/25/17 04:00 98.5 88 20 90/51 (64) 97 10/25/17 04:00 104 10/25/17 02:00 107 10/25/17 00:00 104 10/25/17 00:00 97.4 103 20 96/55 (69) 97 10/24/17 22:00 103 10/24/17 20:00 102 10/24/17 20:00 98.5 102 24 103/59 (74) 98 10/24/17 18:00 105 10/24/17 16:00 105 10/24/17 16:00 99.8 98 26 92/55 (67) 100 10/24/17 14:00 100 10/24/17 13:34 99.5 96 22 102/56 99 10/24/17 12:24 98.2 97 23 102/56 99 10/24/17 12:09 99.9 96 21 86/53 99 10/24/17 12:00 99.9 96 21 86/53 (64) 99 10/24/17 12:00 100 10/24/17 10:00 102 10/24/17 08:00 110 10/24/17 08:00 101.7 110 20 93/52 (66) 99 10/24/17 06:00 105 10/24/17 04:00 104 10/24/17 04:00 98.7 104 21 88/55 (66) 98 10/24/17 02:00 108 10/24/17 00:00 99.0 108 23 97/55 (69) 98 10/24/17 00:00 108 10/23/17 22:00 104 10/23/17 21:25 20 10/23/17 20:00 102 10/23/17 20:00 98.7 102 21 94/54 (67) 100 10/23/17 18:00 108 10/23/17 16:00 99.9 101 14 88/51 (63) 98 10/23/17 16:00 101 10/23/17 14:00 98 10/23/17 12:00 98.9 94 19 96/57 (70) 95 10/23/17 12:00 94 10/23/17 10:51 20 10/23/17 10:00 100 10/23/17 10:00 99.0 102 22 103/62 (76) 95 Arterial Line 10/23/17 09:45 98.9 104 20 110/59 (76) 100 Room Air 10/23/17 09:00 104 14 114/71 (85) 100 121/65 (83) 10/23/17 08:00 96 16 103/62 (76) 100 109/54 (72) 10/23/17 07:45 94 16 106/65 (79) 100 114/57 (76) 10/23/17 07:30 93 18 104/63 (77) 100 114/58 (76) 10/23/17 07:15 94 19 106/61 (76) 100 116/57 (76) 10/23/17 07:00 95 17 100/58 (72) 100 Nasal Cannula 3 111/55 (73) 10/23/17 06:48 98.6 97 17 105/60 (75) 100 Nasal Cannula 3 10/22/17 20:00 97.4 109 16 106/58 (74) 91 10/22/17 16:00 95.4 111 17 101/58 (72) 97 10/22/17 14:14 10/22/17 12:20 99 18 113/64 (80) 97 10/22/17 11:35 103 20 108/57 (74) 94 Room Air 10/22/17 10:40 99 Room Air (Serge Gardner) Physical Examination GENERAL: Awake & alert, readily interacts, affect essentially normal, in no apparent distress. SKIN: Pale but dry. Surgical dressing intact to back w/o any shadowing, erythema or streaking. MUSCULOSKELETAL: Moving BUE & both feet spontaneously. Thoracic surgical incision is TTP minimally at top & mildly at bottom, CRISS drain insertion site minimally TTP, to bulb suction w/serosanguinous drainage, dressing intact to both. NEUROLOGICAL: AAOx3. Speech is clear & appropriate. Follows commands w/o difficulty. Sensation is intact to light touch to the upper extremities. Motor strength is 5/5 to all flexion & extension muscle groups of the upper extremities. Sensation is decreased to light touch throughout the lower extremities. Motor strength to the left lower extremity is 3+ to 4 to the tibialis anterior, gastrocnemius & extensor hallucis longus, 0+ to 1/5 to the left quadricep & hamstring, and left iliopsoas 0/5. Motor strength to the right lower extremity is 3+ to 4 to the tibialis anterior , gastrocnemius & extensor hallucis longus and 0/5 to the left iliopsoas, quadricep & hamstring. (Serge Gardner) Lab, Micro, Other Results Recent Impressions Thoracic Spine X-Ray 10/23/17 0000 Signed Impressions: Service Date/Time: Monday, October 23, 2017 03:50 - CONCLUSION: Intact intraoperative examination. Isidoro Harris MD Chest X-Ray 10/23/17 0000 Signed Impressions: Service Date/Time: Monday, October 23, 2017 07:08 - CONCLUSION: No acute cardiopulmonary disease. Isidoro Harris MD Chest X-Ray 10/22/17 1220 Signed Impressions: Service Date/Time: Sunday, October 22, 2017 12:50 - CONCLUSION: No acute cardiopulmonary disease. Isidoro Harris MD Thoracic Spine MRI 10/22/17 1153 Signed Impressions: Service Date/Time: Sunday, October 22, 2017 19:59 - CONCLUSION: Large left paraspinal mass at T4-T8 level but more notably at T6 level invades the T6 vertebral body and left aspect of T5 vertebral body. This extends into the left epidural space and Joseph Mcqueen MD Cervical Spine MRI 10/22/17 1150 Signed Impressions: Service Date/Time: Sunday, October 22, 2017 19:59 - CONCLUSION: 1. Anterior fusion C4-C7. 2. Questionable enhancement in the left epidural region at T1- T2. 3. Multiple masses along the left chest wall and left shoulder region. Joseph Mcqueen MD Brain MRI 10/22/17 1153 Signed Impressions: Service Date/Time: Sunday, October 22, 2017 19:59 - CONCLUSION: Unremarkable MRI of the brain. Joseph Mcqueen MD Laboratory Tests Test 10/22/17 10:23 10/22/17 23:35 10/23/17 04:25 10/23/17 19:17 White Blood Count 13.6 TH/MM3 12.8 TH/MM3 Red Blood Count 3.98 MIL/MM3 3.44 MIL/MM3 Hemoglobin 8.8 GM/DL 7.9 GM/DL Hematocrit 28.3 % 25.3 % Mean Corpuscular Volume 71.0 FL 73.4 FL Mean Corpuscular Hemoglobin 22.2 PG 23.0 PG Mean Corpuscular Hemoglobin Concent 31.2 % 31.3 % Red Cell Distribution Width 24.3 % 23.9 % Platelet Count 586 TH/MM3 417 TH/MM3 Mean Platelet Volume 7.6 FL 7.1 FL Neutrophils (%) (Auto) 82.4 % 80.7 % Lymphocytes (%) (Auto) 7.5 % 10.0 % Monocytes (%) (Auto) 9.0 % 8.2 % Eosinophils (%) (Auto) 0.3 % 0.1 % Basophils (%) (Auto) 0.8 % 1.0 % Neutrophils # (Auto) 11.2 TH/MM3 10.3 TH/MM3 Lymphocytes # (Auto) 1.0 TH/MM3 1.3 TH/MM3 Monocytes # (Auto) 1.2 TH/MM3 1.1 TH/MM3 Eosinophils # (Auto) 0.0 TH/MM3 0.0 TH/MM3 Basophils # (Auto) 0.1 TH/MM3 0.1 TH/MM3 CBC Comment DIFF FINAL AUTO DIFF Differential Comment AUTO DIFF CONFIRMED Urine Color YELLOW Urine Turbidity CLEAR Urine pH 7.0 Urine Specific [place] 1.015 Urine Protein 30 mg/dL Urine Glucose (UA) NEG mg/dL Urine Ketones NEG mg/dL Urine Occult Blood TRACE Urine Nitrite NEG Urine Bilirubin NEG Urine Urobilinogen LESS THAN 2.0 MG/DL Urine Leukocyte Esterase NEG Urine RBC 3 /hpf Urine WBC 8 /hpf Urine Squamous Epithelial Cells 2 /hpf Urine Hyaline Casts 3 /lpf Urine Mucus FEW /lpf Microscopic Urinalysis Comment CULT NOT INDICATED Blood Urea Nitrogen 23 MG/DL 16 MG/DL Creatinine 1.05 MG/DL 0.77 MG/DL Random Glucose 100 MG/DL 96 MG/DL Calcium Level 8.9 MG/DL 7.2 MG/DL Sodium Level 134 MEQ/L 140 MEQ/L Potassium Level 3.9 MEQ/L 4.8 MEQ/L Chloride Level 101 MEQ/L 111 MEQ/L Carbon Dioxide Level 23.6 MEQ/L 24.0 MEQ/L Anion Gap 9 MEQ/L 5 MEQ/L Estimat Glomerular Filtration Rate 56 ML/MIN 80 ML/MIN Prothrombin Time 11.6 SEC Prothromb Time International Ratio 1.1 RATIO Activated Partial Thromboplast Time 27.3 SEC Blood Gas Puncture Site OR ABG Blood Gas Patient Temperature 98.6 Blood Gas HCO3 18 mmol/L Blood Gas Base Excess -6.3 mmol/L Blood Gas Oxygen Saturation 96 % Arterial Blood pH 7.39 Arterial Blood Partial Pressure CO2 30 mmHg Arterial Blood Partial Pressure O2 286 mmHg Arterial Blood Oxygen Content 11.9 Vol % Arterial Blood Carboxyhemoglobin 1.9 % Arterial Blood Methemoglobin 1.5 % Blood Gas Hemoglobin 8.3 G/DL Oxygen Delivery Device OR ABG Blood Gas Ventilator Setting OR ABG Blood Gas Inspired Oxygen 21 % Platelet Estimate NORMAL Platelet Morphology Comment NORMAL Ovalocytes 1+ Total Protein 6.7 GM/DL Protein Corrected Calcium 7.4 MG/DL Test 10/24/17 05:30 10/24/17 13:15 10/24/17 19:09 10/25/17 04:55 White Blood Count 11.5 TH/MM3 12.3 TH/MM3 Red Blood Count 3.32 MIL/MM3 3.43 MIL/MM3 Hemoglobin 8.0 GM/DL 8.6 GM/DL Hematocrit 24.7 % 26.2 % Mean Corpuscular Volume 74.5 FL 76.6 FL Mean Corpuscular Hemoglobin 24.2 PG 25.0 PG Mean Corpuscular Hemoglobin Concent 32.5 % 32.7 % Red Cell Distribution Width 24.2 % 23.3 % Platelet Count 378 TH/MM3 315 TH/MM3 Mean Platelet Volume 7.4 FL 7.5 FL Neutrophils (%) (Auto) 81.8 % 86.5 % Lymphocytes (%) (Auto) 8.3 % 5.4 % Monocytes (%) (Auto) 8.9 % 7.7 % Eosinophils (%) (Auto) 0.1 % 0.0 % Basophils (%) (Auto) 0.9 % 0.4 % Neutrophils # (Auto) 9.4 TH/MM3 10.6 TH/MM3 Lymphocytes # (Auto) 1.0 TH/MM3 0.7 TH/MM3 Monocytes # (Auto) 1.0 TH/MM3 0.9 TH/MM3 Eosinophils # (Auto) 0.0 TH/MM3 0.0 TH/MM3 Basophils # (Auto) 0.1 TH/MM3 0.1 TH/MM3 CBC Comment DIFF FINAL AUTO DIFF Differential Comment FINAL DIFF MANUAL Blood Urea Nitrogen 16 MG/DL 18 MG/DL Creatinine 0.91 MG/DL 0.98 MG/DL Random Glucose 97 MG/DL 106 MG/DL Total Protein 6.5 GM/DL 6.5 GM/DL Calcium Level 6.8 MG/DL 6.7 MG/DL Sodium Level 141 MEQ/L 140 MEQ/L Potassium Level 5.0 MEQ/L 4.8 MEQ/L Chloride Level 110 MEQ/L 111 MEQ/L Carbon Dioxide Level 22.4 MEQ/L 21.7 MEQ/L Anion Gap 9 MEQ/L 7 MEQ/L Estimat Glomerular Filtration Rate 66 ML/MIN 60 ML/MIN Protein Corrected Calcium 7.1 MG/DL 7.0 MG/DL Vancomycin Level Trough 20.3 MCG/ML Procalcitonin 1.71 ng/mL Differential Total Cells Counted 100 Neutrophils % (Manual) 49 % Band Neutrophils % 35 % Lymphocytes % 8 % Monocytes % 7 % Neutrophils # (Manual) 10.5 TH/MM3 Metamyelocytes 1 % Platelet Estimate NORMAL Platelet Morphology Comment NORMAL Magnesium Level 2.5 MG/DL (Serge Gardner) Medical Decision Making Impression and Plan Impression: 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 Thoracic myelopathy 10/23 Patient exhibits some early improvement in neurologic function of the lower extremities postoperative. The patient is less TTP of her back today. Neurological function to the lower extremities does show some interval improvement. CRISS drain output for the past 24 hours was 150 mL this morning at shift change. Hypotension improved. T max 101.7 yesterday morning at 0800, since then T max 99.9. Reviewed labs for today. Interval increase in leukocytosis. Interval improvement in anaemia. Interval decrease in renal function. Blood cultures w/no growth x2d. Breast wound culture w/Staphylococcus aureus methicillin resistant on final . Physical Therapy recommends inpatient rehab for further therapy. POD #2 () s/p: 1. Bilateral T4-T8 decompressive laminectomy, resection of metastatic epidural neoplasm 2. Bilateral T4-T8 posterior instrumentation, pedicle screw fixation 3. Bilateral T4-T8 posterior fusion with demineralized bone matrix Postoperative Diagnosis: (1) Thoracic myelopathy (2) Malignant melanoma 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 Thoracic myelopathy Plan: Primary management per Hospitalist. Antibiotics per Infectious Disease. Neuro checks. Continue thoracic drain & monitor output. Mobilise patient w/assistance. Due to the patient's extensive neoplasm at the left breast extending to the axilla and chest wall, she will be mobilized out of bed without a TLSO brace, which would likely cause excessive discomfort. PT eval & tx. Mechanical DVT prophylaxis. Hold pharmacologic DVT prophylaxis. Patient is able to be transferred to a regular med/surg floor from NSGY's perspective when medically indicated. (Serge Gardner) Attending Statement The exam, history, and the medical decision-making described in the above note were completed with the assistance of the mid-level provider. I reviewed and agree with the findings presented. I attest that I had a [id number] encounter with the patient on the same day, and personally performed and documented my assessment and findings in the medical record. (Brian Vásquez MD) Serge Gardner Oct 25, 2017 10:45 Brian Vásquez MD Oct 30, 2017 21:04
[2017-10-25] MEDS: SODIUM CHLOR 0.9% 1000 ML INJ 1,000 ML IV SCH ×2 (11:20→23:10)
--- NOTE | 2017-10-25 11:39 | PD.ONC.PN ---
Subjective Subjective Remarks Tmax 99.8 yesterday afternoon. Afebrile overnight. No improvement in strength. States pain is controlled. Objective Data Date Time Temp Pulse Resp B/P (MAP) Pulse Ox O2 Delivery O2 Flow Rate FiO2 10/25/17 10:00 98 10/25/17 08:00 99.6 90 19 100/58 (72) 97 10/25/17 08:00 90 10/25/17 06:00 90 10/25/17 04:00 98.5 88 20 90/51 (64) 97 10/25/17 04:00 104 10/25/17 02:00 107 10/25/17 00:00 104 10/25/17 00:00 97.4 103 20 96/55 (69) 97 10/24/17 22:00 103 10/24/17 20:00 102 10/24/17 20:00 98.5 102 24 103/59 (74) 98 10/24/17 18:00 105 10/24/17 16:00 105 10/24/17 16:00 99.8 98 26 92/55 (67) 100 10/24/17 14:00 100 10/24/17 13:34 99.5 96 22 102/56 99 10/24/17 12:24 98.2 97 23 102/56 99 10/24/17 12:09 99.9 96 21 86/53 99 10/24/17 12:00 99.9 96 21 86/53 (64) 99 10/24/17 12:00 100 10/25/17 10/25/17 10/25/17 07:00 15:00 23:00 Intake Total 1690 ml Output Total 660 ml Balance 1030 ml Result Diagram: 10/25/17 0455 10/25/17 0455 Laboratory Results Laboratory Tests Test 10/24/17 13:15 10/24/17 19:09 10/25/17 04:55 Vancomycin Level Trough 20.3 MCG/ML Procalcitonin 1.71 ng/mL White Blood Count 12.3 TH/MM3 Red Blood Count 3.43 MIL/MM3 Hemoglobin 8.6 GM/DL Hematocrit 26.2 % Mean Corpuscular Volume 76.6 FL Mean Corpuscular Hemoglobin 25.0 PG Mean Corpuscular Hemoglobin Concent 32.7 % Red Cell Distribution Width 23.3 % Platelet Count 315 TH/MM3 Mean Platelet Volume 7.5 FL Neutrophils (%) (Auto) 86.5 % Lymphocytes (%) (Auto) 5.4 % Monocytes (%) (Auto) 7.7 % Eosinophils (%) (Auto) 0.0 % Basophils (%) (Auto) 0.4 % Neutrophils # (Auto) 10.6 TH/MM3 Lymphocytes # (Auto) 0.7 TH/MM3 Monocytes # (Auto) 0.9 TH/MM3 Eosinophils # (Auto) 0.0 TH/MM3 Basophils # (Auto) 0.1 TH/MM3 CBC Comment AUTO DIFF Differential Total Cells Counted 100 Neutrophils % (Manual) 49 % Band Neutrophils % 35 % Lymphocytes % 8 % Monocytes % 7 % Neutrophils # (Manual) 10.5 TH/MM3 Metamyelocytes 1 % Differential Comment FINAL DIFF MANUAL Platelet Estimate NORMAL Platelet Morphology Comment NORMAL Blood Urea Nitrogen 18 MG/DL Creatinine 0.98 MG/DL Random Glucose 106 MG/DL Total Protein 6.5 GM/DL Calcium Level 6.7 MG/DL Magnesium Level 2.5 MG/DL Sodium Level 140 MEQ/L Potassium Level 4.8 MEQ/L Chloride Level 111 MEQ/L Carbon Dioxide Level 21.7 MEQ/L Anion Gap 7 MEQ/L Estimat Glomerular Filtration Rate 60 ML/MIN Protein Corrected Calcium 7.0 MG/DL Culture Results Microbiology Date/Time Source Procedure Growth Status 10/22/17 22:15 Blood Peripheral Aerobic Blood Culture - Preliminary NO GROWTH IN 3 DAYS Resulted 10/22/17 22:15 Blood Peripheral Anaerobic Blood Culture - Preliminary NO GROWTH IN 3 DAYS Resulted 10/22/17 22:10 Blood Peripheral Aerobic Blood Culture - Preliminary NO GROWTH IN 3 DAYS Resulted 10/22/17 22:10 Blood Peripheral Anaerobic Blood Culture - Preliminary NO GROWTH IN 3 DAYS Resulted 10/22/17 21:25 Wound Breast Gram Stain - Final Complete 10/22/17 21:25 Wound Culture - Final S. Aureus Mrsa Complete Administered Medications Medications (Trade) Dose Ordered Sig/Antoni Route PRN Reason Start Time Stop Time Status Last Admin Dose Admin Lorazepam (Ativan Inj) 2 mg ONCE PRN IV PUSH ANXIETY 10/22/17 10:45 10/22/17 10:47 Sodium Chloride (NS Flush) 2 ml BID IV FLUSH 10/22/17 21:00 10/25/17 07:50 Acetaminophen (Tylenol) 650 mg Q4H PRN PO TEMP > 100.4 10/22/17 12:30 10/24/17 09:00 Lorazepam (Ativan Inj) 1 mg Q4H PRN IV PUSH anxiety 10/22/17 18:30 10/22/17 18:57 Acetaminophen/ Hydrocodone Bitart ([place] 10-325 Mg) 1 tab Q4H PRN PO PAIN SCALE 6 TO 10 10/23/17 07:15 10/25/17 10:21 Piperacillin Sod/ Tazobactam Sod 50 ml @ 100 mls/hr Q6H IV 10/23/17 11:00 10/25/17 10:21 Docusate Sodium (Colace) 100 mg BID PO 10/23/17 21:00 10/25/17 07:50 Calcium Carbonate (Tums Chew) 1,000 mg BID PO 10/24/17 09:00 10/25/17 07:50 Cholecalciferol (Vitamin D3) 400 units BID PO 10/24/17 09:00 10/25/17 07:50 Sodium Chloride 1,000 ml @ 84 mls/hr [id number] IV 10/24/17 11:30 10/25/17 11:20 Vancomycin HCl 1250 mg/Sodium Chloride 262.5 ml @ 250 mls/hr Q12H IV 10/25/17 01:00 10/25/17 00:53 Dexamethasone Sodium Phosphate (Decadron Inj) 4 mg Q8HR IV PUSH 10/24/17 22:00 10/26/17 14:01 10/25/17 05:36 Escitalopram Oxalate (Lexapro) 10 mg DAILY PO 10/25/17 10:00 10/25/17 10:20 Objective Remarks GENERAL: Middle aged female, lying on right side in bed, watching TV SKIN: Warm and dry. multiple blisters/and open wound, left breast with bandage in place. HEAD: Normocephalic. EYES: No injection or drainage. NECK: Supple, trachea midline. CARDIOVASCULAR: Regular rate and rhythm RESPIRATORY: anterior arias with scattered rhonchi. on O2 via NC GASTROINTESTINAL: Abdomen soft, non-tender, nondistended. EXTREMITIES: No cyanosis NEUROLOGICAL: awake, alert, normal speech. paralysis in bilateral lower extremities. weakness in left arm. Assessment/Plan Problem List: (1) Malignant melanoma ICD Codes: C43.9 - Malignant melanoma of skin, unspecified Status: Acute (2) Thoracic myelopathy ICD Codes: M47.14 - Other spondylosis with myelopathy, thoracic region (3) Infection of left breast ICD Codes: N61.0 - Mastitis without abscess Assessment 47y/o female admitted with bilateral lower extremity weakness + urinary retention. Oncology consulted for locally advanced melanoma. h/o hypertension Plan 1. melanoma. BRAF pending and will likely return in 7-10 business days. treatment will be outpatient after discharge from hospital and rehab. 2. Thoracic Myelopathy: s/p Laminectomy 10/23/17. still with no improvement today. continue to monitor. 3. MRSA +left breast infection: on antibiotics. 4. monitor CBC. transfuse for hemoglobin less than 8. no transfusion needed at present. Attending Statement The exam, history, and the medical decision-making described in the above note were completed with the assistance of the mid-level provider. I reviewed and agree with the findings presented. I attest that I had a [id number] encounter with the patient on the same day, and personally performed and documented my assessment and findings in the medical record. Has right shoulder pain. Only able to wiggle left 2 toes. Decreased sensation BLE. Await BRAF study. Discussed with , consider palliative XRT to spine when recover from surgery. Can also consider radiating left breast and axilla to close the wound. + breast MRSA infection. Continue abx per ID> Raven Bonds Oct 25, 2017 11:39 Lalo Moe MD Oct 25, 2017 17:01
[2017-10-26] VITALS (7 sets, daily range): BP systolic 95–117; BP diastolic 55–70; PULSE 72–90; RESP 13–23; TEMP 97.7–98.8; O2SAT 97–99
[2017-10-26] MEDS: ACETAMINOPHEN/HYDROcodone 325 MG/10 MG TAB PO PRN ×4 (01:11→20:58)
[2017-10-26] MEDS: DEXAMETHASONE SOD PHOS 4 MG/ML VIAL IV PUSH SCH ×2 (06:15→13:16)
[2017-10-26] MEDS: PIPERACIL-TAZO 3.375 GM PREMIX 50 ML IV SCH ×4 (06:16→22:22)
[2017-10-26 06:28] LABS: CREATININE 0.79 MG/DL (0.50-1.00)
[2017-10-26 06:29] LABS: RANDOM VANCOMYCIN 13.8 COMMENT
--- NOTE | 2017-10-26 08:39 | HHI.PR ---
Subjective Remarks no new complaints. elise liquid diet Objective Vitals heart reg lung cta abd s/nt ext minimal mvmt toes/feet. muhammad left breast/axilla masses /bandaged. Vital Signs Date Time Temp Pulse Resp B/P (MAP) Pulse Ox O2 Delivery O2 Flow Rate FiO2 10/26/17 08:00 97.8 80 23 113/70 (84) 98 10/26/17 08:00 80 10/26/17 04:00 98.1 72 15 95/55 (68) 97 10/26/17 04:00 72 10/26/17 00:00 80 10/26/17 00:00 97.9 80 14 109/66 (80) 99 10/25/17 20:00 97.9 80 14 106/62 (77) 98 10/25/17 20:00 80 10/25/17 16:00 87 10/25/17 16:00 98.5 87 18 90/55 (67) 97 10/25/17 14:00 91 10/25/17 12:00 98.9 88 20 92/55 (67) 97 10/25/17 12:00 88 10/25/17 10:00 98 Result Diagram: 10/25/17 0455 10/26/17 0515 Imaging Last Impressions Chest X-Ray 10/23/17 0000 Signed Impressions: Service Date/Time: Monday, October 23, 2017 07:08 - CONCLUSION: No acute cardiopulmonary disease. Isidoro Harris MD Thoracic Spine MRI 10/22/17 1153 Signed Impressions: Service Date/Time: Sunday, October 22, 2017 19:59 - CONCLUSION: Large left paraspinal mass at T4-T8 level but more notably at T6 level invades the T6 vertebral body and left aspect of T5 vertebral body. This extends into the left epidural space and Joseph Mcqueen MD Cervical Spine MRI 10/22/17 1154 Signed Impressions: Service Date/Time: Sunday, October 22, 2017 19:59 - CONCLUSION: 1. Anterior fusion C4-C7. 2. Questionable enhancement in the left epidural region at T1- T2. 3. Multiple masses along the left chest wall and left shoulder region. Joseph Mcqueen MD Brain MRI 10/22/17 1155 Signed Impressions: Service Date/Time: Sunday, October 22, 2017 19:59 - CONCLUSION: Unremarkable MRI of the brain. Joseph Mcqueen MD Lumbar Spine MRI 10/22/17 1002 Signed Impressions: Service Date/Time: Sunday, October 22, 2017 11:01 - CONCLUSION: No evidence for metastatic disease without any significant compromise to the thecal sac or the exiting nerve roots. Isidoro Harris MD A/P Problem List: (1) Malignant melanoma ICD Codes: C43.9 - Malignant melanoma of skin, unspecified Status: Acute Plan: - Comgmt with Neurosurgery, Medical Oncology, Radiation Oncology, Infectious Disease - patient presented to the ER 10/06/17 with breast changes - core biopsy 10/07 revealed malignant melanoma - Patient has an appointment with oncology 11/01/17 - Pt presented to ER (10/22) with c/o B/L LE weakness & urinary retention - Thoracic MRI (10/22) Large left paraspinal mass at T4-T8 level but more notably at T6 level invades the T6 vertebral body and left aspect of T5 vertebral body. This extends into the left epidural space - Cervical MRI (10/22) 1. Anterior fusion C4-C7. 2. Questionable enhancement in the left epidural region at T1-T2. 3. Multiple masses along the left chest wall and left shoulder region - Lumbar MRI (10/22) No evidence for metastatic disease without any significant compromise to the thecal sac or the exiting nerve roots. - Brain MRI (10/22) NO acute abnormalities - Case d/w Dr. Vásquez and Dr. 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 - Patient taken to surgery for decompressive T4-T8 laminectomy, resection of epidural neoplasm, posterior fusion with instrumentation early in the morning -concern for infected left breast/axilla wounds - cultures taken from left breast/axillary region (10/22) --> mrsa - Vancomycin/Zosyn...defer to ID -s/p 2 units of prbc on 10/24 for persist low bp and brief svt . -stopped iv morphine/dilaudid and use po norco - iv steroids initiated on 10/24 -wound care orders placed -antidepressant started on 10/25 -transfer to med/surg pending. -advance diet. -PT/OT (2) Urinary retention ICD Codes: R33.9 - Retention of urine, unspecified Status: Acute Plan: Muhammad placed in ER with 1000ml returned, continue muhammad for retention - see above (3) Lower extremity weakness ICD Codes: R29.898 - Other symptoms and signs involving the musculoskeletal system Status: Acute Plan: - see above Problem Qualifiers (1) Lower extremity weakness: Qualified Codes: R29.898 - Other symptoms and signs involving the musculoskeletal system Willie Mukherjee MD Oct 26, 2017 08:39
[2017-10-26] MEDS: CALCIUM CARBONATE 500 MG CHEWABLE TAB PO SCH ×2 (08:59→20:58)
[2017-10-26] MEDS: SODIUM CHLORIDE 0.9% FLUSH 10 ML FLUSH IV FLUSH SCH ×2 (08:59→20:58)
[2017-10-26] MEDS: CHOLECALCIFEROL (VIT D3) 400 UNIT TAB PO SCH ×2 (08:59→20:58)
[2017-10-26] MEDS: DOCUSATE SODIUM 100 MG CAP PO SCH ×2 (08:59→20:57)
[2017-10-26] MEDS: ESCITALOPRAM OXALATE 10 MG TAB PO SCH (08:59)
--- NOTE | 2017-10-26 10:53 | HHI.NSPN ---
(Serge Gardner) History Chief Complaint: Back pain, decreased sensation to legs. (Serge Gardner) Interval History 10/23: 47-year-old female with history of metastatic melanoma presents to the emergency room 10/22/2017 with complaint of 4 days of progressive weakness and numbness in the lower extremities as well as urinary retention. Imaging studies reveal paraspinous metastatic disease at the primarily left T5-6 level with epidural neoplasm at the T4-T8 levels with significant spinal cord compression. Patient taken to surgery for decompressive T4-T8 laminectomy, resection of epidural neoplasm, posterior fusion with instrumentation early in the morning . Examination postoperative reveals the patient to be awake and alert. Complains of moderate low back pain. Motor function in the lower extremities improved compared to preoperative. 10/24: The patient is awake and alert watching TV with her . She continues to have the back pain which she said is worse than yesterday. Nursing had turned the patient before she was seen. She continues to have decreased sensation to the proximal lower and absent to the distal which she reports is the same as yesterday. She does move her feet to command but is not able to do anything more with the lower extremities. This practitioner spoke with Dr Mukherjee earlier and he is going to transfuse two units PRBCs due to her hypotension this morning. 10/25: This morning the patient is awake and visiting with her and watching TV. She does have some back pain as well as decreased sensation to the lower extremities. She says the back pain comes around the right side to the chest. She says the pain is the same as yesterday but she appears more comfortable. She does say she is able to feel me touching her feet and she appears to be moving them more than yesterday. 10/26: The patient was initially seen while being bathed and was awake and alert. Her back was examined at that time. She was seen again a few minutes later and said she was doing "pretty good." She does have the back pain still but says it is "a little better." The decreased sensation to the lower extremities is the same. The patient does appear to have a slight incremental improvement in her motor function to the lower extremities. (Serge Gardner) Exam Results 10/24/17 10/24/17 10/25/17 10/25/17 10/26/17 10/26/17 06:00 18:00 06:00 18:00 06:00 18:00 Intake Total 3530 ml 2775 ml 1690 ml 800 ml 1390 ml Output Total 935 ml 615 ml 660 ml 910 ml 680 ml Balance 2595 ml 2160 ml 1030 ml -110 ml 710 ml Intake Oral 240 ml 450 ml 340 ml 750 ml 340 ml IV Total 3290 ml 1525 ml 1350 ml 50 ml 1050 ml Packed Cells 800 ml Output Urine Total 850 ml 525 ml 600 ml 850 ml 650 ml Drainage Total 85 ml 90 ml 60 ml 60 ml 30 ml # Bowel Movements 0 0 0 1 0 Vital Signs Date Time Temp Pulse Resp B/P (MAP) Pulse Ox O2 Delivery O2 Flow Rate FiO2 10/26/17 08:00 97.8 80 23 113/70 (84) 98 10/26/17 08:00 80 10/26/17 04:00 98.1 72 15 95/55 (68) 97 10/26/17 04:00 72 10/26/17 00:00 80 10/26/17 00:00 97.9 80 14 109/66 (80) 99 10/25/17 20:00 97.9 80 14 106/62 (77) 98 10/25/17 20:00 80 10/25/17 16:00 87 10/25/17 16:00 98.5 87 18 90/55 (67) 97 10/25/17 14:00 91 10/25/17 12:00 98.9 88 20 92/55 (67) 97 10/25/17 12:00 88 10/25/17 10:00 98 10/25/17 08:00 99.6 90 19 100/58 (72) 97 10/25/17 08:00 90 10/25/17 06:00 90 10/25/17 04:00 98.5 88 20 90/51 (64) 97 10/25/17 04:00 104 10/25/17 02:00 107 10/25/17 00:00 104 10/25/17 00:00 97.4 103 20 96/55 (69) 97 10/24/17 22:00 103 10/24/17 20:00 102 10/24/17 20:00 98.5 102 24 103/59 (74) 98 10/24/17 18:00 105 10/24/17 16:00 105 10/24/17 16:00 99.8 98 26 92/55 (67) 100 10/24/17 14:00 100 10/24/17 13:34 99.5 96 22 102/56 99 10/24/17 12:24 98.2 97 23 102/56 99 10/24/17 12:09 99.9 96 21 86/53 99 10/24/17 12:00 99.9 96 21 86/53 (64) 99 10/24/17 12:00 100 10/24/17 10:00 102 10/24/17 08:00 110 10/24/17 08:00 101.7 110 20 93/52 (66) 99 10/24/17 06:00 105 10/24/17 04:00 104 10/24/17 04:00 98.7 104 21 88/55 (66) 98 10/24/17 02:00 108 10/24/17 00:00 99.0 108 23 97/55 (69) 98 10/24/17 00:00 108 10/23/17 22:00 104 10/23/17 21:25 20 10/23/17 20:00 102 10/23/17 20:00 98.7 102 21 94/54 (67) 100 10/23/17 18:00 108 10/23/17 16:00 99.9 101 14 88/51 (63) 98 10/23/17 16:00 101 10/23/17 14:00 98 10/23/17 12:00 98.9 94 19 96/57 (70) 95 10/23/17 12:00 94 10/23/17 10:51 20 (Serge Gardner) Physical Examination GENERAL: Awake & alert, readily interacts, affect normal, no apparent distress. SKIN: Surgical dressing intact to back w/o any shadowing, erythema or streaking. CRISS drain site w/intact dressing w/some shadowing to it. MUSCULOSKELETAL: Moving BUE spontaneously & feet to command. Thoracic surgical incision is minimally TTP, CRISS drain to bulb suction w/serosanguinous drainage & insertion site mildly TTP. NEUROLOGICAL: AAOx3. Speech is clear & appropriate. Follows commands w/o difficulty. Sensation is intact to light touch to the upper extremities. Motor strength is 5/5 to all flexion & extension muscle groups of the upper extremities. Sensation is decreased to light touch throughout the lower extremities, proximal < distal. Motor strength to the left lower extremity is 3+ to 4 to the tibialis anterior, gastrocnemius & extensor hallucis longus, 0+ to 1/5 to the left quadricep & hamstring, and left iliopsoas 0+ to 1/5. Improved muscle contraction proximally. Motor strength to the right lower extremity is 3+ to 4 to the tibialis anterior , gastrocnemius & extensor hallucis longus and 0+ to 1/5 to the left iliopsoas, quadricep & hamstring. Trace muscle contraction proximally. (Serge Gardner) Lab, Micro, Other Results Laboratory Tests Test 10/23/17 19:17 10/24/17 05:30 10/24/17 13:15 10/24/17 19:09 White Blood Count 12.8 TH/MM3 11.5 TH/MM3 Red Blood Count 3.44 MIL/MM3 3.32 MIL/MM3 Hemoglobin 7.9 GM/DL 8.0 GM/DL Hematocrit 25.3 % 24.7 % Mean Corpuscular Volume 73.4 FL 74.5 FL Mean Corpuscular Hemoglobin 23.0 PG 24.2 PG Mean Corpuscular Hemoglobin Concent 31.3 % 32.5 % Red Cell Distribution Width 23.9 % 24.2 % Platelet Count 417 TH/MM3 378 TH/MM3 Mean Platelet Volume 7.1 FL 7.4 FL Neutrophils (%) (Auto) 80.7 % 81.8 % Lymphocytes (%) (Auto) 10.0 % 8.3 % Monocytes (%) (Auto) 8.2 % 8.9 % Eosinophils (%) (Auto) 0.1 % 0.1 % Basophils (%) (Auto) 1.0 % 0.9 % Neutrophils # (Auto) 10.3 TH/MM3 9.4 TH/MM3 Lymphocytes # (Auto) 1.3 TH/MM3 1.0 TH/MM3 Monocytes # (Auto) 1.1 TH/MM3 1.0 TH/MM3 Eosinophils # (Auto) 0.0 TH/MM3 0.0 TH/MM3 Basophils # (Auto) 0.1 TH/MM3 0.1 TH/MM3 CBC Comment AUTO DIFF DIFF FINAL Differential Comment AUTO DIFF CONFIRMED Platelet Estimate NORMAL Platelet Morphology Comment NORMAL Ovalocytes 1+ Blood Urea Nitrogen 16 MG/DL 16 MG/DL Creatinine 0.77 MG/DL 0.91 MG/DL Random Glucose 96 MG/DL 97 MG/DL Total Protein 6.7 GM/DL 6.5 GM/DL Calcium Level 7.2 MG/DL 6.8 MG/DL Sodium Level 140 MEQ/L 141 MEQ/L Potassium Level 4.8 MEQ/L 5.0 MEQ/L Chloride Level 111 MEQ/L 110 MEQ/L Carbon Dioxide Level 24.0 MEQ/L 22.4 MEQ/L Anion Gap 5 MEQ/L 9 MEQ/L Estimat Glomerular Filtration Rate 80 ML/MIN 66 ML/MIN Protein Corrected Calcium 7.4 MG/DL 7.1 MG/DL Vancomycin Level Trough 20.3 MCG/ML Procalcitonin 1.71 ng/mL Test 10/25/17 04:55 10/25/17 12:45 10/26/17 05:15 White Blood Count 12.3 TH/MM3 Red Blood Count 3.43 MIL/MM3 Hemoglobin 8.6 GM/DL Hematocrit 26.2 % Mean Corpuscular Volume 76.6 FL Mean Corpuscular Hemoglobin 25.0 PG Mean Corpuscular Hemoglobin Concent 32.7 % Red Cell Distribution Width 23.3 % Platelet Count 315 TH/MM3 Mean Platelet Volume 7.5 FL Neutrophils (%) (Auto) 86.5 % Lymphocytes (%) (Auto) 5.4 % Monocytes (%) (Auto) 7.7 % Eosinophils (%) (Auto) 0.0 % Basophils (%) (Auto) 0.4 % Neutrophils # (Auto) 10.6 TH/MM3 Lymphocytes # (Auto) 0.7 TH/MM3 Monocytes # (Auto) 0.9 TH/MM3 Eosinophils # (Auto) 0.0 TH/MM3 Basophils # (Auto) 0.1 TH/MM3 CBC Comment AUTO DIFF Differential Total Cells Counted 100 Neutrophils % (Manual) 49 % Band Neutrophils % 35 % Lymphocytes % 8 % Monocytes % 7 % Neutrophils # (Manual) 10.5 TH/MM3 Metamyelocytes 1 % Differential Comment FINAL DIFF MANUAL Platelet Estimate NORMAL Platelet Morphology Comment NORMAL Blood Urea Nitrogen 18 MG/DL Creatinine 0.98 MG/DL 0.79 MG/DL Random Glucose 106 MG/DL Total Protein 6.5 GM/DL Calcium Level 6.7 MG/DL Magnesium Level 2.5 MG/DL Sodium Level 140 MEQ/L Potassium Level 4.8 MEQ/L Chloride Level 111 MEQ/L Carbon Dioxide Level 21.7 MEQ/L Anion Gap 7 MEQ/L Estimat Glomerular Filtration Rate 60 ML/MIN 77 ML/MIN Protein Corrected Calcium 7.0 MG/DL Vancomycin Level Trough 24.7 MCG/ML Random Vancomycin Level 13.8 COMMENT (Serge Gardner) Medical Decision Making Impression and Plan Impression: 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 Thoracic myelopathy 10/23 Patient exhibits some early improvement in neurologic function of the lower extremities postoperative. The patient is less TTP of her back today. Appears to continue to have slight improvement in neurological function to the lower extremities. CRISS drain output for the past 24 hours was 90 mL this morning at shift change. Afebrile past 24 hours. Reviewed labs for today. Interval improvement in renal function. Blood cultures w/no growth x3d. Breast wound culture w/Staphylococcus aureus methicillin resistant on final . Physical Therapy recommends inpatient rehab for further therapy. POD #3 () s/p: 1. Bilateral T4-T8 decompressive laminectomy, resection of metastatic epidural neoplasm 2. Bilateral T4-T8 posterior instrumentation, pedicle screw fixation 3. Bilateral T4-T8 posterior fusion with demineralized bone matrix Postoperative Diagnosis: (1) Thoracic myelopathy (2) Malignant melanoma 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 Thoracic myelopathy Plan: Primary management per Hospitalist. Antibiotics per Infectious Disease. Neuro checks. Continue thoracic drain & monitor output. Mobilise patient w/assistance. Due to the patient's extensive neoplasm at the left breast extending to the axilla and chest wall, she will be mobilized out of bed without a TLSO brace, which would likely cause excessive discomfort. PT eval & tx. Mechanical DVT prophylaxis. Hold pharmacologic DVT prophylaxis. Patient is able to be transferred to a regular med/surg floor from NSGY's perspective when medically indicated. (Serge Gardner) Attending Statement The exam, history, and the medical decision-making described in the above note were completed with the assistance of the mid-level provider. I reviewed and agree with the findings presented. I attest that I had a [id number] encounter with the patient on the same day, and personally performed and documented my assessment and findings in the medical record. \\Patient a little less lethargic on examination 10/26/17. Complains of left upper extremity numbness. Persistent significant deficit and lower extremity motor function with mostly 1- 2 motor function distal lower extremity. Moderate drain output-continue Today for Lovenox Mobilize with TLSO (Brian Vásquez MD) Serge Gardner Oct 26, 2017 10:53 Brian Vásquez MD Oct 28, 2017 19:22
[2017-10-26] MEDS ORDERED: VANCOMYCIN 1 GM/200 ML PREMIX IV ONE (11:00)
[2017-10-26] MEDS: SODIUM CHLOR 0.9% 1000 ML INJ 1,000 ML IV SCH ×2 (11:10→23:05)
--- NOTE | 2017-10-26 11:34 | PD.ONC.PN ---
Subjective Subjective Remarks Afebrile overnight. Patient resting in bed. Nurse just finished washing her and positioning her, so the patient is fatigued. No improvement in strength. Objective Data Date Time Temp Pulse Resp B/P (MAP) Pulse Ox O2 Delivery O2 Flow Rate FiO2 10/26/17 08:00 97.8 80 23 113/70 (84) 98 10/26/17 08:00 80 10/26/17 04:00 98.1 72 15 95/55 (68) 97 10/26/17 04:00 72 10/26/17 00:00 80 10/26/17 00:00 97.9 80 14 109/66 (80) 99 10/25/17 20:00 97.9 80 14 106/62 (77) 98 10/25/17 20:00 80 10/25/17 16:00 87 10/25/17 16:00 98.5 87 18 90/55 (67) 97 10/25/17 14:00 91 10/25/17 12:00 98.9 88 20 92/55 (67) 97 10/25/17 12:00 88 10/26/17 10/26/17 10/26/17 07:00 15:00 23:00 Intake Total 1390 ml Output Total 680 ml Balance 710 ml Result Diagram: 10/25/17 0455 10/26/17 0515 Laboratory Results Laboratory Tests Test 10/25/17 12:45 10/26/17 05:15 Vancomycin Level Trough 24.7 MCG/ML Creatinine 0.79 MG/DL Estimat Glomerular Filtration Rate 77 ML/MIN Random Vancomycin Level 13.8 COMMENT Administered Medications Medications (Trade) Dose Ordered Sig/Antoni Route PRN Reason Start Time Stop Time Status Last Admin Dose Admin Lorazepam (Ativan Inj) 2 mg ONCE PRN IV PUSH ANXIETY 10/22/17 10:45 10/22/17 10:47 Sodium Chloride (NS Flush) 2 ml BID IV FLUSH 10/22/17 21:00 10/26/17 08:59 Acetaminophen (Tylenol) 650 mg Q4H PRN PO TEMP > 100.4 10/22/17 12:30 10/24/17 09:00 Lorazepam (Ativan Inj) 1 mg Q4H PRN IV PUSH anxiety 10/22/17 18:30 10/22/17 18:57 Acetaminophen/ Hydrocodone Bitart (Lake 10-325 Mg) 1 tab Q4H PRN PO PAIN SCALE 6 TO 10 10/23/17 07:15 10/26/17 08:59 Piperacillin Sod/ Tazobactam Sod 50 ml @ 100 mls/hr Q6H IV 10/23/17 11:00 10/26/17 06:16 Docusate Sodium (Colace) 100 mg BID PO 10/23/17 21:00 10/26/17 08:59 Calcium Carbonate (Tums Chew) 1,000 mg BID PO 10/24/17 09:00 10/26/17 08:59 Cholecalciferol (Vitamin D3) 400 units BID PO 10/24/17 09:00 10/26/17 08:59 Sodium Chloride 1,000 ml @ 84 mls/hr [id number] IV 10/24/17 11:30 10/25/17 23:10 Dexamethasone Sodium Phosphate (Decadron Inj) 4 mg Q8HR IV PUSH 10/24/17 22:00 10/26/17 14:01 10/26/17 06:15 Escitalopram Oxalate (Lexapro) 10 mg DAILY PO 10/25/17 10:00 10/26/17 08:59 Vancomycin/Sodium Chloride 200 ml @ 200 mls/hr ONCE ONCE IV 10/26/17 11:00 10/26/17 11:59 10/26/17 10:36 Objective Remarks GENERAL: Middle aged female, lying on left side, quietly listening to music. SKIN: Warm and dry. HEAD: Normocephalic. EYES: No injection or drainage. NECK: Supple, trachea midline. CARDIOVASCULAR: Regular rate and rhythm RESPIRATORY: anterior arias, scattered rhonchi. GASTROINTESTINAL: Abdomen soft, non-tender, nondistended. EXTREMITIES: No cyanosis NEUROLOGICAL: awake and alert. able to wiggle left great toe, some slight movement of right great toe. able to move bilateral upper extremities but has weakness in LUE Assessment/Plan Problem List: (1) Malignant melanoma ICD Codes: C43.9 - Malignant melanoma of skin, unspecified Status: Acute (2) Thoracic myelopathy ICD Codes: M47.14 - Other spondylosis with myelopathy, thoracic region (3) Infection of left breast ICD Codes: N61.0 - Mastitis without abscess Assessment 47y/o female admitted with bilateral lower extremity weakness + urinary retention. Oncology consulted for locally advanced melanoma. h/o hypertension Plan 1. melanoma. await BRAF. plan for outpatient follow up after discharge and rehab. 2. Thoracic Myelopathy: s/p Laminectomy 10/23/17. minimal to no improvement in strength. continue to follow. 3. MRSA +left breast infection: on Vanco + Zosyn 4. monitor CBC. transfuse for hemoglobin less than 8. awaiting CBC today Attending Statement The exam, history, and the medical decision-making described in the above note were completed with the assistance of the mid-level provider. I reviewed and agree with the findings presented. I attest that I had a [id number] encounter with the patient on the same day, and personally performed and documented my assessment and findings in the medical record. Very weak. Pain in shoulder stable. Able to wiggle right toes this morning and more movement in left foot. Reviewed pathology with patient. Path from thoracic spine also showed mets melanoma. BRAF pending. Will need palliative XRT when recover from surgery. Recommendation of systemic tx will depend on BRAF status. Raven Bonds Oct 26, 2017 11:34 Lalo Moe MD Oct 26, 2017 16:07
--- NOTE | 2017-10-26 12:37 | MB ---
cc: STEPHANIE RUBY M.D., ALVARO CHEW, BOON Y. M.D. DATE OF CONSULTATION 10/24/2017 DATE OF [address] Lakisha Sherman DIAGNOSIS Metastatic melanoma. STAGE IV. CHIEF COMPLAINT Bladder retention, moderate motor function deficits of the lower extremities. REASON FOR CONSULTATION The patient being evaluated for palliative radiotherapy treatment options. HISTORY OF PRESENT ILLNESS This is a 47-year-old white female which apparently moved recently into town from [place]. She says that about 2 months ago she noticed a mass within the left breast area which has been getting larger in size. Apparently the patient had a biopsy of this area with a diagnosis of locally advanced melanoma with axillary lymph nodes. When asked the patient denies any unusual moles or skin lesions. No lesions within the toes of the feet. The lesions within the fingernails. The patient was admitted over the week and had emergent surgery due to sensory motor deficits. Consult has been placed for me to evaluate the patient for postoperative palliative radiation therapy to the spine. I have discussed this case with both Dr. Sherman as well as Dr. Moe. The patient also being evaluated for possible palliative radiotherapy to the left breast and left axillary area. PAST MEDICAL HISTORY As above. 1. Also history of cardiac disorder. 2. Hypertension. 3. Gastrointestinal disorders. 4. Gastroesophageal reflux disease. 5. Tubal ligation. 6. Musculoskeletal disorders. 7. Skin disorders. 8. Paresthesia. 9. History of psychiatric problems. 10. Claustrophobia. 11. History of blood transfusion. 12. History of MRSA. MEDICATIONS 1. Vancomycin. 3. Colace. 5. Morphine. 6. Narcan. 7. Ativan. 8. Zofran. ALLERGIES NO KNOWN DRUG ALLERGIES. FAMILY HISTORY No history of carcinoma in the family. SOCIAL HISTORY The patient denies any EtOH intake. Denies any smoking history. REVIEW OF SYSTEMS CONSTITUTIONAL: The patient has generalized malaise and fatigue. Denies any fevers or chills. ALLERGIES: Has not had allergic reaction recently. EYES: Denies any double vision. ENT: Unremarkable. NECK: Unremarkable. INTEGUMENTARY: Unremarkable. BREASTS: Admits to a left breast mass laterally. CARDIOVASCULAR: Unremarkable. Denies any chest pain, clinical signs of MD. RESPIRATORY: Unremarkable. Denies hemoptysis, cough. GASTROINTESTINAL: Denies any rectal bleeding. GENITOURINARY: Admits to urinary retention. MUSCULOSKELETAL: He has some back pain. NEUROLOGIC: The patient says that she has no sensation from the upper mid abdomen above the umbilical area down. No sensation in the legs. Only able to wiggle the left toe a little bit. Has sensory deficits and motor function deficits of the lower extremities. PSYCHIATRIC: Unremarkable. HEMATOLOGIC: Unremarkable. DERMATOLOGIC: No history of skin carcinoma. PHYSICAL EXAMINATION GENERAL: The patient is alert and oriented times three in no major distress at the time of the evaluation. Pain rating scale 2-4 under control with the present medication. VITAL SIGNS: Temperature 99.9, pulse 105, respiratory rate 26, blood pressure 92/56, pulse ox 100% on room air. LUNGS: To auscultation of bilateral lungs were clear to auscultation with appropriate ventilatory and respiratory effort. HEART: Regular rate and rhythm. No murmurs. LYMPHATICS: Palpation of the neck and bilateral supraclavicular areas appear to be free of lymph nodes. ABDOMEN: On palpation of the abdominal cavity there is no hepatosplenomegaly. No pain elicited. No periumbilical lymph nodes. EXTREMITIES: No lower extremity edema detected. Upper extremities without edema, perhaps the left forearm may be slightly swollen but no signs of DVT detected. NODES: Palpation of the left axillary area reveals a large mass irregular in shape, hard and fixed. NEUROLOGIC: The patient has motor function deficits as well as sensory function deficits of the lower extremities. The sensory deficits start above the umbilical area mid point in the abdomen all the way down. The patient has no proprioception. Able to move the left toe slightly. No meaningful movement of lower extremities. No decrease in cognitive functions. SKIN: Visual examination of the left breast upper outer quadrant reveals erythema of the area with punctate lesions very suspicious for malignancy. Palpation of this area has an irregular mass, very hard and indurated as well as fixed. No other positive findings. Surgical pathology pending. RADIOLOGY Lumbar spine MRI 10/22/2017. Impression. No evidence of metastatic disease without any significant compromise to the thecal sac or the exiting nerve roots. Thoracic spine MRI 10/22/2017. Impression. Left paraspinal mass at the T4 T8 level but more notably at T6 level invades the T6 vertebral body and left aspect of T5 vertebral body. This extends into the left epidural space. These images have been independently reviewed by me. Cervical spine 10/22/2017. Impression. Anterior fusion of C4-C7. Questionable enhancement at the left epidural region at T1-T2. Multiple masses along the left chest wall and left shoulder region. Brain MRI 10/22/2017. Impression. Unremarkable MRI of the brain. ASSESSMENT A 47-year white female with diagnosis of metastatic melanoma pending pathology report. The patient being evaluated for palliative radiotherapy treatment options. PLAN I had an extensive discussion with the patient and her in regards to present symptoms and condition. I have discussed this case personally with Dr. Moe today and Dr. Sherman over the weekend. At this point the patient advised that I would recommend postoperative palliative radiation therapy when she recovers from surgery. This would start 3-4 weeks after surgical resection as long as it heals completely. As discussed with Dr. Moe, I would also recommend radiation therapy for palliation of the left chest wall left breast mass. The merits of the radiation therapy were discussed with the patient and her . We discussed the side effects and complications of treatment to include but not limited to weakness and fatigue, decreased blood counts, edema of the skin, necrosis of the skin, difficulty and pain with swallowing, esophageal strictures which may require dilation, lung damage, lung fibrosis, lung pneumonitis, heart damage, nerve damage, bone damage and fractures, cord damage. We also discussed swelling of the left arm, loss of axillary hair on the left which could be permanent, rib fracture, costochondritis. Also brachial plexus damage. Bowel damage and bowel adhesions, bowel perforation which could led to . After the discussion they understood everything that was explained. We will proceed accordingly after she recovers from the surgery. The patient was advised if I could be of any further assistance to please let me know. All of their questions were answered. I left one of my business cards. I will see her two weeks after surgery as outpatient. Dr. Sherman thank you much for referral of the patient and allowing me to participate in her care. Should you have any further questions or concerns please do not hesitate to contact me. MD GERSON MontelongoF ERI/AUBREY /5:42 PM /12:17 PM ESCOBAR
[2017-10-26] MEDS: LORazepam 2 MG/ML VIAL IV PUSH PRN ×2 (13:57→23:15)
[2017-10-27] VITALS (10 sets, daily range): BP systolic 106–129; BP diastolic 55–72; PULSE 72–96; RESP 16–20; TEMP 97.6–98.8; O2SAT 96–97
[2017-10-27 01:10] LABS: AUTOMATED NEUTROPHIL # 14.7 TH/MM3 (1.8-7.7); BASOPHIL % 0.3 % (0.0-2.0); HEMATOCRIT 28.3 % (35.0-46.0); HEMOGLOBIN 9.1 GM/DL (11.6-15.3); LYMPH % 6.5 % (9.0-44.0); LYMPHOCYTE # 1.1 TH/MM3 (1.0-4.8); MEAN CELL VOLUME 76.2 FL (80.0-100.0); MEAN CORPUSCULAR HEMOGLOBIN 24.6 PG (27.0-34.0); MEAN CORPUSCULAR HGB CONC 32.2 % (32.0-36.0); MEAN PLATELET VOLUME 7.2 FL (7.0-11.0); MONO % 5.7 % (0.0-8.0); NEUT % 87.5 % (16.0-70.0); PLATELET COUNT 474 TH/MM3 (150-450); RED BLOOD COUNT 3.71 MIL/MM3 (4.00-5.30); RED CELL DISTRIBUTION WIDTH 24.6 % (11.6-17.2); WHITE BLOOD COUNT 16.8 TH/MM3 (4.0-11.0)
[2017-10-27] MEDS: ACETAMINOPHEN/HYDROcodone 325 MG/10 MG TAB PO PRN ×5 (02:33→21:22)
[2017-10-27] MEDS: PIPERACIL-TAZO 3.375 GM PREMIX 50 ML IV SCH ×2 (05:00→12:40)
[2017-10-27 05:35] LABS: CREATININE 0.82 MG/DL (0.50-1.00)
[2017-10-27] MEDS: SODIUM CHLOR 0.9% 1000 ML INJ 1,000 ML IV SCH (05:55)
[2017-10-27] MEDS: DOCUSATE SODIUM 100 MG CAP PO SCH ×2 (09:02→21:00)
[2017-10-27] MEDS: SODIUM CHLORIDE 0.9% FLUSH 10 ML FLUSH IV FLUSH SCH ×2 (09:02→21:27)
[2017-10-27] MEDS: CHOLECALCIFEROL (VIT D3) 400 UNIT TAB PO SCH ×2 (09:03→21:22)
[2017-10-27] MEDS: CALCIUM CARBONATE 500 MG CHEWABLE TAB PO SCH ×2 (09:03→21:22)
[2017-10-27] MEDS: ESCITALOPRAM OXALATE 10 MG TAB PO SCH (09:03)
--- NOTE | 2017-10-27 09:45 | HHI.PR ---
Subjective Remarks depressed. moving feet a little more. elise diet. Objective Vitals heart reg lung cta abd s/nt ext moves toes/feet. slight ability to move right leg left breast/axilla bandaged. Vital Signs Date Time Temp Pulse Resp B/P (MAP) Pulse Ox O2 Delivery O2 Flow Rate FiO2 10/27/17 08:00 97.9 72 19 108/69 (82) 96 10/27/17 04:00 98.0 77 20 106/55 (72) 97 10/27/17 00:00 97.8 85 20 119/67 (84) 97 10/26/17 20:49 97.7 90 16 117/67 (84) 97 10/26/17 20:00 88 10/26/17 16:00 88 10/26/17 16:00 98.8 82 14 108/66 (80) 97 10/26/17 14:18 16 10/26/17 12:00 74 10/26/17 12:00 98.2 74 13 101/55 (70) 98 Result Diagram: 10/27/17 0000 10/27/17 0450 Imaging Last Impressions Chest X-Ray 10/23/17 0000 Signed Impressions: Service Date/Time: Monday, October 23, 2017 07:08 - CONCLUSION: No acute cardiopulmonary disease. Isidoro Harris MD Thoracic Spine MRI 10/22/17 1153 Signed Impressions: Service Date/Time: Sunday, October 22, 2017 19:59 - CONCLUSION: Large left paraspinal mass at T4-T8 level but more notably at T6 level invades the T6 vertebral body and left aspect of T5 vertebral body. This extends into the left epidural space and Joseph Mcqueen MD Cervical Spine MRI 10/22/17 1153 Signed Impressions: Service Date/Time: Sunday, October 22, 2017 19:59 - CONCLUSION: 1. Anterior fusion C4-C7. 2. Questionable enhancement in the left epidural region at T1- T2. 3. Multiple masses along the left chest wall and left shoulder region. Joseph Mcqueen MD Brain MRI 10/22/17 1153 Signed Impressions: Service Date/Time: Sunday, October 22, 2017 19:59 - CONCLUSION: Unremarkable MRI of the brain. Joseph Mcqueen MD Lumbar Spine MRI 10/22/17 1002 Signed Impressions: Service Date/Time: Sunday, October 22, 2017 11:01 - CONCLUSION: No evidence for metastatic disease without any significant compromise to the thecal sac or the exiting nerve roots. Isidoro Harris MD A/P Problem List: (1) Malignant melanoma ICD Codes: C43.9 - Malignant melanoma of skin, unspecified Status: Acute Plan: - Comgmt with Neurosurgery, Medical Oncology, Radiation Oncology, Infectious Disease - patient presented to the ER 10/06/17 with breast changes - core biopsy 10/07 revealed malignant melanoma - Patient has an appointment with oncology 11/01/17 - Pt presented to ER (10/22) with c/o B/L LE weakness & urinary retention - Thoracic MRI (10/22) Large left paraspinal mass at T4-T8 level but more notably at T6 level invades the T6 vertebral body and left aspect of T5 vertebral body. This extends into the left epidural space - Cervical MRI (10/22) 1. Anterior fusion C4-C7. 2. Questionable enhancement in the left epidural region at T1-T2. 3. Multiple masses along the left chest wall and left shoulder region - Lumbar MRI (10/22) No evidence for metastatic disease without any significant compromise to the thecal sac or the exiting nerve roots. - Brain MRI (10/22) NO acute abnormalities - Case d/w Dr. Vásquez and Dr. 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 - Patient taken to surgery for decompressive T4-T8 laminectomy, resection of epidural neoplasm, posterior fusion with instrumentation early in the morning -concern for infected left breast/axilla wounds - cultures taken from left breast/axillary region (10/22) --> mrsa - Vancomycin/Zosyn...defer to ID -s/p 2 units of prbc on 10/24 for persist low bp and brief svt . -stopped iv morphine/dilaudid and use po norco - iv steroids initiated on 10/24 -wound care orders placed -antidepressant started on 10/25 -transfer to med/surg pending. -advance diet. stop ivf -PT/OT - radiation planned in about 3-4 weeks after wounds heel. d/c to rehab when ok with nsg (2) Urinary retention ICD Codes: R33.9 - Retention of urine, unspecified Status: Acute Plan: Muhammad placed in ER with 1000ml returned, continue muhammad for retention - see above (3) Lower extremity weakness ICD Codes: R29.898 - Other symptoms and signs involving the musculoskeletal system Status: Acute Plan: - see above Problem Qualifiers (1) Lower extremity weakness: Qualified Codes: R29.898 - Other symptoms and signs involving the musculoskeletal system Willie Mukherjee MD Oct 27, 2017 09:45
[2017-10-27] MEDS ORDERED: PHARMACY ORDERED LAB ONE (10:45)
[2017-10-27] MEDS ORDERED: VANCOMYCIN INJ 1,250 MG in SODIUM CHLOR 0.9% 250 ML INJ 250 ML IV SCH (12:00)
--- NOTE | 2017-10-27 12:20 | PD.ONC.PN ---
Subjective Subjective Remarks Afebrile overnight. Patient resting in bed. Some mild improvement in movement of both feet. Feeling a bit tired today. Objective Data Date Time Temp Pulse Resp B/P (MAP) Pulse Ox O2 Delivery O2 Flow Rate FiO2 10/27/17 12:00 97.6 92 20 117/72 (87) 97 10/27/17 08:00 97.9 72 19 108/69 (82) 96 10/27/17 04:00 98.0 77 20 106/55 (72) 97 10/27/17 00:00 97.8 85 20 119/67 (84) 97 10/26/17 20:49 97.7 90 16 117/67 (84) 97 10/26/17 20:00 88 10/26/17 16:00 88 10/26/17 16:00 98.8 82 14 108/66 (80) 97 10/26/17 14:18 16 10/27/17 10/27/17 10/27/17 07:00 15:00 23:00 Intake Total 1079 ml Output Total 100 ml Balance 979 ml Result Diagram: 10/27/17 0000 10/27/17 0450 Laboratory Results Laboratory Tests Test 10/27/17 00:00 10/27/17 04:50 White Blood Count 16.8 TH/MM3 Red Blood Count 3.71 MIL/MM3 Hemoglobin 9.1 GM/DL Hematocrit 28.3 % Mean Corpuscular Volume 76.2 FL Mean Corpuscular Hemoglobin 24.6 PG Mean Corpuscular Hemoglobin Concent 32.2 % Red Cell Distribution Width 24.6 % Platelet Count 474 TH/MM3 Mean Platelet Volume 7.2 FL Neutrophils (%) (Auto) 87.5 % Lymphocytes (%) (Auto) 6.5 % Monocytes (%) (Auto) 5.7 % Eosinophils (%) (Auto) 0.0 % Basophils (%) (Auto) 0.3 % Neutrophils # (Auto) 14.7 TH/MM3 Lymphocytes # (Auto) 1.1 TH/MM3 Monocytes # (Auto) 1.0 TH/MM3 Eosinophils # (Auto) 0.0 TH/MM3 Basophils # (Auto) 0.0 TH/MM3 CBC Comment DIFF FINAL Differential Comment Creatinine 0.82 MG/DL Estimat Glomerular Filtration Rate 74 ML/MIN Random Vancomycin Level 13.7 COMMENT Administered Medications Medications (Trade) Dose Ordered Sig/Antoni Route PRN Reason Start Time Stop Time Status Last Admin Dose Admin Lorazepam (Ativan Inj) 2 mg ONCE PRN IV PUSH ANXIETY 10/22/17 10:45 10/22/17 10:47 Sodium Chloride (NS Flush) 2 ml BID IV FLUSH 10/22/17 21:00 10/27/17 09:02 Acetaminophen (Tylenol) 650 mg Q4H PRN PO TEMP > 100.4 10/22/17 12:30 10/24/17 09:00 Lorazepam (Ativan Inj) 1 mg Q4H PRN IV PUSH anxiety 10/22/17 18:30 10/26/17 23:15 Acetaminophen/ Hydrocodone Bitart ([place] 10-325 Mg) 1 tab Q4H PRN PO PAIN SCALE 6 TO 10 10/23/17 07:15 10/27/17 09:03 Piperacillin Sod/ Tazobactam Sod 50 ml @ 100 mls/hr Q6H IV 10/23/17 11:00 10/27/17 05:00 Docusate Sodium (Colace) 100 mg BID PO 10/23/17 21:00 10/27/17 09:02 Calcium Carbonate (Tums Chew) 1,000 mg BID PO 10/24/17 09:00 10/27/17 09:03 Cholecalciferol (Vitamin D3) 400 units BID PO 10/24/17 09:00 10/27/17 09:03 Escitalopram Oxalate (Lexapro) 10 mg DAILY PO 10/25/17 10:00 10/27/17 09:03 Objective Remarks GENERAL: Pleasant, middle aged female, lying supine in bed resting. SKIN: Warm and dry. HEAD: Normocephalic. EYES: No injection or drainage. NECK: Supple, trachea midline. CARDIOVASCULAR: Regular rate and rhythm RESPIRATORY: Breath sounds equal bilaterally. No accessory muscle use. GASTROINTESTINAL: Abdomen soft, non-tender, nondistended. EXTREMITIES: No cyanosis NEUROLOGICAL: awake and alert, normal speech. able to move both feet. Assessment/Plan Problem List: (1) Malignant melanoma ICD Codes: C43.9 - Malignant melanoma of skin, unspecified Status: Acute (2) Thoracic myelopathy ICD Codes: M47.14 - Other spondylosis with myelopathy, thoracic region (3) Infection of left breast ICD Codes: N61.0 - Mastitis without abscess Assessment 47y/o female admitted with bilateral lower extremity weakness + urinary retention. Oncology consulted for locally advanced melanoma. h/o hypertension Plan 1. melanoma. BRAF pending. plan for treatment outpatient. 2. Thoracic Myelopathy: s/p Laminectomy 10/23/17. able to move bilateral feet now , hopefully will have additional improvement with rehab. 3. MRSA +left breast infection: on Vanco + Zosyn 4. monitor CBC. transfuse for hemoglobin less than 8. no transfusion needed at present. Attending Statement The exam, history, and the medical decision-making described in the above note were completed with the assistance of the mid-level provider. I reviewed and agree with the findings presented. I attest that I had a [id number] encounter with the patient on the same day, and personally performed and documented my assessment and findings in the medical record. More movement bilateral feet. Still very weak. Continue supportive care. Will treat with BRAF/Mek inhibitors if BRAF mutation +. Raven Bonds Oct 27, 2017 12:20 Lalo Moe MD Oct 27, 2017 16:39
--- NOTE | 2017-10-27 13:22 | HHI.IDPN ---
Subjective Subjective Remarks no fever going for radiation minimal movements in BLE growing MRSA Antibiotics zosyn vancomycin Allergies: Coded Allergies: No Known Allergies (Verified Allergy, Unknown, 10/05/17) Objective . Vital Signs Date Time Temp Pulse Resp B/P (MAP) Pulse Ox O2 Delivery O2 Flow Rate FiO2 10/27/17 12:00 97.6 92 20 117/72 (87) 97 10/27/17 08:00 97.9 72 19 108/69 (82) 96 10/27/17 04:00 98.0 77 20 106/55 (72) 97 10/27/17 00:00 97.8 85 20 119/67 (84) 97 10/26/17 20:49 97.7 90 16 117/67 (84) 97 10/26/17 20:00 88 10/26/17 16:00 88 10/26/17 16:00 98.8 82 14 108/66 (80) 97 10/26/17 14:18 16 . Laboratory Tests Test 10/27/17 00:00 White Blood Count 16.8 TH/MM3 Red Blood Count 3.71 MIL/MM3 Hemoglobin 9.1 GM/DL Hematocrit 28.3 % Mean Corpuscular Volume 76.2 FL Mean Corpuscular Hemoglobin 24.6 PG Mean Corpuscular Hemoglobin Concent 32.2 % Red Cell Distribution Width 24.6 % Platelet Count 474 TH/MM3 Mean Platelet Volume 7.2 FL Neutrophils (%) (Auto) 87.5 % Lymphocytes (%) (Auto) 6.5 % Monocytes (%) (Auto) 5.7 % Eosinophils (%) (Auto) 0.0 % Basophils (%) (Auto) 0.3 % Neutrophils # (Auto) 14.7 TH/MM3 Lymphocytes # (Auto) 1.1 TH/MM3 Monocytes # (Auto) 1.0 TH/MM3 Eosinophils # (Auto) 0.0 TH/MM3 Basophils # (Auto) 0.0 TH/MM3 CBC Comment DIFF FINAL Differential Comment Laboratory Tests Test 10/26/17 05:15 10/27/17 04:50 Creatinine 0.79 MG/DL 0.82 MG/DL Estimat Glomerular Filtration Rate 77 ML/MIN 74 ML/MIN Imaging Last Impressions Thoracic Spine X-Ray 10/23/17 0000 Signed Impressions: Service Date/Time: Monday, October 23, 2017 03:50 - CONCLUSION: Intact intraoperative examination. KJim Nir Shamlou, MD Chest X-Ray 10/23/17 0000 Signed Impressions: Service Date/Time: Monday, October 23, 2017 07:08 - CONCLUSION: No acute cardiopulmonary disease. Isidoro Harris MD Thoracic Spine MRI 10/22/17 1153 Signed Impressions: Service Date/Time: Sunday, October 22, 2017 19:59 - CONCLUSION: Large left paraspinal mass at T4-T8 level but more notably at T6 level invades the T6 vertebral body and left aspect of T5 vertebral body. This extends into the left epidural space and Joseph Mcqueen MD Cervical Spine MRI 10/22/17 1153 Signed Impressions: Service Date/Time: Sunday, October 22, 2017 19:59 - CONCLUSION: 1. Anterior fusion C4-C7. 2. Questionable enhancement in the left epidural region at T1- T2. 3. Multiple masses along the left chest wall and left shoulder region. Joseph Mcqueen MD Brain MRI 10/22/17 1153 Signed Impressions: Service Date/Time: Sunday, October 22, 2017 19:59 - CONCLUSION: Unremarkable MRI of the brain. Joseph Mcqueen MD Lumbar Spine MRI 10/22/17 1002 Signed Impressions: Service Date/Time: Sunday, October 22, 2017 11:01 - CONCLUSION: No evidence for metastatic disease without any significant compromise to the thecal sac or the exiting nerve roots. Isidoro Harris MD Physical Exam CONSTITUTIONAL/GENERAL: This is an adequately nourished patient, in no apparent distress. TUBES/LINES/DRAINS: SKIN: No jaundice, rashes, or lesions. Skin temperature appropriate. Not diaphoretic. CARDIOVASCULAR: Regular rate and rhythm without murmurs, gallops, or rubs. No JVD. Peripheral pulses symmetric. RESPIRATORY/CHEST: Symmetric, unlabored respirations. Clear to auscultation. GASTROINTESTINAL: Abdomen soft, non-tender, nondistended. GENITOURINARY: Without palpable bladder distension. muhammad in place with clear yellow urine MUSCULOSKELETAL: Extremities without clubbing, cyanosis, or edema. LYMPHATICS: No palpable cervical or supraclavicular adenopathy. NEUROLOGICAL: alert. awke . Motor and sensory diminsihed to 1-2/5 in BLE, stable Follows commands. Clear speech. 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 infection ? post op? tumor fever change current abx to augmentin, doxycycline to complete 7-10 days rechk urine, blood clx if cont to have fever will see as needed Pleas call if any new issues dw Dr Lonny Mora,Madison Vazquez MD Oct 27, 2017 13:22
[2017-10-27] MEDS: AMOXICILLIN/CLAVULANATE K 500 MG TAB PO SCH ×2 (14:00→22:04)
--- NOTE | 2017-10-27 18:32 | HHI.NSPN ---
(Serge Gardner) History Chief Complaint: Back pain, decreased sensation to legs. (Serge Gardner) Interval History 10/23: 47-year-old female with history of metastatic melanoma presents to the emergency room 10/22/2017 with complaint of 4 days of progressive weakness and numbness in the lower extremities as well as urinary retention. Imaging studies reveal paraspinous metastatic disease at the primarily left T5-6 level with epidural neoplasm at the T4-T8 levels with significant spinal cord compression. Patient taken to surgery for decompressive T4-T8 laminectomy, resection of epidural neoplasm, posterior fusion with instrumentation early in the morning . Examination postoperative reveals the patient to be awake and alert. Complains of moderate low back pain. Motor function in the lower extremities improved compared to preoperative. 10/24: The patient is awake and alert watching TV with her . She continues to have the back pain which she said is worse than yesterday. Nursing had turned the patient before she was seen. She continues to have decreased sensation to the proximal lower and absent to the distal which she reports is the same as yesterday. She does move her feet to command but is not able to do anything more with the lower extremities. This practitioner spoke with Dr Mukherjee earlier and he is going to transfuse two units PRBCs due to her hypotension this morning. 10/25: This morning the patient is awake and visiting with her and watching TV. She does have some back pain as well as decreased sensation to the lower extremities. She says the back pain comes around the right side to the chest. She says the pain is the same as yesterday but she appears more comfortable. She does say she is able to feel me touching her feet and she appears to be moving them more than yesterday. 10/26: The patient was initially seen while being bathed and was awake and alert. Her back was examined at that time. She was seen again a few minutes later and said she was doing "pretty good." She does have the back pain still but says it is "a little better." The decreased sensation to the lower extremities is the same. The patient does appear to have a slight incremental improvement in her motor function to the lower extremities. 10/27: When seen this evening the patient is awake and alert watching TV with her . Nursing is at the bedside and is changing the dressing to the left breast/axilla region. She says she is doing good. She continues to have some back pain as well as the decreased sensation to the lower extremities which has not changed. She was transferred from [facility] to the telemetry monitoring unit. (Serge Gardner) Exam Results 10/26/17 10/26/17 10/27/17 10/27/17 10/28/17 10/28/17 06:00 18:00 06:00 18:00 06:00 18:00 Intake Total 1390 ml 1169 ml 984 ml Output Total 680 ml 1330 ml 350 ml Balance 710 ml -161 ml 634 ml Intake Oral 340 ml 160 ml 480 ml IV Total 1050 ml 1009 ml 504 ml Output Urine Total 650 ml 1300 ml 350 ml Drainage Total 30 ml 30 ml # Bowel Movements 0 1 Vital Signs Date Time Temp Pulse Resp B/P (MAP) Pulse Ox O2 Delivery O2 Flow Rate FiO2 10/27/17 17:30 98.8 90 18 129/64 (85) 96 10/27/17 14:00 86 10/27/17 12:00 97.6 92 20 117/72 (87) 97 10/27/17 12:00 80 10/27/17 10:00 82 10/27/17 09:00 94 10/27/17 08:00 97.9 72 19 108/69 (82) 96 10/27/17 08:00 86 10/27/17 07:00 76 10/27/17 04:00 98.0 77 20 106/55 (72) 97 10/27/17 00:00 97.8 85 20 119/67 (84) 97 10/26/17 20:49 97.7 90 16 117/67 (84) 97 10/26/17 20:00 88 10/26/17 16:00 88 10/26/17 16:00 98.8 82 14 108/66 (80) 97 10/26/17 14:18 16 10/26/17 12:00 74 10/26/17 12:00 98.2 74 13 101/55 (70) 98 10/26/17 08:00 97.8 80 23 113/70 (84) 98 10/26/17 08:00 80 10/26/17 04:00 98.1 72 15 95/55 (68) 97 10/26/17 04:00 72 10/26/17 00:00 80 10/26/17 00:00 97.9 80 14 109/66 (80) 99 10/25/17 20:00 97.9 80 14 106/62 (77) 98 10/25/17 20:00 80 10/25/17 16:00 87 10/25/17 16:00 98.5 87 18 90/55 (67) 97 10/25/17 14:00 91 10/25/17 12:00 98.9 88 20 92/55 (67) 97 10/25/17 12:00 88 10/25/17 10:00 98 10/25/17 08:00 99.6 90 19 100/58 (72) 97 10/25/17 08:00 90 10/25/17 06:00 90 10/25/17 04:00 98.5 88 20 90/51 (64) 97 10/25/17 04:00 104 10/25/17 02:00 107 10/25/17 00:00 104 10/25/17 00:00 97.4 103 20 96/55 (69) 97 10/24/17 22:00 103 10/24/17 20:00 102 10/24/17 20:00 98.5 102 24 103/59 (74) 98 (Serge Gardner) Physical Examination GENERAL: Awake & alert and watching TV with her , readily interacts, affect normal, no apparent distress. MUSCULOSKELETAL: Moving BUE spontaneously & feet to command. CRISS drain to bulb suction w/serosanguinous drainage. NEUROLOGICAL: AAOx3. Speech is clear & appropriate. Follows commands w/o difficulty. Sensation is decreased to light touch throughout the lower extremities, proximal < distal. Motor strength to the left lower extremity is 3+ to 4 to the tibialis anterior, 2+ to 3/5 gastrocnemius & extensor hallucis longus, 0+ to 1/5 to the iliopsoas, quadricep & hamstring. Trace muscle contraction proximally. Motor strength to the right lower extremity is 3+ to 4 to the tibialis anterior , 2+ to 3/5 gastrocnemius & extensor hallucis longus and 0+ to 1/5 to the iliopsoas, quadricep & hamstring. Trace muscle contraction proximally. (Serge Gardner) Lab, Micro, Other Results Laboratory Tests Test 10/24/17 19:09 10/25/17 04:55 10/25/17 12:45 10/26/17 05:15 Procalcitonin 1.71 ng/mL White Blood Count 12.3 TH/MM3 Red Blood Count 3.43 MIL/MM3 Hemoglobin 8.6 GM/DL Hematocrit 26.2 % Mean Corpuscular Volume 76.6 FL Mean Corpuscular Hemoglobin 25.0 PG Mean Corpuscular Hemoglobin Concent 32.7 % Red Cell Distribution Width 23.3 % Platelet Count 315 TH/MM3 Mean Platelet Volume 7.5 FL Neutrophils (%) (Auto) 86.5 % Lymphocytes (%) (Auto) 5.4 % Monocytes (%) (Auto) 7.7 % Eosinophils (%) (Auto) 0.0 % Basophils (%) (Auto) 0.4 % Neutrophils # (Auto) 10.6 TH/MM3 Lymphocytes # (Auto) 0.7 TH/MM3 Monocytes # (Auto) 0.9 TH/MM3 Eosinophils # (Auto) 0.0 TH/MM3 Basophils # (Auto) 0.1 TH/MM3 CBC Comment AUTO DIFF Differential Total Cells Counted 100 Neutrophils % (Manual) 49 % Band Neutrophils % 35 % Lymphocytes % 8 % Monocytes % 7 % Neutrophils # (Manual) 10.5 TH/MM3 Metamyelocytes 1 % Differential Comment FINAL DIFF MANUAL Platelet Estimate NORMAL Platelet Morphology Comment NORMAL Blood Urea Nitrogen 18 MG/DL Creatinine 0.98 MG/DL 0.79 MG/DL Random Glucose 106 MG/DL Total Protein 6.5 GM/DL Calcium Level 6.7 MG/DL Magnesium Level 2.5 MG/DL Sodium Level 140 MEQ/L Potassium Level 4.8 MEQ/L Chloride Level 111 MEQ/L Carbon Dioxide Level 21.7 MEQ/L Anion Gap 7 MEQ/L Estimat Glomerular Filtration Rate 60 ML/MIN 77 ML/MIN Protein Corrected Calcium 7.0 MG/DL Vancomycin Level Trough 24.7 MCG/ML Random Vancomycin Level 13.8 COMMENT Test 10/27/17 00:00 10/27/17 04:50 White Blood Count 16.8 TH/MM3 Red Blood Count 3.71 MIL/MM3 Hemoglobin 9.1 GM/DL Hematocrit 28.3 % Mean Corpuscular Volume 76.2 FL Mean Corpuscular Hemoglobin 24.6 PG Mean Corpuscular Hemoglobin Concent 32.2 % Red Cell Distribution Width 24.6 % Platelet Count 474 TH/MM3 Mean Platelet Volume 7.2 FL Neutrophils (%) (Auto) 87.5 % Lymphocytes (%) (Auto) 6.5 % Monocytes (%) (Auto) 5.7 % Eosinophils (%) (Auto) 0.0 % Basophils (%) (Auto) 0.3 % Neutrophils # (Auto) 14.7 TH/MM3 Lymphocytes # (Auto) 1.1 TH/MM3 Monocytes # (Auto) 1.0 TH/MM3 Eosinophils # (Auto) 0.0 TH/MM3 Basophils # (Auto) 0.0 TH/MM3 CBC Comment DIFF FINAL Differential Comment Creatinine 0.82 MG/DL Estimat Glomerular Filtration Rate 74 ML/MIN Random Vancomycin Level 13.7 COMMENT (Serge Gardner) Medical Decision Making Impression and Plan Impression: 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 Thoracic myelopathy 10/23 Patient exhibits some early improvement in neurologic function of the lower extremities postoperative. The patient continues to do well and her pain appears controlled. She is stable neurologically to the lower extremities. CRISS drain output for the past 24 hours was 30 mL this morning at shift change. Afebrile past 24 hours. Reviewed labs for today. Interval decrease in renal function. From : Interval worsening of leukocytosis; Anaemia essentially stable; Thrombocytosis. Blood cultures w/no growth x5d on final . Breast wound culture w/Staphylococcus aureus methicillin resistant on final . Physical Therapy recommends inpatient rehab for further therapy. POD #4 () s/p: 1. Bilateral T4-T8 decompressive laminectomy, resection of metastatic epidural neoplasm 2. Bilateral T4-T8 posterior instrumentation, pedicle screw fixation 3. Bilateral T4-T8 posterior fusion with demineralized bone matrix Postoperative Diagnosis: (1) Thoracic myelopathy (2) Malignant melanoma 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 Thoracic myelopathy Plan: Discussed plan of care with the patient & her . Discussed plan of care with Nursing. Primary management per Hospitalist. Antibiotics per Infectious Disease. Neuro checks. Continue thoracic drain & monitor output. Mobilise patient w/assistance. Due to the patient's extensive neoplasm at the left breast extending to the axilla and chest wall, she will be mobilized out of bed without a TLSO brace, which would likely cause excessive discomfort. PT eval & tx. Mechanical DVT prophylaxis. Hold pharmacologic DVT prophylaxis. Leave the surgical dressing on until Tuesday. The steri-strips may come off on Tuesday. Keep the patient off of the surgical incision. (Serge Gardner) Attending Statement The exam, history, and the medical decision-making described in the above note were completed with the assistance of the mid-level provider. I reviewed and agree with the findings presented. I attest that I had a [id number] encounter with the patient on the same day, and personally performed and documented my assessment and findings in the medical record. (Asael Aragon MD) Serge Gardner Oct 27, 2017 18:32 Asael Aragon MD Oct 31, 2017 10:38
[2017-10-27] MEDS: DOXYCYCLINE HYCLATE 100 MG TAB PO SCH (21:21)
[2017-10-27] MEDS: LORazepam 2 MG/ML VIAL IV PUSH PRN (22:04)
[2017-10-28] VITALS (7 sets, daily range): BP systolic 112–152; BP diastolic 66–91; PULSE 77–100; RESP 16–18; TEMP 97.4–98.9; O2SAT 97–100
[2017-10-28] MEDS: ACETAMINOPHEN/HYDROcodone 325 MG/10 MG TAB PO PRN ×4 (02:00→21:15)
[2017-10-28] MEDS: AMOXICILLIN/CLAVULANATE K 500 MG TAB PO SCH ×3 (05:48→21:10)
--- NOTE | 2017-10-28 09:17 | HHI.PR ---
Subjective Remarks c/o left arm aching ..mostly at night. from shoulder to elbow Objective Vitals heart reg lung cta abd s/nt ext left breast/axilla tumor muhammad Vital Signs Date Time Temp Pulse Resp B/P (MAP) Pulse Ox O2 Delivery O2 Flow Rate FiO2 10/28/17 08:00 79 10/28/17 08:00 98.3 77 16 122/74 (90) 97 10/28/17 04:30 97.4 100 16 126/77 (93) 98 10/28/17 00:47 97.5 85 16 112/66 (81) 98 10/27/17 21:00 96 10/27/17 21:00 98.0 87 16 114/68 (83) 96 10/27/17 17:30 98.8 90 18 129/64 (85) 96 10/27/17 14:00 86 10/27/17 12:00 97.6 92 20 117/72 (87) 97 10/27/17 12:00 80 10/27/17 10:00 82 10/28/17 10/28/17 10/29/17 15:00 23:00 07:00 # Bowel Movements 1 Result Diagram: 10/27/17 0000 10/27/17 0450 Imaging Last Impressions Chest X-Ray 10/23/17 0000 Signed Impressions: Service Date/Time: Monday, October 23, 2017 07:08 - CONCLUSION: No acute cardiopulmonary disease. Isidoro Harris MD Thoracic Spine MRI 10/22/17 1153 Signed Impressions: Service Date/Time: Sunday, October 22, 2017 19:59 - CONCLUSION: Large left paraspinal mass at T4-T8 level but more notably at T6 level invades the T6 vertebral body and left aspect of T5 vertebral body. This extends into the left epidural space and Joseph Mcqueen MD Cervical Spine MRI 10/22/17 1153 Signed Impressions: Service Date/Time: Sunday, October 22, 2017 19:59 - CONCLUSION: 1. Anterior fusion C4-C7. 2. Questionable enhancement in the left epidural region at T1- T2. 3. Multiple masses along the left chest wall and left shoulder region. Joseph Mcqueen MD Brain MRI 10/22/17 1156 Signed Impressions: Service Date/Time: Sunday, October 22, 2017 19:59 - CONCLUSION: Unremarkable MRI of the brain. Joseph Mcqueen MD Lumbar Spine MRI 10/22/17 1002 Signed Impressions: Service Date/Time: Sunday, October 22, 2017 11:01 - CONCLUSION: No evidence for metastatic disease without any significant compromise to the thecal sac or the exiting nerve roots. Isidoro Harris MD A/P Problem List: (1) Malignant melanoma ICD Codes: C43.9 - Malignant melanoma of skin, unspecified Status: Acute Plan: - Comgmt with Neurosurgery, Medical Oncology, Radiation Oncology, Infectious Disease - patient presented to the ER 10/06/17 with breast changes - core biopsy 10/07 revealed malignant melanoma - Patient has an appointment with oncology 11/01/17 - Pt presented to ER (10/22) with c/o B/L LE weakness & urinary retention - Thoracic MRI (10/22) Large left paraspinal mass at T4-T8 level but more notably at T6 level invades the T6 vertebral body and left aspect of T5 vertebral body. This extends into the left epidural space - Cervical MRI (10/22) 1. Anterior fusion C4-C7. 2. Questionable enhancement in the left epidural region at T1-T2. 3. Multiple masses along the left chest wall and left shoulder region - Lumbar MRI (10/22) No evidence for metastatic disease without any significant compromise to the thecal sac or the exiting nerve roots. - Brain MRI (10/22) NO acute abnormalities - Case d/w Dr. Vásquez and Dr. 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 - Patient taken to surgery for decompressive T4-T8 laminectomy, resection of epidural neoplasm, posterior fusion with instrumentation early in the morning -concern for infected left breast/axilla wounds - cultures taken from left breast/axillary region (10/22) --> mrsa - Vancomycin/Zosyn...defer to ID converted to po abx x 7-10 days on 10/27...augmentin/doxy -s/p 2 units of prbc on 10/24 for persist low bp and brief svt . -stopped iv morphine/dilaudid and use po norco - iv steroids initiated on 10/24 -wound care orders placed -antidepressant started on 10/25 -transfer to med/surg pending. -advance diet. stop ivf -PT/OT - left arm u/s - radiation planned in about 3-4 weeks after wounds heel. d/c to rehab when ok with nsg (2) Urinary retention ICD Codes: R33.9 - Retention of urine, unspecified Status: Acute Plan: Muhammad placed in ER with 1000ml returned, continue muhammad for retention - see above (3) Lower extremity weakness ICD Codes: R29.898 - Other symptoms and signs involving the musculoskeletal system Status: Acute Plan: - see above Problem Qualifiers (1) Lower extremity weakness: Qualified Codes: R29.898 - Other symptoms and signs involving the musculoskeletal system Willie Mukherjee MD Oct 28, 2017 09:17
[2017-10-28] MEDS ORDERED: NAPROXEN 500 MG TAB PO ONE (09:30)
[2017-10-28] MEDS: ESCITALOPRAM OXALATE 10 MG TAB PO SCH (10:04)
[2017-10-28] MEDS: CHOLECALCIFEROL (VIT D3) 400 UNIT TAB PO SCH ×2 (10:04→21:11)
[2017-10-28] MEDS: DOCUSATE SODIUM 100 MG CAP PO SCH ×2 (10:04→21:11)
[2017-10-28] MEDS: CALCIUM CARBONATE 500 MG CHEWABLE TAB PO SCH ×2 (10:04→21:11)
[2017-10-28] MEDS: DOXYCYCLINE HYCLATE 100 MG TAB PO SCH ×2 (10:04→21:11)
[2017-10-28] MEDS: SODIUM CHLORIDE 0.9% FLUSH 10 ML FLUSH IV FLUSH SCH ×2 (10:05→21:11)
--- NOTE | 2017-10-28 10:11 | PD.ONC.PN ---
Subjective Subjective Remarks Afebrile overnight. Patient resting in bed. States she had a hard time sleeping last night due to pain in her left arm/ breast. She is trying to catch up on sleep today. Objective Data Date Time Temp Pulse Resp B/P (MAP) Pulse Ox O2 Delivery O2 Flow Rate FiO2 10/28/17 08:00 79 10/28/17 08:00 98.3 77 16 122/74 (90) 97 10/28/17 04:30 97.4 100 16 126/77 (93) 98 10/28/17 00:47 97.5 85 16 112/66 (81) 98 10/27/17 21:00 96 10/27/17 21:00 98.0 87 16 114/68 (83) 96 10/27/17 17:30 98.8 90 18 129/64 (85) 96 10/27/17 14:00 86 10/27/17 12:00 97.6 92 20 117/72 (87) 97 10/27/17 12:00 80 10/28/17 10/28/17 10/28/17 07:00 15:00 23:00 Output Total 2085 ml Balance -2085 ml Result Diagram: 10/27/17 0000 10/27/17 0450 Administered Medications Medications (Trade) Dose Ordered Sig/Antoni Route PRN Reason Start Time Stop Time Status Last Admin Dose Admin Lorazepam (Ativan Inj) 2 mg ONCE PRN IV PUSH ANXIETY 10/22/17 10:45 10/22/17 10:47 Sodium Chloride (NS Flush) 2 ml BID IV FLUSH 10/22/17 21:00 10/27/17 21:27 Acetaminophen (Tylenol) 650 mg Q4H PRN PO TEMP > 100.4 10/22/17 12:30 10/24/17 09:00 Lorazepam (Ativan Inj) 1 mg Q4H PRN IV PUSH anxiety 10/22/17 18:30 10/27/17 22:04 Acetaminophen/ Hydrocodone Bitart ([place] 10-325 Mg) 1 tab Q4H PRN PO PAIN SCALE 6 TO 10 10/23/17 07:15 10/28/17 05:49 Docusate Sodium (Colace) 100 mg BID PO 10/23/17 21:00 10/27/17 09:02 Calcium Carbonate (Tums Chew) 1,000 mg BID PO 10/24/17 09:00 10/27/17 21:22 Cholecalciferol (Vitamin D3) 400 units BID PO 10/24/17 09:00 10/27/17 21:22 Escitalopram Oxalate (Lexapro) 10 mg DAILY PO 10/25/17 10:00 10/27/17 09:03 Amoxicillin/ Clavulanate Potassium (Augmentin) 500 mg Q8HR PO 10/27/17 14:00 10/28/17 05:48 Doxycycline Hyclate (Vibratab) 100 mg Q12HR PO 10/27/17 21:00 10/27/17 21:21 Objective Remarks GENERAL: Pleasant female, lying in bed, fatigued. SKIN: Warm and dry. left breast/chest wall swollen with multiple cutaneous tumors. HEAD: Normocephalic. EYES: No injection or drainage. NECK: Supple, trachea midline. CARDIOVASCULAR: Regular rate and rhythm RESPIRATORY: Breath sounds equal bilaterally. No accessory muscle use. GASTROINTESTINAL: Abdomen soft, non-tender, nondistended. EXTREMITIES: No cyanosis NEUROLOGICAL: awake, alert, normal speech. able to move both feet, but not legs. Assessment/Plan Problem List: (1) Malignant melanoma ICD Codes: C43.9 - Malignant melanoma of skin, unspecified Status: Acute (2) Thoracic myelopathy ICD Codes: M47.14 - Other spondylosis with myelopathy, thoracic region (3) Infection of left breast ICD Codes: N61.0 - Mastitis without abscess Assessment 47y/o female admitted with bilateral lower extremity weakness + urinary retention. Oncology consulted for locally advanced melanoma. h/o hypertension Plan 1. melanoma. once discharged, will arrange follow up in clinic. awaiting BRAF result 2. Thoracic Myelopathy: s/p Laminectomy 10/23/17. able to move bilateral feet but no additional improvement thus far. 3. monitor CBC. transfuse for hemoglobin less than 8. no transfusion needed at present. Attending Statement The exam, history, and the medical decision-making described in the above note were completed with the assistance of the mid-level provider. I reviewed and agree with the findings presented. I attest that I had a [id number] encounter with the patient on the same day, and personally performed and documented my assessment and findings in the medical record. minimal LE movement. Shoulder pain stable BRAF pending. Continue supportive care. Coye,Raven Genny PA Oct 28, 2017 10:11 Lalo Moe MD Oct 28, 2017 17:19
--- NOTE | 2017-10-28 11:32 | RADRPT ---
EXAM DATE/TIME: 10/28/2017 10:23 [facility] COMPARISON: No previous studies available for comparison. INDICATIONS : Left arm pain. MEDICAL HISTORY : Hypertension. Carcinoma, breast. Numbness. GERD. Breast lumps. Gait problems. Parestheisa. Measles. MRSA. SURGICAL HISTORY : Tubal ligation. Disc replacements. Bone spurs. Breast aspiration. Blood transfusions. ENCOUNTER: Initial ACUITY: 1 month PAIN SCORE: 7/10 LOCATION: Left arm. FINDINGS: There is spontaneous flow documented in the brachial, basilic, cephalic, axillary, and subclavian vei ns. The vessels are compressible and augmentation response is documented. No filling defects are se en. The flow is phasic with respiration. Direction of flow in the jugular vein is caudal. Axillar adenopathy is evident. CONCLUSION: Axillar adenopathy with the largest node measuring 5 cm which is pathological. There is no venous thrombosis.. Kiko Jones MD FACR on October 28, 2017 at 11:29 Board Certified Radiologist. This report was verified electronically.
[2017-10-28 12:23] LABS: HEMATOCRIT 28.9 % (35.0-46.0); HEMOGLOBIN 9.4 GM/DL (11.6-15.3)
--- NOTE | 2017-10-28 14:23 | HHI.NSPN ---
History Chief Complaint: Back pain, decreased sensation to legs. Interval History 10/23: 47-year-old female with history of metastatic melanoma presents to the emergency room 10/22/2017 with complaint of 4 days of progressive weakness and numbness in the lower extremities as well as urinary retention. Imaging studies reveal paraspinous metastatic disease at the primarily left T5-6 level with epidural neoplasm at the T4-T8 levels with significant spinal cord compression. Patient taken to surgery for decompressive T4-T8 laminectomy, resection of epidural neoplasm, posterior fusion with instrumentation early in the morning . Examination postoperative reveals the patient to be awake and alert. Complains of moderate low back pain. Motor function in the lower extremities improved compared to preoperative. 10/24: The patient is awake and alert watching TV with her . She continues to have the back pain which she said is worse than yesterday. Nursing had turned the patient before she was seen. She continues to have decreased sensation to the proximal lower and absent to the distal which she reports is the same as yesterday. She does move her feet to command but is not able to do anything more with the lower extremities. This practitioner spoke with Dr Mukherjee earlier and he is going to transfuse two units PRBCs due to her hypotension this morning. 10/25: This morning the patient is awake and visiting with her and watching TV. She does have some back pain as well as decreased sensation to the lower extremities. She says the back pain comes around the right side to the chest. She says the pain is the same as yesterday but she appears more comfortable. She does say she is able to feel me touching her feet and she appears to be moving them more than yesterday. 10/26: The patient was initially seen while being bathed and was awake and alert. Her back was examined at that time. She was seen again a few minutes later and said she was doing "pretty good." She does have the back pain still but says it is "a little better." The decreased sensation to the lower extremities is the same. The patient does appear to have a slight incremental improvement in her motor function to the lower extremities. 10/27: When seen this evening the patient is awake and alert watching TV with her . Nursing is at the bedside and is changing the dressing to the left breast/axilla region. She says she is doing good. She continues to have some back pain as well as the decreased sensation to the lower extremities which has not changed. She was transferred from [facility] to the telemetry monitoring unit. Exam Results Vital Signs Date Time Temp Pulse Resp B/P (MAP) Pulse Ox O2 Delivery O2 Flow Rate FiO2 10/28/17 12:30 14 10/28/17 12:00 98.4 91 152/81 (104) 100 Intake and Output 10/28/17 10/28/17 10/29/17 08:00 16:00 00:00 Output Total 2060 ml Balance -2060 ml Physical Examination GENERAL: Awake & alert and watching TV with her , readily interacts, affect normal, no apparent distress. MUSCULOSKELETAL: Moving BUE spontaneously & feet to command. CRISS drain to bulb suction w/serosanguinous drainage. NEUROLOGICAL: AAOx3. Speech is clear & appropriate. Follows commands w/o difficulty. Sensation is decreased to light touch throughout the lower extremities, proximal < distal. Motor strength to the left lower extremity is 3+ to 4 to the tibialis anterior, 2+ to 3/5 gastrocnemius & extensor hallucis longus, 0+ to 1/5 to the iliopsoas, quadricep & hamstring. Trace muscle contraction proximally. Motor strength to the right lower extremity is 3+ to 4 to the tibialis anterior , 2+ to 3/5 gastrocnemius & extensor hallucis longus and 0+ to 1/5 to the iliopsoas, quadricep & hamstring. Trace muscle contraction proximally. Medical Decision Making Impression and Plan Impression: 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 Thoracic myelopathy 10/23 Patient exhibits some early improvement in neurologic function of the lower extremities postoperative. The patient continues to do well and her pain appears controlled. She is stable neurologically to the lower extremities. CRISS drain output for the past 24 hours was 30 mL this morning at shift change. Afebrile past 24 hours. Reviewed labs for today. Interval decrease in renal function. From : Interval worsening of leukocytosis; Anaemia essentially stable; Thrombocytosis. Blood cultures w/no growth x5d on final . Breast wound culture w/Staphylococcus aureus methicillin resistant on final . Physical Therapy recommends inpatient rehab for further therapy. POD #4 () s/p: 1. Bilateral T4-T8 decompressive laminectomy, resection of metastatic epidural neoplasm 2. Bilateral T4-T8 posterior instrumentation, pedicle screw fixation 3. Bilateral T4-T8 posterior fusion with demineralized bone matrix Postoperative Diagnosis: (1) Thoracic myelopathy (2) Malignant melanoma 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 Thoracic myelopathy Plan: Discussed plan of care with the patient & her . Discussed plan of care with Nursing. Primary management per Hospitalist. Antibiotics per Infectious Disease. Neuro checks. Continue thoracic drain & monitor output. Mobilise patient w/assistance. Due to the patient's extensive neoplasm at the left breast extending to the axilla and chest wall, she will be mobilized out of bed without a TLSO brace, which would likely cause excessive discomfort. PT eval & tx. Mechanical DVT prophylaxis. Hold pharmacologic DVT prophylaxis. Leave the surgical dressing on until Tuesday. The steri-strips may come off on Tuesday. Keep the patient off of the surgical incision. Serge Gardner Oct 28, 2017 14:23
--- NOTE | 2017-10-28 14:50 | HHI.NSPN ---
(Serge Gardner) History Chief Complaint: Back pain, decreased sensation to legs. (Serge Gardner) Interval History 10/23: 47-year-old female with history of metastatic melanoma presents to the emergency room 10/22/2017 with complaint of 4 days of progressive weakness and numbness in the lower extremities as well as urinary retention. Imaging studies reveal paraspinous metastatic disease at the primarily left T5-6 level with epidural neoplasm at the T4-T8 levels with significant spinal cord compression. Patient taken to surgery for decompressive T4-T8 laminectomy, resection of epidural neoplasm, posterior fusion with instrumentation early in the morning . Examination postoperative reveals the patient to be awake and alert. Complains of moderate low back pain. Motor function in the lower extremities improved compared to preoperative. 10/24: The patient is awake and alert watching TV with her . She continues to have the back pain which she said is worse than yesterday. Nursing had turned the patient before she was seen. She continues to have decreased sensation to the proximal lower and absent to the distal which she reports is the same as yesterday. She does move her feet to command but is not able to do anything more with the lower extremities. This practitioner spoke with Dr Mukherjee earlier and he is going to transfuse two units PRBCs due to her hypotension this morning. 10/25: This morning the patient is awake and visiting with her and watching TV. She does have some back pain as well as decreased sensation to the lower extremities. She says the back pain comes around the right side to the chest. She says the pain is the same as yesterday but she appears more comfortable. She does say she is able to feel me touching her feet and she appears to be moving them more than yesterday. 10/26: The patient was initially seen while being bathed and was awake and alert. Her back was examined at that time. She was seen again a few minutes later and said she was doing "pretty good." She does have the back pain still but says it is "a little better." The decreased sensation to the lower extremities is the same. The patient does appear to have a slight incremental improvement in her motor function to the lower extremities. 10/27: When seen this evening the patient is awake and alert watching TV with her . Nursing is at the bedside and is changing the dressing to the left breast/axilla region. She says she is doing good. She continues to have some back pain as well as the decreased sensation to the lower extremities which has not changed. She was transferred from [facility] to the telemetry monitoring unit. 10/28: This afternoon the patient is asleep when seen. She awakens to voice and is alert after that. She is moving the right upper extremity spontaneously. She does move the other extremities to command. The left upper she does limit due to pain from the left breast/axilla wound. The lower extremities are still weak and numb. She does say that she has numbness from the left forearm down to the fingertips. She also says that her back pain is slightly worse than yesterday. (Serge Gardner) Exam Results 10/26/17 10/26/17 10/27/17 10/27/17 10/28/17 10/28/17 06:00 18:00 06:00 18:00 06:00 18:00 Intake Total 1390 ml 1169 ml 1344 ml Output Total 680 ml 1330 ml 370 ml 2075 ml 10 ml Balance 710 ml -161 ml 974 ml -2075 ml -10 ml Intake Oral 340 ml 160 ml 840 ml IV Total 1050 ml 1009 ml 504 ml Output Urine Total 650 ml 1300 ml 350 ml 2050 ml Drainage Total 30 ml 30 ml 20 ml 25 ml 10 ml # Bowel Movements 0 1 2 Vital Signs Date Time Temp Pulse Resp B/P (MAP) Pulse Ox O2 Delivery O2 Flow Rate FiO2 10/28/17 12:30 14 10/28/17 12:30 14 10/28/17 12:00 98.4 91 18 152/81 (104) 100 10/28/17 12:00 90 10/28/17 08:00 79 10/28/17 08:00 98.3 77 16 122/74 (90) 97 10/28/17 04:30 97.4 100 16 126/77 (93) 98 10/28/17 00:47 97.5 85 16 112/66 (81) 98 10/27/17 21:00 96 10/27/17 21:00 98.0 87 16 114/68 (83) 96 10/27/17 17:30 98.8 90 18 129/64 (85) 96 10/27/17 14:00 86 10/27/17 12:00 97.6 92 20 117/72 (87) 97 10/27/17 12:00 80 10/27/17 10:00 82 10/27/17 09:00 94 10/27/17 08:00 97.9 72 19 108/69 (82) 96 10/27/17 08:00 86 10/27/17 07:00 76 10/27/17 04:00 98.0 77 20 106/55 (72) 97 10/27/17 00:00 97.8 85 20 119/67 (84) 97 10/26/17 20:49 97.7 90 16 117/67 (84) 97 10/26/17 20:00 88 10/26/17 16:00 88 10/26/17 16:00 98.8 82 14 108/66 (80) 97 10/26/17 12:00 74 10/26/17 12:00 98.2 74 13 101/55 (70) 98 10/26/17 08:00 97.8 80 23 113/70 (84) 98 10/26/17 08:00 80 10/26/17 04:00 98.1 72 15 95/55 (68) 97 10/26/17 04:00 72 10/26/17 00:00 80 10/26/17 00:00 97.9 80 14 109/66 (80) 99 10/25/17 20:00 97.9 80 14 106/62 (77) 98 10/25/17 20:00 80 10/25/17 16:00 87 10/25/17 16:00 98.5 87 18 90/55 (67) 97 (Serge Gardner) Physical Examination GENERAL: Asleep in bed but awakens to voice, alert after that. Readily interacts. Affect slightly flat. No apparent distress. MUSCULOSKELETAL: Moving RUE spontaneously and the LUE & feet to command. She does limit movement of the LUE due to pain. CRISS drain to bulb suction w/ serosanguinous drainage. NEUROLOGICAL: AAOx3. Speech is clear & appropriate. Follows commands w/o difficulty. Sensation is decreased from the left elbow down to the fingertips o/w intact to light touch to the remainder of the upper extremities. Motor strength is 5/5 to all flexion & extension muscle groups of the right upper extremity. Motor strength is 4+ to 5/5 to all flexion & extension muscle groups of the left upper extremity, weakness is most likely r/t breast & axilla wound. Sensation is decreased to light touch throughout the lower extremities, proximal < distal. Motor strength to the left lower extremity is 3+ to 4 to the tibialis anterior, 2 to 2+/5 gastrocnemius & extensor hallucis longus, 0+ to 1/5 to the iliopsoas, quadricep & hamstring. Trace muscle contraction proximally. Motor strength to the right lower extremity is 3+ to 4 to the tibialis anterior , 2 to 2+/5 gastrocnemius & extensor hallucis longus and 0+ to 1/5 to the iliopsoas, quadricep & hamstring. Trace muscle contraction proximally. (Serge Gardner) Lab, Micro, Other Results Recent Impressions Upper Extremity Ultrasound 10/28/17 0000 Signed Impressions: Service Date/Time: Saturday, October 28, 2017 10:23 - CONCLUSION: Axillar adenopathy with the largest node measuring 5 cm which is pathological. There is no venous thrombosis.. Kiko Jones MD FACR Laboratory Tests Test 10/26/17 05:15 10/27/17 00:00 10/27/17 04:50 10/28/17 11:49 Creatinine 0.79 MG/DL 0.82 MG/DL Estimat Glomerular Filtration Rate 77 ML/MIN 74 ML/MIN Random Vancomycin Level 13.8 COMMENT 13.7 COMMENT White Blood Count 16.8 TH/MM3 Red Blood Count 3.71 MIL/MM3 Hemoglobin 9.1 GM/DL 9.4 GM/DL Hematocrit 28.3 % 28.9 % Mean Corpuscular Volume 76.2 FL Mean Corpuscular Hemoglobin 24.6 PG Mean Corpuscular Hemoglobin Concent 32.2 % Red Cell Distribution Width 24.6 % Platelet Count 474 TH/MM3 Mean Platelet Volume 7.2 FL Neutrophils (%) (Auto) 87.5 % Lymphocytes (%) (Auto) 6.5 % Monocytes (%) (Auto) 5.7 % Eosinophils (%) (Auto) 0.0 % Basophils (%) (Auto) 0.3 % Neutrophils # (Auto) 14.7 TH/MM3 Lymphocytes # (Auto) 1.1 TH/MM3 Monocytes # (Auto) 1.0 TH/MM3 Eosinophils # (Auto) 0.0 TH/MM3 Basophils # (Auto) 0.0 TH/MM3 CBC Comment DIFF FINAL Differential Comment (Serge Gardner) Medical Decision Making Impression and Plan Impression: 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 Thoracic myelopathy 10/23 Patient exhibits some early improvement in neurologic function of the lower extremities postoperative. The patient continues to do well and her pain appears controlled. She is stable neurologically to the lower extremities. CRISS drain output for the past 24 hours was 55 mL this morning at shift change. Afebrile past 24 hours. Reviewed labs for today. Anaemia w/slight improvement. Physical Therapy recommends inpatient rehab for further therapy. POD #5 () s/p: 1. Bilateral T4-T8 decompressive laminectomy, resection of metastatic epidural neoplasm 2. Bilateral T4-T8 posterior instrumentation, pedicle screw fixation 3. Bilateral T4-T8 posterior fusion with demineralized bone matrix Postoperative Diagnosis: (1) Thoracic myelopathy (2) Malignant melanoma 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 Thoracic myelopathy Plan: Discussed plan of care with the patient & her . Discussed plan of care with Nursing. Primary management per Hospitalist. Antibiotics per Infectious Disease. Neuro checks. Continue thoracic drain & monitor output. Mobilise patient w/assistance. Due to the patient's extensive neoplasm at the left breast extending to the axilla and chest wall, she will be mobilized out of bed without a TLSO brace, which would likely cause excessive discomfort. PT eval & tx. Mechanical DVT prophylaxis. Hold pharmacologic DVT prophylaxis. Leave the surgical dressing on until Tuesday. The steri-strips may come off on Tuesday. Keep the patient off of the surgical incision. D/C the CRISS drain. The patient is able to be transferred to rehab from Neurosurgery's perspective when medically indicated. (Serge Gardner) Attending Statement The exam, history, and the medical decision-making described in the above note were completed with the assistance of the mid-level provider. I reviewed and agree with the findings presented. I attest that I had a [id number] encounter with the patient on the same day, and personally performed and documented my assessment and findings in the medical record. No overall change in neurologic exam over the past 2-3 days. Persistent numbness in the left hand and upper extremity. Still with relatively minimal distal lower extremity motor function. Thoracic drain has been discontinued Stable for discharge to inpatient rehabilitation. (Brian Vásquez MD) Serge Gardner Oct 28, 2017 14:50 Brian Vásquez MD Oct 28, 2017 19:19
[2017-10-28] MEDS: LORazepam 2 MG/ML VIAL IV PUSH PRN (21:17)
[2017-10-28] MEDS ORDERED: PHARMACY ORDERED LAB ONE (23:45)
[2017-10-29] VITALS (7 sets, daily range): BP systolic 112–165; BP diastolic 66–95; PULSE 71–92; RESP 15–16; TEMP 97.4–98.9; O2SAT 97–99
[2017-10-29] MEDS: AMOXICILLIN/CLAVULANATE K 500 MG TAB PO SCH ×3 (05:59→21:15)
[2017-10-29] MEDS: ACETAMINOPHEN/HYDROcodone 325 MG/10 MG TAB PO PRN ×4 (06:04→21:15)
[2017-10-29] MEDS ORDERED: DOXY100T PO (07:48)
[2017-10-29] MEDS ORDERED: Amoxicil-Clavulanate PO (07:48)
[2017-10-29] MEDS ORDERED: HYDR-3583 PO (07:48)
[2017-10-29] MEDS ORDERED: ESCI10TA PO (07:48)
--- NOTE | 2017-10-29 07:49 | HHI.DCPOC ---
Discharge Care Plan Diagnosis: (1) Malignant melanoma (2) Infection of left breast (3) Urinary retention (4) Lower extremity weakness Goals to Promote Your Health * To prevent worsening of your condition and complications * To maintain your health at the optimal level Directions to Meet Your Goals Take your medications as prescribed Follow your dietary instruction Follow activity as directed Keep your appointments as scheduled Take your immunizations and boosters as scheduled If your symptoms worsen call your PCP, if no PCP go to Urgent Care Center or Emergency Room Smoking is Dangerous to Your Health. Avoid second hand smoke Call the 24-hour hour crisis hotline for domestic abuse at Willie Mukherjee MD Oct 29, 2017 07:49
--- NOTE | 2017-10-29 07:53 | HHI.DS ---
Discharge Summary Admission Date Oct 22, 2017 at 12:39 Discharge Date: Oct 29, 2017 Admitting Diagnosis BLE weakness and urinary retention (1) Malignant melanoma Diagnosis: Principal ICD Codes: C43.9 - Malignant melanoma of skin, unspecified Status: Acute (2) Urinary retention Diagnosis: Principal ICD Codes: R33.9 - Retention of urine, unspecified Status: Acute (3) Lower extremity weakness Diagnosis: Secondary ICD Codes: R29.898 - Other symptoms and signs involving the musculoskeletal system Status: Acute (4) Infection of left breast Diagnosis: Principal ICD Codes: N61.0 - Mastitis without abscess Brief History This is a 47-year-old female with a past medical history which includes HTN and malignant melanoma diagnosed by left breast core biopsy 10/07/17. Pathology from 10/07/17 left breast biopsy revealed malignant melanoma. Patient has not yet follow up with oncology states her appointment is 11/01/17. Patient presented to the emergency room today with a complaint of bilateral lower extremity weakness and paresthesia x 4 days. Patient has paraesthesia from hip down BLE. Patient reports that her mobility has gotten progressively worse over the last four days. Patient began having urinary retention this AM. Patient last BM 10/21/17. She denies any fever or chills,chest pressure, palpitations, shortness of breath or cough, nausea, vomiting, diarrhea, headache. Patient's spouse at bedside reports that patient has had intermitted diaphoresis for the past months and often feels warm as though she has a fever. MRI Lumbar spine reviewed and reveals: No evidence for metastatic disease without any significant compromise to the thecal csac or the exiting nerve roots. CBC/BMP: 10/28/17 1149 10/27/17 0450 Significant Findings Laboratory Tests Test 10/27/17 00:00 10/27/17 04:50 10/28/17 11:49 White Blood Count 16.8 TH/MM3 (4.0-11.0) Red Blood Count 3.71 MIL/MM3 (4.00-5.30) Hemoglobin 9.1 GM/DL (11.6-15.3) 9.4 GM/DL (11.6-15.3) Hematocrit 28.3 % (35.0-46.0) 28.9 % (35.0-46.0) Mean Corpuscular Volume 76.2 FL (80.0-100.0) Mean Corpuscular Hemoglobin 24.6 PG (27.0-34.0) Red Cell Distribution Width 24.6 % (11.6-17.2) Platelet Count 474 TH/MM3 (150-450) Neutrophils (%) (Auto) 87.5 % (16.0-70.0) Lymphocytes (%) (Auto) 6.5 % (9.0-44.0) Neutrophils # (Auto) 14.7 TH/MM3 (1.8-7.7) Monocytes # (Auto) 1.0 TH/MM3 (0-0.9) Estimat Glomerular Filtration Rate 74 ML/MIN (>89) Hospital Course (1) Malignant melanoma - Comgmt with Neurosurgery, Medical Oncology, Radiation Oncology, Infectious Disease - patient presented to the ER 10/06/17 with breast changes - core biopsy 10/07 revealed malignant melanoma - Patient has an appointment with oncology 11/01/17 - Pt presented to ER (10/22) with c/o B/L LE weakness & urinary retention - Thoracic MRI (10/22) Large left paraspinal mass at T4-T8 level but more notably at T6 level invades the T6 vertebral body and left aspect of T5 vertebral body. This extends into the left epidural space - Cervical MRI (10/22) 1. Anterior fusion C4-C7. 2. Questionable enhancement in the left epidural region at T1-T2. 3. Multiple masses along the left chest wall and left shoulder region - Lumbar MRI (10/22) No evidence for metastatic disease without any significant compromise to the thecal sac or the exiting nerve roots. - Brain MRI (10/22) NO acute abnormalities - Case d/w Dr. Vásquez and Dr. Stanton (10/22) - Imaging studies reveal paraspinous metastatic disease at the primarily left T5 -6 level with epidural neoplasm at the T4-T8 levels with significant spinal cord compression. - Patient taken to surgery for decompressive T4-T8 laminectomy, resection of epidural neoplasm, posterior fusion with instrumentation early in the morning -concern for infected left breast/axilla wounds - cultures taken from left breast/axillary region (10/22) --> mrsa - Vancomycin/Zosyn...defer to ID converted to po abx x 7-10 days on 10/27...augmentin/doxy -s/p 2 units of prbc on 10/24 for persist low bp and brief svt . -stopped iv morphine/dilaudid and use po norco - iv steroids initiated on 10/24 -wound care orders placed -antidepressant started on 10/25 -advance diet. -PT/OT - left arm u/s axillary nodes no dvt - radiation planned in about 3-4 weeks after wounds heel. - f/u med oncology for pending braf testing and possible targeted therapy -cont muhammad at snf for urine retention d/c today to snf. Pt Condition on Discharge: Stable Discharge Disposition: Discharge to SNF Discharge Instructions DIET: Follow Instructions for: As Tolerated, No Restrictions Activities you can perform: Regular-No Restrictions Follow up Referrals: Neurosurgery - 2 Weeks with Brian Vásquez MD Oncology - 2 Weeks with malcom stanton Oncology - [address] garcia New Medications: Doxycycline Hyclate (Doxycycline Hyclate) 100 Mg Tab 100 MG PO Q12HR for Infection for 7 Days, TAB Escitalopram (Escitalopram) 10 Mg Tab 10 MG PO DAILY for Depression Control, #30 TAB Hydrocodone/Acetaminophen (Hydrocodone-Acetamin 10-325 mg) 10 Mg-325 Mg Tablet 1 TAB PO Q4H PRN for pain, #30 TAB [Amoxicil-Clavulanate] () 500 MG TAB 500 MG PO Q8HR for 7 Days Discontinued Medications: Amlodipine (Norvasc) 5 Mg Tab 5 MG PO DAILY for Blood Pressure Management, #30 TAB 0 Refills Hydrocodone-Acetaminophen (Hydrocodone-Acetaminophen) 7.5 Mg-325 Mg Tab Unknown Dose PO Q6H PRN for PAIN, TAB 0 Refills Lisinopril (Lisinopril) 20 Mg Tab 20 MG PO DAILY, #30 TAB 0 Refills Willie Mukherjee MD Oct 29, 2017 07:53
[2017-10-29] MEDS: DOCUSATE SODIUM 100 MG CAP PO SCH ×2 (09:00→21:00)
[2017-10-29] MEDS: SODIUM CHLORIDE 0.9% FLUSH 10 ML FLUSH IV FLUSH SCH ×2 (09:00→21:16)
[2017-10-29] MEDS ORDERED: NAPROXEN 500 MG TAB PO ONE (09:00)
[2017-10-29] MEDS: CALCIUM CARBONATE 500 MG CHEWABLE TAB PO SCH ×2 (10:42→21:14)
[2017-10-29] MEDS: CHOLECALCIFEROL (VIT D3) 400 UNIT TAB PO SCH ×2 (10:42→21:00)
[2017-10-29] MEDS: ESCITALOPRAM OXALATE 10 MG TAB PO SCH (10:42)
[2017-10-29] MEDS: DOXYCYCLINE HYCLATE 100 MG TAB PO SCH ×2 (10:42→21:14)
[2017-10-30 00:30] VITALS: BP 130/78; PULSE 97; RESP 18; TEMP 97.4; O2SAT 98
[2017-10-30 03:59] VITALS: BP 126/75; PULSE 92; RESP 16; TEMP 98.7; O2SAT 98
[2017-10-30] MEDS: ACETAMINOPHEN/HYDROcodone 325 MG/10 MG TAB PO PRN ×3 (03:59→14:11)
[2017-10-30] MEDS: AMOXICILLIN/CLAVULANATE K 500 MG TAB PO SCH ×2 (06:00→12:52)
[2017-10-30] MEDS: DOCUSATE SODIUM 100 MG CAP PO SCH (09:00)
[2017-10-30] MEDS: SODIUM CHLORIDE 0.9% FLUSH 10 ML FLUSH IV FLUSH SCH (09:00)
[2017-10-30 09:05] VITALS: BP 118/79; PULSE 90; RESP 18; TEMP 96.7; O2SAT 98
--- NOTE | 2017-10-30 09:35 | HHI.PR ---
Subjective Remarks pt denies having frequent diarrhea no abdomen pain eager to start some sort of PT program Objective Vitals nad oriented heart reg lung cta abd s/nt left breat/axilla tumor/swelling bandaged. sabina Vital Signs Date Time Temp Pulse Resp B/P (MAP) Pulse Ox O2 Delivery O2 Flow Rate FiO2 10/30/17 09:05 96.7 90 18 118/79 (92) 98 10/30/17 03:59 98.7 92 16 126/75 (92) 98 10/30/17 00:30 97.4 97 18 130/78 (95) 98 10/29/17 20:30 85 10/29/17 20:30 97.6 91 16 132/80 (97) 98 10/29/17 17:22 97.4 91 16 160/95 (116) 98 10/29/17 14:35 71 16 165/85 (111) 99 Result Diagram: 10/28/17 1149 10/27/17 0450 Imaging Last Impressions Chest X-Ray 10/23/17 0000 Signed Impressions: Service Date/Time: Monday, October 23, 2017 07:08 - CONCLUSION: No acute cardiopulmonary disease. Isidoro Harris MD Thoracic Spine MRI 10/22/17 1153 Signed Impressions: Service Date/Time: Sunday, October 22, 2017 19:59 - CONCLUSION: Large left paraspinal mass at T4-T8 level but more notably at T6 level invades the T6 vertebral body and left aspect of T5 vertebral body. This extends into the left epidural space and Joseph Mcqueen MD Cervical Spine MRI 10/22/17 1153 Signed Impressions: Service Date/Time: Sunday, October 22, 2017 19:59 - CONCLUSION: 1. Anterior fusion C4-C7. 2. Questionable enhancement in the left epidural region at T1- T2. 3. Multiple masses along the left chest wall and left shoulder region. Joseph Mcqueen MD Brain MRI 10/22/17 1153 Signed Impressions: Service Date/Time: Sunday, October 22, 2017 19:59 - CONCLUSION: Unremarkable MRI of the brain. Joseph Mcqueen MD Lumbar Spine MRI 10/22/17 1002 Signed Impressions: Service Date/Time: Sunday, October 22, 2017 11:01 - CONCLUSION: No evidence for metastatic disease without any significant compromise to the thecal sac or the exiting nerve roots. Isidoro Harris MD A/P Problem List: (1) Malignant melanoma ICD Codes: C43.9 - Malignant melanoma of skin, unspecified Status: Acute Plan: - Comgmt with Neurosurgery, Medical Oncology, Radiation Oncology, Infectious Disease - patient presented to the ER 10/06/17 with breast changes - core biopsy 10/07 revealed malignant melanoma - Patient has an appointment with oncology 11/01/17 - Pt presented to ER (10/22) with c/o B/L LE weakness & urinary retention - Thoracic MRI (10/22) Large left paraspinal mass at T4-T8 level but more notably at T6 level invades the T6 vertebral body and left aspect of T5 vertebral body. This extends into the left epidural space - Cervical MRI (10/22) 1. Anterior fusion C4-C7. 2. Questionable enhancement in the left epidural region at T1-T2. 3. Multiple masses along the left chest wall and left shoulder region - Lumbar MRI (10/22) No evidence for metastatic disease without any significant compromise to the thecal sac or the exiting nerve roots. - Brain MRI (10/22) NO acute abnormalities - Case d/w Dr. Vásquez and Dr. 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 - Patient taken to surgery for decompressive T4-T8 laminectomy, resection of epidural neoplasm, posterior fusion with instrumentation early in the morning -concern for infected left breast/axilla wounds - cultures taken from left breast/axillary region (10/22) --> mrsa - Vancomycin/Zosyn...defer to ID converted to po abx x 7-10 days on 10/27...augmentin/doxy -s/p 2 units of prbc on 10/24 for persist low bp and brief svt . -stopped iv morphine/dilaudid and use po norco - iv steroids initiated on 10/24 -wound care orders placed -antidepressant started on 10/25 -transfer to med/surg pending. -advance diet. stop ivf -PT/OT - left arm u/s - radiation planned in about 3-4 weeks after wounds heel. PT HAS DISCHARGE ORDERS OF 10/29..PT WAS NOT SENT TO SNF YESTERDAY APPARENTLY [facility] WAS CONSIDERING HER AND NOW I'M TOLD THEY ARE REQUESTING AUTH FROM [facility]..IF AUTH. THEN [facility] TODAY..IF NOT THEN SEND THE PT TO SNF. C.DIFF NEG. (2) Urinary retention ICD Codes: R33.9 - Retention of urine, unspecified Status: Acute Plan: Muhammad placed in ER with 1000ml returned, continue muhammad for retention - see above (3) Lower extremity weakness ICD Codes: R29.898 - Other symptoms and signs involving the musculoskeletal system Status: Acute Plan: - see above (4) Infection of left breast ICD Codes: N61.0 - Mastitis without abscess Problem Qualifiers (1) Lower extremity weakness: Qualified Codes: R29.898 - Other symptoms and signs involving the musculoskeletal system Willie Mukherjee MD Oct 30, 2017 09:35
[2017-10-30] MEDS: CHOLECALCIFEROL (VIT D3) 400 UNIT TAB PO SCH (10:40)
[2017-10-30] MEDS: DOXYCYCLINE HYCLATE 100 MG TAB PO SCH (10:40)
[2017-10-30] MEDS: ESCITALOPRAM OXALATE 10 MG TAB PO SCH (10:40)
[2017-10-30] MEDS: CALCIUM CARBONATE 500 MG CHEWABLE TAB PO SCH (10:40)
[2017-10-30 11:55] VITALS: BP 120/72; PULSE 88; RESP 16; TEMP 97; O2SAT 98
== END 2017-10-30 15:00 | DRG 29 ==
LOC: NEPD 09:39 → NEDA 12:39 → N07A 14:58 → N03B 10-23 04:13 → N03A 10-23 09:59 → N03B 10-26 13:05 → HCIN 10-27 15:16
PROVIDERS: ADMIT Hospitalist; ATTEND Hospitalist
PROC: 0T9B70Z Drainage of Bladder with Drainage Device, Via Natural or Artificial Opening (ICD-10-PCS; 2017-10-22)
PROC: 0RG7071 Fusion of 2 to 7 Thoracic Vertebral Joints with Autologous Tissue Substitute, Posterior Approach, Posterior Column, Open Approach (ICD-10-PCS; 2017-10-23)
PROC: 30233N1 Transfusion of Nonautologous Red Blood Cells into Peripheral Vein, Percutaneous Approach (ICD-10-PCS; 2017-10-23)
PROC: 00BX0ZZ Excision of Thoracic Spinal Cord, Open Approach (ICD-10-PCS; principal; 2017-10-23 01:00)
DX: C79.49 Secondary malignant neoplasm of other parts of nervous system (principal); C77.3 Secondary and unspecified malignant neoplasm of axilla and upper limb lymph nodes; C50.812 Malignant neoplasm of overlapping sites of left female breast; I95.9 Hypotension, unspecified; D63.8 Anemia in other chronic diseases classified elsewhere; G99.2 Myelopathy in diseases classified elsewhere; G95.29 Other cord compression; I47.1 Supraventricular tachycardia; B95.62 Methicillin resistant Staphylococcus aureus infection as the cause of diseases classified elsewhere; I10 Essential (primary) hypertension; R29.898 Other symptoms and signs involving the musculoskeletal system; R33.9 Retention of urine, unspecified; N61.0 Mastitis without abscess; R79.89 Other specified abnormal findings of blood chemistry; K21.9 Gastro-esophageal reflux disease without esophagitis; R19.7 Diarrhea, unspecified; F40.240 Claustrophobia; Z86.14 Personal history of Methicillin resistant Staphylococcus aureus infection
CPT/HCPCS: 36430; 51702; 70553; 71045; 72070; 72156; 72157; 72158; 76000; 76937; 80048; 80202; 81001; 81210; 82565; 82805; 83735; 84145; 84155; 84703; 85007; 85014; 85018; 85025; 85027; 85610; 85730; 86403; 86850; 86900; 86901; 86920; 87040; 87070; 87147; 87186; 87205; 87493; 88307; 88381; 93005; 93971; 94150; 96361; 96374; A9579; C1713; J0330; J0690; J1100; J1170; J1580; J1644; J1650; J2060; J2270; J2370; J2405; J2543; J3010; J3370; J3480; J7030; J7040; J7050; J7120; P9016

== ENCOUNTER 2017-12-18 06:39 | Emergency (ER) | payer OTHER ==
[~2017-12-18] VITALS: Ht 154.9 cm; Wt 82.0 kg
[~2017-12-18 06:39] MED LIST changes: +ACET325T15 PO; -AMLO5 PO; +APIX2.5T PO; +ASCO500 PO; +BACL10TA PO; +BISA10R RECTAL; +COMMODE PAIL WI1 MIS; +ESCI10TA PO; +FERR325T20 PO; +HOSP BED1; +HYDR-3583 PO; +LACT PO; +LIFT HOYER; -LISI-515 PO; +MAGN30S PO; +NYST15T TOPICAL; +OXYC1TAB35 PO; +PERI PO; +SENN187 PO; +WHEEMIS3
[2017-12-18 06:46] VITALS: BP 149/96; PULSE 80; RESP 17; O2SAT 98
--- NOTE | 2017-12-18 07:27 | PD ---
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 Adair. 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 The patient has a chronic indwelling Elena catheter. The patient states that she has had approximately 400 cc of dark cloudy urine in the catheter back since last night, now has increasing lower abdominal pain and distention. The patient believes a Elena catheter is dislodged or clots. She does note melanoma under the left armpit with chronic wound changes. The patient is currently on chemotherapy and is followed by her oncologist, Dr. Moe. The patient denies any fever. Symptoms are moderate. PFSH Past Medical History Arthritis: No Asthma: No Autoimmune Disease: No Blood Disorders: No Anxiety: Yes Depression: Yes Heart Rhythm Problems: No Cancer: Yes (MELANOMA) Cardiovascular Problems: Yes High Cholesterol: No Chemotherapy: Yes (PILLS) Chest Pain: No Congestive Heart Failure: No COPD: No Cerebrovascular Accident: No Diabetes: No Diminished Hearing: No Endocrine: No Gastrointestinal Disorders: Yes GERD: Yes Genitourinary: No Hiatal Hernia: No Hypertension: Yes Immune Disorder: No Kidney Stones: No Musculoskeletal: Yes Neurologic: Yes Psychiatric: Yes Reproductive: No Respiratory: No Migraines: No Radiation Therapy: No Renal Failure: No Seizures: No Sleep Apnea: No Thyroid Disease: No Ulcer: No ?: Not Menopausal: Yes : 4 Para: 4 Miscarriage: 0 : 0 Tubal Ligation: Yes Past Surgical History Abdominal Surgery: No AICD: No Arteriovenous Shunt: No Cardiac Surgery: No Ear Surgery: No Endocrine Surgery: No Eye Surgery: No Genitourinary Surgery: No Gynecologic Surgery: Yes (TUBAL LIGATION) Joint Replacement: No Oral Surgery: No Pacemaker: No Thoracic Surgery: No Other Surgery: Yes (NECK, 3 DISC REPLACEMENTS AND BONE SPURS) Social History Alcohol Use: No Tobacco Use: No Substance Use: No Allergies-Medications (Allergen,Severity, Reaction): Coded Allergies: No Known Allergies (Verified Allergy, Unknown, 12/18/17) Reported Meds & Prescriptions Reported Meds & Active Scripts Active Oxycodon-Acetaminophen 7.5-325 (Oxycodone HCl/Acetaminophen) 7.5 Mg-325 Mg Tablet 1-2 Tab PO Q8HR PRN Senna-Lax (Sennosides) 8.6 Mg Tab 17.2 Mg PO Q12H PRN Eliquis (Apixaban) 2.5 Mg Tab 2.5 Mg PO BID Sm Chewable C (Ascorbic Acid) 500 Mg Chw 250 Mg PO BID Nystatin Topical (Nystatin) 100,000 unit/gm Cream 1 Applic TOPICAL Q12HR PRN Gnp Senna Plus 8.6-50 mg (Sennosides-Docusate Sodium) 8.6 Mg-50 Mg Tab 1 Tab PO BID Bisac-Evac Supp (Bisacodyl) 10 Mg Supp 10 Mg RECTAL DAILY@2000 Eq Acetaminophen (Acetaminophen) 325 Mg Tab 650 Mg PO Q4H PRN 30 Days Ferosul (Ferrous Sulfate) 325 Mg (65 Mg Iron) Tablet 325 Mg PO BID Baclofen 10 Mg Tab 10 Mg PO BID@0800,1600 Baclofen 10 Mg Tab 15 Mg PO HS Escitalopram (Escitalopram Oxalate) 10 Mg Tab 10 Mg PO DAILY Wheelchair (Device) 1 Mis Mis Ea .XX DIRECTED Hospital Bed - Electric 1 Ea Ea Ea .XX DIRECTED Lift - Chris Device Ea .XX DIRECTED Commode With Arms (Device) 1 Mis Mis Ea .XX DIRECTED Wheelchair (Device) 1 Mis Mis Ea .XX DIRECTED Hydrocodone-Acetamin 10-325 mg (Hydrocodone/Acetaminophen) 10 Mg-325 Mg Tablet 1 Tab PO Q4H PRN Reported Mekinist (Trametinib Dimethyl Sulfoxide) 2 Mg Tablet 1 Tab PO DAILY Tafinlar (Dabrafenib) 75 Mg Cap 150 Mg PO BID Review of Systems Except as stated in HPI: all other systems reviewed are Neg General / Constitutional: No: Fever Cardiovascular: No: Chest Pain or Discomfort Respiratory: No: Shortness of Breath Gastrointestinal: Positive: Abdominal Pain, No: Nausea, Vomiting Genitourinary: Positive: Decreased Urinary Output, Pelvic Pain Neurologic: Positive: Other (paralysis from the lower sternum inferiorly after metastatic melanoma to the spine) Physical Exam Narrative GENERAL: Awake, alert, very pleasant 47 year-old female who appears her stated age and is in no acute respiratory distress. SKIN: Focused skin assessment warm/dry. HEAD: Atraumatic. Normocephalic. EYES: No injection or drainage. NECK: Trachea midline. No JVD. CARDIOVASCULAR: Regular rate and rhythm. No murmur appreciated. RESPIRATORY: No accessory muscle use. Clear to auscultation. Breath sounds equal bilaterally. GASTROINTESTINAL: Abdomen soft, distended from the umbilicus inferiorly, most likely bladder. Elena catheter has cloudy urine, 400 cc. MUSCULOSKELETAL: No obvious deformities. No clubbing. No cyanosis. No edema. Left axilla has some slightly open wounds, no significant drainage. NEUROLOGICAL: Patient is unable to use her legs, has use of her upper extremities. PSYCHIATRIC: Appropriate mood and affect; insight and judgment normal. Data Data Last Documented VS Vital Signs Date Time Temp Pulse Resp B/P (MAP) Pulse Ox O2 Delivery O2 Flow Rate FiO2 12/18/17 08:00 69 16 99 Room Air 12/18/17 06:46 149/96 (113) Orders Orders Urinary Catheter - Remove (12/18/17 07:17) Urinary Catheter Insert/Apply (12/18/17 07:17) Wound Care (12/18/17 07:17) Urinalysis - C+S If Indicated (12/18/17 07:17) Urine Culture (12/18/17 07:50) Ciprofloxacin (Cipro) (12/18/17 08:45) Ed Discharge Order (12/18/17 08:43) Labs Laboratory Tests Test 12/18/17 07:50 Urine Color YELLOW Urine Turbidity CLOUDY Urine pH 8.0 Urine Specific [place] 1.014 Urine Protein 100 mg/dL Urine Glucose (UA) NEG mg/dL Urine Ketones NEG mg/dL Urine Occult Blood MOD Urine Nitrite NEG Urine Bilirubin NEG Urine Urobilinogen LESS THAN 2.0 MG/DL Urine Leukocyte Esterase LARGE Urine RBC 36 /hpf Urine WBC /hpf Urine Bacteria MANY /hpf Microscopic Urinalysis Comment CATH-CULTURE IND MDM Medical Decision Making Medical Screen Exam Complete: Yes Emergency Medical Condition: Yes Medical Record Reviewed: Yes Interpretation(s) Laboratory Tests Test 12/18/17 07:50 Urine Color YELLOW Urine Turbidity CLOUDY Urine pH 8.0 Urine Specific [place] 1.014 Urine Protein 100 mg/dL Urine Glucose (UA) NEG mg/dL Urine Ketones NEG mg/dL Urine Occult Blood MOD Urine Nitrite NEG Urine Bilirubin NEG Urine Urobilinogen LESS THAN 2.0 MG/DL Urine Leukocyte Esterase LARGE Urine RBC 36 /hpf Urine WBC /hpf Urine Bacteria MANY /hpf Microscopic Urinalysis Comment CATH-CULTURE IND Differential Diagnosis Differential diagnosis includes complicated UTI, Elena catheter associated UTI, acute renal failure, dehydration, Elena catheter malfunction, neurogenic bladder. Narrative Course The patient's Elena catheter was removed and a new Elena catheter was placed. UA was sent to lab. Patient had new dressing applied to left axilla. The Elena catheter was replaced, the patient had 1000 cc of yellow urine, her symptoms significantly improved. UA reveals significant infection, complicated urinary tract infection secondary to Elena catheter. The patient was administered Cipro and be discharged home on Cipro twice a day for one week. The will be shown how to flush the catheter, she is advised to return for any problems. Diagnosis Primary Impression: Urinary retention Additional Impressions: Neurogenic bladder UTI (urinary tract infection) Qualified Codes: T83.511A - Infection and inflammatory reaction due to indwelling urethral catheter, initial encounter; N39.0 - Urinary tract infection , site not specified Patient Instructions: General Instructions Additional Instructions: Please T-System how to flush the Elena catheter. Medication as directed. Follow-up with your primary physician. Return if symptoms worsen or progress. Med/Other Pt SpecificInfo: Prescription(s) given Scripts Ciprofloxacin (Cipro) 500 Mg Tab 500 MG PO BID for Infection for 7 Days, #14 TAB 0 Refills Prov: Maurizio Maier MD 12/18/17 Disposition: DISCHARGE HOME Condition: Stable Maurizio Maier MD Dec 18, 2017 07:27
[2017-12-18] MEDS ORDERED: TRAM2TAB PO (07:54)
[2017-12-18] MEDS ORDERED: DABR75CA PO (07:54)
[2017-12-18 08:00] VITALS: PULSE 69; RESP 16; O2SAT 99
[2017-12-18 08:34] LABS: BACTERIA, URINE MANY /hpf; BILIRUBIN, URINE NEG (NEG); BLOOD, URINE MOD (NEG); GLUCOSE,URINE NEG (NEG); KETONE, URINE NEG (NEG); NITRITE,URINE NEG (NEG); URINE COLOR YELLOW (YELLW/STRAW); URINE LEUKOCYTE ESTERASE LARGE (NEG)
[2017-12-18] MEDS ORDERED: CIPROFLOXACIN 500 MG TAB PO ONE (08:45)
[2017-12-18] MEDS ORDERED: CIPR-9 PO (08:46)
[2017-12-18 09:01] VITALS: BP 122/75; PULSE 82; RESP 21; O2SAT 99
== END 2017-12-18 10:15 | disposition home or self-care (01) ==
LOC: NEPC 06:39
DX: R33.9 Retention of urine, unspecified (principal); N31.9 Neuromuscular dysfunction of bladder, unspecified; T83.511A Infection and inflammatory reaction due to indwelling urethral catheter, initial encounter; N39.0 Urinary tract infection, site not specified; B96.20 Unspecified Escherichia coli [E. coli] as the cause of diseases classified elsewhere; C43.59 Malignant melanoma of other part of trunk; F32.9 Major depressive disorder, single episode, unspecified; I10 Essential (primary) hypertension
CPT/HCPCS: 51702; 81001; 87077; 87086; 87186

== ENCOUNTER 2018-02-02 12:45 | Emergency (ER) | payer OTHER ==
[~2018-02-02] VITALS: Ht 152.4 cm; Wt 81.0 kg
[~2018-02-02 12:45] MED LIST changes: +CIPR-9 PO; +DABR75CA PO; -LACT PO; -MAGN30S PO; +TRAM2TAB PO
[2018-02-02 13:28] VITALS: BP 139/82; PULSE 77; RESP 18; TEMP 98.3; O2SAT 100
--- NOTE | 2018-02-02 13:40 | PD ---
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 Said there may be urine that was leaking around but pt has not had muhammad catheter changed since 12/19/17 when she was in the ED. Said she is starting to feel some pressure in her lower abdomen but not really pain. Denies any fever, chest pain, sob, n/v, abdominal pain. Pt was seen here on 12/19/18 for similar complaints and had muhammad changed and treated for UTI. Pt is on oral chemo and follows with oncologist Dr. Moe. [facility] Past Medical History Arthritis: No Asthma: No Autoimmune Disease: No Blood Disorders: No Anxiety: Yes Depression: Yes Heart Rhythm Problems: No Cancer: Yes (MELANOMA) Cardiovascular Problems: Yes High Cholesterol: No Chemotherapy: Yes (PILLS) Chest Pain: No Congestive Heart Failure: No COPD: No Cerebrovascular Accident: No Diabetes: No Diminished Hearing: No Endocrine: No Gastrointestinal Disorders: Yes GERD: Yes Genitourinary: No Hiatal Hernia: No Hypertension: Yes Immune Disorder: No Kidney Stones: No Musculoskeletal: Yes Neurologic: Yes Psychiatric: Yes Reproductive: No Respiratory: No Migraines: No Radiation Therapy: No Renal Failure: No Seizures: No Sleep Apnea: No Thyroid Disease: No Ulcer: No ?: Not LMP: OCTOBER Menopausal: Yes : 4 Para: 4 Miscarriage: 0 : 0 Tubal Ligation: Yes Past Surgical History Abdominal Surgery: No AICD: No Arteriovenous Shunt: No Cardiac Surgery: No Ear Surgery: No Endocrine Surgery: No Eye Surgery: No Genitourinary Surgery: No Gynecologic Surgery: Yes (TUBAL LIGATION) Joint Replacement: No Oral Surgery: No Pacemaker: No Thoracic Surgery: No Other Surgery: Yes (NECK, 3 DISC REPLACEMENTS AND BONE SPURS) Social History Alcohol Use: No Tobacco Use: No Substance Use: No Allergies-Medications (Allergen,Severity, Reaction): Coded Allergies: No Known Allergies (Verified Allergy, Unknown, 12/18/17) Reported Meds & Prescriptions Reported Meds & Active Scripts Active Senna-Lax (Sennosides) 8.6 Mg Tab 17.2 Mg PO Q12H PRN Sm Chewable C (Ascorbic Acid) 500 Mg Chw 250 Mg PO BID Nystatin Topical (Nystatin) 100,000 unit/gm Cream 1 Applic TOPICAL Q12HR PRN Gnp Senna Plus 8.6-50 mg (Sennosides-Docusate Sodium) 8.6 Mg-50 Mg Tab 1 Tab PO BID Bisac-Evac Supp (Bisacodyl) 10 Mg Supp 10 Mg RECTAL DAILY@2000 Eq Acetaminophen (Acetaminophen) 325 Mg Tab 650 Mg PO Q4H PRN 30 Days Ferosul (Ferrous Sulfate) 325 Mg (65 Mg Iron) Tablet 325 Mg PO BID Baclofen 10 Mg Tab 15 Mg PO HS Escitalopram (Escitalopram Oxalate) 10 Mg Tab 10 Mg PO DAILY Wheelchair (Device) 1 Mis Mis Ea .XX DIRECTED Hospital Bed - Electric 1 Ea Ea Ea .XX DIRECTED Lift - Chris Device Ea .XX DIRECTED Commode With Arms (Device) 1 Mis Mis Ea .XX DIRECTED Wheelchair (Device) 1 Mis Mis Ea .XX DIRECTED Hydrocodone-Acetamin 10-325 mg (Hydrocodone/Acetaminophen) 10 Mg-325 Mg Tablet 1 Tab PO Q4H PRN Reported Mekinist (Trametinib Dimethyl Sulfoxide) 2 Mg Tablet 1 Tab PO DAILY Tafinlar (Dabrafenib) 75 Mg Cap 150 Mg PO BID Review of Systems Except as stated in HPI: all other systems reviewed are Neg Physical Exam Narrative GENERAL: 47yo F not in distress. SKIN: Focused skin assessment warm/dry. HEAD: Atraumatic. Normocephalic. EYES: Pupils equal and round. No scleral icterus. No injection or drainage. ENT: No nasal bleeding or discharge. Mucous membranes pink and moist. NECK: Trachea midline. No JVD. CARDIOVASCULAR: Regular rate and rhythm. No murmur appreciated. RESPIRATORY: No accessory muscle use. Clear to auscultation. Breath sounds equal bilaterally. GASTROINTESTINAL: Abdomen soft, non-tender, nondistended. Mild ttp suprapubic region. No rebound tenderness or guarding. : +Indwelling muhammad catheter with small amount of dark urine. MUSCULOSKELETAL: No obvious deformities. No clubbing. No cyanosis. No edema. NEUROLOGICAL: Awake and alert. No obvious cranial nerve deficits. Normal muscle strength in bilateral upper extremity. Normal speech. PSYCHIATRIC: Appropriate mood and affect; insight and judgment normal. Data Data Last Documented VS Vital Signs Date Time Temp Pulse Resp B/P (MAP) Pulse Ox O2 Delivery O2 Flow Rate FiO2 02/02/18 13:28 98.3 77 18 139/82 (101) 100 Orders Orders Complete Blood Count With Diff (02/02/18 13:27) Basic Metabolic Panel (Bmp) (02/02/18 13:27) Urinalysis - C+S If Indicated (02/02/18 13:27) Urine Culture (02/02/18 14:05) Urinary Catheter Insert/Apply (02/02/18 15:03) Remove Urinary Catheter .ONCE (02/02/18 15:03) Ciprofloxacin (Cipro) (02/02/18 15:15) Labs Laboratory Tests Test 02/02/18 14:05 White Blood Count 4.8 TH/MM3 Red Blood Count 3.66 MIL/MM3 Hemoglobin 10.1 GM/DL Hematocrit 30.5 % Mean Corpuscular Volume 83.3 FL Mean Corpuscular Hemoglobin 27.5 PG Mean Corpuscular Hemoglobin Concent 33.0 % Red Cell Distribution Width 21.0 % Platelet Count 360 TH/MM3 Mean Platelet Volume 7.1 FL Neutrophils (%) (Auto) 63.6 % Lymphocytes (%) (Auto) 24.7 % Monocytes (%) (Auto) 8.4 % Eosinophils (%) (Auto) 2.9 % Basophils (%) (Auto) 0.4 % Neutrophils # (Auto) 3.0 TH/MM3 Lymphocytes # (Auto) 1.2 TH/MM3 Monocytes # (Auto) 0.4 TH/MM3 Eosinophils # (Auto) 0.1 TH/MM3 Basophils # (Auto) 0.0 TH/MM3 CBC Comment DIFF FINAL Differential Comment Urine Color YELLOW Urine Turbidity HAZY Urine pH 6.5 Urine Specific [place] 1.014 Urine Protein TRACE mg/dL Urine Glucose (UA) NEG mg/dL Urine Ketones NEG mg/dL Urine Occult Blood MOD Urine Nitrite POS Urine Bilirubin NEG Urine Urobilinogen LESS THAN 2.0 MG/DL Urine Leukocyte Esterase LARGE Urine RBC /hpf Urine WBC 174 /hpf Urine WBC Clumps FEW Urine Squamous Epithelial Cells 1 /hpf Urine Bacteria MANY /hpf Urine Hyaline Casts 2 /lpf Microscopic Urinalysis Comment CATH-CULTURE IND Blood Urea Nitrogen 16 MG/DL Creatinine 0.63 MG/DL Random Glucose 86 MG/DL Calcium Level 8.0 MG/DL Sodium Level 140 MEQ/L Potassium Level 4.0 MEQ/L Chloride Level 109 MEQ/L Carbon Dioxide Level 24.8 MEQ/L Anion Gap 6 MEQ/L Estimat Glomerular Filtration Rate 100 ML/MIN MDM Medical Decision Making Medical Screen Exam Complete: Yes Emergency Medical Condition: Yes Differential Diagnosis UTI vs. Muhammad catheter dysfunction Narrative Course 47yo F who is paraplegic here with no urinary output from long standing indwelling muhammad catheter for 24 hours. Labs reviewed, no leukocytosis. H/H low at 10.1/30.5 but better than baseline. Creatinine normal. UA showed positive nitrite. Large leukocyte. Pt had muhammad replaced and urine is now flowing well. Pt feels much better and has no abdominal pain. Pt has no systemic symptoms so will try outpatient therapy first. She was given cipro last time which worked well and last urine culture was jaramillo sensitive. Pt given first dose of cipro here. Pt is with her and they are working with their primary care physician to arrange for home nurse who can change muhammad. Return precautions given. Diagnosis Primary Impression: UTI (urinary tract infection) Qualified Codes: N39.0 - Urinary tract infection, site not specified; R31.9 - Hematuria, unspecified Patient Instructions: General Instructions Departure Forms: Tests/Procedures Additional Instructions: Please follow up with your primary care physician in 3-7 days. Return to the ED if symptoms worsen. Med/Other Pt SpecificInfo: Prescription(s) given Scripts Ciprofloxacin (Ciprofloxacin) 500 Mg Tab 500 MG PO BID for Infection for 10 Days, #20 TAB 0 Refills Prov: Lisa Andersen DO 02/02/18 Disposition: 01 DISCHARGE HOME Condition: Stable Lisa Andersen DO February 02, 2018 13:40
[2018-02-02 14:17] LABS: BASOPHIL % 0.4 % (0.0-2.0); EOSINOPHIL # 0.1 TH/MM3 (0-0.4); EOSINOPHIL % 2.9 % (0.0-4.0); HEMATOCRIT 30.5 % (35.0-46.0); HEMOGLOBIN 10.1 GM/DL (11.6-15.3); LYMPH % 24.7 % (9.0-44.0); LYMPHOCYTE # 1.2 TH/MM3 (1.0-4.8); MEAN CELL VOLUME 83.3 FL (80.0-100.0); MEAN CORPUSCULAR HEMOGLOBIN 27.5 PG (27.0-34.0); MEAN PLATELET VOLUME 7.1 FL (7.0-11.0); MONO % 8.4 % (0.0-8.0); MONOCYTE # 0.4 TH/MM3 (0-0.9); NEUT % 63.6 % (16.0-70.0); PLATELET COUNT 360 TH/MM3 (150-450); RED BLOOD COUNT 3.66 MIL/MM3 (4.00-5.30); WHITE BLOOD COUNT 4.8 TH/MM3 (4.0-11.0)
[2018-02-02 14:23] LABS: BACTERIA, URINE MANY /hpf; BILIRUBIN, URINE NEG (NEG); BLOOD, URINE MOD (NEG); GLUCOSE,URINE NEG (NEG); HYALINE CAST, URINE 2 /lpf (RARE); KETONE, URINE NEG (NEG); NITRITE,URINE POS (NEG); PH, URINE 6.5 (5.0-8.5); SQUAMOUS EPITHELIAL CELL URINE 1 /hpf (0-5); URINE COLOR YELLOW (YELLW/STRAW); URINE LEUKOCYTE ESTERASE LARGE (NEG); WHITE BLOOD CELL CLUMPS FEW
[2018-02-02 14:37] LABS: BICARBONATE 24.8 MEQ/L (21.0-32.0); CREATININE 0.63 MG/DL (0.50-1.00)
[2018-02-02] MEDS ORDERED: CIPROFLOXACIN 500 MG TAB PO ONE (15:15)
[2018-02-02] MEDS ORDERED: CIPR500T2 PO (15:44)
== END 2018-02-02 18:50 | disposition home or self-care (01) ==
LOC: NEPD 12:45
DX: C43.9 Malignant melanoma of skin, unspecified (principal); C79.51 Secondary malignant neoplasm of bone; N39.0 Urinary tract infection, site not specified; R31.9 Hematuria, unspecified
CPT/HCPCS: 51702; 80048; 81001; 85025; 87077; 87086; 87186

== ENCOUNTER 2018-08-07 18:07 | Inpatient (IN) ==
[2018-08-07] MEDS ORDERED: Piperacil/Tazo 4.5 GM Premix 4.5 GM/100 ML BAG IV.SIG ONE (19:02)
[2018-08-07] MEDS ORDERED: Vancomycin Inj 1,000 MG in Sodium Chlor 0.9% Inj 250 ML IV.SIG ONE (19:02)
[2018-08-07] MEDS ORDERED: Acetaminophen 325 MG Tablet PO ONE (19:02)
[2018-08-07] MEDS ORDERED: Morphine Sulfate Inj 2 MG/ML Vial IV.PUSH ONE (19:06)
--- NOTE | 2018-08-07 19:10 | ED ---
HPI General Chief complaint: Respiratory Symptoms Stated complaint: SOB Time Seen by Provider: 08/07/18 18:53 Source: patient and family History of Present Illness HPI narrative: 47-year-old female with history of metastatic melanoma that originally started in her left axillary region and spread locally to the skin into her spine, with spinal surgery performed by Dr. Vásquez in October of this year with the patient being paraplegic and having left upper extremity weakness afterwards, being treated with oral chemotherapy by oncologist Dr. Moe, here with her for evaluation of shortness of breath and generalized weakness. Symptoms have been progressively getting worse over the last day. Shortness of breath is at rest, worse with laying flat. Patient is also experiencing pain to the left axillary and left back region where she has local spread of her melanoma that is described as sharp/pressure, constant, 8 out of 10, worse with movements. She has had a nonproductive cough. No hemoptysis. Related Data Home Medications Medication Instructions Recorded Confirmed baclofen 10 mg PO TID 08/07/18 08/07/18 escitalopram oxalate 20 mg PO DAILY 08/07/18 08/07/18 Allergies Allergy/AdvReac Type Severity Reaction Status Date / Time No Known Allergies Allergy Verified 08/07/18 18:51 Review of Systems ROS: all other systems reviewed are negative [facility] Social History Social History Substance History: No History of Abuse Second Hand Smoke Exposure: Yes Smoking Status: Former smoker How Often Do You Have a Drink Containing Alcohol: Never Recent Travel in [facility] within the Last 8 Weeks: No Recent Out of Country Travel within the Last 8 Weeks: No Exam Narrative Exam Narrative: GENERAL: Well-developed, well-nourished, awake, no apparent distress. SKIN: Left lateral/posterior torso/axillary region with firm mass with overlying warmth and erythema, no crepitus. HEAD: Atraumatic. Normocephalic. EYES: Pupils equal and round. No scleral icterus. No injection or drainage. ENT: No nasal bleeding or discharge. Mucous membranes pink and dry NECK: Trachea midline. No JVD. No nuchal rigidity. CARDIOVASCULAR: Tachycardic, sinus, rate 120s. RESPIRATORY: No accessory muscle use. Coarse breath sounds bilaterally. Breath sounds equal bilaterally. GASTROINTESTINAL: Abdomen soft, non-tender, nondistended. MUSCULOSKELETAL: No obvious deformities. No clubbing. No cyanosis. No edema. NEUROLOGICAL: Awake and alert. Left arm weakness. Paralysis of bilateral lower extremities. PSYCHIATRIC: Appropriate mood and affect; insight and judgment normal. Course Initial Documented Vital Signs Temperature 98.6 F 08/07/18 18:14 Pulse Rate 64 08/07/18 18:14 Blood Pressure 174/88 H 08/07/18 18:14 Pulse Oximetry 99 08/07/18 18:14 Last Documented Vital Signs Temperature 99.0 F 08/07/18 21:00 Pulse Rate 120 H 08/07/18 21:00 Respiratory Rate 20 08/07/18 21:00 Blood Pressure 112/70 08/07/18 21:00 Pulse Oximetry 99 08/07/18 21:00 Medical Decision Making MDM Narrative Medical decision making narrative: 7:44 PM: I was called to the patient's bedside as the patient apparently had a seizure. Patient's is at the bedside when this occurred. She mainly had seizure-like activity in her face. She has no history of seizures. On my assessment she appears to be postictal. 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 I discussed with the patient's at this time that the patient is critically ill. He states that she has a signed DNR and does not want to be intubated. Sepsis protocol initiated for fever, tachycardia, and the patient was empirically given IV vancomycin and IV Zosyn. UA suggestive of UTI. CT pulmonary angiogram: CONCLUSION:1. No pulmonary embolus.2. Moderate to large pleural effusion now present on the left, probably metastatic. There is a large paraspinous and left apical mass now present.3. Worsening chest wall malignancy. New supraclavicular and right axillary metastatic adenopathy.4. Metastatic pulmonary nodules modestly worse.5. Interim upper thoracic laminectomy and fusion; associated metallic streak artifact limits visualization of the spinal canal. Large amount of soft tissue in thelaminectomy bed. Mottled metastatic changes of upper thoracic vertebra. CT brain shows no evidence of mass. The patient's son and the patient's were made aware of all findings. She will be admitted to the ICU for further treatment and evaluation. Again she does not wish to be intubated and has a signed DNR according to the patient' s . I will make this her CODE STATUS in our system. Case discussed with video control operator Dr. Love who will admit the patient to his service. Medical Screen Exam Complete: Yes Emergency Medical Condition: Yes Differential Diagnosis Differential Diagnosis: Sepsis, pneumonia, PE, cellulitis Lab Data Result diagrams: 08/07/18 19:35 08/07/18 19:35 Lab Results 08/07/18 08/07/18 08/07/18 Range/Units 19:35 19:35 19:35 WBC 9.2 (4.0-11.0) th/mm3 RBC 4.10 (4.00-5.30) mil/mm3 Hgb 11.2 L (11.6-15.3) gm/dL Hct 36.2 (35.0-46.0) % MCV 88.2 (80.0-100.0) fL MCH 27.4 (27.0-34.0) pg MCHC 31.1 L (32.0-36.0) % RDW 16.2 (11.6-17.2) % Plt Count 247 (150-450) th/mm3 MPV 8.2 (7.0-11.0) fL Neut % (Auto) 77.9 H (16.0-70.0) % Lymph % (Auto) 16.2 (9.0-44.0) % [place] % (Auto) 5.2 (0.0-8.0) % Eos % (Auto) 0.1 (0.0-4.0) % Baso % (Auto) 0.6 (0.0-2.0) % Neut # (Auto) 7.2 (1.8-7.7) th/mm3 Lymph # (Auto) 1.5 (1.0-4.8) th/mm3 [place] # (Auto) 0.5 (0.0-0.9) th/mm3 Eos # (Auto) 0.0 (0.0-0.4) th/mm3 Baso # (Auto) 0.1 (0.0-0.2) th/mm3 WBC Differential . Differential Comment Auto diff final Sodium 132 L (136-145) meq/L Potassium 5.6 H (3.5-5.1) meq/L Chloride 99 (98-107) meq/L Carbon Dioxide 21.5 (21.0-32.0) meq/L Anion Gap 12 (5-15) meq/L BUN 34 H (7-18) mg/dL Creatinine 0.68 (0.50-1.00) mg/dL Estimated GFR Greater than 89 (>89) mL/min POC Glucose (68-110) mg/dl Random Glucose 146 H (74-106) mg/dL Lactic Acid 5.8 H* (0.4-2.0) mmol/L Calcium 7.9 L (8.5-10.1) mg/dL Magnesium 2.5 (1.5-2.5) mg/dL Total Bilirubin 0.4 (0.2-1.0) mg/dL AST 42 H (15-37) U/L ALT 17 (10-53) U/L Alkaline Phosphatase 79 (45-117) U/L Total Creatine Kinase 176 (26-192) U/L CK-MB (CK-2) Less than 1.0 (0.5-3.6) ng/mL Troponin I Less than 0.02 L (0.02-0.05) ng/mL Total Protein 7.6 (6.4-8.2) g/dL Albumin 2.5 L (3.4-5.0) g/dL Urine Color (Yellw/Straw) Urine Clarity (Clear) Urine pH (5.0-8.5) Ur Specific [place] (1.002-1.035) Urine Protein (Neg-Trace) mg/dL Urine Glucose (UA) (Negative) mg/dL Urine Ketones (Negative) mg/dL Urine Occult Blood (Negative) Urine Nitrate (Negative) Urine Bilirubin (Negative) Urine Urobilinogen (Less than 2) mg/dL Ur Leukocyte Esterase (Negative) Urine RBC (0-3) /hpf Urine WBC (0-5) /hpf Urine WBC Clumps (None) Urine Bacteria (None) /hpf Hyaline Casts (0-3) /lpf Urine Mucus (Occasional) /lpf Micro UA Comment Ur Microscopic Review Urine Culture Comments 08/07/18 08/07/18 Range/Units 19:56 20:10 WBC (4.0-11.0) th/mm3 RBC (4.00-5.30) mil/mm3 Hgb (11.6-15.3) gm/dL Hct (35.0-46.0) % MCV (80.0-100.0) fL MCH (27.0-34.0) pg MCHC (32.0-36.0) % RDW (11.6-17.2) % Plt Count (150-450) th/mm3 MPV (7.0-11.0) fL Neut % (Auto) (16.0-70.0) % Lymph % (Auto) (9.0-44.0) % [place] % (Auto) (0.0-8.0) % Eos % (Auto) (0.0-4.0) % Baso % (Auto) (0.0-2.0) % Neut # (Auto) (1.8-7.7) th/mm3 Lymph # (Auto) (1.0-4.8) th/mm3 [place] # (Auto) (0.0-0.9) th/mm3 Eos # (Auto) (0.0-0.4) th/mm3 Baso # (Auto) (0.0-0.2) th/mm3 WBC Differential Differential Comment Sodium (136-145) meq/L Potassium (3.5-5.1) meq/L Chloride (98-107) meq/L Carbon Dioxide (21.0-32.0) meq/L Anion Gap (5-15) meq/L BUN (7-18) mg/dL Creatinine (0.50-1.00) mg/dL Estimated GFR (>89) mL/min POC Glucose 255 H (68-110) mg/dl Random Glucose (74-106) mg/dL Lactic Acid (0.4-2.0) mmol/L Calcium (8.5-10.1) mg/dL Magnesium (1.5-2.5) mg/dL Total Bilirubin (0.2-1.0) mg/dL AST (15-37) U/L ALT (10-53) U/L Alkaline Phosphatase (45-117) U/L Total Creatine Kinase (26-192) U/L CK-MB (CK-2) (0.5-3.6) ng/mL Troponin I (0.02-0.05) ng/mL Total Protein (6.4-8.2) g/dL Albumin (3.4-5.0) g/dL Urine Color Yellow (Yellw/Straw) Urine Clarity Turbid H (Clear) Urine pH 7.0 (5.0-8.5) Ur Specific [place] 1.019 (1.002-1.035) Urine Protein 500 or greater (Neg-Trace) mg/dL Urine Glucose (UA) Negative (Negative) mg/dL Urine Ketones Negative (Negative) mg/dL Urine Occult Blood Small H (Negative) Urine Nitrate Negative (Negative) Urine Bilirubin Negative (Negative) Urine Urobilinogen Less than 2 (Less than 2) mg/dL Ur Leukocyte Esterase Moderate H (Negative) Urine RBC 38 H (0-3) /hpf Urine WBC (0-5) /hpf Urine WBC Clumps Many H (None) Urine Bacteria Many H (None) /hpf Hyaline Casts 9 (0-3) /lpf Urine Mucus Few H (Occasional) /lpf Micro UA Comment Culture indicated Ur Microscopic Review Not Reportable Urine Culture Comments Culture indicated Imaging Data Radiologist's impression: Chest CTA 08/07/18 19:02 CONCLUSION: 1. No pulmonary embolus. 2. Moderate to large pleural effusion now present on the left, probably metastatic. There is a large paraspinous and left apical mass now present. 3. Worsening chest wall malignancy. New supraclavicular and right axillary metastatic adenopathy. 4. Metastatic pulmonary nodules modestly worse. 5. Interim upper thoracic laminectomy and fusion; associated metallic streak artifact limits visualization of the spinal canal. Large amount of soft tissue in the laminectomy bed. Mottled metastatic changes of upper thoracic vertebra. Chest X-Ray 08/07/18 19:02 CONCLUSION: 1. Hazy opacity throughout the left lung likely reflects layering small to moderate pleural effusion. 2. Left lower lobe airspace consolidation concerning for pneumonia or aspiration. Head CT 08/07/18 19:42 CONCLUSION: 1. No acute intracranial abnormality. 2. Specifically, no gross mass or mass effect. . Discharge Plan Discharge Disposition Patient Disposition: 30 Still Patient Discharge Condition Condition: Serious Discharge Details Diagnosis: Sepsis, UTI (urinary tract infection), Altered mental status, Metastatic disease Physicians Team ED Provider: Carlos Gallego Primary Care Provider: Radha Mcadams Rxs /Orders / Referrals /Forms Prescriptions: No Action baclofen 10 mg Tablet 10 mg PO TID RF: 0 escitalopram oxalate 20 mg Tablet 20 mg PO DAILY RF: 0 Discharge Interventions Interventions: Vital Signs Last Done: 08/07/18 21:00 Status ED Status: With Doctor
[2018-08-07] MEDS ORDERED: Sod Chloride 0.9% Inj 800 ML IV.SIG SCH (19:15)
[2018-08-07] MEDS ORDERED: Sod Chloride 0.9% Inj 1,000 ML IV.SIG SCH (19:15)
--- NOTE | 2018-08-07 19:18 | XR ---
EXAM DATE: 08/07/2018 7:14 PM EST AGE/SEX: 47 years / Female INDICATIONS: Fever CLINICAL DATA: This is the patient's initial encounter. Patient reports that signs and symptoms have been present for 1 day and indicates a pain score of 0/10. MEDICAL/SURGICAL HISTORY: . Carcinoma, skin cancer. Hypertension. . . Tubal ligation. Fusion, thoracic. Fusion, cervical COMPARISON: . FINDINGS: Diffuse hazy opacity throughout the left hemithorax with increased parenchymal opacity in the left lo wer lobe. Cardiomediastinal contours are within normal limits. Spinal fixation hardware is noted in t he lower cervical spine and upper thoracic spine. Osseous structures are otherwise intact. CONCLUSION: 1. Hazy opacity throughout the left lung likely reflects layering small to moderate pleural effusion . 2. Left lower lobe airspace consolidation concerning for pneumonia or aspiration. Electronically signed by: Freddy Silveira MD 08/07/2018 7:17 PM EST
[2018-08-07] MEDS ORDERED: Acetaminophen 650 MG Supp RECTAL ONE (19:52)
[2018-08-07 20:18] LABS: Baso # (Auto) 0.1 th/mm3 (0.0-0.2); Baso % (Auto) 0.6 % (0.0-2.0); Eos % (Auto) 0.1 % (0.0-4.0); Hematocrit 36.2 % (35.0-46.0); Hemoglobin 11.2 gm/dL (11.6-15.3); Lymph # (Auto) 1.5 th/mm3 (1.0-4.8); Lymph % (Auto) 16.2 % (9.0-44.0); Mean Corpuscular HGB Conc 31.1 % (32.0-36.0); Mean Corpuscular Hemoglobin 27.4 pg (27.0-34.0); Mean Corpuscular Volume 88.2 fL (80.0-100.0); Mean Platelet Volume 8.2 fL (7.0-11.0); Mono # (Auto) 0.5 th/mm3 (0.0-0.9); Mono % (Auto) 5.2 % (0.0-8.0); Neut # (Auto) 7.2 th/mm3 (1.8-7.7); Neut % (Auto) 77.9 % (16.0-70.0); Platelet Count 247 th/mm3 (150-450); Red Cell Distribution Width 16.2 % (11.6-17.2); White Blood Count 9.2 th/mm3 (4.0-11.0)
[2018-08-07 20:35] LABS: Albumin 2.5 g/dL (3.4-5.0); Anion Gap 12 meq/L (5-15); Aspartate Aminotransferase 42 U/L (15-37); Blood Urea Nitrogen 34 mg/dL (7-18); Calcium 7.9 mg/dL (8.5-10.1); Carbon Dioxide 21.5 meq/L (21.0-32.0); Chloride 99 meq/L (98-107); Glomerular Filtration Rate Greater Than 89 mL/min (>89); Glucose,Random 146 mg/dL (74-106); Magnesium 2.5 mg/dL (1.5-2.5); Potassium 5.6 meq/L (3.5-5.1); Sodium 132 meq/L (136-145)
[2018-08-07 20:36] LABS: Alanine Aminotransferase 17 U/L (10-53)
[2018-08-07 20:38] LABS: Bacteria,Urine Many /hpf; Bilirubin,Urine Negative (Negative); Clarity,Urine Turbid (Clear); Glucose,Urine (UA) Negative (Negative); Hyaline Casts,Urine 9 /lpf (0-3); Leukocyte Esterase,Urine Moderate (Negative); Mucus,Urine Few /lpf (Occasional); Nitrite,Urine Negative (Negative); Specific Gravity,Urine 1.019 (1.002-1.035)
[2018-08-07 20:40] LABS: Color,Urine Yellow (Yellw/Straw)
[2018-08-07 20:40] LABS: Alkaline Phosphatase 79 U/L (45-117); Creatine Kinase 176 U/L (26-192); Total Protein 7.6 g/dL (6.4-8.2)
--- NOTE | 2018-08-07 21:19 | CT ---
EXAM DATE: 08/07/2018 9:15 PM EST AGE/SEX: 47 years / Female INDICATIONS: Evaluate for metastatic disease. CLINICAL DATA: This is the patient's initial encounter. Patient reports that signs and symptoms have been present for 1 day and indicates a pain score of 0/10. MEDICAL/SURGICAL HISTORY: Hypertension. Melanoma. Fusion, cervical. Tubal ligation. RADIATION DOSE: 55.09 CTDI (mGy) COMPARISON: No prior exams available for comparison. TECHNIQUE: CT of the head without contrast. Using automated exposure control and adjustment of the mA and/or kV according to patient size, radiation dose was kept as low as reasonably achievable to ob tain optimal diagnostic quality images. DICOM format image data is available electronically for revi ew and comparison. FINDINGS: Cerebrum: The ventricles are normal for age. No evidence of midline shift, mass lesion, hemorrhage o r acute infarction. No extraaxial fluid collections are seen. Posterior Fossa: The cerebellum and brainstem are intact. The 4th ventricle is midline. The cerebe llopontine angle is unremarkable. Extracranial: The visualized portion of the orbits is intact. Skull: The calvaria is intact. No evidence of skull fracture. CONCLUSION: 1. No acute intracranial abnormality. 2. Specifically, no gross mass or mass effect. . Electronically signed by: Freddy Silveira MD 08/07/2018 9:18 PM EST
--- NOTE | 2018-08-07 21:41 | CT ---
EXAM DATE: 08/07/2018 9:24 PM EST AGE/SEX: 47 years / Female INDICATIONS: Short of breath. Cough. CLINICAL DATA: This is the patient's initial encounter. Patient reports that signs and symptoms have been present for 3 days and indicates a pain score of 2/10. MEDICAL/SURGICAL HISTORY: Hypertension. Melanoma. Tubal ligation. Fusion, cervical. Fusion, thor acic. RADIATION DOSE: 22.87 CTDI (mGy) COMPARISON: [facility] – [place], CT PULMONARY ANGIOGRAM, 10/05/2017. . TECHNIQUE: Volumetric scanning was performed using a multi-row detector CT scanner during bolus infu doc of 75 ml Omnipaque 350 (iohexol) nonionic water-soluble contrast as a single exam dose. The vonda a was post processed with a variety of visualization algorithms including full volume maximum intensi ty projection and sliding thin slab reformation. Using automated exposure control and adjustment of the mA and/or kV according to patient size, radiation dose was kept as low as reasonably achievable t o obtain optimal diagnostic quality images. DICOM format image data is available electronically for review and comparison. FINDINGS: No pulmonary embolus seen. Moderate to large left pleural effusion has developed. There is left lung atelectasis, mostly the low er lobe. An anterior paraspinous mass has developed at the level of the thoracic inlet, measures approximately 2.8 x 4.9 x 3.3 cm. This partially involves the medial aspect of the left apex. There are supraclavi cular lymph nodes that measure up to 2.3 cm. Mass of axillary lymphadenopathy present and there are a myriad of subcutaneous masses of the chest wall. There is right axillary lymphadenopathy measuring u p to 2.4 cm in size, new. Patient has had long segment laminectomy of the thoracic spine since the prior study. Chest wall mass es include the laminectomy bed. There is mixed lytic and sclerotic change of the upper thoracic verte bra. There is a new nodule in the right upper lobe measuring 8 mm. There is a 4 mm nodule in the left uppe r lobe that also appears new. Scattered subcentimeter nodules of both bases are otherwise relatively stable. CONCLUSION: 1. No pulmonary embolus. 2. Moderate to large pleural effusion now present on the left, probably metastatic. There is a large paraspinous and left apical mass now present. 3. Worsening chest wall malignancy. New supraclavicular and right axillary metastatic adenopathy. 4. Metastatic pulmonary nodules modestly worse. 5. Interim upper thoracic laminectomy and fusion; associated metallic streak artifact limits visuali zation of the spinal canal. Large amount of soft tissue in the laminectomy bed. Mottled metastatic ch anges of upper thoracic vertebra. Electronically signed by: Rafiq Schmidt MD 08/07/2018 9:40 PM EST
[2018-08-07] MEDS ORDERED: Potassium Phosphate Inj 30 MMOL in Sodium Chlor 0.9% Inj 250 ML IV.SIG PRN (21:55)
[2018-08-07] MEDS ORDERED: Magnesium Sulfate Inj 4 GM in Sodium Chlor 0.9% Inj 92 ML IV.SIG PRN (21:55)
[2018-08-07] MEDS ORDERED: Potassium Chlor 20 mEq Premix 20 MEQ/100 ML PIGGYBACK IV.SIG PRN ×2 (21:55)
[2018-08-07] MEDS ORDERED: Potassium Chlor 40 mEq Premix 40 MEQ/100 ML PIGGYBACK IV.SIG PRN ×2 (21:55)
[2018-08-07] MEDS ORDERED: Potassium Phosphate 500 MG Soluble Tablet PO PRN ×2 (21:55)
[2018-08-07] MEDS ORDERED: Potassium Chloride 25 MEQ Effervescent Tablet PO PRN (21:55)
[2018-08-07] MEDS ORDERED: Bisacodyl 10 MG Supp RECTAL PRN (21:55)
[2018-08-07] MEDS ORDERED: Magnesium Sulfate Inj 2 GM in Sodium Chlor 0.9% Inj 96 ML IV.SIG PRN (21:55)
[2018-08-07] MEDS ORDERED: Sodium Phosphate Inj 30 MMOL in Sodium Chlor 0.9% Inj 250 ML IV.SIG PRN (21:55)
[2018-08-07] MEDS ORDERED: Magnesium Oxide 400 MG Tablet PO PRN (21:55)
[2018-08-07] MEDS ORDERED: Vancomycin Consult Pharmacy OTHER PRN (22:01)
--- NOTE | 2018-08-07 22:02 | P.HPCC ---
History of Present Illness Service: Critical Care Medicine Primary Care Physician: Radha Mcadams MD Chief Complaint: shortness of breath History of Present Illness: This is a 47-year-old female with widely metastatic melanoma who presents with a 2-day history of cough, fatigue, fever, chills. She has a chronic indwelling Elena. In the emergency department she was hypotensive and in respiratory distress. She is very altered and obtunded and no information is available from her. Her and son are here and they have expressed that she has wishes to be a DNR CODE STATUS, which we will honor. She has an elevated white blood cell count. She has pyuria with her indwelling Elena catheter. In the emergency department she was given a dose of vancomycin and Zosyn. She has a new large left pleural effusion. After discussion with the family we together feel that it is reasonable to drain this effusion as it may be parapneumonic edema versus metastatic. I placed a pigtail catheter, see separate procedure note for details, and obtained greater than a liter of serous appearing fluid. Review of systems is unobtainable. Review of Systems unobtainable due to mental status PMFSH - History History Provided By: Family Member, Medical Record - Medical History Medical History: Medical History (Last Reviewed 08/08/18 @ 03:25 by Benito Love MD) HTN (hypertension) Melanoma Tubal ligation status - Surgical History Surgical History: Surgical History (Last Reviewed 08/08/18 @ 03:25 by Benito Love MD) Hx of neck surgery Hx of spinal surgery - Tobacco History Second Hand Smoke Exposure: Yes Smoking Status: Former smoker - Alcohol History How Often Do You Have a Drink Containing Alcohol: Never - Substance Use History Substance History: No History of Abuse - Travel History Recent Travel in the [place] Within the Last 8 Weeks: No Recent Travel Out of the Country Within the Last 8 Weeks: No - Immunization History Tetanus Immunization: <5 Years Medications and Allergies Active Medications: Active Medications Albuterol (Duoneb Neb (Prn)) 1 ampul NEB Q2HR NEB PRN PRN Reason: WHEEZING Bisacodyl (Dulcolax Supp) 10 mg RECTAL DAILY PRN PRN Reason: if no BM in last 24h Chlorhexidine Gluconate (Chlorhexidine 2% Cloth) 3 pack TOPICAL DAILY@0400 [facility] Stop: 08/13/18 03:59 Chlorhexidine Gluconate (Chlorhexidine 2% Cloth) 3 pack TOPICAL DAILY@0400 PRN PRN Reason: Extra cloth needed Stop: 08/13/18 03:59 Famotidine (Pepcid Pf Inj) 20 mg IV.PUSH Q12HR [facility] Heparin Sodium (Porcine) (Heparin Inj) 5,000 units SQ Q8HR [facility] Hydromorphone HCl (Dilaudid Pf Inj) 0.25 mg IV.PUSH Q1H PRN PRN Reason: pain 8-10 or not taking po Sodium Chloride (Ns Inj) 1,000 mls @ 0 mls/hr IV.SIG .Q0M [facility] Last Infusion: 08/07/18 20:40 Dose: Infused Sodium Chloride (Ns Inj) 800 mls @ 0 mls/hr IV.SIG .Q0M E[facility]ANOR Last Infusion: 08/07/18 20:40 Dose: Infused Lactated Ringer's (Lr 1000 Ml Inj) 1,000 mls @ 125 mls/hr IV.CONT .Q8H [facility] Magnesium Sulfate 4 gm/ Sodium (Chloride) 100 mls @ 50 mls/hr IV.SIG UNSCH PRN PRN Reason: For Magnesium 0.9 - 1.1 mg/dL Magnesium Sulfate 2 gm/ Sodium (Chloride) 100 mls @ 50 mls/hr IV.SIG UNSCH PRN PRN Reason: For Magnesium 1.2 - 1.6 mg/dL Potassium Chloride (Kcl 40 Meq Premix Inj) 40 meq in 100 mls @ 25 mls/hr IV.SIG Q2H PRN PRN Reason: For Potassium 2.8 - 3.2 mEq/L Potassium Chloride (Kcl 20 Meq Premix Inj) 20 meq in 100 mls @ 50 mls/hr IV.SIG Q2H PRN PRN Reason: For Potassium 3.3 - 3.5 mEq/L Potassium Chloride (Kcl 40 Meq Premix Inj) 40 meq in 100 mls @ 25 mls/hr IV.SIG UNSCH PRN PRN Reason: For Potassium 3.3 - 3.5 mEq/L Potassium Chloride (Kcl 20 Meq Premix Inj) 20 meq in 100 mls @ 50 mls/hr IV.SIG Q2H PRN PRN Reason: For Potassium 2.8 - 3.2 mEq/L Potassium Phosphate 30 mmol/ (Sodium Chloride) 260 mls @ 42 mls/hr IV.SIG UNSCH PRN PRN Reason: SEE LABEL COMMENTS Sodium Phosphate 30 mmol/ (Sodium Chloride) 260 mls @ 42 mls/hr IV.SIG UNSCH PRN PRN Reason: For Phosphorus < 2.5 mg/dL Piperacillin/Tazobactam/Dextrose (Zosyn 4.5 Gm Premix) 4.5 gm in 100 mls @ 200 mls/hr IV.SIG Q6H [facility] Lactulose (Lactulose Liq) 30 ml PO BID E[facility] Magnesium Oxide (Mag-Ox) 800 mg PO UNSCH PRN PRN Reason: For Magnesium 1.2 - 1.6 mg/dL Ondansetron HCl (Zofran Inj) 4 mg IV.PUSH Q6H PRN PRN Reason: NAUSEA OR VOMITING Oxycodone HCl (Roxicodone) 5 mg PO Q4H PRN PRN Reason: Pain 1-5 Pharmacy Profile Note (Vancomycin Consult Pharmacy) 1 each OTHER UNSCH PRN PRN Reason: Pharmacy to dose Polyethylene Glycol (Miralax) 17 gm PO BID [facility] Potassium Bicarb/Potassium Chloride (K-Lyte Cl Eff) 50 meq PO UNSCH PRN PRN Reason: For Potassium 3.3 - 3.5 mEq/L Potassium Phosphate (K-Phos Original) 2,000 mg PO Q4H PRN PRN Reason: Phosphorus Less Than 2.5 mg/dL Potassium Phosphate (K-Phos Original) 2,000 mg PO UNSCH PRN PRN Reason: SEE LABEL COMMENTS Senna/Docusate Sodium (Maribeth-Colace) 1 tab PO BID E[facility]ANOR Sodium Chloride (Ns Flush) 2 ml IV.FLUSH UNSCH PRN PRN Reason: FLUSH AFTER USING IV ACCESS Allergies Allergy/AdvReac Type Severity Reaction Status Date / Time No Known Allergies Allergy Verified 08/07/18 18:51 Home Medications Medication Instructions Recorded Confirmed Type baclofen 10 mg PO TID 08/07/18 08/07/18 History escitalopram oxalate 20 mg PO DAILY 08/07/18 08/07/18 History Results - Labs CBC & Chem 7: 08/07/18 19:35 08/07/18 19:35 Labs: Short CBC 08/07/18 Range/Units 19:35 WBC 9.2 (4.0-11.0) th/mm3 Hgb 11.2 L (11.6-15.3) gm/dL Hct 36.2 (35.0-46.0) % Plt Count 247 (150-450) th/mm3 BMP 08/07/18 19:35 Sodium 132 L Potassium 5.6 H Chloride 99 Carbon Dioxide 21.5 BUN 34 H Creatinine 0.68 Calcium 7.9 L Cardiac Enzymes 08/07/18 Range/Units 19:35 Total Creatine Kinase 176 (26-192) U/L CK-MB (CK-2) Less than 1.0 (0.5-3.6) ng/mL Troponin I Less than 0.02 L (0.02-0.05) ng/mL Liver Function 08/07/18 Range/Units 19:35 Total Bilirubin 0.4 (0.2-1.0) mg/dL AST 42 H (15-37) U/L ALT 17 (10-53) U/L Alkaline Phosphatase 79 (45-117) U/L Albumin 2.5 L (3.4-5.0) g/dL Urine 08/07/18 Range/Units 20:10 Urine Color Yellow (Yellw/Straw) Urine Clarity Turbid H (Clear) Urine pH 7.0 (5.0-8.5) Ur Specific Phil Campbell 1.019 (1.002-1.035) Urine Protein 500 or greater (Neg-Trace) mg/dL Urine Glucose (UA) Negative (Negative) mg/dL - Imaging Impressions Chest CTA 08/07/18 19:02 CONCLUSION: 1. No pulmonary embolus. 2. Moderate to large pleural effusion now present on the left, probably metastatic. There is a large paraspinous and left apical mass now present. 3. Worsening chest wall malignancy. New supraclavicular and right axillary metastatic adenopathy. 4. Metastatic pulmonary nodules modestly worse. 5. Interim upper thoracic laminectomy and fusion; associated metallic streak artifact limits visualization of the spinal canal. Large amount of soft tissue in the laminectomy bed. Mottled metastatic changes of upper thoracic vertebra. Chest X-Ray 08/07/18 19:02 CONCLUSION: 1. Hazy opacity throughout the left lung likely reflects layering small to moderate pleural effusion. 2. Left lower lobe airspace consolidation concerning for pneumonia or aspiration. Head CT 08/07/18 19:42 CONCLUSION: 1. No acute intracranial abnormality. 2. Specifically, no gross mass or mass effect. . Exam Vital signs: Vital Signs 08/07/18 18:14 08/07/18 18:51 08/07/18 19:47 Temperature 37.0 C 37.8 C H Pulse Rate 64 124 H 126 H Respiratory Rate 20 24 Blood Pressure 174/88 H 101/65 123/86 Pulse Oximetry 99 98 97 08/07/18 20:00 08/07/18 20:40 08/07/18 20:51 Temperature Pulse Rate 112 H Respiratory Rate 24 20 20 Blood Pressure 112/66 Pulse Oximetry 99 08/07/18 21:00 Temperature 37.2 C Pulse Rate 120 H Respiratory Rate 20 Blood Pressure 112/70 Pulse Oximetry 99 Intake & Output 08/07/18 08/07/18 08/08/18 06:59 18:59 06:59 Intake Total 2149 Balance 2149 Weight 80.739 kg Intake: IV 2149 Zosyn 4.5 GM Premix 4.5 gm In 100 / 100 100 ml @ 200 mls/hr IV.SIG ONCE ONE Rx#:[id number] NS Inj 800 ML @ Wide Open IV. 1800 / 1800 SIG .Q0M [facility] Rx#:[id number] Vancomycin Inj 1,000 MG In NS 250 / 250 Inj 250 ML @ 250 mls/hr IV.SIG ONCE ONE Rx#:[id number] Narrative: GENERAL: Frail middle-aged female who appears much older than stated age, lying in bed, obtunded HEENT: Normocephalic. Atraumatic. Pupils equal, round, reactive, conjugate. Mucous membranes are moist NECK: Trachea is midline. There is no JVD. CHEST: Equal chest rise. Tachypneic. Labored. Decreased breath sounds on the left. There is a very large chest wall mass over the left axilla consistent with her known melanoma lesion. CARDIOVASCULAR: Tachycardic rate, regular rhythm. Sinus. ABDOMEN: Soft, nontender, nondistended. No guarding. MUSCULOSKELETAL: Pulses 2+. No peripheral edema. NEUROLOGICAL: RASS -3. Moans. Does not follow commands. Withdraws x4. Septic Shock Reassessment Septic shock perfusion: reassessment completed Caprini VTE Risk Assessment Caprini VTE Risk Assessment: Moderate/High Risk (score >= 2) Caprini Risk Assessment Model: Point Value = 1 Point Value = 2 Point Value = 3 Point Value = 5 Age 41-60 Minor surgery BMI > 25 kg/m2 Swollen legs Varicose veins or History of unexplained or recurrent spontaneous Oral contraceptives or hormone replacement Sepsis (< 1 month) Serious lung disease, including pneumonia (< 1 month) Abnormal pulmonary function Acute myocardial infarction Congestive heart failure (< 1 month) History of inflammatory bowel disease Medical patient at bed rest Age 61-74 Arthroscopic surgery Major open surgery (> 45 min) Laparoscopic surgery (> 45 min) Malignancy Confined to bed (> 72 hours) Immobilizing plaster cast Central venous access Age >= 75 History of VTE Family history of VTE Factor V Leiden Prothrombin [id number] Lupus anticoagulant Anticardiolipin antibodies Elevated serum homocysteine Heparin-induced thrombocytopenia Other congenital or acquired thrombophilia Stroke (< 1 month) Elective arthroplasty Hip, pelvis, or leg fracture Acute spinal cord injury (< 1 month) Prophylaxis Regimen: Total Risk Factor Score Risk Level Prophylaxis Regimen 0-1 Low Early ambulation 2 Moderate Order ONE of the following: *Sequential Compression Device (SCD) *Heparin 5000 units SQ BID 3-4 Higher Order ONE of the following medications: *Heparin 5000 units SQ TID *Enoxaparin/Lovenox 40 mg SQ daily (WT < 150 kg, CrCl > 30 mL/min) *Enoxaparin/Lovenox 30 mg SQ daily (WT < 150 kg, CrCl > 10-29 mL/min) *Enoxaparin/Lovenox 30 mg SQ BID (WT < 150 kg, CrCl > 30 mL/min) AND/OR *Sequential Compression Device (SCD) 5 or more Highest Order ONE of the following medications: *Heparin 5000 units SQ TID (Preferred with Epidurals) *Enoxaparin/Lovenox 40 mg SQ daily (WT < 150 kg, CrCl > 30 mL/min) *Enoxaparin/Lovenox 30 mg SQ daily (WT < 150 kg, CrCl > 10-29 mL/min) *Enoxaparin/Lovenox 30 mg SQ BID (WT < 150 kg, CrCl > 30 mL/min) AND *Sequential Compression Device (SCD) Assessment and Plan - Assessment and Plan Plan: Assessment: 47-year-old female with widely metastatic melanoma who presents in severe sepsis from either urinary source versus pneumonia with possible parapneumonic empyema. Very critically ill. We will honor DNR CODE STATUS. Admit to ICU for fluid resuscitation and IV antibiotics. 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 this is chronic and unchanged. Respiratory: Large left pleural effusion Acute hypoxemia nasal cannula as tolerated for goal SPO2 greater than 90% 11/6 left pigtail catheter to suction. Send cytometry as well as lites criteria on the fluid. We will honor DNR/DNI CODE STATUS Cardiovascular: Severe sepsis Sinus tachycardia Maintenance IV fluids Addition on IV albumin infusions for resuscitative fluid Renal: Acute kidney injury Chronic neurogenic bladder Change out Elena Send urine culture Daily creatinine -- Strict I/Os FEN/GI: Acute intravascular volume depletion Acute anion gap metabolic acidosis Lactic acidosis ICU electrolyte protocol N.p.o. Daily BMP, magnesium, phosphorus Trend lactates Heme/ID: Severe sepsis Urinary tract infection Possible pneumonia Send blood cultures Send sputum culture Send pleural fluid for culture and Gram stain Vancomycin with pharmacy dosing Zosyn Endocrine: -- SSI Prophylaxis: GI Prophylaxis Pepcid DVT Prophylaxis -- SCDs Lovenox Lines: Peripheral IVs Dispo: Admit to ICU. DNR CODE STATUS. This patient remains critically ill with one or more organ systems which are or may become a threat to life. I have spent in excess of 50 minutes discontinuously in the care and management of this patient. This time is exclusive of procedures, and includes, but is not limited to, evaluation of the patient, review of the medical record, discussions with family, consultants, nursing staff, or respiratory therapy, and documentation in the medical record. Code Status: DNR/DNI
[2018-08-07] MEDS: Heparin - SQ 10,000 UNITS/ML Vial SQ SCH (23:13)
[2018-08-08] MEDS ORDERED: Albumin Human 25% Inj 100 ML IV.SIG ONE (00:43)
[2018-08-08] MEDS: HYDROmorphone PF Inj 1 MG/ML Ampul IV.PUSH PRN ×2 (01:00→19:47)
--- NOTE | 2018-08-08 01:23 | XR ---
EXAM DATE: 08/08/2018 1:14 AM EST AGE/SEX: 47 years / Female INDICATIONS: Chest tube placement. CLINICAL DATA: This is the patient's subsequent encounter. Patient reports that signs and symptoms h ave been present for 2 days and indicates a pain score of Nonresponsive. MEDICAL/SURGICAL HISTORY: Hypertension. Metastatic melanoma. Tubal ligation. Fusion, thoraci c. Fusion, cervical. [place] [facility] [place]. . FINDINGS: Interval placement of a left base pigtail thoracostomy tube with complete or near complete clearance of fluid from the left chest. No evidence of pneumothorax. Cardiac contours are stable and satisfacto ry. Right lung remains clear. CONCLUSION: Left thoracostomy tube placement with significant improvement in aeration. Electronically signed by: Rafiq Marshall MD 08/08/2018 1:22 AM EST
[2018-08-08 01:44] LABS: Bacteria,Urine Occasional /hpf; Bilirubin,Urine Negative (Negative); Clarity,Urine Turbid (Clear); Color,Urine Yellow (Yellw/Straw); Glucose,Urine (UA) Negative (Negative); Leukocyte Esterase,Urine Moderate (Negative); Mucus,Urine Moderate /lpf (Occasional); Nitrite,Urine Negative (Negative)
[2018-08-08] MEDS ORDERED: Albumin Human 25% Inj 100 ML IV.SIG SCH (02:00)
[2018-08-08 02:38] LABS: Lymphocytes,Pleural Fluid 83 %; Mesothelial,Pleural Fluid 5 %; Monocytes,Pleural Fluid 3 %; Neutrophils,Pleural Fluid 8 %; RBC,Pleural Fluid 4447 /mm3 (0-0)
[2018-08-08] MEDS: Piperacil/Tazo 4.5 GM Premix 4.5 GM/100 ML BAG IV.SIG SCH ×4 (02:45→19:47)
--- NOTE | 2018-08-08 03:35 | P.PCN ---
Date of procedure: 08/08/18 Procedure: Percutaneous Pigtail Tube Thoracostomy Procedure Note 10 [place] left-sided pigtail chest tube Diagnosis: Large left pleural effusion Indications: Left pleural effusion with hypoxemia and sepsis Consent: Obtained from the Anesthesia: 1% lidocaine locally Description of the Procedure: The patient was placed in the right lateral decubitus position. The arm was abducted above the head and secured. The left posterior chest was prepped and draped sterilely to include the axilla and nipple. 1% Lidocaine was infiltrated subcutaneously and into the tissues down to the periosteum of the rib. Ultrasound guidance was used to identify the largest pocket of fluid which was posterior. Around the sixth intercostal space in the posterior mid scapular line, a small incision was made using a #11 blade. At the mid-scapular line, a needle, followed by guidewire, followed by 10 Fr pigtail catheter were inserted superior to the adjacent rib using a modified Seldinger technique and the pigtail catheter was advanced in a modified Seldinger Technique, easily and without resistance. The catheter was connected to a Pleur-o-vac and connected to -[id number] suction. The catheter was sutured to the skin using a 3-0 silk sandal suture and an occlusive dressing was applied. There were no immediate complications noted. There was minimal EBL. The patient tolerated the procedure well. Approximately 1 L of serous fluid was removed. A Chest x-ray has been ordered. I personally performed the procedure.
[2018-08-08] MEDS: Chlorhexidine Gluconate 2% 1 Pack (2 Cloths) TOPICAL SCH (03:57)
[2018-08-08] MEDS ORDERED: Chlorhexidine Gluconate 2% 1 Pack (2 Cloths) TOPICAL PRN (04:00)
--- NOTE | 2018-08-08 05:13 | ECG ---
Date Performed: 08/07/2018 Time Performed: 19:59:41 PTAGE: 47 years EKG: SINUS TACHYCARDIA LOW QRS VOLTAGE POSSIBLE ANTERIOR MYOCARDIAL INFARCTION ABNORMAL ECG Comp ared to prior electrocardiogram, Rate has increased, poor R wave progression is present and voltage h as decreased. PREVIOUS TRACING : 07/01/2018 00.08 DOCTOR: Winston Maravilla Interpretating Date/Time 08/08/2018 05:11:36
[2018-08-08] MEDS: Heparin - SQ 10,000 UNITS/ML Vial SQ SCH ×3 (06:01→22:10)
[2018-08-08] MEDS ORDERED: Vancomycin Inj 1,000 MG in Sodium Chlor 0.9% Inj 250 ML IV.SIG ONE (08:00)
[2018-08-08 08:32] LABS: Baso % (Auto) 0.4 % (0.0-2.0); Eos % (Auto) 0.1 % (0.0-4.0); Hematocrit 29.8 % (35.0-46.0); Hemoglobin 9.4 gm/dL (11.6-15.3); Lymph # (Auto) 0.5 th/mm3 (1.0-4.8); Lymph % (Auto) 5.2 % (9.0-44.0); Mean Corpuscular HGB Conc 31.7 % (32.0-36.0); Mean Corpuscular Hemoglobin 28.7 pg (27.0-34.0); Mean Corpuscular Volume 90.3 fL (80.0-100.0); Mean Platelet Volume 7.7 fL (7.0-11.0); Mono # (Auto) 0.5 th/mm3 (0.0-0.9); Mono % (Auto) 5.8 % (0.0-8.0); Neut # (Auto) 7.8 th/mm3 (1.8-7.7); Neut % (Auto) 88.5 % (16.0-70.0); Platelet Count 154 th/mm3 (150-450); Red Cell Distribution Width 16.4 % (11.6-17.2); White Blood Count 8.8 th/mm3 (4.0-11.0)
[2018-08-08 08:57] LABS: Anion Gap 10 meq/L (5-15); Blood Urea Nitrogen 27 mg/dL (7-18); Calcium 6.8 mg/dL (8.5-10.1); Carbon Dioxide 19.8 meq/L (21.0-32.0); Chloride 106 meq/L (98-107); Glomerular Filtration Rate Greater Than 89 mL/min (>89); Glucose,Random 98 mg/dL (74-106); Magnesium 2.2 mg/dL (1.5-2.5); Phosphorus 3.5 mg/dL (2.5-4.9); Potassium 5.6 meq/L (3.5-5.1); Sodium 136 meq/L (136-145)
[2018-08-08] MEDS: Famotidine PF Inj 20 MG/2 ML Vial IV.PUSH SCH ×2 (09:16→20:39)
[2018-08-08] MEDS: Polyethylene Glycol 3350 17 GM Packet PO SCH ×2 (09:17→20:40)
[2018-08-08] MEDS: Sodium Chloride 0.9% 2 ML Flush BID IV.FLUSH SCH ×2 (09:17→20:40)
[2018-08-08] MEDS: Senna/Docusate Sodium 8.6/50 MG Tablet PO SCH ×2 (09:18→20:41)
[2018-08-08 09:40] LABS: Total Protein 6.2 g/dL (6.4-8.2)
--- NOTE | 2018-08-08 09:49 | P.PNCC ---
Subjective Subjective Remarks/Hospital Course: This is a 47-year-old female with widely metastatic melanoma who presents with a 2-day history of cough, fatigue, fever, chills. She has a chronic indwelling Elena. In the emergency department she was hypotensive and in respiratory distress. She is very altered and obtunded and no information is available from her. Her and son are here and they have expressed that she has wishes to be a DNR CODE STATUS, which we will honor. She has an elevated white blood cell count. She has pyuria with her indwelling Elena catheter. In the emergency department she was given a dose of vancomycin and Zosyn. She has a new large left pleural effusion. After discussion with the family we together feel that it is reasonable to drain this effusion as it may be parapneumonic edema versus metastatic. I placed a pigtail catheter, see separate procedure note for details, and obtained greater than a liter of serous appearing fluid. Review of systems is unobtainable. 08/08 Patient is lying in bed in NAD. Afebrile. Tachycardia, afebrile. Objective Vital Signs / I&O: Vital Signs 08/07/18 18:14 08/07/18 18:51 08/07/18 19:47 Temperature 98.6 F 100.1 F H Pulse Rate 64 124 H 126 H Respiratory Rate 20 24 Blood Pressure 174/88 H 101/65 123/86 Pulse Oximetry 99 98 97 08/07/18 20:00 08/07/18 20:40 08/07/18 20:51 Temperature Pulse Rate 112 H Respiratory Rate 24 20 20 Blood Pressure 112/66 Pulse Oximetry 99 08/07/18 21:00 08/07/18 22:00 08/08/18 01:30 Temperature 99.0 F 98.9 F Pulse Rate 120 H 112 H 103 H Respiratory Rate 20 22 11 L Blood Pressure 112/70 108/69 103/55 L Pulse Oximetry 99 100 08/08/18 01:35 08/08/18 01:39 08/08/18 01:40 Temperature Pulse Rate 102 H 101 H Respiratory Rate 11 L 10 L Blood Pressure 103/59 L 110/61 Pulse Oximetry 100 100 100 08/08/18 01:45 08/08/18 01:50 08/08/18 01:55 Temperature Pulse Rate 101 H 101 H 96 H Respiratory Rate 11 L 11 L 10 L Blood Pressure 103/63 101/59 L 107/63 Pulse Oximetry 100 100 100 08/08/18 02:00 08/08/18 02:05 08/08/18 02:10 Temperature Pulse Rate 100 H 98 H 99 H Respiratory Rate 11 L 14 11 L Blood Pressure 107/61 104/57 L 111/58 L Pulse Oximetry 100 100 100 08/08/18 02:15 08/08/18 02:20 08/08/18 02:25 Temperature Pulse Rate 98 H 100 H 97 H Respiratory Rate 11 L 12 17 Blood Pressure 113/67 109/68 109/77 Pulse Oximetry 100 100 100 08/08/18 02:30 08/08/18 02:35 08/08/18 02:40 Temperature Pulse Rate 99 H 127 H 121 H Respiratory Rate 25 H 13 11 L Blood Pressure 114/60 138/67 130/73 Pulse Oximetry 100 100 100 08/08/18 02:45 08/08/18 02:50 08/08/18 02:55 Temperature Pulse Rate 111 H 104 H 102 H Respiratory Rate 11 L 11 L 10 L Blood Pressure 122/67 114/64 113/61 Pulse Oximetry 100 100 100 08/08/18 03:00 08/08/18 03:05 08/08/18 03:10 Temperature Pulse Rate 101 H 101 H 99 H Respiratory Rate 11 L 11 L 21 Blood Pressure 109/65 109/63 112/67 Pulse Oximetry 100 100 100 08/08/18 03:15 08/08/18 03:20 08/08/18 03:25 Temperature Pulse Rate 97 H 100 H 100 H Respiratory Rate 10 L 11 L 11 L Blood Pressure 118/61 120/63 112/59 L Pulse Oximetry 100 100 100 08/08/18 03:30 08/08/18 03:35 08/08/18 03:40 Temperature Pulse Rate 98 H 98 H 119 H Respiratory Rate 12 11 L 12 Blood Pressure 112/61 109/62 131/75 Pulse Oximetry 100 100 100 08/08/18 03:45 08/08/18 03:50 08/08/18 04:00 Temperature 98.7 F Pulse Rate 113 H 116 H 101 H Respiratory Rate 15 15 21 Blood Pressure 112/67 124/74 120/63 Pulse Oximetry 100 100 100 08/08/18 04:25 08/08/18 04:26 08/08/18 05:00 Temperature Pulse Rate 106 H 101 H Respiratory Rate 15 18 Blood Pressure 114/71 Pulse Oximetry 100 100 08/08/18 06:00 08/08/18 09:03 Temperature Pulse Rate 115 H 119 H Respiratory Rate 20 20 Blood Pressure 119/70 Pulse Oximetry 100 100 Intake & Output 08/07/18 08/08/18 08/08/18 18:59 06:59 18:59 Intake Total 3350 / 3350 Output Total 1300 / 1300 Balance 2049 / 2049 Weight 80.739 kg 69 kg Intake: IV 3350 / 3350 LR 1000 mL Inj 1,000 ML @ 125 1000 / 1000 mls/hr IV.CONT .Q8H [facility] Rx#: [id number] Flexbumin 25% Inj 100 ML @ 100 100 / 100 mls/hr IV.SIG UNSCH X1 [facility] Rx#: [id number] Zosyn 4.5 GM Premix 4.5 gm In 200 / 200 100 ml @ 200 mls/hr IV.SIG Q6H [facility] Rx#:[id number] NS Inj 800 ML @ Wide Open IV. 1800 / 1800 SIG .Q0M [facility] Rx#:[id number] Vancomycin Inj 1,000 MG In NS 250 / 250 Inj 250 ML @ 250 mls/hr IV.SIG ONCE ONE Rx#:[id number] Oral 0 / 0 Output: Urine Amount (Catheter) 150 / 150 Indwelling Urethral Catheter 150 / 150 Chest Tube Drainage 1150 / 1150 #1 Left Upper Pleural 1150 / 1150 Other: Weight On Admission 69 kg Result Diagrams: 08/08/18 08:06 08/08/18 13:01 Other Results: Laboratory Results - last 12 hr 08/07/18 08/08/18 08/08/18 23:20 00:15 01:00 WBC RBC Hgb Hct MCV MCH MCHC RDW Plt Count MPV Neut % (Auto) Lymph % (Auto) [place] % (Auto) Eos % (Auto) Baso % (Auto) Neut # (Auto) Lymph # (Auto) [place] # (Auto) Eos # (Auto) Baso # (Auto) WBC Differential Differential Comment Sodium Potassium Chloride Carbon Dioxide Anion Gap BUN Creatinine Estimated GFR Random Glucose Lactic Acid 2.9 H Calcium Prot Corrected Calcium Phosphorus Magnesium Total Protein Urine Color Urine Clarity Urine pH Ur Specific [place] Urine Protein Urine Glucose (UA) Urine Ketones Urine Occult Blood Urine Nitrate Urine Bilirubin Urine Urobilinogen Ur Leukocyte Esterase Urine RBC Urine WBC Urine WBC Clumps Urine Bacteria Urine Mucus Micro UA Comment Ur Microscopic Review Urine Culture Comments Pleural pH Pleural RBC Pleural Nuc Cells Pleural Neutrophils Pleural Lymphocytes Pleural Monocytes Pleural Plasma Cells Pleural Mesothelial Pleural Fluid Comment Pleural Total Protein Pleural Albumin 1.9 Pleural LDH Pleural Glucose Nasal Screen MRSA (PCR) Mrsa detected 08/08/18 08/08/18 08/08/18 01:00 01:00 01:00 WBC RBC Hgb Hct MCV MCH MCHC RDW Plt Count MPV Neut % (Auto) Lymph % (Auto) [place] % (Auto) Eos % (Auto) Baso % (Auto) Neut # (Auto) Lymph # (Auto) [place] # (Auto) Eos # (Auto) Baso # (Auto) WBC Differential Differential Comment Sodium Potassium Chloride Carbon Dioxide Anion Gap BUN Creatinine Estimated GFR Random Glucose Lactic Acid Calcium Prot Corrected Calcium Phosphorus Magnesium Total Protein Urine Color Urine Clarity Urine pH Ur Specific [place] Urine Protein Urine Glucose (UA) Urine Ketones Urine Occult Blood Urine Nitrate Urine Bilirubin Urine Urobilinogen Ur Leukocyte Esterase Urine RBC Urine WBC Urine WBC Clumps Urine Bacteria Urine Mucus Micro UA Comment Ur Microscopic Review Urine Culture Comments Pleural pH Pleural RBC 4447 H Pleural Nuc Cells 395 H Pleural Neutrophils 8 Pleural Lymphocytes 83 Pleural Monocytes 3 Pleural Plasma Cells 1 Pleural Mesothelial 5 Pleural Fluid Comment Pleural Total Protein Pleural Albumin Pleural LDH 831 Pleural Glucose 111 Nasal Screen MRSA (PCR) 08/08/18 08/08/18 08/08/18 01:00 01:00 01:00 WBC RBC Hgb Hct MCV MCH MCHC RDW Plt Count MPV Neut % (Auto) Lymph % (Auto) [place] % (Auto) Eos % (Auto) Baso % (Auto) Neut # (Auto) Lymph # (Auto) [place] # (Auto) Eos # (Auto) Baso # (Auto) WBC Differential Differential Comment Sodium Potassium Chloride Carbon Dioxide Anion Gap BUN Creatinine Estimated GFR Random Glucose Lactic Acid Calcium Prot Corrected Calcium Phosphorus Magnesium Total Protein Urine Color Yellow Urine Clarity Turbid H Urine pH 6.0 Ur Specific [place] Greater than 1.060 H Urine Protein 100 H Urine Glucose (UA) Negative Urine Ketones Negative Urine Occult Blood Moderate H Urine Nitrate Negative Urine Bilirubin Negative Urine Urobilinogen Less than 2 Ur Leukocyte Esterase Moderate H Urine RBC 139 H Urine WBC Urine WBC Clumps Many H Urine Bacteria Occasional H Urine Mucus Moderate H Micro UA Comment Cath-culture ind Ur Microscopic Review Not Reportable Urine Culture Comments Cath-cult indicated Pleural pH 8.0 Pleural RBC Pleural Nuc Cells Pleural Neutrophils Pleural Lymphocytes Pleural Monocytes Pleural Plasma Cells Pleural Mesothelial Pleural Fluid Comment Pleural Total Protein 4.1 Pleural Albumin Pleural LDH Pleural Glucose Nasal Screen MRSA (PCR) 08/08/18 08/08/18 08:06 08:06 WBC 8.8 RBC 3.30 L Hgb 9.4 L Hct 29.8 L MCV 90.3 MCH 28.7 MCHC 31.7 L RDW 16.4 Plt Count 154 D MPV 7.7 Neut % (Auto) 88.5 H Lymph % (Auto) 5.2 L [place] % (Auto) 5.8 Eos % (Auto) 0.1 Baso % (Auto) 0.4 Neut # (Auto) 7.8 H Lymph # (Auto) 0.5 L [place] # (Auto) 0.5 Eos # (Auto) 0.0 Baso # (Auto) 0.0 WBC Differential . Differential Comment Auto diff final Sodium 136 Potassium 5.6 H Chloride 106 Carbon Dioxide 19.8 L Anion Gap 10 BUN 27 H Creatinine 0.51 Estimated GFR Greater than 89 Random Glucose 98 Lactic Acid Calcium 6.8 L* D Prot Corrected Calcium 7.3 L* Phosphorus 3.5 Magnesium 2.2 Total Protein 6.2 L D Urine Color Urine Clarity Urine pH Ur Specific [place] Urine Protein Urine Glucose (UA) Urine Ketones Urine Occult Blood Urine Nitrate Urine Bilirubin Urine Urobilinogen Ur Leukocyte Esterase Urine RBC Urine WBC Urine WBC Clumps Urine Bacteria Urine Mucus Micro UA Comment Ur Microscopic Review Urine Culture Comments Pleural pH Pleural RBC Pleural Nuc Cells Pleural Neutrophils Pleural Lymphocytes Pleural Monocytes Pleural Plasma Cells Pleural Mesothelial Pleural Fluid Comment Pleural Total Protein Pleural Albumin Pleural LDH Pleural Glucose Nasal Screen MRSA (PCR) Imaging: Chest CTA 08/07/18 19:02 CONCLUSION: 1. No pulmonary embolus. 2. Moderate to large pleural effusion now present on the left, probably metastatic. There is a large paraspinous and left apical mass now present. 3. Worsening chest wall malignancy. New supraclavicular and right axillary metastatic adenopathy. 4. Metastatic pulmonary nodules modestly worse. 5. Interim upper thoracic laminectomy and fusion; associated metallic streak artifact limits visualization of the spinal canal. Large amount of soft tissue in the laminectomy bed. Mottled metastatic changes of upper thoracic vertebra. Head CT 08/07/18 19:42 CONCLUSION: 1. No acute intracranial abnormality. 2. Specifically, no gross mass or mass effect. . Chest X-Ray 08/08/18 00:00 CONCLUSION: Left thoracostomy tube placement with significant improvement in aeration. Chest CTA 08/07/18 19:02 CONCLUSION: 1. No pulmonary embolus. 2. Moderate to large pleural effusion now present on the left, probably metastatic. There is a large paraspinous and left apical mass now present. 3. Worsening chest wall malignancy. New supraclavicular and right axillary metastatic adenopathy. 4. Metastatic pulmonary nodules modestly worse. 5. Interim upper thoracic laminectomy and fusion; associated metallic streak artifact limits visualization of the spinal canal. Large amount of soft tissue in the laminectomy bed. Mottled metastatic changes of upper thoracic vertebra. Head CT 08/07/18 19:42 CONCLUSION: 1. No acute intracranial abnormality. 2. Specifically, no gross mass or mass effect. . Chest X-Ray 08/08/18 00:00 CONCLUSION: Left thoracostomy tube placement with significant improvement in aeration. Objective Remarks: GENERAL: Patient is 47 yo lying in bed in NAD SKIN: Warm and dry. HEAD: Normocephalic. EYES: No scleral icterus. No injection or drainage. NECK: Supple, trachea midline. No JVD or lymphadenopathy. CARDIOVASCULAR: Tachycardic without murmurs, gallops, or rubs. RESPIRATORY: Breath sounds equal bilaterally. No accessory muscle use. GASTROINTESTINAL: Abdomen soft, non-tender, nondistended. MUSCULOSKELETAL: No cyanosis, or edema. Neuro: Awake and alert Assessment and Plan - Assessment and Plan Plan: Assessment: 47-year-old female with widely metastatic melanoma who presents in severe sepsis from either urinary source versus pneumonia with possible parapneumonic empyema. 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 this is chronic and unchanged. Respiratory: Large left pleural effusion Acute hypoxemia Continue with oxygen keep sats > 92% Bronchodilators 08/08 left pigtail catheter to suction.Monitor CT drainage ( Drained 1150ml since insertion) Exudative effusion likely 2nd malignancy CT chest: Moderate to large pleural effusion now present on the left, probably metastatic. There is a large paraspinous and left apical mass now present. Worsening chest wall malignancy. New supraclavicular and right axillary metastatic adenopathy. Metastatic pulmonary nodules modestly worse. Interim upper thoracic laminectomy and fusion; associated metallic streak artifact limits visualization of the spinal canal. Large amount of soft tissue in the laminectomy bed. Mottled metastatic changes of upper thoracic vertebra. Cardiovascular: Monitor HR and BP keep MAP>65mmHg Place on Lopressor 12.5mg BID Lactic acid 2.9 last night from 5.8 Renal: Acute kidney injury Chronic neurogenic bladder Monitor renal function, I/O's, electrolytes replacement per protocol. Treat hyperkalemia with 7u IV insulin, D50, sodium bicarb, Kayexalate and [place]. FEN/GI: Lactic acidosis N.p.o. On Pepcid 20mg IV Q12 for GI prophylaxis Heme/ID: Urinary tract infection Possible pneumonia Continue abx ( vanco, Zosyn) monitor for signs of infections ( Fever, WBC) Follow up on blood, urine and fluid cxs. Endocrine: -- SSI for glycemic control Prophylaxis: GI Prophylaxis Pepcid DVT Prophylaxis -- SCDs Lovenox Lines: Peripheral IVs Dispo: No code DNR CODE STATUS. Palliative care is following Will sign off and transfer care to [facility] 2
[2018-08-08] MEDS ORDERED: Sodium Polystyrene Sulfonate/Sorbitol Liq 15 GM/60 ML UDC PO ONE (10:13)
--- NOTE | 2018-08-08 11:08 | P.CONPAL ---
Consult Service: Palliative Care Requesting Physician: Benito Love Reason for Consult: a. To assist with evaluation and management of symptoms including: pain, dyspnea b. To assist medical decision maker(s) with: better understanding of current medical conditions; weighing benefits/burdens of medical treatment options; making medical treatment decisions. Primary Care Provider: Radha Mcadams MD History of Present Illness History of Present Illness: This is a [id number]-female, with a history of metastatic malignant melanoma, she is known to palliative care services from a visit in November 2017. She was brought the the ED by her and son on 08/07/18 with one day history of worsening shortness of breath and weakness. Additional history: * She was originally diagnosed with left breast malignant melanoma in Oct 2017 after undergoing/ left breast core biopsy to confirm pathology. At that time, she presented to the ED with a 3-month history of left breast swelling. At that time, CT of the chest showed the entire left breast is filled with multiple / masses. There was also extensive adenopathy in the left axilla, left supraclavicular and superior mediastinum. There are also small nodules in the lung suspicious for metastatic disease. CT of the abdomen and pelvis was essentially negative. * On 10/22/17, patient was once again brought to the ED by her family with a 4- day history of paresthesia from the hip down and urinary retention. At that time she underwent MRI of the lumbar spine which was negative for evidence of metastasis, however cervical and thoracic spine MRI significant for multiple lesions along the left chest wall, left shoulder, large left paraspinal mass at 4T8, but more notably at T6 and invades T6 vertebral body, left aspect of T5 vertebral body, and extends into left epidural space. On 10/23/17, she underwent decompressive laminectomy of T4-T8. At time of discharge on 10/22/17, patient was able to move her upper extremities spontaneously, but can follow simple commands of bilateral lower extremities. * Patient was discharged to rehab and then home, at that time because status was discussed elected DNR status, and declined hospice services. Of note, she did start chemotherapy in November 2017, however as of January, she had not followed up since Nov and had missed a few appointments. She was seen in the ED in June with reported carpal lower nodules on her left upper back, got from she and her about cancer had been stabilized though she still had residual mass primarily in the left axillary area with extension toward the left breast. On brought to ED for generalized weakness and shortness of breath getting worse over the course of the day. She has been reportedly short of breath at rest, worse when laying flat. She was also having pain in the left axillary back region melanoma she rated 8/10. Patient was admitted to the ICU, had pigtail catheter placed with over a liter of serous fluid returned. Current ED course: Patient had focal facial seizures, she had no known history of seizures. Notes indicate suspicion for brain metastasis. Family reaffirmed patient's wishes for DNR status. Lung CTA: 1. No pulmonary embolus.2. Moderate to large pleural effusion now present on the left, probably metastatic. There is a large paraspinous and left apical mass now present.3. Worsening chest wall malignancy. New supraclavicular and right axillary metastatic adenopathy.4. Metastatic pulmonary nodules modestly worse.5. Interim upper thoracic laminectomy and fusion; associated metallic streak artifact limits visualization of the spinal canal. Large amount of soft tissue in thelaminectomy bed. Mottled metastatic changes of upper thoracic vertebra. CT brain: negative CXR: Small to moderate pleural effusion. Left lower lobe consolidation concerning for pneumonia or aspiration. Pigtail catheter was placed by business programmer Dr. Santizo, with greater than a liter of serous fluid removed. Patient seen and examined in her room with no family at bedside. Dual visit with Isidoro Pugh APRN. She is alert and awake, oriented x3, she is forgetful at times and has difficulty finding words. She has a flat affect. Limited exploration of condition, prognosis, etc., due to flat affect, forgetfulness, limited engagement. Upon exploration, she did not seem to have memory of discussion about CODE STATUS, was unable to report how many years she had been , thought she was in the hospital for leg spasms and denied back pain, did not remember placement of pigtail catheter earlier this morning. She is overall comfortable, denies any distress or discomfort. Discussed we are awaiting labs and cytology of pleural fluid to discuss further treatment options. She did ask us to call her which we did. Function/Cognitive Trajectory: Patient has remained paraplegic since spinal surgery in October. She has a chronic indwelling Elena secondary to urinary retention. She requires a Chris lift for transfer. Requires significant assistance with ADLs. Has been reports no cognitive deficits prior to yesterday's events.. . Review of Systems Constitutional: Reports fatigue, Reports lack of energy, Reports malaise, Reports weakness Ears, Nose, Mouth, and Throat: Reports sore throat Cardiovascular: Reports fast heart rate, Reports shortness of breath, Reports shortness of breath when lying down Respiratory: Reports chest congestion (difficulty expectorating sputum.), Reports shortness of breath Gastrointestinal: Denies constipation, Denies nausea, Denies vomiting Genitourinary: Reports difficulty urinating (has chronic indwelling catheter secondary to retention) Comments: Chronic indwelling Elena secondary to urinary retention Musculoskeletal: Reports back pain (Secondary to malignant melanoma, new lumps in the past few months.), Reports muscle weakness, Reports numbness (Lower extremity paralysis,) Skin/Breast: Reports breast pain (Secondary to malignant melanoma), Reports breast lump, Reports hair loss (minimal secondary to chemo therapy), Reports new lesions ( reports new back lesions) Neurologic: Reports abnormal movements (recent spasm in since spinal lesions), Reports behavioral changes (flat affect and slow speech over the past few days.) , Reports seizure-like activity, Reports sensory deficit (Bilateral lower extremity paralysis), Reports other (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) Hematologic/Lymphatic: Reports enlarged lymph nodes (Secondary to malignancy) PMFSH - History History Provided By: Family Member, Medical Record - Medical History Medical History: Medical History (Last Updated 08/08/18 @ 10:52 by KYLAH Murrieta) MDRO (multiple drug resistant organisms) resistance Onset Date: ~08/08/18 Paralysis of both lower limbs HTN (hypertension) Melanoma Tubal ligation status - Surgical History Surgical History: Surgical History (Last Reviewed 08/08/18 @ 09:37 by Hardik Marte) Hx of neck surgery Hx of spinal surgery - Family History Family History: Family History (Last Updated 08/08/18 @ 15:55 by KYLAH Murrieta) Mother Family history of acute myocardial infarction Other Heart disease - Social History I have reviewed the patient's Social History: Yes - Tobacco History Second Hand Smoke Exposure: Yes Smoking Status: Former smoker - Alcohol History How Often Do You Have a Drink Containing Alcohol: Never - Substance Use History Substance History: No History of Abuse - Travel History Recent Travel in the [place] Within the Last 8 Weeks: No Recent Travel Out of the Country Within the Last 8 Weeks: No - Immunization History Tetanus Immunization: <5 Years Medications and Allergies Allergies Allergy/AdvReac Type Severity Reaction Status Date / Time No Known Allergies Allergy Verified 08/07/18 18:51 Home Medications Medication Instructions Recorded Confirmed Type baclofen 10 mg PO TID 08/07/18 08/07/18 History escitalopram oxalate 20 mg PO DAILY 08/07/18 08/07/18 History Active Medications: Active Medications Albuterol (Duoneb Neb (Prn)) 1 ampul NEB Q2HR NEB PRN PRN Reason: WHEEZING Last Admin: 08/08/18 09:08 Dose: 1 ampul Albuterol (Duoneb Neb (Antoni)) 1 ampul NEB Q6HR NEB ANTONI Bisacodyl (Dulcolax Supp) 10 mg RECTAL DAILY PRN PRN Reason: if no BM in last 24h Chlorhexidine Gluconate (Chlorhexidine 2% Cloth) 3 pack TOPICAL DAILY@0400 ANTONI Stop: 08/13/18 03:59 Last Admin: 08/08/18 03:57 Dose: 3 pack Chlorhexidine Gluconate (Chlorhexidine 2% Cloth) 3 pack TOPICAL DAILY@0400 PRN PRN Reason: Extra cloth needed Stop: 08/13/18 03:59 Famotidine (Pepcid Pf Inj) 20 mg IV.PUSH Q12HR [facility] Last Admin: 08/08/18 09:16 Dose: 20 mg Heparin Sodium (Porcine) (Heparin Inj) 5,000 units SQ Q8HR [facility] Last Admin: 08/08/18 06:01 Dose: 5,000 units Hydromorphone HCl (Dilaudid Pf Inj) 0.25 mg IV.PUSH Q1H PRN PRN Reason: pain 8-10 or not taking po Last Admin: 08/08/18 01:00 Dose: 0.25 mg Magnesium Sulfate 4 gm/ Sodium (Chloride) 100 mls @ 50 mls/hr IV.SIG UNSCH PRN PRN Reason: For Magnesium 0.9 - 1.1 mg/dL Magnesium Sulfate 2 gm/ Sodium (Chloride) 100 mls @ 50 mls/hr IV.SIG UNSCH PRN PRN Reason: For Magnesium 1.2 - 1.6 mg/dL Potassium Chloride (Kcl 40 Meq Premix Inj) 40 meq in 100 mls @ 25 mls/hr IV.SIG Q2H PRN PRN Reason: For Potassium 2.8 - 3.2 mEq/L Potassium Chloride (Kcl 20 Meq Premix Inj) 20 meq in 100 mls @ 50 mls/hr IV.SIG Q2H PRN PRN Reason: For Potassium 3.3 - 3.5 mEq/L Potassium Chloride (Kcl 40 Meq Premix Inj) 40 meq in 100 mls @ 25 mls/hr IV.SIG UNSCH PRN PRN Reason: For Potassium 3.3 - 3.5 mEq/L Potassium Chloride (Kcl 20 Meq Premix Inj) 20 meq in 100 mls @ 50 mls/hr IV.SIG Q2H PRN PRN Reason: For Potassium 2.8 - 3.2 mEq/L Potassium Phosphate 30 mmol/ (Sodium Chloride) 260 mls @ 42 mls/hr IV.SIG UNSCH PRN PRN Reason: SEE LABEL COMMENTS Sodium Phosphate 30 mmol/ (Sodium Chloride) 260 mls @ 42 mls/hr IV.SIG UNSCH PRN PRN Reason: For Phosphorus < 2.5 mg/dL Piperacillin/Tazobactam/Dextrose (Zosyn 4.5 Gm Premix) 4.5 gm in 100 mls @ 200 mls/hr IV.SIG Q6H ANTONI Last Admin: 08/08/18 09:12 Dose: 200 mls/hr Vancomycin HCl 1,250 mg/ (Sodium Chloride) 262.5 mls @ 250 mls/hr IV.SIG Q12H ANTONI Lactulose (Lactulose Liq) 30 ml PO BID [facility] Last Admin: 08/08/18 09:17 Dose: Not Given Magnesium Oxide (Mag-Ox) 800 mg PO UNSCH PRN PRN Reason: For Magnesium 1.2 - 1.6 mg/dL Metoprolol Tartrate (Lopressor) 12.5 mg PO BID [facility] Miscellaneous Information ([facility] Ordered Lab Info) 0 each OTHER ONCE ONE Stop: 08/10/18 08:46 Ondansetron HCl (Zofran Inj) 4 mg IV.PUSH Q6H PRN PRN Reason: NAUSEA OR VOMITING Last Admin: 08/08/18 10:01 Dose: 4 mg Oxycodone HCl (Roxicodone) 5 mg PO Q4H PRN PRN Reason: Pain 1-5 Pharmacy Profile Note (Vancomycin Consult Pharmacy) 1 each OTHER UNSCH PRN PRN Reason: Pharmacy to dose Polyethylene Glycol (Miralax) 17 gm PO BID [facility] Last Admin: 08/08/18 09:17 Dose: 17 gm Potassium Bicarb/Potassium Chloride (K-Lyte Cl Eff) 50 meq PO UNSCH PRN PRN Reason: For Potassium 3.3 - 3.5 mEq/L Potassium Phosphate (K-Phos Original) 2,000 mg PO Q4H PRN PRN Reason: Phosphorus Less Than 2.5 mg/dL Potassium Phosphate (K-Phos Original) 2,000 mg PO UNSCH PRN PRN Reason: SEE LABEL COMMENTS Senna/Docusate Sodium (Maribeth-Colace) 1 tab PO BID [facility] Last Admin: 08/08/18 09:18 Dose: Not Given Sodium Chloride (Ns Flush) 2 ml IV.FLUSH UNSCH PRN PRN Reason: FLUSH AFTER USING IV ACCESS Sodium Chloride (Ns Flush) 2 ml IV.FLUSH BID [facility] Last Admin: 08/08/18 09:17 Dose: 2 ml Advance Directives Living Will: No (Declined in March) Healthcare Surrogate: No Power of Trauma Program Manager: No Ethical and Legal Issues: Patient having some mild confusion/forgetfulness, best supported by and decision making. He would be appropriate proxy per [place] statutes. . Physical Exam Vital Signs: Vital Signs - 24 hr 08/07/18 18:14 08/07/18 18:51 08/07/18 19:47 Temperature 98.6 F 100.1 F H Pulse Rate 64 124 H 126 H Respiratory Rate 20 24 Blood Pressure 174/88 H 101/65 123/86 Pulse Oximetry 99 98 97 08/07/18 20:00 08/07/18 20:40 08/07/18 20:51 Temperature Pulse Rate 112 H Respiratory Rate 24 20 20 Blood Pressure 112/66 Pulse Oximetry 99 08/07/18 21:00 08/07/18 22:00 08/08/18 01:30 Temperature 99.0 F 98.9 F Pulse Rate 120 H 112 H 103 H Respiratory Rate 20 22 11 L Blood Pressure 112/70 108/69 103/55 L Pulse Oximetry 99 100 08/08/18 01:35 08/08/18 01:39 08/08/18 01:40 Temperature Pulse Rate 102 H 101 H Respiratory Rate 11 L 10 L Blood Pressure 103/59 L 110/61 Pulse Oximetry 100 100 100 08/08/18 01:45 08/08/18 01:50 08/08/18 01:55 Temperature Pulse Rate 101 H 101 H 96 H Respiratory Rate 11 L 11 L 10 L Blood Pressure 103/63 101/59 L 107/63 Pulse Oximetry 100 100 100 08/08/18 02:00 08/08/18 02:05 08/08/18 02:10 Temperature Pulse Rate 100 H 98 H 99 H Respiratory Rate 11 L 14 11 L Blood Pressure 107/61 104/57 L 111/58 L Pulse Oximetry 100 100 100 08/08/18 02:15 08/08/18 02:20 08/08/18 02:25 Temperature Pulse Rate 98 H 100 H 97 H Respiratory Rate 11 L 12 17 Blood Pressure 113/67 109/68 109/77 Pulse Oximetry 100 100 100 08/08/18 02:30 08/08/18 02:35 08/08/18 02:40 Temperature Pulse Rate 99 H 127 H 121 H Respiratory Rate 25 H 13 11 L Blood Pressure 114/60 138/67 130/73 Pulse Oximetry 100 100 100 08/08/18 02:45 08/08/18 02:50 08/08/18 02:55 Temperature Pulse Rate 111 H 104 H 102 H Respiratory Rate 11 L 11 L 10 L Blood Pressure 122/67 114/64 113/61 Pulse Oximetry 100 100 100 08/08/18 03:00 08/08/18 03:05 08/08/18 03:10 Temperature Pulse Rate 101 H 101 H 99 H Respiratory Rate 11 L 11 L 21 Blood Pressure 109/65 109/63 112/67 Pulse Oximetry 100 100 100 08/08/18 03:15 08/08/18 03:20 08/08/18 03:25 Temperature Pulse Rate 97 H 100 H 100 H Respiratory Rate 10 L 11 L 11 L Blood Pressure 118/61 120/63 112/59 L Pulse Oximetry 100 100 100 08/08/18 03:30 08/08/18 03:35 08/08/18 03:40 Temperature Pulse Rate 98 H 98 H 119 H Respiratory Rate 12 11 L 12 Blood Pressure 112/61 109/62 131/75 Pulse Oximetry 100 100 100 08/08/18 03:45 08/08/18 03:50 08/08/18 04:00 Temperature 98.7 F Pulse Rate 113 H 116 H 101 H Respiratory Rate 15 15 21 Blood Pressure 112/67 124/74 120/63 Pulse Oximetry 100 100 100 08/08/18 04:25 08/08/18 04:26 08/08/18 05:00 Temperature Pulse Rate 106 H 101 H Respiratory Rate 15 18 Blood Pressure 114/71 Pulse Oximetry 100 100 08/08/18 06:00 08/08/18 09:03 Temperature Pulse Rate 115 H 119 H Respiratory Rate 20 20 Blood Pressure 119/70 Pulse Oximetry 100 100 I&O: Intake & Output 08/06/18 08/07/18 08/08/18 08/09/18 06:59 06:59 06:59 06:59 Intake Total 3350 / 3350 Output Total 1300 / 1300 Balance 2049 / 2049 Weight 69 kg Physical Exam: CONSTITUTIONAL/GENERAL: This is an adequately nourished patient, in no apparent distress. Flat affect TUBES/LINES/DRAINS: Left chest pigtail catheter, Elena catheter, right hand PIV , right AC PIV, left forearm PIV, nasal cannula SKIN: Pale .no jaundice, rashes. Reported lesions on back, not visualized. Left breast extending to axillary with firm palpable masses. HEAD: Atraumatic. Normocephalic. EYES: Pupils equal and round and reactive. Extraocular motions intact. No scleral icterus. No injection or drainage. Fundi not examined. Slight left eye droop and deviated gaze. ENT: Hearing grossly normal. Nose without bleeding or purulent drainage. Throat without visible erythema, exudates, masses, or lesions. NECK: Trachea midline. Supple, nontender. No palpable thyroid enlargement or nodularity. CARDIOVASCULAR: Regular rate and rhythm without murmurs. No JVD. Peripheral pulses symmetric. Lower extremities cool with dry skin. RESPIRATORY/CHEST: Symmetric, unlabored respirations. Clear to auscultation. Breath sounds equal bilaterally. Diminished breath sounds. Left upper chest pigtail catheter to wall suction with dressing dry and intact. GASTROINTESTINAL: Abdomen soft, non-tender, nondistended. No hepato-splenomegaly , or palpable masses. No guarding. Bowel sounds present. GENITOURINARY: Without palpable bladder distension. Elena catheter in place. MUSCULOSKELETAL: Extremities without clubbing, cyanosis, or edema. No joint tenderness or effusion noted. No calf tenderness. No mottling or clubbing. LYMPHATICS: No palpable cervical or supraclavicular adenopathy. NEUROLOGICAL: Awake and flat affect. Oriented x3, though slow to respond and appears to have difficulty finding words. Somewhat forgetful. Lower extremities flaccid with slight withdrawal. Moves upper extremities weakly. PSYCHIATRIC: Flat affect . No obvious anxiety/depression. no apparent hallucinations or other psychotic thought process. Diagnostic Tests Laboratory: Laboratory Results - last 72 hr 08/07/18 08/07/18 08/07/18 19:35 19:35 19:35 WBC 9.2 RBC 4.10 Hgb 11.2 L Hct 36.2 MCV 88.2 MCH 27.4 MCHC 31.1 L RDW 16.2 Plt Count 247 MPV 8.2 Neut % (Auto) 77.9 H Lymph % (Auto) 16.2 [place] % (Auto) 5.2 Eos % (Auto) 0.1 Baso % (Auto) 0.6 Neut # (Auto) 7.2 Lymph # (Auto) 1.5 [place] # (Auto) 0.5 Eos # (Auto) 0.0 Baso # (Auto) 0.1 WBC Differential . Differential Comment Auto diff final Sodium 132 L Potassium 5.6 H Chloride 99 Carbon Dioxide 21.5 Anion Gap 12 BUN 34 H Creatinine 0.68 Estimated GFR Greater than 89 POC Glucose Random Glucose 146 H Lactic Acid 5.8 H* Calcium 7.9 L Prot Corrected Calcium Phosphorus Magnesium 2.5 Total Bilirubin 0.4 AST 42 H ALT 17 Alkaline Phosphatase 79 Total Creatine Kinase 176 CK-MB (CK-2) Less than 1.0 Troponin I Less than 0.02 L Total Protein 7.6 Albumin 2.5 L Urine Color Urine Clarity Urine pH Ur Specific [place] Urine Protein Urine Glucose (UA) Urine Ketones Urine Occult Blood Urine Nitrate Urine Bilirubin Urine Urobilinogen Ur Leukocyte Esterase Urine RBC Urine WBC Urine WBC Clumps Urine Bacteria Hyaline Casts Urine Mucus Micro UA Comment Ur Microscopic Review Urine Culture Comments Pleural pH Pleural RBC Pleural Nuc Cells Pleural Neutrophils Pleural Lymphocytes Pleural Monocytes Pleural Plasma Cells Pleural Mesothelial Pleural Fluid Comment Pleural Total Protein Pleural Albumin Pleural LDH Pleural Glucose Nasal Screen MRSA (PCR) 08/07/18 08/07/18 08/07/18 19:56 20:10 23:20 WBC RBC Hgb Hct MCV MCH MCHC RDW Plt Count MPV Neut % (Auto) Lymph % (Auto) [place] % (Auto) Eos % (Auto) Baso % (Auto) Neut # (Auto) Lymph # (Auto) [place] # (Auto) Eos # (Auto) Baso # (Auto) WBC Differential Differential Comment Sodium Potassium Chloride Carbon Dioxide Anion Gap BUN Creatinine Estimated GFR POC Glucose 255 H Random Glucose Lactic Acid 2.9 H Calcium Prot Corrected Calcium Phosphorus Magnesium Total Bilirubin AST ALT Alkaline Phosphatase Total Creatine Kinase CK-MB (CK-2) Troponin I Total Protein Albumin Urine Color Yellow Urine Clarity Turbid H Urine pH 7.0 Ur Specific [place] 1.019 Urine Protein 500 or greater Urine Glucose (UA) Negative Urine Ketones Negative Urine Occult Blood Small H Urine Nitrate Negative Urine Bilirubin Negative Urine Urobilinogen Less than 2 Ur Leukocyte Esterase Moderate H Urine RBC 38 H Urine WBC Urine WBC Clumps Many H Urine Bacteria Many H Hyaline Casts 9 Urine Mucus Few H Micro UA Comment Culture indicated Ur Microscopic Review Not Reportable Urine Culture Comments Culture indicated Pleural pH Pleural RBC Pleural Nuc Cells Pleural Neutrophils Pleural Lymphocytes Pleural Monocytes Pleural Plasma Cells Pleural Mesothelial Pleural Fluid Comment Pleural Total Protein Pleural Albumin Pleural LDH Pleural Glucose Nasal Screen MRSA (PCR) 08/08/18 08/08/18 08/08/18 00:15 01:00 01:00 WBC RBC Hgb Hct MCV MCH MCHC RDW Plt Count MPV Neut % (Auto) Lymph % (Auto) [place] % (Auto) Eos % (Auto) Baso % (Auto) Neut # (Auto) Lymph # (Auto) [place] # (Auto) Eos # (Auto) Baso # (Auto) WBC Differential Differential Comment Sodium Potassium Chloride Carbon Dioxide Anion Gap BUN Creatinine Estimated GFR POC Glucose Random Glucose Lactic Acid Calcium Prot Corrected Calcium Phosphorus Magnesium Total Bilirubin AST ALT Alkaline Phosphatase Total Creatine Kinase CK-MB (CK-2) Troponin I Total Protein Albumin Urine Color Urine Clarity Urine pH Ur Specific [place] Urine Protein Urine Glucose (UA) Urine Ketones Urine Occult Blood Urine Nitrate Urine Bilirubin Urine Urobilinogen Ur Leukocyte Esterase Urine RBC Urine WBC Urine WBC Clumps Urine Bacteria Hyaline Casts Urine Mucus Micro UA Comment Ur Microscopic Review Urine Culture Comments Pleural pH Pleural RBC 4447 H Pleural Nuc Cells 395 H Pleural Neutrophils 8 Pleural Lymphocytes 83 Pleural Monocytes 3 Pleural Plasma Cells 1 Pleural Mesothelial 5 Pleural Fluid Comment Pleural Total Protein Pleural Albumin 1.9 Pleural LDH Pleural Glucose Nasal Screen MRSA (PCR) Mrsa detected 08/08/18 08/08/18 08/08/18 01:00 01:00 01:00 WBC RBC Hgb Hct MCV MCH MCHC RDW Plt Count MPV Neut % (Auto) Lymph % (Auto) [place] % (Auto) Eos % (Auto) Baso % (Auto) Neut # (Auto) Lymph # (Auto) [place] # (Auto) Eos # (Auto) Baso # (Auto) WBC Differential Differential Comment Sodium Potassium Chloride Carbon Dioxide Anion Gap BUN Creatinine Estimated GFR POC Glucose Random Glucose Lactic Acid Calcium Prot Corrected Calcium Phosphorus Magnesium Total Bilirubin AST ALT Alkaline Phosphatase Total Creatine Kinase CK-MB (CK-2) Troponin I Total Protein Albumin Urine Color Urine Clarity Urine pH Ur Specific [place] Urine Protein Urine Glucose (UA) Urine Ketones Urine Occult Blood Urine Nitrate Urine Bilirubin Urine Urobilinogen Ur Leukocyte Esterase Urine RBC Urine WBC Urine WBC Clumps Urine Bacteria Hyaline Casts Urine Mucus Micro UA Comment Ur Microscopic Review Urine Culture Comments Pleural pH 8.0 Pleural RBC Pleural Nuc Cells Pleural Neutrophils Pleural Lymphocytes Pleural Monocytes Pleural Plasma Cells Pleural Mesothelial Pleural Fluid Comment Pleural Total Protein Pleural Albumin Pleural LDH 831 Pleural Glucose 111 Nasal Screen MRSA (PCR) 08/08/18 08/08/18 08/08/18 01:00 01:00 08:06 WBC RBC Hgb Hct MCV MCH MCHC RDW Plt Count MPV Neut % (Auto) Lymph % (Auto) [place] % (Auto) Eos % (Auto) Baso % (Auto) Neut # (Auto) Lymph # (Auto) [place] # (Auto) Eos # (Auto) Baso # (Auto) WBC Differential Differential Comment Sodium 136 Potassium 5.6 H Chloride 106 Carbon Dioxide 19.8 L Anion Gap 10 BUN 27 H Creatinine 0.51 Estimated GFR Greater than 89 POC Glucose Random Glucose 98 Lactic Acid Calcium 6.8 L* D Prot Corrected Calcium 7.3 L* Phosphorus 3.5 Magnesium 2.2 Total Bilirubin AST ALT Alkaline Phosphatase Total Creatine Kinase CK-MB (CK-2) Troponin I Total Protein 6.2 L D Albumin Urine Color Yellow Urine Clarity Turbid H Urine pH 6.0 Ur Specific [place] Greater than 1.060 H Urine Protein 100 H Urine Glucose (UA) Negative Urine Ketones Negative Urine Occult Blood Moderate H Urine Nitrate Negative Urine Bilirubin Negative Urine Urobilinogen Less than 2 Ur Leukocyte Esterase Moderate H Urine RBC 139 H Urine WBC Urine WBC Clumps Many H Urine Bacteria Occasional H Hyaline Casts Urine Mucus Moderate H Micro UA Comment Cath-culture ind Ur Microscopic Review Not Reportable Urine Culture Comments Cath-cult indicated Pleural pH Pleural RBC Pleural Nuc Cells Pleural Neutrophils Pleural Lymphocytes Pleural Monocytes Pleural Plasma Cells Pleural Mesothelial Pleural Fluid Comment Pleural Total Protein 4.1 Pleural Albumin Pleural LDH Pleural Glucose Nasal Screen MRSA (PCR) 08/08/18 08:06 WBC 8.8 RBC 3.30 L Hgb 9.4 L Hct 29.8 L MCV 90.3 MCH 28.7 MCHC 31.7 L RDW 16.4 Plt Count 154 D MPV 7.7 Neut % (Auto) 88.5 H Lymph % (Auto) 5.2 L [place] % (Auto) 5.8 Eos % (Auto) 0.1 Baso % (Auto) 0.4 Neut # (Auto) 7.8 H Lymph # (Auto) 0.5 L [place] # (Auto) 0.5 Eos # (Auto) 0.0 Baso # (Auto) 0.0 WBC Differential . Differential Comment Auto diff final Sodium Potassium Chloride Carbon Dioxide Anion Gap BUN Creatinine Estimated GFR POC Glucose Random Glucose Lactic Acid Calcium Prot Corrected Calcium Phosphorus Magnesium Total Bilirubin AST ALT Alkaline Phosphatase Total Creatine Kinase CK-MB (CK-2) Troponin I Total Protein Albumin Urine Color Urine Clarity Urine pH Ur Specific [place] Urine Protein Urine Glucose (UA) Urine Ketones Urine Occult Blood Urine Nitrate Urine Bilirubin Urine Urobilinogen Ur Leukocyte Esterase Urine RBC Urine WBC Urine WBC Clumps Urine Bacteria Hyaline Casts Urine Mucus Micro UA Comment Ur Microscopic Review Urine Culture Comments Pleural pH Pleural RBC Pleural Nuc Cells Pleural Neutrophils Pleural Lymphocytes Pleural Monocytes Pleural Plasma Cells Pleural Mesothelial Pleural Fluid Comment Pleural Total Protein Pleural Albumin Pleural LDH Pleural Glucose Nasal Screen MRSA (PCR) Result Diagrams: 08/08/18 08:06 08/08/18 13:01 Microbiology: Microbiology 08/08/18 01:00 Gram Stain - Final Fluid - Pleural fluid Microbiology 08/07/18 19:40 Aerobic Blood Culture - Preliminary Blood - Peripheral No growth in 1 day Anaerobic Blood Culture - Preliminary No growth in 1 day 08/07/18 19:35 Aerobic Blood Culture - Preliminary Blood - Peripheral No growth in 1 day Anaerobic Blood Culture - Preliminary No growth in 1 day 08/08/18 01:00 Gram Stain - Final Fluid - Pleural fluid Imaging: Impressions Chest CTA 08/07/18 19:02 CONCLUSION: 1. No pulmonary embolus. 2. Moderate to large pleural effusion now present on the left, probably metastatic. There is a large paraspinous and left apical mass now present. 3. Worsening chest wall malignancy. New supraclavicular and right axillary metastatic adenopathy. 4. Metastatic pulmonary nodules modestly worse. 5. Interim upper thoracic laminectomy and fusion; associated metallic streak artifact limits visualization of the spinal canal. Large amount of soft tissue in the laminectomy bed. Mottled metastatic changes of upper thoracic vertebra. Chest X-Ray 08/07/18 19:02 CONCLUSION: 1. Hazy opacity throughout the left lung likely reflects layering small to moderate pleural effusion. 2. Left lower lobe airspace consolidation concerning for pneumonia or aspiration. Head CT 08/07/18 19:42 CONCLUSION: 1. No acute intracranial abnormality. 2. Specifically, no gross mass or mass effect. . Chest X-Ray 08/08/18 00:00 CONCLUSION: Left thoracostomy tube placement with significant improvement in aeration. Abdomen/Bladder Ultrasound 08/08/18 22:01 CONCLUSION: 1. The right kidney appears intact and left kidneys not visualized Procedures: 08/08/18: Pigtail chest tube Patient/Family Conference Family Conference Location: Telephone (Spoke with [place]) Issues Discussed: Discussion with [place], via phone about the following: * Palliative care role, purpose, approach * Additional medical, psychosocial, and spiritual history * Patients general health, functional status, and cognitive changes in the months leading up to the current hospitalization * Patient/family understanding of the current medical problems * Patient/family understanding of prognosis * Patients goals of care as best understood from advance directives and/or conversations and/or values * Brief review of may be appropriate to transition to hospice pending course, and goals are appropriate * Current medical treatment options and benefits/burdens of those options * Legal decision maker: Patient slightly confused, to support his proxy decision-maker. * Questions answered to the best of my ability * Palliative care contact information provided Has been seems to have a good understanding of overall prognosis, and ongoing progression of disease. He is open to additional conversations in the future as more diagnostic information is available. Assessment and Plan - Disease Oriented Problem List (1) Paraplegia (2) Neurogenic bladder (3) Acute encephalopathy (4) Pleural effusion (5) Pyuria - Symptom Scale (1) Dyspnea 0-10 Scale: Unable to quantify (2) Pain 0-10 Scale: Unable to quantify (3) Spasm 0-10 Scale: Unable to quantify Pertinent Non-Medical Issues: Psychosocial: Patient has been to her [place] for 30 years. 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 She is with 3 sons and 1 daughter. 1 of her sons still lives with her and her . She has a Doberman named Dulce Maria that she enjoys spending time with. Spiritual: Episcopal does not plan important role in her life Legal:Patient having some mild confusion/forgetfulness, best supported by and decision making. He would be appropriate proxy per [place] statutes. Ethical issues impacting care: no ethical issues identified. . Important Contacts: Has been [place] Burgos: [phone] . Prognosis: Patient originally diagnosed with breast cancer and October with widespread metastasis at time of diagnosis. Was started on palliative chemo in November, and his continued until just before admission. She has had ongoing progression of disease. She was seen in in the ED June for new lesions on her back. Currently admitted with progressive weakness, pleural effusion suspicious for malignancy, and pyuria. If this disc disease progression, may have limited treatment options. Further prognostication pending cytology. . Code Status: Alternative Code (Intubation only) Plan: Legal decision maker: * Patient having some mild confusion/forgetfulness, best supported by and decision making. He would be appropriate proxy per [place] statutes. Goals: Goals are semi-aggressive short of alternate code. would like intubation only, otherwise would like to continue pursue treatment options until diagnostic results obtained. also request oncology involvement, patient was planned to have follow-up appointment 08/09/18. 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 Has new lesions posterior back, however she denies pain at time of my visit today. Has Dilaudid as needed, last dose 1 AM today. Has not used chronic opiates. We will continue to monitor requirements and effectiveness. * Dyspnea: Secondary to pleural effusion, suspicious for malignancy. Pigtail catheter placed with greater than 1 L removed so far. Currently reports dyspnea has no better or worse. Appears comfortable with no cannula. We will continue to evaluate. 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 Has been using baclofen with adequate control in the past. reports recent increase in spasms over the past couple weeks. We will continue to monitor. -- -- Palliative care will continue to follow during hospital course as condition evolves, to assist patient/decision-maker with understanding of medical conditions, weighing benefits/burdens of treatment options, for clarification of goals of treatment. Additionally will assist with any symptoms of palliative concern . Appreciation Thank you for the opportunity to participate in the care of Mayra Burgos. Attestation Collaborating Comments: Dual visit with Taylor Falk APRN. Concur with above documentation. Attestation: To help prompt me to consider important information that might be impacting today's encounter and assessment, information from prior notes written by myself or my colleagues may have been "brought forward" into today's note. My signature on this note, however, is an attestation that I personally performed the exam, history, and/or decision-making noted today, and, unless otherwise indicated, the interactions with patient, family, and staff as well as the review of records all occurred today. I also attest that the listed assessment and stated plan reflect my best clinical judgment today based on the combination of historical information, prior notes, and today's exam/ interactions. When time spent is documented, it refers only to time spent today by the signer, or if indicated, combined time spent today by collaborating physician/nurse practitioner.
[2018-08-08] MEDS: Metoprolol Tartrate 25 MG Tablet PO SCH ×2 (11:26→20:40)
--- NOTE | 2018-08-08 11:47 | US ---
EXAM DATE: 08/08/2018 11:37 AM EST AGE/SEX: 47 years / Female INDICATIONS: Abnormal labs. CLINICAL DATA: This is the patient's subsequent encounter. Patient reports that signs and symptoms h ave been present for 1 day and indicates a pain score of 6/10. MEDICAL/SURGICAL HISTORY: . Hypertension. Metastatic melanoma. . Fusion, cervical. Tubal ligat ion. Chest tube. COMPARISON: [facility] [place]EL[place] W [place]AST, 03/08/2018. . MEASUREMENTS: Right Kidney:__10.4 x 4.9 x 4.5 cm Left Kidney:__. Not visualized. FINDINGS: Right Kidney: No mass or hydronephrosis. Left Kidney: Not visualized due to adjacent bowel gas. Bladder: Elena catheter is present. Bladder decompressed. Other: None. CONCLUSION: 1. The right kidney appears intact and left kidneys not visualized Electronically signed by: Jessica Harris MD 08/08/2018 11:45 AM EST
--- NOTE | 2018-08-08 20:25 | MB ---
cc: Faith Pedersen MD DATE: 08/08/2018 REASON FOR CONSULTATION: Respiratory distress and left pleural effusion with metastatic melanoma. HISTORY OF PRESENT ILLNESS: This is a 47-year-old white female with a history of metastatic melanoma and multiple lung metastases as well as chest wall lesions, who was admitted with fever, fatigue, shortness of breath and persistent cough. The patient was seen in the ER where she was noted to be in some respiratory distress and was hypotensive. She was also obtunded and was given IV fluids. A chest x-ray done upon admission showed a moderate size left pleural effusion. She also had a UTI and was septic upon admission and started on IV vancomycin and IV Zosyn. The CT scan of the chest demonstrated a large left pleural effusion and thus, a chest tube was placed on the left side, which has drained over 1500 mL of yellow fluid. Presently, her breathing has improved. She is on 2 liters of oxygen nasal cannula and maintaining a saturation of over 96%. She denies any chest pains, but has some trouble swallowing and has weakness as well as arm and leg edema. PAST MEDICAL HISTORY: Includes a history of melanoma, history of hypertension, history of metastatic chest wall and lung lesions and a paraspinal mass. PAST SURGICAL HISTORY: She has had a tubal ligation and surgery also includes spinal surgery. ALLERGIES: NO DRUG ALLERGIES ARE LISTED. HABITS: The patient was a prior smoker of 1 pack per day for over 20 years. No significant alcohol use at this time. MEDICATION LIST: Includes: 1. Baclofen. 2. Escitalopram. 3. Oral chemotherapy including ____. REVIEW OF SYSTEMS: The patient is unable to respond to questions. She is very lethargic, somewhat disoriented, pale and also mildly short of breath. PHYSICAL EXAMINATION: GENERAL: This is a middle-aged white female who is pale and dyspneic at rest lying flat. She has edema of the left arm as well as both lower extremities. VITAL SIGNS: Blood pressure 110/70, pulse 70, respirations 22, temperature 97.6. HEENT: Head is normocephalic. Pupils reactive. Mild icterus noted. Tongue is dry. Throat is injected. Ears, no inflammation. NECK: There is mild venous distention while lying flat. There are also supraclavicular nodes palpable as well as chest wall masses palpable in the anterior chest. CHEST: Reveals decreased breath sounds in the left base, occasional wheezes anteriorly. HEART: The heart sounds are regular. S1, S2 with no murmur. ABDOMEN: Soft, nontender. No organomegaly. Bowel sounds active. EXTREMITIES: Edema as mentioned before. Decreased peripheral pulses. The patient does move her feet sluggishly. NEUROLOGIC: Cranial nerves grossly intact. SKIN: Pale and dry. IMPRESSION: 1. Sepsis with a urinary tract infection and left basilar pneumonia. 2. Large left pleural effusion, status post chest tube placement and drainage. 3. Metastatic malignant melanoma. 4. Chest wall and pulmonary metastases. 5. Hypoxemia. PLAN: The patient will be maintained on O2 at 3-4 liters nasal cannula. Chest tube to drainage. Repeat chest x-ray in a.m. Nebulized albuterol and Atrovent solution added q.i.d. and p.r.n. We will continue pressors. Antibiotic therapy including Zosyn and vancomycin to be continued. The chest tube will be discontinued once the drainage drops below 100 mL. I discussed the case with her present here. I will also get an oncology consultation to evaluate the chemotherapy. Thank you, Dr. Carl, for this consultation. Faith Pedersen MD VJD/morris/aba , 06:21 PM , 06:38 PM
[2018-08-08] MEDS: Vancomycin Inj 1,250 MG in Sodium Chlor 0.9% Inj 250 ML IV.SIG SCH (20:41)
[2018-08-08 23:03] LABS: Hemoglobin 9.1 gm/dL (11.6-15.3)
[2018-08-09] MEDS: Piperacil/Tazo 4.5 GM Premix 4.5 GM/100 ML BAG IV.SIG SCH ×4 (01:51→19:54)
[2018-08-09] MEDS: HYDROmorphone PF Inj 1 MG/ML Ampul IV.PUSH PRN (05:56)
[2018-08-09] MEDS: Heparin - SQ 10,000 UNITS/ML Vial SQ SCH ×3 (05:57→22:41)
[2018-08-09] MEDS: Chlorhexidine Gluconate 2% 1 Pack (2 Cloths) TOPICAL SCH (05:57)
[2018-08-09 07:40] LABS: Hematocrit 29.3 % (35.0-46.0); Hemoglobin 9.5 gm/dL (11.6-15.3); Mean Corpuscular HGB Conc 32.3 % (32.0-36.0); Mean Corpuscular Hemoglobin 28.4 pg (27.0-34.0); Mean Corpuscular Volume 87.9 fL (80.0-100.0); Mean Platelet Volume 8.3 fL (7.0-11.0); Platelet Count 157 th/mm3 (150-450); Red Blood Count 3.34 mil/mm3 (4.00-5.30); Red Cell Distribution Width 16.3 % (11.6-17.2); White Blood Count 6.5 th/mm3 (4.0-11.0)
[2018-08-09] MEDS: Famotidine PF Inj 20 MG/2 ML Vial IV.PUSH SCH ×2 (08:05→20:44)
[2018-08-09] MEDS: Vancomycin Inj 1,250 MG in Sodium Chlor 0.9% Inj 250 ML IV.SIG SCH ×2 (08:05→20:44)
[2018-08-09] MEDS: Senna/Docusate Sodium 8.6/50 MG Tablet PO SCH ×2 (08:06→20:45)
[2018-08-09] MEDS: Sodium Chloride 0.9% 2 ML Flush BID IV.FLUSH SCH ×2 (08:06→20:45)
[2018-08-09] MEDS: Polyethylene Glycol 3350 17 GM Packet PO SCH ×2 (08:06→20:45)
[2018-08-09 08:08] LABS: Anion Gap 12 meq/L (5-15); Blood Urea Nitrogen 31 mg/dL (7-18); Calcium 7.3 mg/dL (8.5-10.1); Carbon Dioxide 21.4 meq/L (21.0-32.0); Chloride 107 meq/L (98-107); Glomerular Filtration Rate Greater Than 89 mL/min (>89); Glucose,Random 83 mg/dL (74-106); Magnesium 2.5 mg/dL (1.5-2.5); Phosphorus 4.6 mg/dL (2.5-4.9); Potassium 4.3 meq/L (3.5-5.1); Sodium 140 meq/L (136-145)
[2018-08-09] MEDS: Metoprolol Tartrate 25 MG Tablet PO SCH ×2 (08:16→20:45)
[2018-08-09 08:33] LABS: Total Protein 6.4 g/dL (6.4-8.2)
[2018-08-09 08:41] LABS: Lymphocytes 7 % (9-44); Metamyelocytes 1 % (0-1); Monocytes 2 % (0-8); Platelet Estimate Normal (Normal); Platelet Morphology Normal (Normal); Tallied Nucleated RBC 1 (0-0)
[2018-08-09 08:42] LABS: RBC Morphology Normal (Normal); Toxic Vacuolation Present
--- NOTE | 2018-08-09 16:50 | P.PNIM ---
Physical Exam Vital signs: Last Vital Signs Temp 98.1 F 08/09/18 12:00 Pulse 87 08/09/18 16:36 Resp 16 08/09/18 16:36 BP 90/53 L 08/09/18 15:00 Pulse Ox 100 08/09/18 15:00 Results Labs CBC & Chem 7: 08/09/18 06:36 08/09/18 06:36 Progress Note: Quality VTE Deep Vein Thrombosis/Pulmonary Embolism Present on Admission: No
--- NOTE | 2018-08-09 17:34 | P.PN ---
Subjective Interval history: She is lethargic and on O2 5 L. Has weakness of legs and edema of arms. Chest tube drains little. Physical Exam Vital signs: Vital Signs 08/08/18 18:00 08/08/18 19:00 08/08/18 20:00 Temperature 98.8 F Pulse Rate 107 H 104 H 106 H Respiratory Rate 22 25 H 18 Blood Pressure 115/66 113/61 113/63 Pulse Oximetry 100 100 99 08/08/18 21:00 08/08/18 21:03 08/08/18 21:04 Temperature Pulse Rate 106 H 100 H Respiratory Rate 21 19 Blood Pressure 114/64 Pulse Oximetry 100 98 08/08/18 22:00 08/08/18 23:00 08/09/18 00:00 Temperature Pulse Rate 89 86 86 Respiratory Rate 19 18 18 Blood Pressure 118/63 109/59 L 108/55 L Pulse Oximetry 99 99 08/09/18 01:00 08/09/18 02:00 08/09/18 03:00 Temperature Pulse Rate 89 91 H 85 Respiratory Rate 19 22 19 Blood Pressure 110/55 L 113/57 L 113/57 L Pulse Oximetry 99 100 95 08/09/18 04:00 08/09/18 04:11 08/09/18 05:00 Temperature Pulse Rate 85 90 92 H Respiratory Rate 19 22 21 Blood Pressure 115/59 L 118/62 Pulse Oximetry 100 100 08/09/18 06:00 08/09/18 07:00 08/09/18 08:00 Temperature 98.0 F Pulse Rate 94 H 97 H 94 H Respiratory Rate 11 L 15 16 Blood Pressure 117/57 L 104/60 Pulse Oximetry 97 100 100 08/09/18 09:00 08/09/18 09:36 08/09/18 10:00 Temperature Pulse Rate 91 H 79 80 Respiratory Rate 15 16 14 Blood Pressure 94/61 L 81/52 L Pulse Oximetry 100 100 08/09/18 11:00 08/09/18 12:00 08/09/18 13:00 Temperature 98.1 F Pulse Rate 79 82 92 H Respiratory Rate 15 16 15 Blood Pressure 83/51 L 92/52 L 92/55 L Pulse Oximetry 100 100 100 08/09/18 14:00 08/09/18 15:00 08/09/18 16:00 Temperature 98.0 F Pulse Rate 88 82 88 Respiratory Rate 17 15 16 Blood Pressure 89/52 L 90/53 L 90/54 L Pulse Oximetry 100 100 100 08/09/18 16:36 Temperature Pulse Rate 87 Respiratory Rate 16 Blood Pressure Pulse Oximetry Intake & Output 08/08/18 08/09/18 08/09/18 18:59 06:59 18:59 Intake Total 1110 / 1110 662.5 / 662.5 200 / 200 Output Total 540 / 540 300 / 300 Balance 570 / 570 362.5 / 362.5 200 / 200 Weight 68.2 kg Intake: IV 950 / 950 462.5 / 462.5 200 / 200 LR 1000 mL Inj 1,000 ML @ 125 500 / 500 mls/hr IV.CONT .Q8H ELEANOR Rx#: [id number] Zosyn 4.5 GM Premix 4.5 gm In 200 / 200 200 / 200 200 / 200 100 ml @ 200 mls/hr IV.SIG Q6H ELEANOR Rx#:[id number] Vancomycin Inj 1,000 MG In NS 250 / 250 Inj 250 ML @ 250 mls/hr IV.SIG ONCE ONE Rx#:[id number] Vancomycin Inj 1,250 MG In NS 262.5 / 262.5 Inj 250 ML @ 250 mls/hr IV.SIG Q12H ELEANOR Rx#:[id number] Oral 160 / 160 200 / 200 Output: Urine 200 / 200 Urine Amount (Catheter) 300 / 300 Indwelling Urethral Catheter 300 / 300 Chest Tube Drainage 240 / 240 100 / 100 #1 Left Upper Pleural 240 / 240 100 / 100 Other: Date of Last Bowel Movement 08/08/18 08/09/18 08/08/18 # Incontinent Bowel Movements 1 2 Narrative: GENERAL: Frail middle-aged female who appears much older than stated age, lying in bed, obtunded HEENT: Normocephalic. Atraumatic. Pupils equal, round, reactive, conjugate. Mucous membranes are moist NECK: Trachea is midline. There is no JVD. CHEST: Equal chest rise. Tachypneic. Labored. Decreased breath sounds on the left. There is a large chest wall mass over the left axilla consistent with her known melanoma lesion. CARDIOVASCULAR: Tachycardic rate, regular rhythm. ABDOMEN: Soft, nontender, nondistended. No guarding. MUSCULOSKELETAL: Pulses 2+. Mild peripheral edema. NEUROLOGICAL: Does not follow commands. Withdraws to stimuli. - Urinary Catheter Management Indwelling Urethral Catheter Cath placed during this visit: yes, but has since been removed by the nurse Reason for continuing: Chronic Urinary Retention Insertion date: 08/08/18 Insertion time: 01:35 Removal date: 08/08/18 Removal time: 01:30 Results - Labs CBC & Chem 7: 08/09/18 06:36 08/09/18 06:36 Laboratory Results - last 24 hr 08/07/18 08/08/18 08/09/18 20:10 22:50 06:36 WBC 6.5 RBC 3.34 L Hgb 9.1 L 9.5 L Hct 29.0 L 29.3 L MCV 87.9 MCH 28.4 MCHC 32.3 RDW 16.3 Plt Count 157 MPV 8.3 Prelim Diff (Auto) Manual diff required WBC Differential Manual diff final Seg Neuts % (Manual) 78 H Band Neuts % (Manual) 12 H Lymphocytes % (Manual) 7 L Monocytes % (Manual) 2 Metamyelocytes % (Man) 1 Abs Neuts (Manual) 5.9 Nucleated RBCs/100 WBC 1 H Differential Comment . Toxic Vacuolation Present H Platelet Estimate Normal Platelet Morphology Normal RBC Morphology Normal Sodium Potassium Chloride Carbon Dioxide Anion Gap BUN Creatinine Estimated GFR Random Glucose Calcium Prot Corrected Calcium Phosphorus Magnesium Total Protein Urine Color Yellow Urine Clarity Turbid H Urine pH 7.0 Ur Specific Dalton 1.019 Urine Protein 500 or greater Urine Glucose (UA) Negative Urine Ketones Negative Urine Occult Blood Small H Urine Nitrate Negative Urine Bilirubin Negative Urine Urobilinogen Less than 2 Ur Leukocyte Esterase Moderate H Urine RBC 38 H Urine WBC Urine WBC Clumps Many H Urine Bacteria Many H Hyaline Casts 9 Urine Mucus Few H Micro UA Comment Culture indicated Urine Culture Comments Culture indicated 08/09/18 06:36 WBC RBC Hgb Hct MCV MCH MCHC RDW Plt Count MPV Prelim Diff (Auto) WBC Differential Seg Neuts % (Manual) Band Neuts % (Manual) Lymphocytes % (Manual) Monocytes % (Manual) Metamyelocytes % (Man) Abs Neuts (Manual) Nucleated RBCs/100 WBC Differential Comment Toxic Vacuolation Platelet Estimate Platelet Morphology RBC Morphology Sodium 140 Potassium 4.3 Chloride 107 Carbon Dioxide 21.4 Anion Gap 12 BUN 31 H Creatinine 0.58 Estimated GFR Greater than 89 Random Glucose 83 Calcium 7.3 L* Prot Corrected Calcium 7.7 L Phosphorus 4.6 D Magnesium 2.5 Total Protein 6.4 Urine Color Urine Clarity Urine pH Ur Specific Dalton Urine Protein Urine Glucose (UA) Urine Ketones Urine Occult Blood Urine Nitrate Urine Bilirubin Urine Urobilinogen Ur Leukocyte Esterase Urine RBC Urine WBC Urine WBC Clumps Urine Bacteria Hyaline Casts Urine Mucus Micro UA Comment Urine Culture Comments Microbiology 08/07/18 19:40 Blood - Peripheral Aerobic Blood Culture - Preliminary No growth in 2 days 08/07/18 19:40 Blood - Peripheral Anaerobic Blood Culture - Preliminary gram positive cocci 08/08/18 01:00 Fluid - Pleural fluid Gram Stain - Final 08/08/18 01:00 Fluid - Pleural fluid Body Fluid Culture - Preliminary No growth in 24 hours 08/07/18 19:35 Blood - Peripheral Aerobic Blood Culture - Preliminary No growth in 2 days 08/07/18 19:35 Blood - Peripheral Anaerobic Blood Culture - Preliminary No growth in 2 days 08/07/18 20:10 Catheterized Urine Urine Culture - Preliminary gram negative rods Streptococcus species Assessment and Plan - Assessment (1) Pneumonia Code(s): J18.9 - Pneumonia, unspecified organism Status: Acute (2) Sepsis Code(s): A41.9 - Sepsis, unspecified organism Status: Acute (3) UTI (urinary tract infection) Code(s): N39.0 - Urinary tract infection, site not specified Status: Acute (4) Altered mental status Code(s): R41.82 - Altered mental status, unspecified Status: Acute (5) Metastatic disease Code(s): C79.9 - Secondary malignant neoplasm of unspecified site Status: Acute (6) Dyspnea Code(s): R06.00 - Dyspnea, unspecified Status: Acute (7) Pain Code(s): R52 - Pain, unspecified Status: Acute (8) Spasm Code(s): R25.2 - Cramp and spasm Status: Acute (9) Paraplegia Code(s): G82.20 - Paraplegia, unspecified Status: Acute (10) Pleural effusion Code(s): J90 - Pleural effusion, not elsewhere classified Status: Acute (11) Melanoma Code(s): C43.9 - Malignant melanoma of skin, unspecified Status: Acute - Plan 1. Cont O2 at 5 L. 2. Chest tube to drain and wall suction 3. Duoneb nebs qid. 4. Cont antibiotics per Dr Liao 5. CXR,CBC in am 6. Palliative care to see. (2) Sepsis Qualifiers: Sepsis type: sepsis due to unspecified organism Qualified Code(s): A41.9 - Sepsis, unspecified organism (3) UTI (urinary tract infection) Qualifiers: Urinary tract infection type: site unspecified Hematuria presence: with hematuria Qualified Code(s): N39.0 - Urinary tract infection, site not specified; R31.9 - Hematuria, unspecified (4) Altered mental status Qualifiers: Altered mental status type: unspecified Qualified Code(s): R41.82 - Altered mental status, unspecified
--- NOTE | 2018-08-09 18:00 | P.PN ---
Subjective Interval history: Nursing denies any acute changes overnight. Patient has a chest tube in at this time. Patient herself says she feels slightly more relieved with chest tube in place. Family at the bedside. Physical Exam Vital signs: Vital Signs 08/08/18 18:00 08/08/18 19:00 08/08/18 20:00 Temperature 98.8 F Pulse Rate 107 H 104 H 106 H Respiratory Rate 22 25 H 18 Blood Pressure 115/66 113/61 113/63 Pulse Oximetry 100 100 99 08/08/18 21:00 08/08/18 21:03 08/08/18 21:04 Temperature Pulse Rate 106 H 100 H Respiratory Rate 21 19 Blood Pressure 114/64 Pulse Oximetry 100 98 08/08/18 22:00 08/08/18 23:00 08/09/18 00:00 Temperature Pulse Rate 89 86 86 Respiratory Rate 19 18 18 Blood Pressure 118/63 109/59 L 108/55 L Pulse Oximetry 99 99 08/09/18 01:00 08/09/18 02:00 08/09/18 03:00 Temperature Pulse Rate 89 91 H 85 Respiratory Rate 19 22 19 Blood Pressure 110/55 L 113/57 L 113/57 L Pulse Oximetry 99 100 95 08/09/18 04:00 08/09/18 04:11 08/09/18 05:00 Temperature Pulse Rate 85 90 92 H Respiratory Rate 19 22 21 Blood Pressure 115/59 L 118/62 Pulse Oximetry 100 100 08/09/18 06:00 08/09/18 07:00 08/09/18 08:00 Temperature 98.0 F Pulse Rate 94 H 97 H 94 H Respiratory Rate 11 L 15 16 Blood Pressure 117/57 L 104/60 Pulse Oximetry 97 100 100 08/09/18 09:00 08/09/18 09:36 08/09/18 10:00 Temperature Pulse Rate 91 H 79 80 Respiratory Rate 15 16 14 Blood Pressure 94/61 L 81/52 L Pulse Oximetry 100 100 08/09/18 11:00 08/09/18 12:00 08/09/18 13:00 Temperature 98.1 F Pulse Rate 79 82 92 H Respiratory Rate 15 16 15 Blood Pressure 83/51 L 92/52 L 92/55 L Pulse Oximetry 100 100 100 08/09/18 14:00 08/09/18 15:00 08/09/18 16:00 Temperature 98.0 F Pulse Rate 88 82 88 Respiratory Rate 17 15 16 Blood Pressure 89/52 L 90/53 L 90/54 L Pulse Oximetry 100 100 100 08/09/18 16:36 Temperature Pulse Rate 87 Respiratory Rate 16 Blood Pressure Pulse Oximetry Intake & Output 08/08/18 08/09/18 08/09/18 18:59 06:59 18:59 Intake Total 1110 / 1110 662.5 / 662.5 200 / 200 Output Total 540 / 540 300 / 300 Balance 570 / 570 362.5 / 362.5 200 / 200 Weight 68.2 kg Intake: IV 950 / 950 462.5 / 462.5 200 / 200 LR 1000 mL Inj 1,000 ML @ 125 500 / 500 mls/hr IV.CONT .Q8H ELEAN[facility] Rx#: [id number] Zosyn 4.5 GM Premix 4.5 gm In 200 / 200 200 / 200 200 / 200 100 ml @ 200 mls/hr IV.SIG Q6H ELEANOR Rx#:[id number] Vancomycin Inj 1,000 MG In NS 250 / 250 Inj 250 ML @ 250 mls/hr IV.SIG ONCE ONE Rx#:[id number] Vancomycin Inj 1,250 MG In NS 262.5 / 262.5 Inj 250 ML @ 250 mls/hr IV.SIG Q12H ELEANOR Rx#:[id number] Oral 160 / 160 200 / 200 Output: Urine 200 / 200 Urine Amount (Catheter) 300 / 300 Indwelling Urethral Catheter 300 / 300 Chest Tube Drainage 240 / 240 100 / 100 #1 Left Upper Pleural 240 / 240 100 / 100 Other: Date of Last Bowel Movement 08/08/18 08/09/18 08/08/18 # Incontinent Bowel Movements 1 2 Narrative: Left-sided chest tube in place draining Right lung field is clear Left lung field has mild raspy breath sounds Unlabored breathing Heart sounds regular rate and rhythm Lying in bed, awake, alert Bilateral lower extremities with no edema, placed in float heels - Urinary Catheter Management Indwelling Urethral Catheter Cath placed during this visit: yes, but has since been removed by the nurse Reason for continuing: Chronic Urinary Retention Insertion date: 08/08/18 Insertion time: 01:35 Removal date: 08/08/18 Removal time: 01:30 Results - Labs CBC & Chem 7: 08/09/18 06:36 08/09/18 06:36 Laboratory Results - last 24 hr 08/07/18 08/08/18 08/09/18 20:10 22:50 06:36 WBC 6.5 RBC 3.34 L Hgb 9.1 L 9.5 L Hct 29.0 L 29.3 L MCV 87.9 MCH 28.4 MCHC 32.3 RDW 16.3 Plt Count 157 MPV 8.3 Prelim Diff (Auto) Manual diff required WBC Differential Manual diff final Seg Neuts % (Manual) 78 H Band Neuts % (Manual) 12 H Lymphocytes % (Manual) 7 L Monocytes % (Manual) 2 Metamyelocytes % (Man) 1 Abs Neuts (Manual) 5.9 Nucleated RBCs/100 WBC 1 H Differential Comment . Toxic Vacuolation Present H Platelet Estimate Normal Platelet Morphology Normal RBC Morphology Normal Sodium Potassium Chloride Carbon Dioxide Anion Gap BUN Creatinine Estimated GFR Random Glucose Calcium Prot Corrected Calcium Phosphorus Magnesium Total Protein Urine Color Yellow Urine Clarity Turbid H Urine pH 7.0 Ur Specific [place] 1.019 Urine Protein 500 or greater Urine Glucose (UA) Negative Urine Ketones Negative Urine Occult Blood Small H Urine Nitrate Negative Urine Bilirubin Negative Urine Urobilinogen Less than 2 Ur Leukocyte Esterase Moderate H Urine RBC 38 H Urine WBC Urine WBC Clumps Many H Urine Bacteria Many H Hyaline Casts 9 Urine Mucus Few H Micro UA Comment Culture indicated Urine Culture Comments Culture indicated 08/09/18 06:36 WBC RBC Hgb Hct MCV MCH MCHC RDW Plt Count MPV Prelim Diff (Auto) WBC Differential Seg Neuts % (Manual) Band Neuts % (Manual) Lymphocytes % (Manual) Monocytes % (Manual) Metamyelocytes % (Man) Abs Neuts (Manual) Nucleated RBCs/100 WBC Differential Comment Toxic Vacuolation Platelet Estimate Platelet Morphology RBC Morphology Sodium 140 Potassium 4.3 Chloride 107 Carbon Dioxide 21.4 Anion Gap 12 BUN 31 H Creatinine 0.58 Estimated GFR Greater than 89 Random Glucose 83 Calcium 7.3 L* Prot Corrected Calcium 7.7 L Phosphorus 4.6 D Magnesium 2.5 Total Protein 6.4 Urine Color Urine Clarity Urine pH Ur Specific [place] Urine Protein Urine Glucose (UA) Urine Ketones Urine Occult Blood Urine Nitrate Urine Bilirubin Urine Urobilinogen Ur Leukocyte Esterase Urine RBC Urine WBC Urine WBC Clumps Urine Bacteria Hyaline Casts Urine Mucus Micro UA Comment Urine Culture Comments Microbiology 08/07/18 19:40 Blood - Peripheral Aerobic Blood Culture - Preliminary No growth in 2 days 08/07/18 19:40 Blood - Peripheral Anaerobic Blood Culture - Preliminary gram positive cocci 08/08/18 01:00 Fluid - Pleural fluid Gram Stain - Final 08/08/18 01:00 Fluid - Pleural fluid Body Fluid Culture - Preliminary No growth in 24 hours 08/07/18 19:35 Blood - Peripheral Aerobic Blood Culture - Preliminary No growth in 2 days 08/07/18 19:35 Blood - Peripheral Anaerobic Blood Culture - Preliminary No growth in 2 days 08/07/18 20:10 Catheterized Urine Urine Culture - Preliminary gram negative rods Streptococcus species Assessment and Plan - Plan 47-year-old female with widely metastatic melanoma who presents in severe sepsis from either urinary source versus pneumonia with possible parapneumonic empyema. Acute metabolic encephalopathy -Likely secondary to sepsis Improved since yesterday, treat sepsis as below -Frequent neurochecks Acute on chronic pain Paraplegia Dilaudid IV as needed for pain Avoid long-acting sedatives paraplegia is secondary to c-spine surgery from metastasis. this is chronic and unchanged. Large left pleural effusion Acute hypoxemia Continue with oxygen keep sats > 92% Bronchodilators 08/08 left pigtail catheter to suction.Monitor CT drainage ( Drained 1150ml since insertion) Exudative effusion likely 2nd malignancy CT chest: Moderate to large pleural effusion now present on the left, probably metastatic. There is a large paraspinous and left apical mass now present. Worsening chest wall malignancy. New supraclavicular and right axillary metastatic adenopathy. Metastatic pulmonary nodules modestly worse. Interim upper thoracic laminectomy and fusion; associated metallic streak artifact limits visualization of the spinal canal. Large amount of soft tissue in the laminectomy bed. Mottled metastatic changes of upper thoracic vertebra. Pulmonology following Oncology following, offering outpatient immunotherapy as an option, patient will ultimately decide Sepsis Lactic acidosis Pneumonia UTI -Follow-up cultures, overall clinical picture improving since admission -Continue vancomycin and Zosyn Lopressor 12.5mg BID Acute kidney injury Chronic neurogenic bladder Monitor renal function, I/O's, electrolytes replacement per protocol. Treat hyperkalemia with 7u IV insulin, D50, sodium bicarb, Kayexalate and Juan [place]. On Pepcid 20mg IV Q12 for GI prophylaxis Endocrine: -- SSI for glycemic control -- SCDs Lovenox No code DNR CODE STATUS. Palliative care is following Discharge Planning: Pending stabilization from possible empyema/pleural effusion, will need clearance from pulmonology, patient ultimately decide on oncology plan
--- NOTE | 2018-08-09 18:36 | MB ---
cc: Lalo Moe MD DATE: 08/09/2018 CONSULTING PHYSICIAN: Elizabeth Falk MD REASON FOR CONSULTATION: Oncology consult to render opinion on patient with metastatic melanoma. HISTORY OF PRESENT ILLNESS: The patient is a 47-year-old female with history of widespread metastatic melanoma brought into the hospital with increased cough, fatigue and fever. The patient is rather weak. The history is obtained from the at the bedside. Apparently around this past Tuesday, the patient was complaining of congestion. By Tuesday her symptoms were worse. She wanted to cough, but was too weak to cough. She became pale and clammy. She was brought in to the emergency room. In the emergency room, she was noted to be hypotensive and in respiratory distress. She also has altered mental status. She also was noted to have leukocytosis and pyuria. She was found to have increased left pleural effusion and had a chest tube placed, after thoracentesis with removal of 1 liter of fluid. At this time, she is rather weak. She is oriented to place. She has some pain in the left shoulder and back area. She denies any chest pressure. She denies significant shortness of breath. She has no nausea or vomiting. She denies abdominal pain. PAST MEDICAL HISTORY: 1. Metastatic melanoma. 2. 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 3. Hypertension. 4. Anxiety. 5. Coronary artery disease. 6. Degenerative disk disease. 7. Gastroesophageal reflux disease. PAST SURGICAL HISTORY: 1. Bilateral tubal ligation. 2. Decompressive back surgery for cord compression. 3. Biopsy of breast mass, which turned out to be melanoma. FAMILY HISTORY: No melanoma. She has 3 sons and 1 daughter, all healthy. SOCIAL HISTORY: She quit smoking. She denies tobacco use. ALLERGIES: NO KNOWN DRUG ALLERGIES. CURRENT MEDICATIONS: 1. DuoNeb. 2. Chlorhexidine. 2. Heparin. 3. Lactulose. 4. Metoprolol. 5. Zosyn. 6. MiraLax. 7. Potassium. 8. Maribeth-Colace. 9. Vancomycin. REVIEW OF SYSTEMS: CONSTITUTIONAL: Increased weakness. As above. EYES: Negative. ENT: Negative. CARDIOVASCULAR: No chest pressure or palpitation. RESPIRATORY: As above. GASTROINTESTINAL: Denies nausea, vomiting, abdominal pain. GENITOURINARY: No dysuria or hematuria. She has a chronic indwelling catheter. MUSCULOSKELETAL: As above. HEMATOLOGY: Negative. ENDOCRINE: Negative. DERMATOLOGIC: As above. PSYCHIATRIC: Negative. NEUROLOGIC: As above. PHYSICAL EXAMINATION: VITAL SIGNS: T-max 100.1, T-current 98.1, blood pressure 90/53, O2 saturation 100%. GENERAL: She is alert and oriented to place. She looks very weak and pale. HEENT: Atraumatic, normocephalic. Pupils are equal, round, reactive to light. Extraocular muscles intact. No scleral icterus. Oropharynx dry mucosa. No lesion. NECK: No thyromegaly. LYMPHATIC: No palpable cervical lymph nodes. CARDIOVASCULAR: Regular S1, S2. No murmur. LUNGS: Decreased breath sounds left lung base. ABDOMEN: Soft, mild tenderness diffusely. No rebound, rigidity. Positive bowel sounds. EXTREMITIES: No cyanosis or clubbing. No significant edema. SKIN: She has diffuse subcutaneous masses in the left chest wall, left axillary area, back. NEUROLOGIC: She is paraplegic. Hard time moving her left arm partly due to pain. LABORATORY DATA: WBC 6.5, hemoglobin 9.5, platelet count 157. Creatinine 0.58. ASSESSMENT AND PLAN: 1. Metastatic melanoma. Positive for BRAF mutation. She presented in 10/2017 with a large left breast mass, which had been there for several months. She also had a left axillary adenopathy. CT showed lung nodules suspicious for metastatic lesion. Biopsy of left breast mass showed invasive melanoma. She subsequently developed cord compression in late October, and MRI showed a large paraspinal mass at T4 and T11, invading vertebral body and extending to left epidural space. She underwent decompressive laminectomy. She developed hemiplegia. She was started on Tafinlar and Mekinist in 04/2018, with good response. Her breast mass continues to decrease in size; however, the last time I saw her was in January. She stopped coming to the clinic for followup. She missed multiple appointments. According to her , they have been treating her with Tafinlar and Mekinist. Because of her disability, it was hard to bring her to clinic. About a month ago, they noted that the mass on her left chest wall had increased in size, she also developed a few new masses on the left shoulder and back area. She actually made an appointment to come back to the clinic this week. However, over the weekend, she started developing a cough and shortness of breath, she also had increased weakness. On presentation, a CT angiogram did not show any pulmonary embolism; however, she has developed moderate to large left pleural effusion. She also was noted to have a large paraspinal mass with multiple chest wall masses. There were new masses in left supraclavicular and axillary area. There flakita also increased pulmonary nodules. There was soft tissue in the previous laminectomy bed. This is most consistent with progression of melanoma. She likely has developed a malignant pleural effusion. At this point, she is very weak. Performance status is 3. I had an extensive discussion with the patient and her . I told him that this is consistent progression of disease and prognosis is poor. She has now failed a BRAF inhibitor. Treatment will be immunotherapy with ipilimumab and nivolumab. We discussed potential side effect. This treatment can only be done in the outpatient setting. The patient is rather weak and they are not sure if they want to continue with aggressive treatment. I also talked to them about best supportive care with hospice. They would like to think over the option. I think hospice care is appropriate for this patient. 2. Right pleural effusion, which is new. This is likely a malignant pleural effusion. She had thoracentesis with removal of 1 liter of fluid. A chest tube was placed and is still draining. Cytology is pending. Can consider placement of a PleurX catheter for outpatient management. Pulmonology is following. 3. Pulmonary nodules, which I think is most consistent with metastatic melanoma. 4. Urinary tract infection. She has chronic indwelling Elena catheter. She presented with sepsis syndrome. She is now on an antibiotic. 5. History of cord compression. She is paraplegic. There is new soft tissue mass and previous laminectomy bed. 6. Hypertension. 7. Anxiety. 8. Anemia of chronic disease. RECOMMENDATIONS: 1. Extensive discussion with the patient's and her son. I told them the prognosis is poor. Can consider immunotherapy if the patient is strong enough to go back to clinic for treatment. We also talked about hospice care, and I think the patient is an appropriate candidate for hospice care. Palliative Medicine is also following. 2. Urosepsis. She is currently on antibiotic. 3. Left pleural effusion, likely malignant pleural effusion. She had a chest tube placed. Consider placing a PleurX catheter for outpatient palliative support. Thank you for asking me to see this patient. MD Nevin Navarro , 04:40 PM , 05:07 PM [facility]
[2018-08-10] MEDS: Piperacil/Tazo 4.5 GM Premix 4.5 GM/100 ML BAG IV.SIG SCH ×4 (01:35→20:28)
[2018-08-10] MEDS: Chlorhexidine Gluconate 2% 1 Pack (2 Cloths) TOPICAL SCH (05:27)
[2018-08-10] MEDS: Heparin - SQ 10,000 UNITS/ML Vial SQ SCH ×3 (05:36→22:08)
[2018-08-10 06:01] LABS: Baso % (Auto) 0.1 % (0.0-2.0); Eos % (Auto) 0.1 % (0.0-4.0); Hemoglobin 9.4 gm/dL (11.6-15.3); Lymph # (Auto) 0.5 th/mm3 (1.0-4.8); Lymph % (Auto) 6.7 % (9.0-44.0); Mean Corpuscular HGB Conc 32.5 % (32.0-36.0); Mean Corpuscular Hemoglobin 28.5 pg (27.0-34.0); Mean Corpuscular Volume 87.7 fL (80.0-100.0); Mean Platelet Volume 8.3 fL (7.0-11.0); Mono # (Auto) 0.3 th/mm3 (0.0-0.9); Mono % (Auto) 4.6 % (0.0-8.0); Neut # (Auto) 6.4 th/mm3 (1.8-7.7); Neut % (Auto) 88.5 % (16.0-70.0); Platelet Count 149 th/mm3 (150-450); Red Blood Count 3.31 mil/mm3 (4.00-5.30); Red Cell Distribution Width 16.4 % (11.6-17.2); White Blood Count 7.2 th/mm3 (4.0-11.0)
[2018-08-10 06:17] LABS: Anion Gap 14 meq/L (5-15); Blood Urea Nitrogen 35 mg/dL (7-18); Calcium 7.2 mg/dL (8.5-10.1); Carbon Dioxide 22.1 meq/L (21.0-32.0); Chloride 108 meq/L (98-107); Glomerular Filtration Rate Greater Than 89 mL/min (>89); Glucose,Random 92 mg/dL (74-106); Magnesium 2.5 mg/dL (1.5-2.5); Phosphorus 4.1 mg/dL (2.5-4.9); Potassium 3.8 meq/L (3.5-5.1); Sodium 144 meq/L (136-145)
--- NOTE | 2018-08-10 08:05 | P.PNONC ---
Subjective Interval history: Patient is still very weak but feeling a little better. She is afebrile. She still has pain in the left shoulder and arm. She can only wiggle her fingers and her left. She denies any chest pressure. She denies significant shortness of breath or cough. Objective Vital Signs/Intake & Output: Vital Signs 08/09/18 09:00 08/09/18 09:36 08/09/18 10:00 Temperature Pulse Rate 91 H 79 80 Respiratory Rate 23 16 17 Blood Pressure 94/61 L 81/52 L Pulse Oximetry 100 100 08/09/18 11:00 08/09/18 11:44 08/09/18 12:00 Temperature 98.1 F Pulse Rate 79 82 82 Respiratory Rate 14 15 20 Blood Pressure 83/51 L 91/53 L 93/52 L Pulse Oximetry 100 95 99 08/09/18 13:00 08/09/18 14:00 08/09/18 14:30 Temperature Pulse Rate 92 H 88 85 Respiratory Rate 20 17 20 Blood Pressure 92/55 L 89/52 L 92/51 L Pulse Oximetry 100 100 100 08/09/18 15:00 08/09/18 16:00 08/09/18 16:36 Temperature 98.0 F Pulse Rate 82 84 87 Respiratory Rate 18 19 16 Blood Pressure 90/53 L 90/54 L Pulse Oximetry 100 100 08/09/18 17:00 08/09/18 18:00 08/09/18 19:00 Temperature Pulse Rate 95 H 92 H 95 H Respiratory Rate 17 17 19 Blood Pressure 98/58 L 90/50 L 90/55 L Pulse Oximetry 100 100 100 08/09/18 20:00 08/09/18 21:00 08/09/18 21:45 Temperature 99.0 F Pulse Rate 94 H 97 H 97 H Respiratory Rate 15 22 20 Blood Pressure 93/53 L 84/53 L Pulse Oximetry 100 100 100 08/09/18 22:00 08/09/18 23:00 08/10/18 00:00 Temperature 99.0 F Pulse Rate 93 H 97 H 96 H Respiratory Rate 18 19 18 Blood Pressure 90/58 L 97/58 L 106/61 Pulse Oximetry 100 100 99 08/10/18 01:00 08/10/18 02:00 08/10/18 03:00 Temperature Pulse Rate 98 H 93 H 92 H Respiratory Rate 19 20 18 Blood Pressure 105/61 105/58 L 100/57 L Pulse Oximetry 99 99 99 08/10/18 04:00 08/10/18 04:40 08/10/18 05:00 Temperature 98.9 F Pulse Rate 91 H 89 90 Respiratory Rate 18 17 19 Blood Pressure 104/59 L 105/62 Pulse Oximetry 100 100 08/10/18 06:00 Temperature Pulse Rate 95 H Respiratory Rate 0 L Blood Pressure 103/57 L Pulse Oximetry 100 Intake & Output 08/09/18 08/10/18 08/10/18 18:59 06:59 18:59 Intake Total 582.5 / 582.5 502.5 / 502.5 Output Total 420 / 420 350 / 350 Balance 162.5 / 162.5 152.5 / 152.5 Weight 71.1 kg Intake: IV 462.5 / 462.5 462.5 / 462.5 Zosyn 4.5 GM Premix 4.5 gm In 200 / 200 200 / 200 100 ml @ 200 mls/hr IV.SIG Q6H ANTONI Rx#:[id number] Vancomycin Inj 1,250 MG In NS 262.5 / 262.5 262.5 / 262.5 Inj 250 ML @ 250 mls/hr IV.SIG Q12H ANTONI Rx#:[id number] Oral 120 / 120 40 / 40 Output: Urine 220 / 220 Urine Amount (Catheter) 250 / 250 Indwelling Urethral Catheter 250 / 250 Chest Tube Drainage 170 / 170 130 / 130 #1 Left Upper Pleural 170 / 170 130 / 130 Other: Date of Last Bowel Movement 08/08/18 08/10/18 # Bowel Movements 0 2 # Incontinent Bowel Movements 2 Result Diagrams: 08/10/18 05:27 08/10/18 05:27 Laboratory Results: Laboratory Results - last 24 hr 08/07/18 08/09/18 08/09/18 20:10 06:36 06:36 WBC 6.5 RBC 3.34 L Hgb 9.5 L Hct 29.3 L MCV 87.9 MCH 28.4 MCHC 32.3 RDW 16.3 Plt Count 157 MPV 8.3 Prelim Diff (Auto) Manual diff required Neut % (Auto) Lymph % (Auto) [place] % (Auto) Eos % (Auto) Baso % (Auto) Neut # (Auto) Lymph # (Auto) [place] # (Auto) Eos # (Auto) Baso # (Auto) WBC Differential Manual diff final Seg Neuts % (Manual) 78 H Band Neuts % (Manual) 12 H Lymphocytes % (Manual) 7 L Monocytes % (Manual) 2 Metamyelocytes % (Man) 1 Abs Neuts (Manual) 5.9 Nucleated RBCs/100 WBC 1 H Differential Comment . Toxic Vacuolation Present H Platelet Estimate Normal Platelet Morphology Normal RBC Morphology Normal Sodium 140 Potassium 4.3 Chloride 107 Carbon Dioxide 21.4 Anion Gap 12 BUN 31 H Creatinine 0.58 Estimated GFR Greater than 89 Random Glucose 83 Calcium 7.3 L* Prot Corrected Calcium 7.7 L Phosphorus 4.6 D Magnesium 2.5 Total Protein 6.4 Urine Color Yellow Urine Clarity Turbid H Urine pH 7.0 Ur Specific [place] 1.019 Urine Protein 500 or greater Urine Glucose (UA) Negative Urine Ketones Negative Urine Occult Blood Small H Urine Nitrate Negative Urine Bilirubin Negative Urine Urobilinogen Less than 2 Ur Leukocyte Esterase Moderate H Urine RBC 38 H Urine WBC Urine WBC Clumps Many H Urine Bacteria Many H Hyaline Casts 9 Urine Mucus Few H Micro UA Comment Culture indicated Urine Culture Comments Culture indicated 08/10/18 08/10/18 05:27 05:27 WBC 7.2 RBC 3.31 L Hgb 9.4 L Hct 29.0 L MCV 87.7 MCH 28.5 MCHC 32.5 RDW 16.4 Plt Count 149 L MPV 8.3 Prelim Diff (Auto) Neut % (Auto) 88.5 H Lymph % (Auto) 6.7 L [place] % (Auto) 4.6 Eos % (Auto) 0.1 Baso % (Auto) 0.1 Neut # (Auto) 6.4 Lymph # (Auto) 0.5 L [place] # (Auto) 0.3 Eos # (Auto) 0.0 Baso # (Auto) 0.0 WBC Differential . Seg Neuts % (Manual) Band Neuts % (Manual) Lymphocytes % (Manual) Monocytes % (Manual) Metamyelocytes % (Man) Abs Neuts (Manual) Nucleated RBCs/100 WBC Differential Comment Auto diff final Toxic Vacuolation Platelet Estimate Platelet Morphology RBC Morphology Sodium 144 Potassium 3.8 Chloride 108 H Carbon Dioxide 22.1 Anion Gap 14 BUN 35 H Creatinine 0.60 Estimated GFR Greater than 89 Random Glucose 92 Calcium 7.2 L* Prot Corrected Calcium 7.8 L Phosphorus 4.1 Magnesium 2.5 Total Protein 6.0 L Urine Color Urine Clarity Urine pH Ur Specific [place] Urine Protein Urine Glucose (UA) Urine Ketones Urine Occult Blood Urine Nitrate Urine Bilirubin Urine Urobilinogen Ur Leukocyte Esterase Urine RBC Urine WBC Urine WBC Clumps Urine Bacteria Hyaline Casts Urine Mucus Micro UA Comment Urine Culture Comments Culture Results: Microbiology 08/07/18 19:40 Aerobic Blood Culture - Preliminary Blood - Peripheral No growth in 2 days Anaerobic Blood Culture - Preliminary gram positive cocci 08/08/18 01:00 Gram Stain - Final Fluid - Pleural fluid Body Fluid Culture - Preliminary No growth in 24 hours 08/07/18 19:35 Aerobic Blood Culture - Preliminary Blood - Peripheral No growth in 2 days Anaerobic Blood Culture - Preliminary No growth in 2 days 08/07/18 20:10 Urine Culture - Preliminary Catheterized Urine gram negative rods Streptococcus species Medications: Active Medications Generic Name Dose Route Start Last Admin Trade Name Freq PRN Reason Stop Dose Admin Albuterol 1 ampul 08/07/18 21:55 08/08/18 09:08 Duoneb Neb (Prn) NEB 1 ampul Q2HR NEB PRN Administration WHEEZING Albuterol 1 ampul 08/08/18 10:00 08/10/18 04:39 Duoneb Neb (Antoni) NEB 1 ampul Q6HR NEB ANTONI Administration Chlorhexidine Gluconate 3 pack 08/08/18 04:00 08/10/18 05:27 Chlorhexidine 2% Cloth TOPICAL 08/13/18 03:59 3 pack DAILY@0400 ANTONI Administration Famotidine 20 mg 08/08/18 09:00 08/09/18 20:44 Pepcid Pf Inj IV.PUSH 20 mg Q12HR ANTONI Administration Heparin Sodium (Porcine) 5,000 units 08/07/18 22:00 08/10/18 05:36 Heparin Inj SQ 5,000 units Q8HR ANTONI Administration Hydromorphone HCl 0.25 mg 08/07/18 21:55 08/09/18 05:56 Dilaudid Pf Inj IV.PUSH 0.25 mg Q1H PRN Administration pain 8-10 or not taking po Piperacillin/Tazobactam/Dextrose 4.5 gm in 100 mls @ 200 mls/hr 08/08/18 02: 00 08/10/18 07:38 Zosyn 4.5 Gm Premix IV.SIG 200 mls/hr Q6H ANTONI Administration Vancomycin HCl 1,250 mg/ 262.5 mls @ 250 mls/hr 08/08/18 21:00 08/09/18 22:42 Sodium Chloride IV.SIG Infused Q12H ANTONI Infusion Lactulose 30 ml 08/08/18 09:00 08/09/18 20:44 Lactulose Liq PO 30 ml BID ANTONI Administration Metoprolol Tartrate 12.5 mg 08/08/18 10:30 08/09/18 20:45 Lopressor PO Not Given BID ANTONI Ondansetron HCl 4 mg 08/07/18 21:55 08/08/18 10:01 Zofran Inj IV.PUSH 4 mg Q6H PRN Administration NAUSEA OR VOMITING Polyethylene Glycol 17 gm 08/08/18 09:00 08/09/18 20:45 Miralax PO Not Given BID ANTONI Senna/Docusate Sodium 1 tab 08/08/18 09:00 08/09/18 20:45 Maribeth-Colace PO 1 tab BID ANTONI Administration Sodium Chloride 2 ml 08/08/18 09:00 08/09/18 20:45 Ns Flush IV.FLUSH 2 ml BID ANTONI Administration Objective Remarks: GENERAL: Well-nourished, well-developed patient. Very weak. SKIN: Warm and dry. Pale. HEAD: Normocephalic. EYES: No scleral icterus. No injection or drainage. NECK: Supple, trachea midline. No JVD or lymphadenopathy. LYMPHATIC: No adenopathy. Multiple masses left chest wall axillary and back. CARDIOVASCULAR: Regular rate and rhythm without murmurs. RESPIRATORY: Breath sounds equal bilaterally. No accessory muscle use. GASTROINTESTINAL: Abdomen soft, non-tender, nondistended. EXTREMITIES: No cyanosis, or edema. MUSCULOSKELETAL: Adequate muscle tone. NEUROLOGICAL: No movement of her lower extremities. She can only wiggle her left fingers. Awake, alert, and oriented x3. PSYCHIATRIC: Appropriate mood and affect; insight and judgment normal. Assessment/Plan - Plan 1. Metastatic melanoma. Positive for BRAF mutation. On presentation, a CT angiogram did not show any pulmonary embolism; however, she has developed moderate to large left pleural effusion. She also was noted to have a large paraspinal mass with multiple chest wall masses. There were new masses in left supraclavicular and axillary area. There flakita also increased pulmonary nodules. There was soft tissue in the previous laminectomy bed. This is most consistent with progression of melanoma. She likely has developed a malignant pleural effusion. At this point, she is very weak. Performance status is poor. Her prognosis is very poor. She has now failed a BRAF inhibitor. 2. Right pleural effusion, which is new. This is likely a malignant pleural effusion. She had thoracentesis with removal of 1 liter of fluid. A chest tube was placed and is still draining. Cytology is pending. Can consider placement of a PleurX catheter for outpatient management. Pulmonology is following. 3. Pulmonary nodules, which I think is most consistent with metastatic melanoma. 4. Urinary tract infection. She has chronic indwelling Elena catheter. She presented with sepsis syndrome. She is now on an antibiotic. 5. History of cord compression. She is paraplegic. There is new soft tissue mass and previous laminectomy bed. 6. Anemia of chronic disease. RECOMMENDATIONS: 1. Continue treatment of urosepsis per primary team. 2. Her prognosis is very poor. Can consider immunotherapy if the patient is strong enough to go back to clinic for treatment. I think the patient is an appropriate candidate for hospice care. 3. Left pleural effusion, likely malignant pleural effusion. She had a chest tube placed. Consider placing a PleurX catheter for outpatient palliative support.
[2018-08-10] MEDS: Polyethylene Glycol 3350 17 GM Packet PO SCH ×2 (08:30→20:29)
[2018-08-10] MEDS: Sodium Chloride 0.9% 2 ML Flush BID IV.FLUSH SCH ×2 (08:30→20:28)
[2018-08-10] MEDS: Senna/Docusate Sodium 8.6/50 MG Tablet PO SCH ×2 (08:30→20:35)
[2018-08-10] MEDS: Metoprolol Tartrate 25 MG Tablet PO SCH ×2 (08:30→20:30)
[2018-08-10] MEDS ORDERED: Pharmacy Ordered Lab Info OTHER ONE (08:45)
[2018-08-10] MEDS: Vancomycin Inj 1,250 MG in Sodium Chlor 0.9% Inj 250 ML IV.SIG SCH (09:16)
[2018-08-10] MEDS: Famotidine PF Inj 20 MG/2 ML Vial IV.PUSH SCH ×2 (09:30→20:28)
--- NOTE | 2018-08-10 11:12 | P.PNIM ---
Subjective Interval history: Patient doing well status post chest tube placement. No complaints of pain. She feels her breathing status is not significantly changed yet. Physical Exam Vital signs: Vital Signs 08/09/18 11:44 08/09/18 12:00 08/09/18 13:00 Temperature 98.1 F Pulse Rate 82 82 92 H Respiratory Rate 15 20 20 Blood Pressure 91/53 L 93/52 L 92/55 L Pulse Oximetry 95 99 100 08/09/18 14:00 08/09/18 14:30 08/09/18 15:00 Temperature Pulse Rate 88 85 82 Respiratory Rate 17 20 18 Blood Pressure 89/52 L 92/51 L 90/53 L Pulse Oximetry 100 100 100 08/09/18 16:00 08/09/18 16:36 08/09/18 17:00 Temperature 98.0 F Pulse Rate 84 87 95 H Respiratory Rate 19 16 17 Blood Pressure 90/54 L 98/58 L Pulse Oximetry 100 100 08/09/18 18:00 08/09/18 19:00 08/09/18 20:00 Temperature 99.0 F Pulse Rate 92 H 95 H 94 H Respiratory Rate 17 19 15 Blood Pressure 90/50 L 90/55 L 93/53 L Pulse Oximetry 100 100 100 08/09/18 21:00 08/09/18 21:45 08/09/18 22:00 Temperature Pulse Rate 97 H 97 H 93 H Respiratory Rate 22 20 18 Blood Pressure 84/53 L 90/58 L Pulse Oximetry 100 100 100 08/09/18 23:00 08/10/18 00:00 08/10/18 01:00 Temperature 99.0 F Pulse Rate 97 H 96 H 98 H Respiratory Rate 19 18 19 Blood Pressure 97/58 L 106/61 105/61 Pulse Oximetry 100 99 99 08/10/18 02:00 08/10/18 03:00 08/10/18 04:00 Temperature 98.9 F Pulse Rate 93 H 92 H 91 H Respiratory Rate 20 18 18 Blood Pressure 105/58 L 100/57 L 104/59 L Pulse Oximetry 99 99 100 08/10/18 04:40 08/10/18 05:00 08/10/18 06:00 Temperature Pulse Rate 89 90 95 H Respiratory Rate 17 19 0 L Blood Pressure 105/62 103/57 L Pulse Oximetry 100 100 08/10/18 07:00 08/10/18 08:00 08/10/18 08:32 Temperature 97.9 F Pulse Rate 95 H 89 94 H Respiratory Rate 15 16 12 Blood Pressure 107/63 100/55 L Pulse Oximetry 100 100 100 08/10/18 09:00 08/10/18 10:00 Temperature Pulse Rate 91 H 99 H Respiratory Rate 15 15 Blood Pressure 102/60 97/61 L Pulse Oximetry 100 100 Intake & Output 08/09/18 08/10/18 08/10/18 18:59 06:59 18:59 Intake Total 582.5 / 582.5 502.5 / 502.5 100 / 100 Output Total 420 / 420 350 / 350 Balance 162.5 / 162.5 152.5 / 152.5 100 / 100 Weight 71.1 kg Intake: IV 462.5 / 462.5 462.5 / 462.5 100 / 100 Zosyn 4.5 GM Premix 4.5 gm In 200 / 200 200 / 200 100 / 100 100 ml @ 200 mls/hr IV.SIG Q6H ELEANOR Rx#:[id number] Vancomycin Inj 1,250 MG In NS 262.5 / 262.5 262.5 / 262.5 Inj 250 ML @ 250 mls/hr IV.SIG Q12H ELEANOR Rx#:[id number] Oral 120 / 120 40 / 40 Output: Urine 220 / 220 Urine Amount (Catheter) 250 / 250 Indwelling Urethral Catheter 250 / 250 Chest Tube Drainage 170 / 170 130 / 130 #1 Left Upper Pleural 170 / 170 130 / 130 Other: Date of Last Bowel Movement 08/08/18 08/10/18 08/10/18 # Bowel Movements 0 2 # Incontinent Bowel Movements 2 Narrative: GENERAL: NAD, A&Ox3 HEAD: Normocephalic. NECK: Supple, trachea midline. No lymphadenopathy. EYES: No scleral icterus. No injection or drainage. CARDIOVASCULAR: Regular rate and rhythm without murmurs, gallops, or rubs. RESPIRATORY: Breath sounds equal bilaterally. No accessory muscle use. Left- sided chest tube. GASTROINTESTINAL: Abdomen soft, non-tender, nondistended. MUSCULOSKELETAL: No cyanosis, or edema. SKIN: Warm and dry. NEURO: No focal neurological deficits. - Urinary Catheter Management Indwelling Urethral Catheter Cath placed during this visit: yes, but has since been removed by the nurse Reason for continuing: Chronic Urinary Retention Insertion date: 08/08/18 Insertion time: 01:35 Removal date: 08/08/18 Removal time: 01:30 Results - Labs CBC & Chem 7: 08/10/18 05:27 08/10/18 05:27 Laboratory Results - last 24 hr 08/07/18 08/10/18 08/10/18 20:10 05:27 05:27 WBC 7.2 RBC 3.31 L Hgb 9.4 L Hct 29.0 L MCV 87.7 MCH 28.5 MCHC 32.5 RDW 16.4 Plt Count 149 L MPV 8.3 Neut % (Auto) 88.5 H Lymph % (Auto) 6.7 L [place] % (Auto) 4.6 Eos % (Auto) 0.1 Baso % (Auto) 0.1 Neut # (Auto) 6.4 Lymph # (Auto) 0.5 L [place] # (Auto) 0.3 Eos # (Auto) 0.0 Baso # (Auto) 0.0 WBC Differential . Differential Comment Auto diff final Sodium 144 Potassium 3.8 Chloride 108 H Carbon Dioxide 22.1 Anion Gap 14 BUN 35 H Creatinine 0.60 Estimated GFR Greater than 89 Random Glucose 92 Calcium 7.2 L* Prot Corrected Calcium 7.8 L Phosphorus 4.1 Magnesium 2.5 Total Protein 6.0 L Urine Color Yellow Urine Clarity Turbid H Urine pH 7.0 Ur Specific [place] 1.019 Urine Protein 500 or greater Urine Glucose (UA) Negative Urine Ketones Negative Urine Occult Blood Small H Urine Nitrate Negative Urine Bilirubin Negative Urine Urobilinogen Less than 2 Ur Leukocyte Esterase Moderate H Urine RBC 38 H Urine WBC Urine WBC Clumps Many H Urine Bacteria Many H Hyaline Casts 9 Urine Mucus Few H Micro UA Comment Culture indicated Urine Culture Comments Culture indicated Vancomycin Trough 08/10/18 05:27 WBC RBC Hgb Hct MCV MCH MCHC RDW Plt Count MPV Neut % (Auto) Lymph % (Auto) [place] % (Auto) Eos % (Auto) Baso % (Auto) Neut # (Auto) Lymph # (Auto) [place] # (Auto) Eos # (Auto) Baso # (Auto) WBC Differential Differential Comment Sodium Potassium Chloride Carbon Dioxide Anion Gap BUN Creatinine Estimated GFR Random Glucose Calcium Prot Corrected Calcium Phosphorus Magnesium Total Protein Urine Color Urine Clarity Urine pH Ur Specific [place] Urine Protein Urine Glucose (UA) Urine Ketones Urine Occult Blood Urine Nitrate Urine Bilirubin Urine Urobilinogen Ur Leukocyte Esterase Urine RBC Urine WBC Urine WBC Clumps Urine Bacteria Hyaline Casts Urine Mucus Micro UA Comment Urine Culture Comments Vancomycin Trough 45.6 H Microbiology 08/07/18 19:40 Blood - Peripheral Aerobic Blood Culture - Preliminary No growth in 3 days 08/07/18 19:40 Blood - Peripheral Anaerobic Blood Culture - Preliminary gram positive cocci 08/07/18 19:35 Blood - Peripheral Aerobic Blood Culture - Preliminary No growth in 3 days 08/07/18 19:35 Blood - Peripheral Anaerobic Blood Culture - Preliminary No growth in 3 days 08/08/18 01:00 Fluid - Pleural fluid Gram Stain - Final 08/08/18 01:00 Fluid - Pleural fluid Body Fluid Culture - Preliminary No growth in 48 hours 08/07/18 20:10 Catheterized Urine Urine Culture - Final Providencia stuartii Enterococcus faecalis Proteus penneri Assessment and Plan - Plan 47-year-old female with metastatic melanoma came in secondary to pneumonia with pleural effusion, possible empyema. Status post left-sided chest tube placement Acute metabolic encephalopathy Improving Continue to follow for further improvement Acute on chronic pain Paraplegia Continue Dilaudid for pain Follow clinically Sepsis Resolved Community-acquired pneumonia Lactic acidosis large left pleural effusion Possible empyema Acute hypoxemia Follow cultures Chest tube placed on the left Continue oxygen as needed Cardiothoracic surgeon following Pulmonology following Oncology following UTI Continue Zosyn Follow cultures Acute kidney injury Chronic neurogenic bladder Follow renal function Avoid nephrotoxins Follow electrolytes DVT Prophylaxis lovenox SCDs
[2018-08-10] MEDS: HYDROmorphone PF Inj 1 MG/ML Ampul IV.PUSH PRN ×3 (12:56→18:37)
--- NOTE | 2018-08-10 13:03 | P.PNPAL ---
Reason for Visit Reason for visit: a. To assist with evaluation and management of symptoms including: pain, dyspnea b. To assist medical decision maker(s) with: better understanding of current medical conditions; weighing benefits/burdens of medical treatment options; making medical treatment decisions. Subjective Subjective/Interval History: This is a [id number], with a history of metastatic malignant melanoma, she is known to palliative care services from a visit in November 2017. She was brought to the ED by her and son on 08/07/18 with one day history of worsening shortness of breath and weakness. Additional history: * She was originally diagnosed with left breast malignant melanoma in Oct 2017 after undergoing/ left breast core biopsy to confirm pathology. At that time, she presented to the ED with a 3-month history of left breast swelling. At that time, CT of the chest showed the entire left breast is filled with multiple / masses. There was also extensive adenopathy in the left axilla, left supraclavicular and superior mediastinum. There are also small nodules in the lung suspicious for metastatic disease. CT of the abdomen and pelvis was essentially negative. * On 10/22/17, patient was once again brought to the ED by her family with a 4- day history of paresthesia from the hip down and urinary retention. At that time she underwent MRI of the lumbar spine which was negative for evidence of metastasis, however cervical and thoracic spine MRI significant for multiple lesions along the left chest wall, left shoulder, large left paraspinal mass at 4T8, but more notably at T6 and invades T6 vertebral body, left aspect of T5 vertebral body, and extends into left epidural space. On 10/23/17, she underwent decompressive laminectomy of T4-T8. At time of discharge on 10/22/17, patient was able to move her upper extremities spontaneously, but can follow simple commands of bilateral lower extremities. * Patient was discharged to rehab and then home, at that time because status was discussed elected DNR status, and declined hospice services. Of note, she did start chemotherapy in November 2017, however as of January, she had not followed up since Nov and had missed a few appointments. She was seen in the ED in June with reported carpal lower nodules on her left upper back, got from she and her about cancer had been stabilized though she still had residual mass primarily in the left axillary area with extension toward the left breast. Patient has remained in the ICU since admission. Remains with flat affect and progressive weakness. She is minimally engaging in conversation only speaks a few words, stairs that examiner when asking questions and often does not answer. Patient and her met with Dr. Moe yesterday who advised she is having disease progression despite treatment. states they briefly discussed possibility of immunotherapy should patient regain some strength and overall improvement in her health. Per bedside nurse, patient's engagement in conversation seems to wax and wane, she is sometimes more vocal than others. She is able to weakly move her right upper extremity, left upper extremity is essentially flaccid and now edematous. She has intermittent complaints of pain to the left shoulder and arm area though she often declines PRN pain medicines. Still awaiting pleural fluid microbiology report, no growth in 48 hours. Pertinent labs for today: WBC 7.2, hemoglobin 9.4, hematocrit 29, platelet count 149, sodium 144 potassium 3.8, carbon dioxide 22.1, BUN increasing now at 35, calcium 7.2, protein corrected calcium 7.8, magnesium 2.5, phosphorus 4.1, total protein 6. Patient seen by speech therapy today reporting moderate pharyngeal dysphasia, recommend mechanical soft nectar thick. Dual visit with Isidoro Pugh APRN. Seen and examined in her room with at bedside. Patient minimally engages in conversation. She denies having any pain or discomfort though appears somewhat short of breath. She does endorse some nausea this morning, requested bedside RN provide nausea medications if possible. is agreeable to exploring hospice options and getting some information on services provided, however they are not ready to make any decisions today. Family/Friend Interactions: Palliative family meeting: Met with patient and her Donavan is at bedside. Discussed the following: palliative care role, purpose, approach Additional medical treatment options vs transition to comfort Patients general health, functional status, and cognitive changes in the months leading up to the current hospitalization Patient/family understanding of the current medical problems Patient/family understanding of prognosis Patients goals of care as best understood from advance directives and/or conversations and/or values Current medical treatment options and benefits/burdens of those options Likely scenarios comparing ongoing aggressive care with a transition to `` comfort measures only Questions answered to the best of my ability Palliative care contact information provided Met with patient and her Donavan at bedside. Patient engages minimally in conversation. Only answers a few questions otherwise stares blankly at examiner. seems to have pretty good understanding of patient's current condition, understands that she is progressively weaker, understands depression of disease despite treatment. He is receptive to discussing hospice services though does not wish to make any decisions until possibly the weekend pending results of pleural fluid cytology. He acknowledges given her worsening weakness during this admission, reports she was previously able to at least participate in some of her care and now is not, reports limited resources at home and patient will likely need higher level of care while at home. Hospice consult placed for information only at this time. . Advance Directives Advance Directives Date on File: 03/17/18 Objective Vital Signs: Vital Signs 08/09/18 13:00 08/09/18 14:00 08/09/18 14:30 Temperature Pulse Rate 92 H 88 85 Respiratory Rate 20 17 20 Blood Pressure 92/55 L 89/52 L 92/51 L Pulse Oximetry 100 100 100 08/09/18 15:00 08/09/18 16:00 08/09/18 16:36 Temperature 98.0 F Pulse Rate 82 84 87 Respiratory Rate 18 19 16 Blood Pressure 90/53 L 90/54 L Pulse Oximetry 100 100 08/09/18 17:00 08/09/18 18:00 08/09/18 19:00 Temperature Pulse Rate 95 H 92 H 95 H Respiratory Rate 17 17 19 Blood Pressure 98/58 L 90/50 L 90/55 L Pulse Oximetry 100 100 100 08/09/18 20:00 08/09/18 21:00 08/09/18 21:45 Temperature 99.0 F Pulse Rate 94 H 97 H 97 H Respiratory Rate 15 22 20 Blood Pressure 93/53 L 84/53 L Pulse Oximetry 100 100 100 08/09/18 22:00 08/09/18 23:00 08/10/18 00:00 Temperature 99.0 F Pulse Rate 93 H 97 H 96 H Respiratory Rate 18 19 18 Blood Pressure 90/58 L 97/58 L 106/61 Pulse Oximetry 100 100 99 08/10/18 01:00 08/10/18 02:00 08/10/18 03:00 Temperature Pulse Rate 98 H 93 H 92 H Respiratory Rate 19 20 18 Blood Pressure 105/61 105/58 L 100/57 L Pulse Oximetry 99 99 99 08/10/18 04:00 08/10/18 04:40 08/10/18 05:00 Temperature 98.9 F Pulse Rate 91 H 89 90 Respiratory Rate 18 17 19 Blood Pressure 104/59 L 105/62 Pulse Oximetry 100 100 08/10/18 06:00 08/10/18 07:00 08/10/18 08:00 Temperature 97.9 F Pulse Rate 95 H 95 H 89 Respiratory Rate 0 L 15 16 Blood Pressure 103/57 L 107/63 100/55 L Pulse Oximetry 100 100 100 08/10/18 08:32 08/10/18 09:00 08/10/18 10:00 Temperature Pulse Rate 94 H 91 H 99 H Respiratory Rate 12 15 15 Blood Pressure 102/60 97/61 L Pulse Oximetry 100 100 100 08/10/18 11:00 08/10/18 12:00 Temperature 98.1 F Pulse Rate 104 H 105 H Respiratory Rate 16 17 Blood Pressure 105/60 96/60 L Pulse Oximetry 100 100 Intake & Output 08/09/18 08/10/18 08/10/18 18:59 06:59 18:59 Intake Total 582.5 / 582.5 502.5 / 502.5 100 / 100 Output Total 420 / 420 350 / 350 Balance 162.5 / 162.5 152.5 / 152.5 100 / 100 Weight 71.1 kg Intake: IV 462.5 / 462.5 462.5 / 462.5 100 / 100 Zosyn 4.5 GM Premix 4.5 gm In 200 / 200 200 / 200 100 / 100 100 ml @ 200 mls/hr IV.SIG Q6H ELEANOR Rx#:[id number] Vancomycin Inj 1,250 MG In NS 262.5 / 262.5 262.5 / 262.5 Inj 250 ML @ 250 mls/hr IV.SIG Q12H ELEANOR Rx#:[id number] Oral 120 / 120 40 / 40 Output: Urine 220 / 220 Urine Amount (Catheter) 250 / 250 Indwelling Urethral Catheter 250 / 250 Chest Tube Drainage 170 / 170 130 / 130 #1 Left Upper Pleural 170 / 170 130 / 130 Other: Date of Last Bowel Movement 08/08/18 08/10/18 08/10/18 # Bowel Movements 0 2 # Incontinent Bowel Movements 2 Physical Exam: CONSTITUTIONAL/GENERAL: This is an adequately nourished patient, in no apparent distress. Flat affect. Minimal engagement TUBES/LINES/DRAINS: Left chest pigtail catheter, Elena catheter, right hand PIV , right AC PIV, left forearm PIV, nasal cannula SKIN: Pale .no jaundice, rashes. Reported lesions on back, not visualized. Left breast extending to axillary with firm palpable masses. HEAD: Atraumatic. Normocephalic. EYES: Pupils equal and round and reactive. Extraocular motions intact. No scleral icterus. No injection or drainage. Fundi not examined. Slight left eye droop and deviated gaze. ENT: Hearing grossly normal. Nose without bleeding or purulent drainage. Throat without visible erythema, exudates, masses, or lesions. NECK: Trachea midline. Supple, nontender. No palpable thyroid enlargement or nodularity. CARDIOVASCULAR: Regular rate and rhythm without murmurs. No JVD. Peripheral pulses symmetric. Lower extremities cool with dry skin. RESPIRATORY/CHEST: Symmetric, unlabored respirations. Clear to auscultation. Breath sounds equal bilaterally. Diminished breath sounds. Left upper chest pigtail catheter to wall suction with dressing dry and intact. GASTROINTESTINAL: Abdomen soft, non-tender, nondistended. No hepato-splenomegaly , or palpable masses. No guarding. Bowel sounds present. GENITOURINARY: Without palpable bladder distension. Elena catheter in place. MUSCULOSKELETAL: Extremities without clubbing, cyanosis, or edema. No joint tenderness or effusion noted. No calf tenderness. No mottling or clubbing. Left upper extremity edema LYMPHATICS: No palpable cervical or supraclavicular adenopathy. NEUROLOGICAL: Awake and flat affect. Partially oriented, unable to fully assess secondary to patient not engaging in conversation, often does not answer questions and blankly stares at examiner, remains slow to respond to other questions and seems to continue having difficulty finding some words. Somewhat forgetful. Lower extremities flaccid with slight withdrawal. Moves right upper extremity weakly, does not move left upper extremity. PSYCHIATRIC: Flat affect . No obvious anxiety/depression. no apparent hallucinations or other psychotic thought process. Diagnostic Tests Laboratory: Laboratory Results - last 72 hr 08/07/18 08/07/18 08/07/18 19:35 19:35 19:35 WBC 9.2 RBC 4.10 Hgb 11.2 L Hct 36.2 MCV 88.2 MCH 27.4 MCHC 31.1 L RDW 16.2 Plt Count 247 MPV 8.2 Prelim Diff (Auto) Neut % (Auto) 77.9 H Lymph % (Auto) 16.2 [place] % (Auto) 5.2 Eos % (Auto) 0.1 Baso % (Auto) 0.6 Neut # (Auto) 7.2 Lymph # (Auto) 1.5 [place] # (Auto) 0.5 Eos # (Auto) 0.0 Baso # (Auto) 0.1 WBC Differential . Seg Neuts % (Manual) Band Neuts % (Manual) Lymphocytes % (Manual) Monocytes % (Manual) Metamyelocytes % (Man) Abs Neuts (Manual) Nucleated RBCs/100 WBC Differential Comment Auto diff final Toxic Vacuolation Platelet Estimate Platelet Morphology RBC Morphology Sodium 132 L Potassium 5.6 H Chloride 99 Carbon Dioxide 21.5 Anion Gap 12 BUN 34 H Creatinine 0.68 Estimated GFR Greater than 89 POC Glucose Random Glucose 146 H Lactic Acid 5.8 H* Calcium 7.9 L Prot Corrected Calcium Phosphorus Magnesium 2.5 Total Bilirubin 0.4 AST 42 H ALT 17 Alkaline Phosphatase 79 Total Creatine Kinase 176 CK-MB (CK-2) Less than 1.0 Troponin I Less than 0.02 L Total Protein 7.6 Albumin 2.5 L Urine Color Urine Clarity Urine pH Ur Specific [place] Urine Protein Urine Glucose (UA) Urine Ketones Urine Occult Blood Urine Nitrate Urine Bilirubin Urine Urobilinogen Ur Leukocyte Esterase Urine RBC Urine WBC Urine WBC Clumps Urine Bacteria Hyaline Casts Urine Mucus Micro UA Comment Ur Microscopic Review Urine Culture Comments Pleural pH Pleural RBC Pleural Nuc Cells Pleural Neutrophils Pleural Lymphocytes Pleural Monocytes Pleural Plasma Cells Pleural Mesothelial Pleural Fluid Comment Pleural Total Protein Pleural Albumin Pleural LDH Pleural Glucose Nasal Screen MRSA (PCR) Vancomycin Trough 08/07/18 08/07/18 08/07/18 19:56 20:10 23:20 WBC RBC Hgb Hct MCV MCH MCHC RDW Plt Count MPV Prelim Diff (Auto) Neut % (Auto) Lymph % (Auto) [place] % (Auto) Eos % (Auto) Baso % (Auto) Neut # (Auto) Lymph # (Auto) [place] # (Auto) Eos # (Auto) Baso # (Auto) WBC Differential Seg Neuts % (Manual) Band Neuts % (Manual) Lymphocytes % (Manual) Monocytes % (Manual) Metamyelocytes % (Man) Abs Neuts (Manual) Nucleated RBCs/100 WBC Differential Comment Toxic Vacuolation Platelet Estimate Platelet Morphology RBC Morphology Sodium Potassium Chloride Carbon Dioxide Anion Gap BUN Creatinine Estimated GFR POC Glucose 255 H Random Glucose Lactic Acid 2.9 H Calcium Prot Corrected Calcium Phosphorus Magnesium Total Bilirubin AST ALT Alkaline Phosphatase Total Creatine Kinase CK-MB (CK-2) Troponin I Total Protein Albumin Urine Color Yellow Urine Clarity Turbid H Urine pH 7.0 Ur Specific [place] 1.019 Urine Protein 500 or greater Urine Glucose (UA) Negative Urine Ketones Negative Urine Occult Blood Small H Urine Nitrate Negative Urine Bilirubin Negative Urine Urobilinogen Less than 2 Ur Leukocyte Esterase Moderate H Urine RBC 38 H Urine WBC Urine WBC Clumps Many H Urine Bacteria Many H Hyaline Casts 9 Urine Mucus Few H Micro UA Comment Culture indicated Ur Microscopic Review Not Reportable Urine Culture Comments Culture indicated Pleural pH Pleural RBC Pleural Nuc Cells Pleural Neutrophils Pleural Lymphocytes Pleural Monocytes Pleural Plasma Cells Pleural Mesothelial Pleural Fluid Comment Pleural Total Protein Pleural Albumin Pleural LDH Pleural Glucose Nasal Screen MRSA (PCR) Vancomycin Trough 08/08/18 08/08/18 08/08/18 00:15 01:00 01:00 WBC RBC Hgb Hct MCV MCH MCHC RDW Plt Count MPV Prelim Diff (Auto) Neut % (Auto) Lymph % (Auto) [place] % (Auto) Eos % (Auto) Baso % (Auto) Neut # (Auto) Lymph # (Auto) [place] # (Auto) Eos # (Auto) Baso # (Auto) WBC Differential Seg Neuts % (Manual) Band Neuts % (Manual) Lymphocytes % (Manual) Monocytes % (Manual) Metamyelocytes % (Man) Abs Neuts (Manual) Nucleated RBCs/100 WBC Differential Comment Toxic Vacuolation Platelet Estimate Platelet Morphology RBC Morphology Sodium Potassium Chloride Carbon Dioxide Anion Gap BUN Creatinine Estimated GFR POC Glucose Random Glucose Lactic Acid Calcium Prot Corrected Calcium Phosphorus Magnesium Total Bilirubin AST ALT Alkaline Phosphatase Total Creatine Kinase CK-MB (CK-2) Troponin I Total Protein Albumin Urine Color Urine Clarity Urine pH Ur Specific [place] Urine Protein Urine Glucose (UA) Urine Ketones Urine Occult Blood Urine Nitrate Urine Bilirubin Urine Urobilinogen Ur Leukocyte Esterase Urine RBC Urine WBC Urine WBC Clumps Urine Bacteria Hyaline Casts Urine Mucus Micro UA Comment Ur Microscopic Review Urine Culture Comments Pleural pH Pleural RBC 4447 H Pleural Nuc Cells 395 H Pleural Neutrophils 8 Pleural Lymphocytes 83 Pleural Monocytes 3 Pleural Plasma Cells 1 Pleural Mesothelial 5 Pleural Fluid Comment Pleural Total Protein Pleural Albumin 1.9 Pleural LDH Pleural Glucose Nasal Screen MRSA (PCR) Mrsa detected Vancomycin Trough 08/08/18 08/08/18 08/08/18 01:00 01:00 01:00 WBC RBC Hgb Hct MCV MCH MCHC RDW Plt Count MPV Prelim Diff (Auto) Neut % (Auto) Lymph % (Auto) [place] % (Auto) Eos % (Auto) Baso % (Auto) Neut # (Auto) Lymph # (Auto) [place] # (Auto) Eos # (Auto) Baso # (Auto) WBC Differential Seg Neuts % (Manual) Band Neuts % (Manual) Lymphocytes % (Manual) Monocytes % (Manual) Metamyelocytes % (Man) Abs Neuts (Manual) Nucleated RBCs/100 WBC Differential Comment Toxic Vacuolation Platelet Estimate Platelet Morphology RBC Morphology Sodium Potassium Chloride Carbon Dioxide Anion Gap BUN Creatinine Estimated GFR POC Glucose Random Glucose Lactic Acid Calcium Prot Corrected Calcium Phosphorus Magnesium Total Bilirubin AST ALT Alkaline Phosphatase Total Creatine Kinase CK-MB (CK-2) Troponin I Total Protein Albumin Urine Color Urine Clarity Urine pH Ur Specific [place] Urine Protein Urine Glucose (UA) Urine Ketones Urine Occult Blood Urine Nitrate Urine Bilirubin Urine Urobilinogen Ur Leukocyte Esterase Urine RBC Urine WBC Urine WBC Clumps Urine Bacteria Hyaline Casts Urine Mucus Micro UA Comment Ur Microscopic Review Urine Culture Comments Pleural pH 8.0 Pleural RBC Pleural Nuc Cells Pleural Neutrophils Pleural Lymphocytes Pleural Monocytes Pleural Plasma Cells Pleural Mesothelial Pleural Fluid Comment Pleural Total Protein Pleural Albumin Pleural LDH 831 Pleural Glucose 111 Nasal Screen MRSA (PCR) Vancomycin Trough 08/08/18 08/08/18 08/08/18 01:00 01:00 08:06 WBC RBC Hgb Hct MCV MCH MCHC RDW Plt Count MPV Prelim Diff (Auto) Neut % (Auto) Lymph % (Auto) [place] % (Auto) Eos % (Auto) Baso % (Auto) Neut # (Auto) Lymph # (Auto) [place] # (Auto) Eos # (Auto) Baso # (Auto) WBC Differential Seg Neuts % (Manual) Band Neuts % (Manual) Lymphocytes % (Manual) Monocytes % (Manual) Metamyelocytes % (Man) Abs Neuts (Manual) Nucleated RBCs/100 WBC Differential Comment Toxic Vacuolation Platelet Estimate Platelet Morphology RBC Morphology Sodium 136 Potassium 5.6 H Chloride 106 Carbon Dioxide 19.8 L Anion Gap 10 BUN 27 H Creatinine 0.51 Estimated GFR Greater than 89 POC Glucose Random Glucose 98 Lactic Acid Calcium 6.8 L* D Prot Corrected Calcium 7.3 L* Phosphorus 3.5 Magnesium 2.2 Total Bilirubin AST ALT Alkaline Phosphatase Total Creatine Kinase CK-MB (CK-2) Troponin I Total Protein 6.2 L D Albumin Urine Color Yellow Urine Clarity Turbid H Urine pH 6.0 Ur Specific [place] Greater than 1.060 H Urine Protein 100 H Urine Glucose (UA) Negative Urine Ketones Negative Urine Occult Blood Moderate H Urine Nitrate Negative Urine Bilirubin Negative Urine Urobilinogen Less than 2 Ur Leukocyte Esterase Moderate H Urine RBC 139 H Urine WBC Urine WBC Clumps Many H Urine Bacteria Occasional H Hyaline Casts Urine Mucus Moderate H Micro UA Comment Cath-culture ind Ur Microscopic Review Not Reportable Urine Culture Comments Cath-cult indicated Pleural pH Pleural RBC Pleural Nuc Cells Pleural Neutrophils Pleural Lymphocytes Pleural Monocytes Pleural Plasma Cells Pleural Mesothelial Pleural Fluid Comment Pleural Total Protein 4.1 Pleural Albumin Pleural LDH Pleural Glucose Nasal Screen MRSA (PCR) Vancomycin Trough 08/08/18 08/08/18 08/08/18 08:06 13:01 22:50 WBC 8.8 RBC 3.30 L Hgb 9.4 L 9.1 L Hct 29.8 L 29.0 L MCV 90.3 MCH 28.7 MCHC 31.7 L RDW 16.4 Plt Count 154 D MPV 7.7 Prelim Diff (Auto) Neut % (Auto) 88.5 H Lymph % (Auto) 5.2 L [place] % (Auto) 5.8 Eos % (Auto) 0.1 Baso % (Auto) 0.4 Neut # (Auto) 7.8 H Lymph # (Auto) 0.5 L [place] # (Auto) 0.5 Eos # (Auto) 0.0 Baso # (Auto) 0.0 WBC Differential . Seg Neuts % (Manual) Band Neuts % (Manual) Lymphocytes % (Manual) Monocytes % (Manual) Metamyelocytes % (Man) Abs Neuts (Manual) Nucleated RBCs/100 WBC Differential Comment Auto diff final Toxic Vacuolation Platelet Estimate Platelet Morphology RBC Morphology Sodium Potassium 4.5 D Chloride Carbon Dioxide Anion Gap BUN Creatinine Estimated GFR POC Glucose Random Glucose Lactic Acid Calcium Prot Corrected Calcium Phosphorus Magnesium Total Bilirubin AST ALT Alkaline Phosphatase Total Creatine Kinase CK-MB (CK-2) Troponin I Total Protein Albumin Urine Color Urine Clarity Urine pH Ur Specific [place] Urine Protein Urine Glucose (UA) Urine Ketones Urine Occult Blood Urine Nitrate Urine Bilirubin Urine Urobilinogen Ur Leukocyte Esterase Urine RBC Urine WBC Urine WBC Clumps Urine Bacteria Hyaline Casts Urine Mucus Micro UA Comment Ur Microscopic Review Urine Culture Comments Pleural pH Pleural RBC Pleural Nuc Cells Pleural Neutrophils Pleural Lymphocytes Pleural Monocytes Pleural Plasma Cells Pleural Mesothelial Pleural Fluid Comment Pleural Total Protein Pleural Albumin Pleural LDH Pleural Glucose Nasal Screen MRSA (PCR) Vancomycin Trough 08/09/18 08/09/18 08/10/18 06:36 06:36 05:27 WBC 6.5 7.2 RBC 3.34 L 3.31 L Hgb 9.5 L 9.4 L Hct 29.3 L 29.0 L MCV 87.9 87.7 MCH 28.4 28.5 MCHC 32.3 32.5 RDW 16.3 16.4 Plt Count 157 149 L MPV 8.3 8.3 Prelim Diff (Auto) Manual diff required Neut % (Auto) 88.5 H Lymph % (Auto) 6.7 L [place] % (Auto) 4.6 Eos % (Auto) 0.1 Baso % (Auto) 0.1 Neut # (Auto) 6.4 Lymph # (Auto) 0.5 L [place] # (Auto) 0.3 Eos # (Auto) 0.0 Baso # (Auto) 0.0 WBC Differential Manual diff final . Seg Neuts % (Manual) 78 H Band Neuts % (Manual) 12 H Lymphocytes % (Manual) 7 L Monocytes % (Manual) 2 Metamyelocytes % (Man) 1 Abs Neuts (Manual) 5.9 Nucleated RBCs/100 WBC 1 H Differential Comment . Auto diff final Toxic Vacuolation Present H Platelet Estimate Normal Platelet Morphology Normal RBC Morphology Normal Sodium 140 Potassium 4.3 Chloride 107 Carbon Dioxide 21.4 Anion Gap 12 BUN 31 H Creatinine 0.58 Estimated GFR Greater than 89 POC Glucose Random Glucose 83 Lactic Acid Calcium 7.3 L* Prot Corrected Calcium 7.7 L Phosphorus 4.6 D Magnesium 2.5 Total Bilirubin AST ALT Alkaline Phosphatase Total Creatine Kinase CK-MB (CK-2) Troponin I Total Protein 6.4 Albumin Urine Color Urine Clarity Urine pH Ur Specific [place] Urine Protein Urine Glucose (UA) Urine Ketones Urine Occult Blood Urine Nitrate Urine Bilirubin Urine Urobilinogen Ur Leukocyte Esterase Urine RBC Urine WBC Urine WBC Clumps Urine Bacteria Hyaline Casts Urine Mucus Micro UA Comment Ur Microscopic Review Urine Culture Comments Pleural pH Pleural RBC Pleural Nuc Cells Pleural Neutrophils Pleural Lymphocytes Pleural Monocytes Pleural Plasma Cells Pleural Mesothelial Pleural Fluid Comment Pleural Total Protein Pleural Albumin Pleural LDH Pleural Glucose Nasal Screen MRSA (PCR) Vancomycin Trough 08/10/18 08/10/18 05:27 05:27 WBC RBC Hgb Hct MCV MCH MCHC RDW Plt Count MPV Prelim Diff (Auto) Neut % (Auto) Lymph % (Auto) [place] % (Auto) Eos % (Auto) Baso % (Auto) Neut # (Auto) Lymph # (Auto) [place] # (Auto) Eos # (Auto) Baso # (Auto) WBC Differential Seg Neuts % (Manual) Band Neuts % (Manual) Lymphocytes % (Manual) Monocytes % (Manual) Metamyelocytes % (Man) Abs Neuts (Manual) Nucleated RBCs/100 WBC Differential Comment Toxic Vacuolation Platelet Estimate Platelet Morphology RBC Morphology Sodium 144 Potassium 3.8 Chloride 108 H Carbon Dioxide 22.1 Anion Gap 14 BUN 35 H Creatinine 0.60 Estimated GFR Greater than 89 POC Glucose Random Glucose 92 Lactic Acid Calcium 7.2 L* Prot Corrected Calcium 7.8 L Phosphorus 4.1 Magnesium 2.5 Total Bilirubin AST ALT Alkaline Phosphatase Total Creatine Kinase CK-MB (CK-2) Troponin I Total Protein 6.0 L Albumin Urine Color Urine Clarity Urine pH Ur Specific [place] Urine Protein Urine Glucose (UA) Urine Ketones Urine Occult Blood Urine Nitrate Urine Bilirubin Urine Urobilinogen Ur Leukocyte Esterase Urine RBC Urine WBC Urine WBC Clumps Urine Bacteria Hyaline Casts Urine Mucus Micro UA Comment Ur Microscopic Review Urine Culture Comments Pleural pH Pleural RBC Pleural Nuc Cells Pleural Neutrophils Pleural Lymphocytes Pleural Monocytes Pleural Plasma Cells Pleural Mesothelial Pleural Fluid Comment Pleural Total Protein Pleural Albumin Pleural LDH Pleural Glucose Nasal Screen MRSA (PCR) Vancomycin Trough 45.6 H Result Diagrams: 08/10/18 05:27 08/10/18 05:27 Microbiology: Microbiology 08/07/18 19:40 Aerobic Blood Culture - Preliminary Blood - Peripheral No growth in 3 days Anaerobic Blood Culture - Preliminary Staphylococcus species 08/07/18 19:35 Aerobic Blood Culture - Preliminary Blood - Peripheral No growth in 3 days Anaerobic Blood Culture - Preliminary No growth in 3 days 08/08/18 01:00 Gram Stain - Final Fluid - Pleural fluid Body Fluid Culture - Preliminary No growth in 48 hours 08/07/18 20:10 Urine Culture - Final Catheterized Urine Providencia stuartii Enterococcus faecalis Proteus penneri Procedures: 08/08/18: Pigtail chest tube Assessment and Plan - Disease Oriented Problem List (1) Paraplegia (2) Neurogenic bladder (3) Acute encephalopathy (4) Pleural effusion (5) Pyuria Pertinent Non-Medical Issues: Psychosocial: Patient has been to her [place] for 30 years. 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 She is with 3 sons and 1 daughter. 1 of her sons still lives with her and her . She has a Doberman named Dulce Maria that she enjoys spending time with. Spiritual: Alevism does not plan important role in her life Legal:Patient having some mild confusion/forgetfulness, best supported by in decision making. He would be appropriate proxy per [place] statutes. Ethical issues impacting care: no ethical issues identified. . Important Contacts: Donavan Burgos: [phone] . Prognosis: Patient originally diagnosed with breast cancer and October with widespread metastasis at time of diagnosis. Was started on palliative chemo in November, and his continued until just before admission. She has had ongoing progression of disease. She was seen in in the ED June for new lesions on her back. Currently admitted with progressive weakness, pleural effusion suspicious for malignancy, and pyuria. If this is disease progression, may have limited treatment options. she and her have briefly discussed possibility of immunotherapy with oncology, however patient is not a candidate at this time due to overall poor health condition. Further prognostication pending cytology of pleural fluid. is agreeable to exploring hospice options and obtaining information should they decide to transition to comfort measures only. . Code Status: Alternative Code (Intubation only) Plan: Legal decision maker: * Patient having some mild confusion/forgetfulness, best supported by and decision making. He would be appropriate proxy per [place] statutes. Goals: Goals are semi-aggressive short of alternate code. would like intubation only, otherwise would like to continue pursue treatment options until diagnostic results obtained. Patient and have met with oncology and briefly discussed possibility of immunotherapy should patient's condition improved. At this time she is not candidate for any type of treatment. Patient and her will discuss possibility of transitioning to comfort measures in the coming days. is agreeable to meeting with hospice services to obtain information only. She would be appropriate for hospice services provided goals are appropriate. 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 Has new lesions posterior back, however she denies pain at time of my visit today. Has Dilaudid as needed, bedside nurse reports patient has been declining use of pain medication. Has not used chronic opiates. We will continue to monitor requirements and effectiveness. * Dyspnea: Secondary to pleural effusion, suspicious for malignancy. Pigtail catheter placed with greater than 1 L removed so far. Denies shortness of breath though appears to be somewhat dyspneic and some use of accessory muscles. We will continue to evaluate. May likely be DC'd with Pleurx catheter in place for comfort. 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 Has been using baclofen with adequate control in the past. reports recent increase in spasms over the past couple weeks. We will continue to monitor. -- -- Palliative care will continue to follow during hospital course as condition evolves, to assist patient/decision-maker with understanding of medical conditions, weighing benefits/burdens of treatment options, for clarification of goals of treatment. Additionally will assist with any symptoms of palliative concern .
--- NOTE | 2018-08-10 17:31 | P.PN ---
Subjective Interval history: More alert today and able to take some soft diet. Less SOB. Chest tube is draining still Physical Exam Vital signs: Vital Signs 08/09/18 18:00 08/09/18 19:00 08/09/18 20:00 Temperature 99.0 F Pulse Rate 92 H 95 H 94 H Respiratory Rate 17 19 15 Blood Pressure 90/50 L 90/55 L 93/53 L Pulse Oximetry 100 100 100 08/09/18 21:00 08/09/18 21:45 08/09/18 22:00 Temperature Pulse Rate 97 H 97 H 93 H Respiratory Rate 22 20 18 Blood Pressure 84/53 L 90/58 L Pulse Oximetry 100 100 100 08/09/18 23:00 08/10/18 00:00 08/10/18 01:00 Temperature 99.0 F Pulse Rate 97 H 96 H 98 H Respiratory Rate 19 18 19 Blood Pressure 97/58 L 106/61 105/61 Pulse Oximetry 100 99 99 08/10/18 02:00 08/10/18 03:00 08/10/18 04:00 Temperature 98.9 F Pulse Rate 93 H 92 H 91 H Respiratory Rate 20 18 18 Blood Pressure 105/58 L 100/57 L 104/59 L Pulse Oximetry 99 99 100 08/10/18 04:40 08/10/18 05:00 08/10/18 06:00 Temperature Pulse Rate 89 90 95 H Respiratory Rate 17 19 0 L Blood Pressure 105/62 103/57 L Pulse Oximetry 100 100 08/10/18 07:00 08/10/18 08:00 08/10/18 08:32 Temperature 97.9 F Pulse Rate 95 H 89 94 H Respiratory Rate 15 16 12 Blood Pressure 107/63 100/55 L Pulse Oximetry 100 100 100 08/10/18 09:00 08/10/18 10:00 08/10/18 11:00 Temperature Pulse Rate 91 H 99 H 104 H Respiratory Rate 15 15 16 Blood Pressure 102/60 97/61 L 105/60 Pulse Oximetry 100 100 100 08/10/18 12:00 08/10/18 13:00 08/10/18 14:00 Temperature 98.1 F Pulse Rate 105 H 104 H 103 H Respiratory Rate 17 16 15 Blood Pressure 96/60 L 103/65 98/55 L Pulse Oximetry 100 100 100 08/10/18 15:00 08/10/18 16:00 08/10/18 16:22 Temperature 98 F Pulse Rate 103 H 105 H 106 H Respiratory Rate 16 17 21 Blood Pressure 108/65 103/56 L Pulse Oximetry 100 100 Intake & Output 08/09/18 08/10/18 08/10/18 18:59 06:59 18:59 Intake Total 582.5 / 582.5 502.5 / 502.5 200 / 200 Output Total 420 / 420 350 / 350 Balance 162.5 / 162.5 152.5 / 152.5 200 / 200 Weight 71.1 kg Intake: IV 462.5 / 462.5 462.5 / 462.5 200 / 200 Zosyn 4.5 GM Premix 4.5 gm In 200 / 200 200 / 200 200 / 200 100 ml @ 200 mls/hr IV.SIG Q6H ELEANOR Rx#:[id number] Vancomycin Inj 1,250 MG In NS 262.5 / 262.5 262.5 / 262.5 Inj 250 ML @ 250 mls/hr IV.SIG Q12H ELEANOR Rx#:[id number] Oral 120 / 120 40 / 40 Output: Urine 220 / 220 Urine Amount (Catheter) 250 / 250 Indwelling Urethral Catheter 250 / 250 Chest Tube Drainage 170 / 170 130 / 130 #1 Left Upper Pleural 170 / 170 130 / 130 Other: Date of Last Bowel Movement 08/08/18 08/10/18 08/10/18 # Bowel Movements 0 2 # Incontinent Bowel Movements 2 Narrative: GENERAL: Pale mid aged W/F awake and responds. HEAD: Normocephalic. NECK: Supple, trachea midline. No lymphadenopathy. EYES: No scleral icterus. No injection or drainage. CARDIOVASCULAR: Regular rate and rhythm without murmurs, gallops, or rubs. RESPIRATORY: Breath sounds equal bilaterally. No accessory muscle use. Left- sided chest tube. GASTROINTESTINAL: Abdomen soft, non-tender, nondistended. MUSCULOSKELETAL: No cyanosis but has 2+edema. SKIN: Cool and dry. NEURO:weak on left side and Legs. - Urinary Catheter Management Indwelling Urethral Catheter Cath placed during this visit: yes, but has since been removed by the nurse Reason for continuing: Chronic Urinary Retention Insertion date: 08/08/18 Insertion time: 01:35 Removal date: 08/08/18 Removal time: 01:30 Results - Labs CBC & Chem 7: 08/10/18 05:27 08/10/18 05:27 Laboratory Results - last 24 hr 08/07/18 08/10/18 08/10/18 20:10 05:27 05:27 WBC 7.2 RBC 3.31 L Hgb 9.4 L Hct 29.0 L MCV 87.7 MCH 28.5 MCHC 32.5 RDW 16.4 Plt Count 149 L MPV 8.3 Neut % (Auto) 88.5 H Lymph % (Auto) 6.7 L [place] % (Auto) 4.6 Eos % (Auto) 0.1 Baso % (Auto) 0.1 Neut # (Auto) 6.4 Lymph # (Auto) 0.5 L [place] # (Auto) 0.3 Eos # (Auto) 0.0 Baso # (Auto) 0.0 WBC Differential . Differential Comment Auto diff final Sodium 144 Potassium 3.8 Chloride 108 H Carbon Dioxide 22.1 Anion Gap 14 BUN 35 H Creatinine 0.60 Estimated GFR Greater than 89 Random Glucose 92 Calcium 7.2 L* Prot Corrected Calcium 7.8 L Phosphorus 4.1 Magnesium 2.5 Total Protein 6.0 L Urine Color Yellow Urine Clarity Turbid H Urine pH 7.0 Ur Specific [place] 1.019 Urine Protein 500 or greater Urine Glucose (UA) Negative Urine Ketones Negative Urine Occult Blood Small H Urine Nitrate Negative Urine Bilirubin Negative Urine Urobilinogen Less than 2 Ur Leukocyte Esterase Moderate H Urine RBC 38 H Urine WBC Urine WBC Clumps Many H Urine Bacteria Many H Hyaline Casts 9 Urine Mucus Few H Micro UA Comment Culture indicated Urine Culture Comments Culture indicated Vancomycin Trough 08/10/18 05:27 WBC RBC Hgb Hct MCV MCH MCHC RDW Plt Count MPV Neut % (Auto) Lymph % (Auto) [place] % (Auto) Eos % (Auto) Baso % (Auto) Neut # (Auto) Lymph # (Auto) [place] # (Auto) Eos # (Auto) Baso # (Auto) WBC Differential Differential Comment Sodium Potassium Chloride Carbon Dioxide Anion Gap BUN Creatinine Estimated GFR Random Glucose Calcium Prot Corrected Calcium Phosphorus Magnesium Total Protein Urine Color Urine Clarity Urine pH Ur Specific [place] Urine Protein Urine Glucose (UA) Urine Ketones Urine Occult Blood Urine Nitrate Urine Bilirubin Urine Urobilinogen Ur Leukocyte Esterase Urine RBC Urine WBC Urine WBC Clumps Urine Bacteria Hyaline Casts Urine Mucus Micro UA Comment Urine Culture Comments Vancomycin Trough 45.6 H Microbiology 08/07/18 19:40 Blood - Peripheral Aerobic Blood Culture - Preliminary No growth in 3 days 08/07/18 19:40 Blood - Peripheral Anaerobic Blood Culture - Preliminary Staphylococcus species 08/07/18 19:35 Blood - Peripheral Aerobic Blood Culture - Preliminary No growth in 3 days 08/07/18 19:35 Blood - Peripheral Anaerobic Blood Culture - Preliminary No growth in 3 days 08/08/18 01:00 Fluid - Pleural fluid Gram Stain - Final 08/08/18 01:00 Fluid - Pleural fluid Body Fluid Culture - Preliminary No growth in 48 hours 08/07/18 20:10 Catheterized Urine Urine Culture - Final Providencia stuartii Enterococcus faecalis Proteus penneri Assessment and Plan - Assessment (1) Pneumonia Code(s): J18.9 - Pneumonia, unspecified organism Status: Acute (2) Sepsis Code(s): A41.9 - Sepsis, unspecified organism Status: Acute (3) UTI (urinary tract infection) Code(s): N39.0 - Urinary tract infection, site not specified Status: Acute (4) Altered mental status Code(s): R41.82 - Altered mental status, unspecified Status: Acute (5) Metastatic disease Code(s): C79.9 - Secondary malignant neoplasm of unspecified site Status: Acute (6) Dyspnea Code(s): R06.00 - Dyspnea, unspecified Status: Acute (7) Pain Code(s): R52 - Pain, unspecified Status: Acute (8) Spasm Code(s): R25.2 - Cramp and spasm Status: Acute (9) Paraplegia Code(s): G82.20 - Paraplegia, unspecified Status: Acute (10) Pleural effusion Code(s): J90 - Pleural effusion, not elsewhere classified Status: Acute (11) Melanoma Code(s): C43.9 - Malignant melanoma of skin, unspecified Status: Acute - Plan 1. Cont O2 at 5 L.and wean . 2. Chest tube to drain , and will D/C Chest tube when drainage <100 CC 3. Duoneb nebs qid. 4. Cont antibiotics. 5. CXR in am 6. Palliative care to see. (2) Sepsis Qualifiers: Sepsis type: sepsis due to unspecified organism Qualified Code(s): A41.9 - Sepsis, unspecified organism (3) UTI (urinary tract infection) Qualifiers: Urinary tract infection type: site unspecified Hematuria presence: with hematuria Qualified Code(s): N39.0 - Urinary tract infection, site not specified; R31.9 - Hematuria, unspecified (4) Altered mental status Qualifiers: Altered mental status type: unspecified Qualified Code(s): R41.82 - Altered mental status, unspecified
[2018-08-11] MEDS: Piperacil/Tazo 4.5 GM Premix 4.5 GM/100 ML BAG IV.SIG SCH ×4 (02:00→22:00)
[2018-08-11] MEDS: HYDROmorphone PF Inj 1 MG/ML Ampul IV.PUSH PRN ×4 (03:34→22:56)
[2018-08-11] MEDS: Chlorhexidine Gluconate 2% 1 Pack (2 Cloths) TOPICAL SCH (03:35)
[2018-08-11] MEDS: Heparin - SQ 10,000 UNITS/ML Vial SQ SCH ×3 (05:07→22:28)
--- NOTE | 2018-08-11 05:49 | XR ---
EXAM DATE: 08/11/2018 5:33 AM EST AGE/SEX: 47 years / Female INDICATIONS: Effusion. CLINICAL DATA: This is the patient's subsequent encounter. Patient reports that signs and symptoms h ave been present for 4 - 6 days and indicates a pain score of Nonresponsive. MEDICAL/SURGICAL HISTORY: . Hypertension. Metastatic melanoma. . Tubal ligation. Fusion, thora cic. Fusion, cervical. [place] [facility] [place]. . FINDINGS: A single AP view of the chest demonstrates consolidation involving the left lung base. This is new fr om the prior study. A small caliber thoracostomy tube overlies the left base. Right lung is clear. He art is normal in size. Orthopedic hardware seen involving the cervical spine and thoracic spine. CONCLUSION: New consolidation involving the left lung base. Electronically signed by: New Santizo MD 08/11/2018 5:48 AM EST
[2018-08-11] MEDS: Famotidine PF Inj 20 MG/2 ML Vial IV.PUSH SCH ×2 (08:05→22:28)
[2018-08-11] MEDS: Senna/Docusate Sodium 8.6/50 MG Tablet PO SCH ×2 (08:05→22:28)
[2018-08-11] MEDS: Polyethylene Glycol 3350 17 GM Packet PO SCH ×2 (08:05→22:27)
[2018-08-11] MEDS: Metoprolol Tartrate 25 MG Tablet PO SCH ×2 (08:05→22:27)
[2018-08-11] MEDS: Sodium Chloride 0.9% 2 ML Flush BID IV.FLUSH SCH ×2 (08:05→22:55)
--- NOTE | 2018-08-11 09:12 | P.PNIM ---
Subjective Interval history: No acute changes or concerns overnight. Patient has good pain control. She has no complaints. Decreasing need for oxygen supplementation. Physical Exam Vital signs: Vital Signs 08/10/18 10:00 08/10/18 11:00 08/10/18 12:00 Temperature 98.1 F Pulse Rate 99 H 103 H 103 H Respiratory Rate 14 12 9 L Blood Pressure 97/61 L 96/59 L 96/60 L Pulse Oximetry 100 100 100 08/10/18 13:00 08/10/18 14:00 08/10/18 15:00 Temperature Pulse Rate 112 H 103 H 112 H Respiratory Rate 20 9 L 19 Blood Pressure 103/65 98/55 L 108/65 Pulse Oximetry 99 98 98 08/10/18 16:00 08/10/18 16:22 08/10/18 17:00 Temperature 98 F Pulse Rate 103 H 106 H 104 H Respiratory Rate 20 21 13 Blood Pressure 103/56 L 97/55 L Pulse Oximetry 98 98 08/10/18 18:00 08/10/18 19:00 08/10/18 20:00 Temperature 100.2 F H Pulse Rate 104 H 109 H 115 H Respiratory Rate 15 15 19 Blood Pressure 97/56 L 98/57 L 101/61 Pulse Oximetry 98 97 97 08/10/18 20:46 08/10/18 21:00 08/10/18 22:00 Temperature Pulse Rate 115 H 108 H 102 H Respiratory Rate 20 14 17 Blood Pressure 103/66 103/69 Pulse Oximetry 97 98 98 08/10/18 23:00 08/11/18 00:00 08/11/18 01:00 Temperature 97.6 F Pulse Rate 98 H 100 H 93 H Respiratory Rate 17 9 L 15 Blood Pressure 109/71 110/70 108/68 Pulse Oximetry 99 100 100 08/11/18 02:00 08/11/18 03:00 08/11/18 04:00 Temperature Pulse Rate 102 H 105 H 98 H Respiratory Rate 21 13 12 Blood Pressure 108/69 114/69 106/62 Pulse Oximetry 100 99 95 08/11/18 04:06 08/11/18 04:13 08/11/18 05:00 Temperature Pulse Rate 99 H 98 H Respiratory Rate 12 14 16 Blood Pressure 112/66 Pulse Oximetry 95 96 08/11/18 06:00 Temperature Pulse Rate 96 H Respiratory Rate 12 Blood Pressure 108/63 Pulse Oximetry 99 Intake & Output 08/10/18 08/11/18 08/11/18 18:59 06:59 18:59 Intake Total 320 / 320 220 / 220 Output Total 315 / 315 270 / 270 Balance 5 / 5 -50 / -50 Weight 71 kg Intake: IV 200 / 200 200 / 200 Zosyn 4.5 GM Premix 4.5 gm In 200 / 200 200 / 200 100 ml @ 200 mls/hr IV.SIG Q6H ELEANOR Rx#:[id number] Oral 120 / 120 20 / 20 Output: Urine Amount (Catheter) 225 / 225 200 / 200 Indwelling Urethral Catheter 225 / 225 200 / 200 Chest Tube Drainage 90 / 90 70 / 70 #1 Left Upper Pleural 90 / 90 70 / 70 Other: Date of Last Bowel Movement 08/10/18 08/11/18 08/11/18 # Bowel Movements 0 # Incontinent Bowel Movements 2 Narrative: GENERAL: NAD, A&Ox3 HEAD: Normocephalic. NECK: Supple, trachea midline. No lymphadenopathy. EYES: No scleral icterus. No injection or drainage. CARDIOVASCULAR: Regular rate and rhythm without murmurs, gallops, or rubs. RESPIRATORY: Breath sounds equal bilaterally. No accessory muscle use. Left- sided chest tube. GASTROINTESTINAL: Abdomen soft, non-tender, nondistended. MUSCULOSKELETAL: No cyanosis, edema at left arm (chronic) disease SKIN: Warm and dry. NEURO: No focal neurological deficits. - Urinary Catheter Management Indwelling Urethral Catheter Cath placed during this visit: yes, but has since been removed by the nurse Reason for continuing: Chronic Urinary Retention Insertion date: 08/08/18 Insertion time: 01:35 Removal date: 08/08/18 Removal time: 01:30 Results - Labs CBC & Chem 7: 08/10/18 05:27 08/10/18 05:27 Microbiology 08/08/18 01:00 Fluid - Pleural fluid Gram Stain - Final 08/08/18 01:00 Fluid - Pleural fluid Body Fluid Culture - Final No growth in 72 hours (aerobically and anaerobically ) 08/07/18 19:40 Blood - Peripheral Aerobic Blood Culture - Preliminary No growth in 3 days 08/07/18 19:40 Blood - Peripheral Anaerobic Blood Culture - Preliminary Staphylococcus species 08/07/18 19:35 Blood - Peripheral Aerobic Blood Culture - Preliminary No growth in 3 days 08/07/18 19:35 Blood - Peripheral Anaerobic Blood Culture - Preliminary No growth in 3 days 08/07/18 20:10 Catheterized Urine Urine Culture - Final Providencia stuartii Enterococcus faecalis Proteus penneri - Imaging Impressions Chest X-Ray 08/11/18 00:00 CONCLUSION: New consolidation involving the left lung base. Assessment and Plan - Plan 47-year-old female with metastatic melanoma came in secondary to pneumonia with pleural effusion, possible empyema. Status post left-sided chest tube placement No acute changes or concerns over the last 24 hours. Continue chest tube. Pulmonology continues to follow. Patient medically stable for transfer out of ICU. Acute metabolic encephalopathy Improving Continue to follow for further improvement Acute on chronic pain Paraplegia Continue Dilaudid for pain Follow clinically Sepsis Resolved Community-acquired pneumonia Lactic acidosis large left pleural effusion Possible empyema Acute hypoxemia Follow cultures Chest tube placed on the left Continue oxygen as needed Cardiothoracic surgeon following Pulmonology following Oncology following UTI Continue Zosyn Follow cultures Acute kidney injury Chronic neurogenic bladder Follow renal function Avoid nephrotoxins Follow electrolytes DVT Prophylaxis lovenox SCDs
[2018-08-11 12:01] LABS: Baso % (Auto) 0.2 % (0.0-2.0); Hematocrit 28.8 % (35.0-46.0); Hemoglobin 9.3 gm/dL (11.6-15.3); Lymph # (Auto) 0.4 th/mm3 (1.0-4.8); Lymph % (Auto) 4.2 % (9.0-44.0); Mean Corpuscular HGB Conc 32.4 % (32.0-36.0); Mean Corpuscular Hemoglobin 28.6 pg (27.0-34.0); Mean Corpuscular Volume 88.4 fL (80.0-100.0); Mean Platelet Volume 8.4 fL (7.0-11.0); Mono # (Auto) 0.2 th/mm3 (0.0-0.9); Mono % (Auto) 2.7 % (0.0-8.0); Neut # (Auto) 8.6 th/mm3 (1.8-7.7); Neut % (Auto) 92.9 % (16.0-70.0); Platelet Count 159 th/mm3 (150-450); Red Blood Count 3.26 mil/mm3 (4.00-5.30); Red Cell Distribution Width 16.6 % (11.6-17.2); White Blood Count 9.2 th/mm3 (4.0-11.0)
[2018-08-11 12:32] LABS: Alanine Aminotransferase 9 U/L (10-53); Albumin 1.9 g/dL (3.4-5.0); Alkaline Phosphatase 63 U/L (45-117); Anion Gap 18 meq/L (5-15); Aspartate Aminotransferase 36 U/L (15-37); Blood Urea Nitrogen 39 mg/dL (7-18); Calcium 7.1 mg/dL (8.5-10.1); Carbon Dioxide 18.6 meq/L (21.0-32.0); Chloride 106 meq/L (98-107); Glomerular Filtration Rate Greater Than 89 mL/min (>89); Glucose,Random 98 mg/dL (74-106); Magnesium 2.5 mg/dL (1.5-2.5); Phosphorus 3.9 mg/dL (2.5-4.9); Potassium 3.1 meq/L (3.5-5.1); Sodium 143 meq/L (136-145); Total Protein 6.1 g/dL (6.4-8.2); Vancomycin,Random 20.3 Comment
[2018-08-11] MEDS ORDERED: Vancomycin Inj 1,000 MG in Sodium Chlor 0.9% Inj 250 ML IV.SIG ONE (15:00)
--- NOTE | 2018-08-11 16:00 | P.PNPAL ---
Reason for Visit Reason for visit: a. To assist with evaluation and management of symptoms including: pain, dyspnea b. To assist medical decision maker(s) with: better understanding of current medical conditions; weighing benefits/burdens of medical treatment options; making medical treatment decisions. Subjective Subjective/Interval History: This is a [id number], with a history of metastatic malignant melanoma, she is known to palliative care services from a visit in November 2017. She was brought to the ED by her and son on 08/07/18 with one day history of worsening shortness of breath and weakness. Additional history: * She was originally diagnosed with left breast malignant melanoma in Oct 2017 after undergoing/ left breast core biopsy to confirm pathology. At that time, she presented to the ED with a 3-month history of left breast swelling. At that time, CT of the chest showed the entire left breast is filled with multiple / masses. There was also extensive adenopathy in the left axilla, left supraclavicular and superior mediastinum. There are also small nodules in the lung suspicious for metastatic disease. CT of the abdomen and pelvis was essentially negative. * On 10/22/17, patient was once again brought to the ED by her family with a 4- day history of paresthesia from the hip down and urinary retention. At that time she underwent MRI of the lumbar spine which was negative for evidence of metastasis, however cervical and thoracic spine MRI significant for multiple lesions along the left chest wall, left shoulder, large left paraspinal mass at 4T8, but more notably at T6 and invades T6 vertebral body, left aspect of T5 vertebral body, and extends into left epidural space. On 10/23/17, she underwent decompressive laminectomy of T4-T8. At time of discharge on 10/22/17, patient was able to move her upper extremities spontaneously, but can follow simple commands of bilateral lower extremities. * Patient was discharged to rehab and then home, at that time because status was discussed elected DNR status, and declined hospice services. Of note, she did start chemotherapy in November 2017, however as of January, she had not followed up since Nov and had missed a few appointments. She was seen in the ED in June with reported carpal lower nodules on her left upper back, got from she and her about cancer had been stabilized though she still had residual mass primarily in the left axillary area with extension toward the left breast. Patient has remained in the ICU since admission. Remains with flat affect and progressive weakness. She is minimally engaging in conversation only speaks a few words. Chest x-ray this morning shows new consolidation involving the left lung base despite having pigtail chest tube catheter in place. Patient appears weaker on today's assessment than yesterday. Dual visit with Isidoro Pugh APRN. Seen and examined with at bedside. She is extremely flat affect. Per nursing staff report as well as , patient has little to no appetite today, only having eaten a few bites of her food with each meal. Hospice met with patient and her yesterday provided information on services. They were not ready to make a decision but were receptive to follow-up. Family/Friend Interactions: Met with patient and her who is at bedside. Discussed ongoing decline over the past few days. Patient is now not eating. Her Chest x-ray worse worse today. acknowledges Dr. Moe advised that she will likely continue to get pleural effusions in the future. Dr. Moe also advised that even if patient starts immunotherapy, her disease will certainly continue to progress. Discussed at great length patient's wishes related to continuing aggressive treatment short of cardiac resuscitation versus transitioning to comfort measures and going home with hospice. Patient states she would want to go home and be comfortable. Discussed likelihood of patient continuing to decline over the weekend given her decline over the past 24-48 hours, and with current CODE STATUS would likely be intubated it would not be able to return home. Patient states she would like to be intubated "if it can help me get better," advised her that at this point, intubation would likely not improve her overall condition, she will certainly have ongoing disease progression of her cancer, most likely pleural effusions, ongoing and worsening weakness secondary to decreasing appetite, ongoing and worsening weakness secondary to ongoing infections and decreasing appetite, and bedbound status. At this time, patient wishes to remain DNR with intubation only. Advised patient and that if they should decide to change CODE STATUS from alternative code, to let bedside nurse now and/or rounding doctors over the weekend. voices concerns regarding patient's severely decreased appetite over the past day or 2, reports he is discussed with bedside RN possibility of PEG tube placement. Discussed risks and benefits of artificial nutrition and ongoing disease progression despite artificial nutrition. is appropriately tearful at times during our conversation. Follow-up: Received call from stating patient now wishes to be DNR, does not want intubation. Called to bedside nurse to update with changes in CODE STATUS, called attending MD to update as well. Advance Directives Advance Directives Date on File: 03/17/18 Objective Vital Signs: Vital Signs 08/10/18 16:00 08/10/18 16:22 08/10/18 17:00 Temperature 98 F Pulse Rate 103 H 106 H 104 H Respiratory Rate 20 21 13 Blood Pressure 103/56 L 97/55 L Pulse Oximetry 98 98 08/10/18 18:00 08/10/18 19:00 08/10/18 20:00 Temperature 100.2 F H Pulse Rate 104 H 109 H 115 H Respiratory Rate 15 15 19 Blood Pressure 97/56 L 98/57 L 101/61 Pulse Oximetry 98 97 97 08/10/18 20:46 08/10/18 21:00 08/10/18 22:00 Temperature Pulse Rate 115 H 108 H 102 H Respiratory Rate 20 14 17 Blood Pressure 103/66 103/69 Pulse Oximetry 97 98 98 08/10/18 23:00 08/11/18 00:00 08/11/18 01:00 Temperature 97.6 F Pulse Rate 98 H 100 H 93 H Respiratory Rate 17 9 L 15 Blood Pressure 109/71 110/70 108/68 Pulse Oximetry 99 100 100 08/11/18 02:00 08/11/18 03:00 08/11/18 04:00 Temperature Pulse Rate 102 H 105 H 98 H Respiratory Rate 21 13 12 Blood Pressure 108/69 114/69 106/62 Pulse Oximetry 100 99 95 08/11/18 04:06 08/11/18 04:13 08/11/18 05:00 Temperature Pulse Rate 99 H 98 H Respiratory Rate 12 14 16 Blood Pressure 112/66 Pulse Oximetry 95 96 08/11/18 06:00 08/11/18 08:00 08/11/18 09:00 Temperature Pulse Rate 96 H 107 H Respiratory Rate 12 Blood Pressure 108/63 Pulse Oximetry 99 96 08/11/18 09:45 Temperature Pulse Rate 104 H Respiratory Rate 19 Blood Pressure Pulse Oximetry 99 Intake & Output 08/10/18 08/11/18 08/11/18 18:59 06:59 18:59 Intake Total 320 / 320 220 / 220 100 / 100 Output Total 315 / 315 270 / 270 Balance 5 / 5 -50 / -50 100 / 100 Weight 71 kg Intake: IV 200 / 200 200 / 200 100 / 100 Zosyn 4.5 GM Premix 4.5 gm In 200 / 200 200 / 200 100 / 100 100 ml @ 200 mls/hr IV.SIG Q6H ELEANOR Rx#:[id number] Oral 120 / 120 20 / 20 Output: Urine Amount (Catheter) 225 / 225 200 / 200 Indwelling Urethral Catheter 225 / 225 200 / 200 Chest Tube Drainage 70 / 70 #1 Left Upper Pleural 70 70 Other: Date of Last Bowel Movement 08/10/18 08/11/18 08/11/18 # Bowel Movements 0 # Incontinent Bowel Movements 2 Physical Exam: CONSTITUTIONAL/GENERAL: This is an adequately nourished patient, in no apparent distress. Flat affect. Minimal engagement TUBES/LINES/DRAINS: Left chest pigtail catheter, Elena catheter, right hand PIV , right AC PIV, left forearm PIV, nasal cannula SKIN: Pale .no jaundice, rashes. Reported lesions on back, not visualized. Left breast extending to axillary with firm palpable masses. Left arm swelling HEAD: Atraumatic. Normocephalic. EYES: Pupils equal and round and reactive. Extraocular motions intact. No scleral icterus. No injection or drainage. Fundi not examined. Slight left eye droop and deviated gaze. ENT: Hearing grossly normal. Nose without bleeding or purulent drainage. Throat without visible erythema, exudates, masses, or lesions. NECK: Trachea midline. Supple, nontender. No palpable thyroid enlargement or nodularity. CARDIOVASCULAR: Regular rate and rhythm without murmurs. No JVD. Peripheral pulses symmetric. Lower extremities cool with dry skin. RESPIRATORY/CHEST: Breath sounds severely diminished throughout. Clear to auscultation. Minimal air movement auscultated in the upper lobes. Some use of accessory muscles. Diminished breath sounds. Left upper chest pigtail catheter to wall suction with dressing dry and intact. GASTROINTESTINAL: Abdomen soft,+tender, nondistended. No hepato-splenomegaly, or palpable masses. No guarding. Bowel sounds present. GENITOURINARY: Without palpable bladder distension. Elena catheter in place. MUSCULOSKELETAL: Extremities without clubbing, cyanosis. No joint tenderness or effusion noted. No calf tenderness. No mottling or clubbing. Left upper extremity edema LYMPHATICS: No palpable cervical or supraclavicular adenopathy. NEUROLOGICAL: Awake and flat affect. Partially oriented, unable to fully assess secondary to patient not engaging in conversation, often does not answer questions and blankly stares at examiner, remains slow to respond to other questions and seems to continue having difficulty finding some words. Somewhat forgetful. Lower extremities flaccid with slight withdrawal. Moves right upper extremity weakly, does not move left upper extremity. PSYCHIATRIC: Flat affect . No obvious anxiety/depression. no apparent hallucinations or other psychotic thought process. Diagnostic Tests Laboratory: Laboratory Results - last 72 hr 08/07/18 08/08/18 08/09/18 20:10 22:50 06:36 WBC 6.5 RBC 3.34 L Hgb 9.1 L 9.5 L Hct 29.0 L 29.3 L MCV 87.9 MCH 28.4 MCHC 32.3 RDW 16.3 Plt Count 157 MPV 8.3 Prelim Diff (Auto) Manual diff required Neut % (Auto) Lymph % (Auto) [place] % (Auto) Eos % (Auto) Baso % (Auto) Neut # (Auto) Lymph # (Auto) [place] # (Auto) Eos # (Auto) Baso # (Auto) WBC Differential Manual diff final Seg Neuts % (Manual) 78 H Band Neuts % (Manual) 12 H Lymphocytes % (Manual) 7 L Monocytes % (Manual) 2 Metamyelocytes % (Man) 1 Abs Neuts (Manual) 5.9 Nucleated RBCs/100 WBC 1 H Differential Comment . Toxic Vacuolation Present H Platelet Estimate Normal Platelet Morphology Normal RBC Morphology Normal Sodium Potassium Chloride Carbon Dioxide Anion Gap BUN Creatinine Estimated GFR Random Glucose Calcium Prot Corrected Calcium Phosphorus Magnesium Total Bilirubin AST ALT Alkaline Phosphatase Total Protein Albumin Urine Color Yellow Urine Clarity Turbid H Urine pH 7.0 Ur Specific Bouse 1.019 Urine Protein 500 or greater Urine Glucose (UA) Negative Urine Ketones Negative Urine Occult Blood Small H Urine Nitrate Negative Urine Bilirubin Negative Urine Urobilinogen Less than 2 Ur Leukocyte Esterase Moderate H Urine RBC 38 H Urine WBC Urine WBC Clumps Many H Urine Bacteria Many H Hyaline Casts 9 Urine Mucus Few H Micro UA Comment Culture indicated Urine Culture Comments Culture indicated Vancomycin Trough Random Vancomycin 08/09/18 08/10/18 08/10/18 06:36 05:27 05:27 WBC 7.2 RBC 3.31 L Hgb 9.4 L Hct 29.0 L MCV 87.7 MCH 28.5 MCHC 32.5 RDW 16.4 Plt Count 149 L MPV 8.3 Prelim Diff (Auto) Neut % (Auto) 88.5 H Lymph % (Auto) 6.7 L [place] % (Auto) 4.6 Eos % (Auto) 0.1 Baso % (Auto) 0.1 Neut # (Auto) 6.4 Lymph # (Auto) 0.5 L [place] # (Auto) 0.3 Eos # (Auto) 0.0 Baso # (Auto) 0.0 WBC Differential . Seg Neuts % (Manual) Band Neuts % (Manual) Lymphocytes % (Manual) Monocytes % (Manual) Metamyelocytes % (Man) Abs Neuts (Manual) Nucleated RBCs/100 WBC Differential Comment Auto diff final Toxic Vacuolation Platelet Estimate Platelet Morphology RBC Morphology Sodium 140 144 Potassium 4.3 3.8 Chloride 107 108 H Carbon Dioxide 21.4 22.1 Anion Gap 12 14 BUN 31 H 35 H Creatinine 0.58 0.60 Estimated GFR Greater than 89 Greater than 89 Random Glucose 83 92 Calcium 7.3 L* 7.2 L* Prot Corrected Calcium 7.7 L 7.8 L Phosphorus 4.6 D 4.1 Magnesium 2.5 2.5 Total Bilirubin AST ALT Alkaline Phosphatase Total Protein 6.4 6.0 L Albumin Urine Color Urine Clarity Urine pH Ur Specific Bouse Urine Protein Urine Glucose (UA) Urine Ketones Urine Occult Blood Urine Nitrate Urine Bilirubin Urine Urobilinogen Ur Leukocyte Esterase Urine RBC Urine WBC Urine WBC Clumps Urine Bacteria Hyaline Casts Urine Mucus Micro UA Comment Urine Culture Comments Vancomycin Trough Random Vancomycin 08/10/18 08/11/18 08/11/18 05:27 11:29 11:29 WBC 9.2 RBC 3.26 L Hgb 9.3 L Hct 28.8 L MCV 88.4 MCH 28.6 MCHC 32.4 RDW 16.6 Plt Count 159 MPV 8.4 Prelim Diff (Auto) Neut % (Auto) 92.9 H Lymph % (Auto) 4.2 L [place] % (Auto) 2.7 Eos % (Auto) 0.0 Baso % (Auto) 0.2 Neut # (Auto) 8.6 H Lymph # (Auto) 0.4 L [place] # (Auto) 0.2 Eos # (Auto) 0.0 Baso # (Auto) 0.0 WBC Differential . Seg Neuts % (Manual) Band Neuts % (Manual) Lymphocytes % (Manual) Monocytes % (Manual) Metamyelocytes % (Man) Abs Neuts (Manual) Nucleated RBCs/100 WBC Differential Comment Auto diff final Toxic Vacuolation Platelet Estimate Platelet Morphology RBC Morphology Sodium 143 Potassium 3.1 L Chloride 106 Carbon Dioxide 18.6 L Anion Gap 18 H BUN 39 H Creatinine 0.62 Estimated GFR Greater than 89 Random Glucose 98 Calcium 7.1 L* Prot Corrected Calcium 7.6 L Phosphorus 3.9 Magnesium 2.5 Total Bilirubin 0.4 AST 36 ALT 9 L Alkaline Phosphatase 63 Total Protein 6.1 L Albumin 1.9 L Urine Color Urine Clarity Urine pH Ur Specific [place] Urine Protein Urine Glucose (UA) Urine Ketones Urine Occult Blood Urine Nitrate Urine Bilirubin Urine Urobilinogen Ur Leukocyte Esterase Urine RBC Urine WBC Urine WBC Clumps Urine Bacteria Hyaline Casts Urine Mucus Micro UA Comment Urine Culture Comments Vancomycin Trough 45.6 H Random Vancomycin 20.3 Result Diagrams: 08/11/18 11:29 08/11/18 11:29 Microbiology: Microbiology 08/07/18 19:40 Aerobic Blood Culture - Preliminary Blood - Peripheral No growth in 4 days Anaerobic Blood Culture - Final Staphylococcus hominis-hominis 08/07/18 19:35 Aerobic Blood Culture - Preliminary Blood - Peripheral No growth in 4 days Anaerobic Blood Culture - Preliminary No growth in 4 days 08/08/18 01:00 Gram Stain - Final Fluid - Pleural fluid Body Fluid Culture - Final No growth in 72 hours (aerobically and anaerobically) 08/07/18 20:10 Urine Culture - Final Catheterized Urine Providencia stuartii Enterococcus faecalis Proteus penneri Imaging: Impressions Chest X-Ray 08/11/18 00:00 CONCLUSION: New consolidation involving the left lung base. Procedures: 08/08/18: Pigtail chest tube Assessment and Plan - Disease Oriented Problem List (1) Paraplegia (2) Neurogenic bladder (3) Acute encephalopathy (4) Pleural effusion (5) Pyuria - Symptom Scale (1) Dyspnea 0-10 Scale: Unable to quantify (2) Pain 0-10 Scale: Unable to quantify (3) Spasm 0-10 Scale: Unable to quantify Pertinent Non-Medical Issues: Psychosocial: Patient has been to her [place] for 30 years. 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 She is with 3 sons and 1 daughter. 1 of her sons still lives with her and her . She has a Doberman named Dulce Maria that she enjoys spending time with. Spiritual: Anglican does not plan important role in her life Legal:Patient having some mild confusion/forgetfulness, best supported by in decision making. He would be appropriate proxy per [place] statutes. Ethical issues impacting care: no ethical issues identified. . Important Contacts: [place]avan Burgos: [phone] . Prognosis: Patient originally diagnosed with breast cancer and October with widespread metastasis at time of diagnosis. Was started on palliative chemo in November, and his continued until just before admission. She has had ongoing progression of disease. She was seen in in the ED June for new lesions on her back. Currently admitted with progressive weakness, pleural effusion suspicious for malignancy, and pyuria. If this is disease progression, may have limited treatment options. she and her have briefly discussed possibility of immunotherapy with oncology, however patient is not a candidate at this time due to overall poor health condition. Further prognostication pending cytology of pleural fluid. Patient has ongoing, worsening weakness, respiratory depression with minimal air movement auscultated in upper lobes, some use of accessory muscles. Somewhat tachycardic and hypotensive. Follow up: Now agreeable to hospice services at home. Updated hospice nurse with plans for transition home. . Code Status: No Code DNR Plan: Legal decision maker: * Patient having some mild confusion/forgetfulness, best supported by and decision making. He would be appropriate proxy per [place] statutes. Goals: Goals are semi-aggressive short of alternate code. would like intubation only, otherwise would like to continue pursue treatment options until diagnostic results obtained. Patient and have met with oncology and briefly discussed possibility of immunotherapy should patient's condition improved. At this time she is not candidate for any type of treatment. Patient and her will discuss possibility of transitioning to comfort measures in the coming days. is agreeable to meeting with hospice services to obtain information only. She would be appropriate for hospice services provided goals are appropriate. 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 Has new lesions posterior back, however she denies pain at time of my visit today. Has Dilaudid as needed, bedside nurse reports patient has been declining use of pain medication. Has not used chronic opiates. We will continue to monitor requirements and effectiveness. * Dyspnea: Secondary to pleural effusion, suspicious for malignancy. Pigtail catheter placed with greater than 1 L removed so far. Denies shortness of breath though appears to be somewhat dyspneic and some use of accessory muscles. We will continue to evaluate. May likely be DC'd with Pleurx catheter in place for comfort. 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 Has been using baclofen with adequate control in the past. reports recent increase in spasms over the past couple weeks. We will continue to monitor. -- -- Palliative care will continue to follow during hospital course as condition evolves, to assist patient/decision-maker with understanding of medical conditions, weighing benefits/burdens of treatment options, for clarification of goals of treatment. Additionally will assist with any symptoms of palliative concern .
--- NOTE | 2018-08-11 18:20 | P.PN ---
Subjective Interval history: Awake and lethargic. On O2 5 L Chest tube still draining. Poor intake . Hospice to see. Physical Exam Vital signs: Vital Signs 08/10/18 19:00 08/10/18 20:00 08/10/18 20:46 Temperature 100.2 F H Pulse Rate 109 H 115 H 115 H Respiratory Rate 15 19 20 Blood Pressure 98/57 L 101/61 Pulse Oximetry 97 97 97 08/10/18 21:00 08/10/18 22:00 08/10/18 23:00 Temperature Pulse Rate 108 H 102 H 98 H Respiratory Rate 14 17 17 Blood Pressure 103/66 103/69 109/71 Pulse Oximetry 98 98 99 08/11/18 00:00 08/11/18 01:00 08/11/18 02:00 Temperature 97.6 F Pulse Rate 100 H 93 H 102 H Respiratory Rate 9 L 15 21 Blood Pressure 110/70 108/68 108/69 Pulse Oximetry 100 100 100 08/11/18 03:00 08/11/18 04:00 08/11/18 04:06 Temperature Pulse Rate 105 H 98 H 99 H Respiratory Rate 13 12 12 Blood Pressure 114/69 106/62 Pulse Oximetry 99 95 95 08/11/18 04:13 08/11/18 05:00 08/11/18 06:00 Temperature Pulse Rate 98 H 96 H Respiratory Rate 14 16 12 Blood Pressure 112/66 108/63 Pulse Oximetry 96 99 08/11/18 07:00 08/11/18 08:00 08/11/18 09:00 Temperature 99.0 F Pulse Rate 97 H 95 H 96 H Respiratory Rate 16 16 16 Blood Pressure 101/60 106/61 99/57 L Pulse Oximetry 99 100 100 08/11/18 09:45 08/11/18 10:00 08/11/18 11:00 Temperature Pulse Rate 104 H 106 H 110 H Respiratory Rate 19 16 16 Blood Pressure 96/78 L 97/59 L Pulse Oximetry 99 100 100 08/11/18 12:00 08/11/18 13:00 08/11/18 14:00 Temperature 99.1 F Pulse Rate 112 H 115 H 123 H Respiratory Rate 17 15 15 Blood Pressure 98/63 L 99/62 L 101/64 Pulse Oximetry 99 98 100 08/11/18 15:00 08/11/18 16:00 08/11/18 17:00 Temperature Pulse Rate 121 H 121 H 117 H Respiratory Rate 16 16 16 Blood Pressure 94/59 L 96/59 L 97/58 L Pulse Oximetry 99 100 100 08/11/18 18:00 Temperature 99.0 F Pulse Rate 125 H Respiratory Rate 17 Blood Pressure 141/76 H Pulse Oximetry 100 Intake & Output 08/10/18 08/11/18 08/11/18 18:59 06:59 18:59 Intake Total 320 / 320 220 / 220 690 / 690 Output Total 315 / 315 270 / 270 300 / 300 Balance 5 / 5 -50 / -50 390 / 390 Weight 71 kg Intake: IV 200 / 200 200 / 200 450 / 450 Zosyn 4.5 GM Premix 4.5 gm In 200 / 200 200 / 200 200 / 200 100 ml @ 200 mls/hr IV.SIG Q6H ELEANOR Rx#:[id number] Vancomycin Inj 1,000 MG In NS 250 / 250 Inj 250 ML @ 250 mls/hr IV.SIG ONCE ONE Rx#:[id number] Oral 120 / 120 20 / 20 240 / 240 Output: Urine Amount (Catheter) 225 / 225 200 / 200 200 / 200 Indwelling Urethral Catheter 225 / 225 200 / 200 200 / 200 Chest Tube Drainage 90 / 90 70 / 70 100 / 100 #1 Left Upper Pleural 90 / 90 70 / 70 100 / 100 Other: Date of Last Bowel Movement 08/10/18 08/11/18 08/11/18 # Bowel Movements 0 1 # Incontinent Bowel Movements 2 Narrative: GENERAL: Pale obese W/F in NAD. HEAD: Normocephalic. NECK: Supple, trachea midline. No lymphadenopathy. EYES: Mild scleral icterus. No injection or drainage. CARDIOVASCULAR: Regular rate and rhythm without murmurs, gallops, or rubs. RESPIRATORY: Breath sounds equal bilaterally. No accessory muscle use. Left- sided chest tube. GASTROINTESTINAL: Abdomen soft, non-tender, nondistended. MUSCULOSKELETAL: No cyanosis, edema at left arm (chronic) disease SKIN: Warm and dry. NEURO: Very lethargic and weak lower and left extremities. - Urinary Catheter Management Indwelling Urethral Catheter Cath placed during this visit: yes, but has since been removed by the nurse Reason for continuing: Chronic Urinary Retention Insertion date: 08/08/18 Insertion time: 01:35 Removal date: 08/08/18 Removal time: 01:30 Results - Labs CBC & Chem 7: 08/11/18 11:29 08/11/18 11:29 Laboratory Results - last 24 hr 08/11/18 08/11/18 11:29 11:29 WBC 9.2 RBC 3.26 L Hgb 9.3 L Hct 28.8 L MCV 88.4 MCH 28.6 MCHC 32.4 RDW 16.6 Plt Count 159 MPV 8.4 Neut % (Auto) 92.9 H Lymph % (Auto) 4.2 L [place] % (Auto) 2.7 Eos % (Auto) 0.0 Baso % (Auto) 0.2 Neut # (Auto) 8.6 H Lymph # (Auto) 0.4 L [place] # (Auto) 0.2 Eos # (Auto) 0.0 Baso # (Auto) 0.0 WBC Differential . Differential Comment Auto diff final Sodium 143 Potassium 3.1 L Chloride 106 Carbon Dioxide 18.6 L Anion Gap 18 H BUN 39 H Creatinine 0.62 Estimated GFR Greater than 89 Random Glucose 98 Calcium 7.1 L* Prot Corrected Calcium 7.6 L Phosphorus 3.9 Magnesium 2.5 Total Bilirubin 0.4 AST 36 ALT 9 L Alkaline Phosphatase 63 Total Protein 6.1 L Albumin 1.9 L Random Vancomycin 20.3 Microbiology 08/07/18 19:40 Blood - Peripheral Aerobic Blood Culture - Preliminary No growth in 4 days 08/07/18 19:40 Blood - Peripheral Anaerobic Blood Culture - Final Staphylococcus hominis-hominis 08/07/18 19:35 Blood - Peripheral Aerobic Blood Culture - Preliminary No growth in 4 days 08/07/18 19:35 Blood - Peripheral Anaerobic Blood Culture - Preliminary No growth in 4 days 08/08/18 01:00 Fluid - Pleural fluid Gram Stain - Final 08/08/18 01:00 Fluid - Pleural fluid Body Fluid Culture - Final No growth in 72 hours (aerobically and anaerobically ) - Imaging Impressions Chest X-Ray 08/11/18 00:00 CONCLUSION: New consolidation involving the left lung base. Assessment and Plan - Assessment (1) Pneumonia Code(s): J18.9 - Pneumonia, unspecified organism Status: Acute (2) Sepsis Code(s): A41.9 - Sepsis, unspecified organism Status: Acute (3) UTI (urinary tract infection) Code(s): N39.0 - Urinary tract infection, site not specified Status: Acute (4) Altered mental status Code(s): R41.82 - Altered mental status, unspecified Status: Acute (5) Metastatic disease Code(s): C79.9 - Secondary malignant neoplasm of unspecified site Status: Acute (6) Dyspnea Code(s): R06.00 - Dyspnea, unspecified Status: Acute (7) Pain Code(s): R52 - Pain, unspecified Status: Acute (8) Spasm Code(s): R25.2 - Cramp and spasm Status: Acute (9) Paraplegia Code(s): G82.20 - Paraplegia, unspecified Status: Acute (10) Pleural effusion Code(s): J90 - Pleural effusion, not elsewhere classified Status: Acute (11) Melanoma Code(s): C43.9 - Malignant melanoma of skin, unspecified Status: Acute - Plan 1. Cont O2 at 5 L.and wean . 2. Chest tube to drain 3. Duoneb nebs qid. 4. Cont antibiotics. 5. Home with hospice per family 6. Comfort care. (2) Sepsis Qualifiers: Sepsis type: sepsis due to unspecified organism Qualified Code(s): A41.9 - Sepsis, unspecified organism (3) UTI (urinary tract infection) Qualifiers: Urinary tract infection type: site unspecified Hematuria presence: with hematuria Qualified Code(s): N39.0 - Urinary tract infection, site not specified; R31.9 - Hematuria, unspecified (4) Altered mental status Qualifiers: Altered mental status type: unspecified Qualified Code(s): R41.82 - Altered mental status, unspecified
[2018-08-11 22:45] VITALS: RESP 20
[2018-08-12] MEDS: Piperacil/Tazo 4.5 GM Premix 4.5 GM/100 ML BAG IV.SIG SCH ×3 (03:00→13:15)
[2018-08-12] MEDS: HYDROmorphone PF Inj 1 MG/ML Ampul IV.PUSH PRN ×4 (03:05→15:42)
[2018-08-12] MEDS: Chlorhexidine Gluconate 2% 1 Pack (2 Cloths) TOPICAL SCH (04:38)
[2018-08-12] MEDS: Heparin - SQ 10,000 UNITS/ML Vial SQ SCH ×2 (06:26→13:15)
[2018-08-12 07:31] VITALS: BP 116/59; PULSE 119; TEMP 98.1
[2018-08-12 08:24] LABS: Hemoglobin 10.5 gm/dL (11.6-15.3); Mean Corpuscular HGB Conc 32.7 % (32.0-36.0); Mean Corpuscular Hemoglobin 28.4 pg (27.0-34.0); Mean Corpuscular Volume 86.9 fL (80.0-100.0); Mean Platelet Volume 8.9 fL (7.0-11.0); Platelet Count 174 th/mm3 (150-450); Red Blood Count 3.68 mil/mm3 (4.00-5.30); Red Cell Distribution Width 16.6 % (11.6-17.2)
[2018-08-12] MEDS: Metoprolol Tartrate 25 MG Tablet PO SCH (08:32)
[2018-08-12] MEDS: Senna/Docusate Sodium 8.6/50 MG Tablet PO SCH (08:32)
[2018-08-12] MEDS: Polyethylene Glycol 3350 17 GM Packet PO SCH (08:32)
[2018-08-12] MEDS: Famotidine PF Inj 20 MG/2 ML Vial IV.PUSH SCH (08:32)
[2018-08-12] MEDS: Sodium Chloride 0.9% 2 ML Flush BID IV.FLUSH SCH (08:33)
[2018-08-12 08:48] VITALS: O2SAT 96
[2018-08-12 09:06] LABS: Lymphocytes 4 % (9-44); Monocytes 2 % (0-8)
[2018-08-12 09:07] LABS: Platelet Estimate Normal (Normal); Platelet Morphology Normal (Normal); RBC Morphology Normal (Normal)
[2018-08-12 09:14] LABS: Calcium 7.2 mg/dL (8.5-10.1); Carbon Dioxide 20.9 meq/L (21.0-32.0); Magnesium 2.7 mg/dL (1.5-2.5); Phosphorus 4.8 mg/dL (2.5-4.9); Potassium 3.6 meq/L (3.5-5.1); Vancomycin,Random 32.3 Comment
[2018-08-12 09:31] LABS: Total Protein 6.1 g/dL (6.4-8.2)
--- NOTE | 2018-08-12 10:51 | P.DS ---
Date of admission: 08/07/18 21:59 Primary care physician: Radha Mcadams MD Brief History from admission: This is a 47-year-old female with widely metastatic melanoma who presents with a 2-day history of cough, fatigue, fever, chills. She has a chronic indwelling Elena. In the emergency department she was hypotensive and in respiratory distress. She is very altered and obtunded and no information is available from her. Her and son are here and they have expressed that she has wishes to be a DNR CODE STATUS, which we will honor. She has an elevated white blood cell count. She has pyuria with her indwelling Elena catheter. In the emergency department she was given a dose of vancomycin and Zosyn. She has a new large left pleural effusion. After discussion with the family we together feel that it is reasonable to drain this effusion as it may be parapneumonic edema versus metastatic. I placed a pigtail catheter, see separate procedure note for details, and obtained greater than a liter of serous appearing fluid. Review of systems is unobtainable. DS: Summary Hospital Course: Mrs. Vazquez is a 47-year-old female. At baseline she has metastatic melanoma, complications of the stay are related to cancer. She was admitted secondary to shortness of breath. Etiology found to be related to left-sided pleural effusion. Chest tube was placed. At this point family, including patient and , have decided to pursue hospice care. Patient's medically cleared for discharge home once hospice arrangements available. - Time Spent with Patient Total time spent providing and/or coordinating discharge services: Less than 30 minutes - Quality: VTE Deep Vein Thrombosis/Pulmonary Embolism Present on Admission: No Exam Vital signs: Vital Signs 08/11/18 11:00 08/11/18 12:00 08/11/18 13:00 Temperature 99.1 F Pulse Rate 110 H 112 H 115 H Respiratory Rate 16 17 15 Blood Pressure 97/59 L 98/63 L 99/62 L Pulse Oximetry 100 99 98 08/11/18 14:00 08/11/18 15:00 08/11/18 16:00 Temperature Pulse Rate 123 H 121 H 121 H Respiratory Rate 15 16 16 Blood Pressure 101/64 94/59 L 96/59 L Pulse Oximetry 100 99 100 08/11/18 17:00 08/11/18 18:00 08/11/18 20:00 Temperature 99.0 F 97.3 F L Pulse Rate 117 H 125 H 120 H Respiratory Rate 16 17 20 Blood Pressure 97/58 L 141/76 H 118/64 Pulse Oximetry 100 100 99 08/12/18 00:00 08/12/18 04:00 08/12/18 07:30 Temperature 98 F 98.5 F 98.1 F Pulse Rate 113 H 114 H 119 H Respiratory Rate 20 20 20 Blood Pressure 126/59 L 139/62 116/59 L Pulse Oximetry 99 98 97 08/12/18 08:48 Temperature Pulse Rate Respiratory Rate Blood Pressure Pulse Oximetry 96 Intake & Output 08/11/18 08/12/18 08/12/18 18:59 06:59 18:59 Intake Total 690 / 690 290 / 290 100 / 100 Output Total 300 / 300 150 / 150 170 / 170 Balance 390 / 390 140 / 140 -70 / -70 Weight 70.4 kg Intake: IV 450 / 450 200 / 200 100 / 100 Zosyn 4.5 GM Premix 4.5 gm In 200 / 200 200 / 200 100 / 100 100 ml @ 200 mls/hr IV.SIG Q6H ELEANOR Rx#:[id number] Vancomycin Inj 1,000 MG In NS 250 / 250 Inj 250 ML @ 250 mls/hr IV.SIG ONCE ONE Rx#:[id number] Oral 240 / 240 90 / 90 Output: Urine Amount (Catheter) 200 / 200 150 / 150 Indwelling Urethral Catheter 200 / 200 150 / 150 Chest Tube Drainage 100 / 100 170 / 170 #1 Left Upper Pleural 100 / 100 170 / 170 Other: Date of Last Bowel Movement 08/11/18 08/11/18 08/11/18 # Bowel Movements 1 1 Results Procedures completed during hospitalization: Left-sided chest tube placement Labs on day of discharge: Labs from last 24 hours 08/12/18 08/12/18 08/11/18 07:44 07:44 11:29 WBC 10.0 RBC 3.68 L Hgb 10.5 L Hct 32.0 L MCV 86.9 MCH 28.4 MCHC 32.7 RDW 16.6 Plt Count 174 MPV 8.9 Prelim Diff (Auto) Manual diff required Neut % (Auto) Lymph % (Auto) [place] % (Auto) Eos % (Auto) Baso % (Auto) Neut # (Auto) Lymph # (Auto) [place] # (Auto) Eos # (Auto) Baso # (Auto) WBC Differential Manual diff final Seg Neuts % (Manual) 91 H Band Neuts % (Manual) 3 Lymphocytes % (Manual) 4 L Monocytes % (Manual) 2 Abs Neuts (Manual) 9.4 H Differential Comment . Platelet Estimate Normal Platelet Morphology Normal RBC Morphology Normal Sodium 146 H 143 Potassium 3.6 3.1 L Chloride 110 H 106 Carbon Dioxide 20.9 L 18.6 L Anion Gap 15 18 H BUN 48 H 39 H Creatinine 0.92 0.62 Estimated GFR 65 L Greater than 89 Random Glucose 86 98 Calcium 7.2 L* 7.1 L* Prot Corrected Calcium 7.7 L 7.6 L Phosphorus 4.8 3.9 Magnesium 2.7 H 2.5 Total Bilirubin 0.4 AST 36 ALT 9 L Alkaline Phosphatase 63 Total Protein 6.1 L 6.1 L Albumin 1.9 L Random Vancomycin 32.3 20.3 08/11/18 11:29 WBC 9.2 RBC 3.26 L Hgb 9.3 L Hct 28.8 L MCV 88.4 MCH 28.6 MCHC 32.4 RDW 16.6 Plt Count 159 MPV 8.4 Prelim Diff (Auto) Neut % (Auto) 92.9 H Lymph % (Auto) 4.2 L [place] % (Auto) 2.7 Eos % (Auto) 0.0 Baso % (Auto) 0.2 Neut # (Auto) 8.6 H Lymph # (Auto) 0.4 L [place] # (Auto) 0.2 Eos # (Auto) 0.0 Baso # (Auto) 0.0 WBC Differential . Seg Neuts % (Manual) Band Neuts % (Manual) Lymphocytes % (Manual) Monocytes % (Manual) Abs Neuts (Manual) Differential Comment Auto diff final Platelet Estimate Platelet Morphology RBC Morphology Sodium Potassium Chloride Carbon Dioxide Anion Gap BUN Creatinine Estimated GFR Random Glucose Calcium Prot Corrected Calcium Phosphorus Magnesium Total Bilirubin AST ALT Alkaline Phosphatase Total Protein Albumin Random Vancomycin Preliminary micro results at discharge 08/07/18 19:40 Aerobic Blood Culture - Preliminary Blood - Peripheral No growth in 4 days 08/07/18 19:35 Aerobic Blood Culture - Preliminary Blood - Peripheral No growth in 4 days Anaerobic Blood Culture - Preliminary No growth in 4 days - Impressions ITS Impressions Chest CTA 08/07/18 19:02 CONCLUSION: 1. No pulmonary embolus. 2. Moderate to large pleural effusion now present on the left, probably metastatic. There is a large paraspinous and left apical mass now present. 3. Worsening chest wall malignancy. New supraclavicular and right axillary metastatic adenopathy. 4. Metastatic pulmonary nodules modestly worse. 5. Interim upper thoracic laminectomy and fusion; associated metallic streak artifact limits visualization of the spinal canal. Large amount of soft tissue in the laminectomy bed. Mottled metastatic changes of upper thoracic vertebra. Head CT 08/07/18 19:42 CONCLUSION: 1. No acute intracranial abnormality. 2. Specifically, no gross mass or mass effect. . Abdomen/Bladder Ultrasound 08/08/18 22:01 CONCLUSION: 1. The right kidney appears intact and left kidneys not visualized Chest X-Ray 08/11/18 00:00 CONCLUSION: New consolidation involving the left lung base. Discharge Plan - Discharge Disposition Patient Disposition: 50 Hospice/Home - Discharge Condition Condition: Serious - Discharge Order Discharge Orders: Discharge Order (Routine); Ordered 08/12/18 Ordered By: Librado Holt - Discharge Details Anticipated Discharge Date: 08/12/18 Discharge Comment: After hospice arrangements completed - Physicians Team Primary Care Provider: Radha Mcadams Attending Provider: Librado Holt Other Providers: Jameson Lerner MD ; Rafiq Lewis MD ; Lalo Moe MD
== END 2018-08-12 18:47 | disposition hospice, home (50) ==
LOC: NEPE 18:07 → NEDA 21:59 → HIMC 08-08 00:10 → N05 08-11 18:24
PROVIDERS: ADMIT Hospitalist; ATTEND Hospitalist